=== PATIENT | male | born 1960 | race African-American/Black ===

== ENCOUNTER 2018-06-09 09:09 | Emergency (ER) | payer OTHER ==
[~2018-06-09] VITALS: Ht 185.4 cm; Wt 65.9 kg
[~2018-06-09 09:09] MED LIST: ASPI325T25 PO; HYDR25TAB PO
[2018-06-09] MEDS ORDERED: ASPI81TA85 PO (09:14)
[2018-06-09] MEDS ORDERED: KETOROLAC TROMETHAMINE 10 MG TAB PO ONE (09:45)
[2018-06-09] MEDS ORDERED: GABAPENTIN 300 MG CAP PO ONE (09:45)
--- NOTE | 2018-06-09 10:13 | REP ---
Clinical: Pain. Technique: Axial noncontrast images from T12 through mid sacrum with coronal and sagittal re-formations. Findings: The vertebral bodies are intact there is no evidence for acute fracture / compression injury or subluxation. Mild/early moderate multilevel degenerative changes include marginal osteophytes with endplate sclerosis and mild disc space narrowing. Small posterior disc bulges are suggested as well at the L3-4, L4-5, and L5-S1 levels. The neural foramen are patent bilaterally. Chronic sacroiliitis with sclerotic bridging through the bilateral sacroiliac joints is appreciated. Impression: 1. Mild/moderate multilevel degenerative changes including small posterior disc bulges. If the patient remains symptomatic MRI may be warranted for further investigation. 2. No acute fracture / compression injury or subluxation. 3. Chronic sacroiliitis. Electronically Signed by Demetrius Aceves MD 06/09/2018 10:04 A
--- NOTE | 2018-06-09 10:16 | REP ---
Clinical: Nontraumatic hip pain. Technique: Frontal view of the pelvis with neutral and frog lateral views of the right hip. Findings: Osseous structures and joint spaces are intact and there is no acute fracture dislocation. Mild degenerative changes include increased sclerosis to the acetabular roof with minimal joint space narrowing. No periarticular calcifications. Surrounding soft tissues normal. Impression: Mild age-related changes. No acute fracture or dislocation. Electronically Signed by Demetrius Aceves MD 06/09/2018 10:08 A
[2018-06-09] MEDS ORDERED: NORCO, ANEXSIA 5/325MG TABLET (HYDROcodone/ACETAMINOPHEN) PO ONE (10:30)
[2018-06-09] MEDS ORDERED: predniSONE 20 MG TAB PO ONE (10:30)
[2018-06-09 11:00] VITALS: BP 126/79
[2018-06-09] MEDS ORDERED: GABA-843 PO (11:05)
[2018-06-09] MEDS ORDERED: PRED20TA PO (11:05)
== END 2018-06-09 11:16 | disposition home or self-care (01) ==
LOC: M ED 09:09
DX: M51.26 Other intervertebral disc displacement, lumbar region (principal); M51.36 Other intervertebral disc degeneration, lumbar region; R20.9 Unspecified disturbances of skin sensation; I10 Essential (primary) hypertension; F17.200 Nicotine dependence, unspecified, uncomplicated; Z88.0 Allergy status to penicillin; Z79.899 Other long term (current) drug therapy; Z79.82 Long term (current) use of aspirin

== ENCOUNTER → 2018-08-08 | Outpatient (CLI) | payer OTHER ==
[~2018-08-08] MED LIST changes: +ASPI81TA85 PO; +GABA-843 PO; +PRED20TA PO
--- NOTE | 2018-08-08 15:13 | REP ---
Bilateral lower extremity arterial Doppler ultrasound: History: Pain in both legs. Findings: The patient was unable to tolerate the ankle brachial index assessment. Severe atherosclerotic disease is seen bilaterally. Abnormal monophasic waveforms are noted in both lower extremity arteries throughout. There is nonocclusive thrombus in the distal aorta. A very low velocity flow is seen in the distal aorta and left common iliac artery. The right common iliac arteries felt to be occluded and revascularized at the level of the internal iliac artery. Right mid superficial femoral artery is felt to be occluded and distally revascularized. A left profunda stenosis is seen. The proximal SFA on the left is is felt to be occluded. Distal aortic flow velocity is recorded at 32.4 cm/sec. Velocity chart right lower extremity: Right common iliac and external iliac artery are felt to be occluded. Right common femoral artery 30 cm/sec Profunda 51 Proximal SFA occluded Mid SFA occluded Distal SFA 6.9 Popliteal 19 Proximal AT A X 6.5 Tibioperoneal trunk 16 Proximal STAGE DRIVER 19 Distal STAGE DRIVER 8.0 Distal AT A 7.0 Left lower extremity arterial Doppler chart: Left common iliac artery 26 cm/S Left external iliac artery 14.6 CF A 54 Profunda 222 Proximal SFA occluded Mid SFA occluded Distal SFA 45-17 Popliteal 15 Proximal AT A 26 Tibioperoneal trunk 34 Proximal STAGE DRIVER 31 Distal STAGE DRIVER 8.0 Distal AT A 8.0 Electronically Signed by Mikhail Antonio MD 08/08/2018 03:05 P
== END ==
LOC: M RAD 12:29
PROVIDERS: ATTEND Surgery Vascular Surgery
DX: M79.604 Pain in right leg (principal); M79.605 Pain in left leg

== ENCOUNTER → 2018-08-21 | Outpatient (CLI) | payer OTHER ==
[~2018-08-21] MED LIST changes: +ACET300T52 PO; +BRIM1OPD OU; +TIZA4CAP PO; +XALA0.007 OU
[2018-08-21 15:04] LABS: BASO # 0.1 10^3/uL (0.0-0.2); BASO % 0.5 % (0.0-1.0); EOS # 0.2 10^3/uL (0.0-0.50); EOS % 1.6 % (0.0-3.0); HEMATOCRIT 42.3 % (42.0-52.0); HEMOGLOBIN 14.1 g/dl (13.5-17.5); LYMPH # 3.1 10^3/uL (1.5-4.5); LYMPH % 31.5 % (24.0-44.0); MEAN CORPUSCULAR HEMOGLOBIN 29.7 pg (27.0-33.0); MEAN CORPUSCULAR HGB CONC 33.3 g/dl (32.0-36.5); MEAN CORPUSCULAR VOLUME 89.2 fl (80.0-96.0); MONO # 0.6 10^3/uL (0.0-0.8); MONO % 6.5 % (0.0-5.0); NEUTROPHILS # 5.9 10^3/uL (1.8-7.7); NEUTROPHILS % 59.7 % (36.0-66.0); PLATELET COUNT, AUTOMATED 634 10^3/uL (150-450); RED BLOOD COUNT 4.74 10^6/uL (4.30-6.10); WHITE BLOOD COUNT 9.9 10^3/uL (4.0-10.0)
[2018-08-21 15:18] LABS: BLOOD UREA NITROGEN 20 MG/DL (7-18); CALCIUM LEVEL 9.6 MG/DL (8.5-10.1); CARBON DIOXIDE LEVEL 31 MEQ/L (21-32); CHLORIDE LEVEL 98 MEQ/L (98-107); CREATININE FOR GFR 1.26 MG/DL (0.70-1.30); GLOMERULAR FILTRATION RATE > 60.0 (>56); GLUCOSE, FASTING 97 MG/DL (70-100); POTASSIUM SERUM 4.3 MEQ/L (3.5-5.1); SODIUM LEVEL 137 MEQ/L (136-145)
== END ==
LOC: M LAB 13:57
PROVIDERS: ATTEND Surgery Vascular Surgery
DX: I70.213 Atherosclerosis of native arteries of extremities with intermittent claudication, bilateral legs (principal); I70.261 Atherosclerosis of native arteries of extremities with gangrene, right leg

== ENCOUNTER 2018-08-26 06:52 | Inpatient (IN) | payer OTHER ==
[2018-08-26] VITALS (7 sets, daily range): BP systolic 130–169; BP diastolic 60–91
[~2018-08-26] VITALS: Ht 185.4 cm; Wt 67.0 kg
[~2018-08-26 06:52] MED LIST changes: -ACET300T52 PO; -BRIM1OPD OU; +HEPARIN 1,000 UNITS/ML 10ML VIAL (FOR RADIOLOGY& DIALYSIS ONLY) As Ordered ONE; +ISOVUE-300 61% 50ML VIAL (Q9967) As Ordered ONE; +LIDOCAINE 2% MDV 20 ML VIAL As Ordered ONE; +MIDAZOLAM INJ 2 MG/2 ML VIAL (J2250) As Ordered ONE; -TIZA4CAP PO; -XALA0.007 OU; +fentaNYL 100 MCG/2 ML INJECTION (J3010) As Ordered ONE
[2018-08-26] MEDS: PANTOPRAZOLE 40MG TAB (PROTONIX) PO SCH (09:00)
[2018-08-26] MEDS: D5W/0.45% SODIUM CHLORIDE 1,000 ML IV SCH ×2 (12:30→22:51)
[2018-08-26 13:03] LABS: BASO # 0.1 10^3/uL (0.0-0.2); BASO % 0.7 % (0.0-1.0); EOS # 0.2 10^3/uL (0.0-0.50); EOS % 2.6 % (0.0-3.0); HEMATOCRIT 38.9 % (42.0-52.0); HEMOGLOBIN 12.7 g/dl (13.5-17.5); LYMPH # 3.3 10^3/uL (1.5-4.5); LYMPH % 45.2 % (24.0-44.0); MEAN CORPUSCULAR HEMOGLOBIN 28.9 pg (27.0-33.0); MEAN CORPUSCULAR HGB CONC 32.6 g/dl (32.0-36.5); MEAN CORPUSCULAR VOLUME 88.6 fl (80.0-96.0); MONO # 0.5 10^3/uL (0.0-0.8); MONO % 6.9 % (0.0-5.0); NEUTROPHILS # 3.3 10^3/uL (1.8-7.7); NEUTROPHILS % 44.3 % (36.0-66.0); PLATELET COUNT, AUTOMATED 520 10^3/uL (150-450); RED BLOOD COUNT 4.39 10^6/uL (4.30-6.10); WHITE BLOOD COUNT 7.3 10^3/uL (4.0-10.0)
[2018-08-26] MEDS ORDERED: TIZA4CAP PO (13:12)
[2018-08-26] MEDS ORDERED: ACET300T52 PO (13:12)
[2018-08-26] MEDS ORDERED: HYDR25TAB PO (13:14)
[2018-08-26] MEDS ORDERED: XALA0.007 OU (13:14)
[2018-08-26] MEDS ORDERED: BRIM1OPD OU (13:14)
[2018-08-26 13:18] LABS: INR 1.16
[2018-08-26 13:19] LABS: PARTIAL THROMBOPLASTIN TIME 39.7 SECONDS (25.4-37.6)
[2018-08-26 13:33] LABS: ALBUMIN 3.5 GM/DL (3.2-5.2); ALT/SGPT 26 U/L (12-78); BILIRUBIN,DIRECT 0.1 MG/DL (0.0-0.2); BILIRUBIN,TOTAL 0.3 MG/DL (0.2-1.0); BLOOD UREA NITROGEN 14 MG/DL (7-18); CALCIUM LEVEL 9.4 MG/DL (8.5-10.1); CARBON DIOXIDE LEVEL 30 MEQ/L (21-32); CHLORIDE LEVEL 101 MEQ/L (98-107); CREATININE FOR GFR 1.17 MG/DL (0.70-1.30); GLOMERULAR FILTRATION RATE > 60.0 (>56); GLUCOSE, FASTING 106 MG/DL (70-100); POTASSIUM SERUM 3.5 MEQ/L (3.5-5.1); SODIUM LEVEL 138 MEQ/L (136-145); TOTAL PROTEIN 6.9 GM/DL (6.4-8.2)
[2018-08-26] MEDS: NORCO, ANEXSIA 5/325MG TABLET (HYDROcodone/ACETAMINOPHEN) PO PRN (14:22)
--- NOTE | 2018-08-26 14:27 | REP ---
At x-ray: Three views. History: Preop. No comparison study. Findings: The lungs are symmetrically aerated and free of infiltrate. Pleural angles are sharp. Heart is not enlarged. The aorta somewhat tortuous. Pulmonary vasculature is not increased. No significant bony abnormality is seen. Impression: Tortuous thoracic aorta. Otherwise no acute disease. Electronically Signed by Mikhail Antonio MD 08/26/2018 02:18 P
[2018-08-26] MEDS ORDERED: BUPIVACAINE HCL 0.25% 30 ML VIAL As Ordered ONE (17:35)
[2018-08-26] MEDS ORDERED: LIDOCAINE 1% SDV INJ 30 ML VIAL As Ordered ONE ×2 (17:35→19:15)
[2018-08-26] MEDS ORDERED: HEPARIN SOD (PORCINE) 5000 UNITS/ML VIAL As Ordered ONE ×2 (17:35→19:43)
[2018-08-26] MEDS ORDERED: THROMBIN SOLN 20,000 UNITS KIT As Ordered ONE ×2 (17:35→20:23)
[2018-08-26] MEDS ORDERED: PROTAMINE SULF INJ 50 MG/5 ML VIAL (J2720) As Ordered ONE ×2 (17:35→21:19)
[2018-08-26] MEDS ORDERED: THROMBIN SOLN 5,000 UNITS VIAL As Ordered ONE (17:48)
[2018-08-26] MEDS ORDERED: PROPOFOL 200 MG/20 ML VIAL As Ordered ONE ×4 (18:42→21:11)
[2018-08-26] MEDS ORDERED: MIDAZOLAM INJ 2 MG/2 ML VIAL (J2250) As Ordered ONE (18:42)
[2018-08-26] MEDS ORDERED: fentaNYL 250 MCG/5 ML INJECTION (J3010) As Ordered ONE (18:42)
[2018-08-26] MEDS ORDERED: LIDOCAINE 2% INJ 100 MG/5 ML SDV (FOR ANES.) As Ordered ONE (18:42)
[2018-08-26] MEDS ORDERED: CLINDAMYCIN 900 MG/50 ML PREMIX BAG As Ordered ONE (18:49)
[2018-08-26] MEDS ORDERED: ROCURONIUM BROMIDE 50 MG/5 ML VIAL As Ordered ONE (18:52)
--- NOTE | 2018-08-26 18:53 | HPEPDOC ---
General Date of Admission Aug 26, 2018 at 06:53 Attending Physician: Yanick Sanchez MD Chief Complaint The patient is a 58-year-old male admitted with a reason for visit of Sfa Occlusion. Source: Patient, Old records Exam Limitations: No limitations Severity: Severe History of Present Illness Patient is a 58-year-old male with bilateral lower extremity claudication with the right being more symptomatic than the left. Patient underwent ultrasound which showed bilateral superficial femoral arterial occlusion. Patient states t hat the pain in the right lower extremity has been worsening and is at a point where he feels it is unbearable. 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 Patient also had left external and common iliac artery angioplasty and stenting. Patient continues to smoke tobacco. Home Medications Scheduled Aspirin (Aspir-81) 81 Mg Tab, 81 MG PO DAILY, (Reported) Brimonidine Tartrate 0.1% (Alphagan P) 100 Drop/5 Ml Soln, 1 DROP OU DAILY, (Reported) Hydrochlorothiazide (Hydrochlorothiazide) 25 Mg Tab, 25 MG PO DAILY, (Reported) Latanoprost (Xalatan) 0.005 % Roopa, 1 DROP OU DAILY, (Reported) Scheduled PRN (Acetaminophen/Codeine #4 300-60 mg) 1 Tab Tab, 1 TAB PO Q4H PRN for PAIN, (Reported) Tizanidine Hydrochloride (Tizanidine HCl) 4 Mg Cap, 4 MG PO TID PRN for MUSCLE SPASMS, (Reported) Allergies Coded Allergies: Penicillins (Verified Allergy, Unknown, 08/26/18) PT STATES UNKNOWN REACTION Past Medical History Medical History Hypertension and tobacco use Surgical History Back surgery Review of Systems Constitutional: Denies: Chills, Fever, Malaise, Night Sweats, Weakness, Fatigue, Weight Loss, Lethargy Eyes: Denies: Pain, Vision change, Conjunctivae inflammation, Eyelid inf lammation, Redness ENT: Denies: Head Aches, Ear Pain, Dysphagia, Sinus Congestion, Post Nasal Drip, Sore Throat, Epistaxis Skin: Denies: Rash, Lesions, Jaundice, Bruising, Itching, Dry, Breakdown, Nail Changes Pulmonary: Denies: Dyspnea, Cough, Pleuritic Chest Pain Cardiovascular: Denies: Chest Pain, Palpitations, Orthopnea, Paroxysmal Noc. Dyspnea, Edema, Lt Headedness Gastrointestinal: Denies: Nausea, Vomiting, Abdominal Pain, Diarrhea, Constipation, Melena, Hematochezia Genitourinary: Denies: Dysuria, Frequency, Incontinence, Hematuria, Retention Hematologic: Denies: Bruising, Bleeding Excessively, Petecchia, Purpura, Enlarged Lymph Nodes Endocrine: Denies: Polydipsia, Polyphagia, Polyuria, Heat Intolerance, Cold Intolerance Musculoskeletal: Denies: Neck Pain, Back Pain, Shoulder Pain, Arm Pain, Hand Pain, Leg Pain, Foot Pain, Joint Pain, Muscle Pain, Spasms Neurological: Denies: Weakness, Numbness, Incoordination, Change in speech, Confusion, Seizures Psych: Reports: Mood Normal; Denies: Anxiety, Depression, Memory Issues, Thoughts of Self Harm, Anger, Thoughts of Harming Other Physical Examination General Exam: Positive: Alert, Cooperative, Mild Distress Eye Exam: Positive: PERRLA, Conjunctiva & lids normal, EOMI ENT Exam: Positive: Atraumatic, Mucous membr. moist/pink, Pharynx Normal, Tongue Midline, Nares Patent, Ext Auditory Canal Nml, Pinna Normal Neck Exam: Positive: Supple, +2 carotid pulse wo bruit; Negative: JVD, thyromegaly, Lymphadenopathy Chest Exam: Positive: Clear to auscultation, Normal air movement; Negative: Rales, Rhonchi, Wheezing, Diminished Heart Exam: Positive: Rate Normal, Irregular Rhythm; Negative: Regular Rhythm, Gallops, Murmurs, Rubs Telemetry: Positive: PACs Abdomen Exam: Positive: Normal bowel sounds; Negative: BS Hyperactive, BS Hypoactive, Soft, Tenderness, Hepatospenomegaly, Mass, Hernia Skin Exam: Positive: Nl turgor and temperature, Other skin issue; Negative: Rash, Breakdown, Lesion, Pruritus Neuro Exam: Positive: Normal Gait, Normal Speech, Strength at 5/5 X4 ext, Normal Tone, Sensation Intact, Cranial Nerves 3-12 NL, Reflexes 2+ Psych Exam: Positive: Mental status NL, Mood NL, Memory Intact, Oriented x 3; Negative: Anxiety Vital Signs Vital Signs Date Time Temp Pulse Resp B/P (MAP) Pulse Ox O2 Delivery O2 Flow Rate FiO2 08/26/18 18:00 98.3 78 20 145/63 (90) 100 08/26/18 13:55 Room Air Laboratory Data Labs 24H Laboratory Tests 2 08/26/18 12:43: Immature Granulocyte % (Auto) 0.3, White Blood Count 7.3, Red Blood Count 4.39, Hemoglobin 12.7L, Hematocrit 38.9L, Mean Corpuscular Volume 88.6, Mean Corpuscular Hemoglobin 28.9, Mean Corpuscular Hemoglobin Concent 32.6, Red Cell Distribution Width 13.4, Platelet Count 520H, Neutrophils (%) (Auto) 44.3, Lymphocytes (%) (Auto) 45.2H, Monocytes (%) (Auto) 6.9H, Eosinophils (%) (Auto) 2.6, Basophils (%) (Auto) 0.7, Neutrophils # (Auto) 3.3, Lymphocytes # (Auto) 3.3, Monocytes # (Auto) 0.5, Eosinophils # (Auto) 0.2, Basophils # (Auto) 0.1, Nucleated Red Blood Cells % (auto) 0.0, Prothrombin Time 15.0H, Prothromb Time International Ratio 1.16, Activated Partial Thromboplast Time 39.7H, Anion Gap 7L, Glomerular Filtration Rate > 60.0, Calcium Level 9.4, Aspartate Amino Transf (AST/SGOT) 12, Alanine Aminotransferase (ALT/SGPT) 26, Alkaline Phosphatase 97, Total Bilirubin 0.3, Direct Bilirubin 0.1, Total Protein 6.9, Albumin 3.5, Albumin/Globulin Ratio 1.03 CBC/BMP Laboratory Tests 08/26/18 12:43 Red Blood Count 4.39, Mean Corpuscular Volume 88.6, Mean Corpuscular Hemoglobin 28.9, Mean Corpuscular Hemoglobin Concent 32.6, Red Cell Distribution Width 13.4, Neutrophils (%) (Auto) 44.3, Lymphocytes (%) (Auto) 45.2 H, Monocytes (%) (Auto) 6.9 H, Eosinophils (%) (Auto) 2.6, Basophils (%) (Auto) 0.7, Neutrophils # (Auto) 3.3, Lymphocytes # (Auto) 3.3, Monocytes # (Auto) 0.5, Eosinophils # (Auto) 0.2, Basophils # (Auto) 0.1 Assessment/Plan Assessment Patient is a 58-year-old male with 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 Plan Patient will undergo a left to right femoral femoral bypass graft for reperfusion of his right lower extremity. Yanick Sanchez MD Aug 26, 2018 18:53
[2018-08-26] MEDS ORDERED: BUPIVACAINE HCL 0.5% 30 ML VIAL As Ordered ONE (19:15)
[2018-08-26] MEDS ORDERED: ESMOLOL INJ 100MG/10ML VIAL As Ordered ONE (19:53)
[2018-08-26] MEDS: PERCOCET 5MG/325MG TAB PO PRN ×2 (20:26→21:55)
[2018-08-26] MEDS: fentaNYL 100 MCG/2 ML INJECTION (J3010) IV PRN ×3 (21:55→22:05)
[2018-08-26] MEDS ORDERED: fentaNYL 100 MCG/2 ML INJECTION (J3010) As Ordered ONE (21:56)
[2018-08-26] MEDS ORDERED: PERCOCET 5MG/325MG TAB As Ordered ONE (21:56)
[2018-08-26] MEDS ORDERED: LR 1,000 ML IV SCH (22:00)
[2018-08-26] MEDS ORDERED: ONDANSETRON 4MG/2ML VIAL (J2405) IV PRN (22:00)
[2018-08-26] MEDS ORDERED: METOPROLOL TART 25 MG TABLET PO ONE (23:30)
[2018-08-27] VITALS (16 sets, daily range): BP systolic 112–167; BP diastolic 72–91
[2018-08-27] MEDS: NORCO, ANEXSIA 5/325MG TABLET (HYDROcodone/ACETAMINOPHEN) PO PRN ×4 (00:37→16:40)
[2018-08-27] MEDS ORDERED: METOPROLOL TART 50 MG TAB PO ONE ×2 (01:00→18:15)
[2018-08-27 04:56] LABS: HEMATOCRIT 30.7 % (42.0-52.0); MEAN CORPUSCULAR HEMOGLOBIN 29.7 pg (27.0-33.0); MEAN CORPUSCULAR HGB CONC 33.6 g/dl (32.0-36.5); MEAN CORPUSCULAR VOLUME 88.5 fl (80.0-96.0); PLATELET COUNT, AUTOMATED 504 10^3/uL (150-450); RED BLOOD COUNT 3.47 10^6/uL (4.30-6.10); WHITE BLOOD COUNT 15.8 10^3/uL (4.0-10.0)
[2018-08-27 05:04] LABS: HEMOGLOBIN 10.3 g/dl (13.5-17.5)
[2018-08-27 05:16] LABS: BLOOD UREA NITROGEN 9 MG/DL (7-18); CALCIUM LEVEL 8.2 MG/DL (8.5-10.1); CARBON DIOXIDE LEVEL 30 MEQ/L (21-32); CHLORIDE LEVEL 100 MEQ/L (98-107); CREATININE FOR GFR 1.01 MG/DL (0.70-1.30); GLOMERULAR FILTRATION RATE > 60.0 (>56); GLUCOSE, FASTING 146 MG/DL (70-100); POTASSIUM SERUM 3.5 MEQ/L (3.5-5.1); SODIUM LEVEL 136 MEQ/L (136-145)
[2018-08-27] MEDS: D5W/0.45% SODIUM CHLORIDE 1,000 ML IV SCH (05:51)
--- NOTE | 2018-08-27 07:54 | ECHO ---
DATE OF PROCEDURE: 08/26/2018 REFERRING PHYSICIAN: Yanick Sanchez. INDICATION: Abnormal ECG. HEIGHT: 185 cm. WEIGHT: 67 kg. DIMENSIONS: IVS: 1.1 LV: 4.4 LVPW: 1.0 LA: 2.9 Aorta: 3.4 IVC: 0.9 Mitral E wave velocity: 50 A wave: 67 E prime septal: 7.5 E prime lateral: 9.0 FINDINGS: The study is of acceptable technical quality. The patient is in sinus rhythm with frequent atrial ectopy. Left ventricle is normal size. There appears to be borderline left ventricular systolic dysfunction, I estimate LVEF around 50%. No segmental wall motion abnormalities are appreciated. Right ventricle appears to be normal size and systolic function. Both atria appear normal. Aortic valve has three leaflets. It is mildly sclerotic but mobility of leaflets is preserved. There are also mild degenerative abnormalities of mitral valve. Tricuspid and pulmonic valves appear normal. No pericardial effusion is noted. Inferior vena cava is of relatively small caliber and appropriately collapses respiration indicative of low or normal central venous pressure. Aortic root and aortic arch appear normal. Abdominal aorta also appears normal. Doppler interrogation of aortic valve reveals no stenosis and mild insufficiency. There is mild mitral insufficiency and mild tricuspid insufficiency. Calculated pulmonary artery pressure was within normal limits. Trace pulmonic insufficiency is also seen. Mitral inflow pattern and tissue Doppler imaging of mitral annulus reveal grade 1 diastolic dysfunction. CONCLUSIONS: 1. Study is of acceptable technical quality. 2. Normal LV size with low normal or borderline reduced left ventricular systolic function with estimated LVEF approximately 50%. Grade 1 diastolic dysfunction. 3. Mild aortic insufficiency. 4. Mild mitral and tricuspid insufficiency. 5. Normal or low central venous pressure and normal pulmonary artery pressure. COMMENT: SBE prophylaxis is not recommended. MTDD
[2018-08-27] MEDS: ASPIRIN 81 MG ENTERIC TAB PO SCH (08:50)
[2018-08-27] MEDS: PANTOPRAZOLE 40MG TAB (PROTONIX) PO SCH (08:50)
[2018-08-27] MEDS: hydroCHLOROthiazide 25 MG TAB PO SCH (08:51)
[2018-08-27] MEDS: BRIMONIDINE 0.1% OPHTH SOLN 5 ML OU SCH (13:10)
[2018-08-27] MEDS: LATANOPROST 0.005% OPHTH SOLN 2.5 ML OU SCH (13:10)
[2018-08-27] MEDS: tiZANidine 4 MG TAB PO PRN (18:19)
--- NOTE | 2018-08-27 19:40 | IPNPDOC ---
Subjective General Date/Time Seen The patient was seen on 08/27/18 at 19:39. Subject Chief Complaint/History The patient is a 58-year-old male admitted with a reason for visit of Sfa Occlusion. Current Medications Current Medications Current Medications Acetaminophen/ Hydrocodone Bitart ([place], Anexsia 5/325) 1 tab Q4HP PRN PO MODERATE PAIN (PS 5-7) Last administered on 08/27/18 16:40; Start 08/26/18 at 12:30 Aspirin (Ecotrin) 81 mg DAILY PO Last administered on 08/27/18 08:50; Start 08/27/18 at 09:00 Brimonidine Tartrate (Alphagan P 0.1%) 1 drop DAILY@1200 OU Last administered on 08/27/18 13:10; Start 08/27/18 at 12:00 Dextrose/Sodium Chloride 1,000 ml @ 125 mls/hr Q8H IV Last administered on 08/27/18 05:51; Start 08/26/18 at 12:30; Stop 08/27/18 at 13:07; Status DC Fentanyl Citrate (Sublimaze) 25 mcg Q5MP PRN IV MODERATE PAIN (PS 4-7) Last administered on 08/26/18 22:05; Start 08/26/18 at 22:00; Stop 08/26/18 at 23:00; Status DC Home Med (Med Rec Complete!) ASDIRECTED XX ; Start 08/26/18 at 13:30; Stop 08/26/18 at 13:30; Status DC Hydrochlorothiazide (Hydrodiuril) 25 mg DAILY PO Last administered on 08/27/18 08:51; Start 08/27/18 at 09:00 Lactated Ringer's 1,000 ml @ 80 mls/hr [id number] IV ; Start 08/26/18 at 22:00; Stop 08/26/18 at 23:00; Status DC Latanoprost (Xalatan 0.005% Op Soln) 1 drop DAILY@1200 OU Last administered on 08/27/18 13:10; Start 08/27/18 at 12:00 Ondansetron HCl (ZOFRAN INJection) 4 mg Q4HP PRN IV NAUSEA OR VOMITING; Start 08/26/18 at 22:00; Stop 08/26/18 at 23:00; Status DC Oxycodone/ Acetaminophen (Percocet 5mg/ 325mg Tablet) 1 tab ASDIRECTED PRN PO MILD/MODERATE PAIN (PS 1-7) Last administered on 08/26/18at 20:26; Start 08/26/18 at 22:00; Stop 08/26/18 at 22:36; Status DC Pantoprazole Sodium (Protonix) 40 mg DAILY PO Last administered on 08/27/18at 08:50; Start 08/26/18 at 09:00 Tizanidine HCl (Zanaflex) 4 mg TIDP PRN PO MUSCLE SPASMS Last administered on 08/27/18at 18:19; Start 08/26/18 at 21:45 Allergies Coded Allergies: Penicillins (Verified Allergy, Unknown, 08/26/18) PT STATES UNKNOWN REACTION VITAL SIGNS VITAL SIGNS Vital Signs Date Time Temp Pulse Resp B/P (MAP) Pulse Ox O2 Delivery O2 Flow Rate FiO2 08/27/18 18:14 122 116/78 08/27/18 17:33 138 22 116/78 (91) 99 Room Air 08/27/18 17:10 22 08/27/18 16:40 24 132/87 97 08/27/18 16:00 99.2 106 20 142/89 (106) 99 Room Air 08/27/18 15:00 105 126/84 (98) 100 Room Air 08/27/18 14:00 106 124/83 (97) 100 Room Air 08/27/18 13:00 97 112/72 (85) 100 Room Air 08/27/18 12:00 99.1 101 20 124/82 (96) 100 Room Air 08/27/18 11:00 97 167/91 (116) 100 Room Air 08/27/18 10:00 94 114/89 (97) 98 Room Air 08/27/18 09:00 89 122/87 (99) 97 Room Air 08/27/18 08:54 86 20 121/82 97 08/27/18 08:00 99.7 85 20 116/76 (89) 100 Room Air 08/27/18 07:00 81 117/85 (96) 99 Room Air 08/27/18 06:00 98.0 70 16 116/78 (91) 98 08/27/18 04:26 18 08/27/18 04:00 98.3 82 20 114/85 (95) 100 08/27/18 04:00 98.3 82 20 114/85 (95) 100 08/27/18 02:00 99.1 88 20 129/86 (100) 100 08/27/18 00:54 166 160/75 08/27/18 00:37 18 08/27/18 00:00 97.5 73 18 160/75 (103) 99 08/26/18 23:35 150 160/85 08/26/18 23:30 97.5 73 18 169/85 (113) 99 08/26/18 23:00 97.8 70 16 158/80 (106) 98 08/26/18 22:15 98.3 96 18 145/92 (109) 98 08/26/18 22:10 94 18 137/80 (99) 97 08/26/18 22:05 97 18 140/105 (117) 97 08/26/18 22:05 97.6 94 18 137/80 97 08/26/18 22:00 107 18 136/97 (110) 98 08/26/18 22:00 97.6 94 18 137/80 97 08/26/18 21:55 103 18 128/75 (92) 98 08/26/18 21:55 18 97 08/26/18 21:55 97.6 94 18 137/80 97 08/26/18 21:50 99 18 131/92 (105) 98 08/26/18 21:45 101 18 133/80 (97) 100 08/26/18 21:44 97.6 107 18 138/85 (102) 99 08/26/18 20:26 98.3 96 18 145/92 98 Intake & Output 08/27/18 06:00 Intake Total 2000 ml Output Total 1840 ml Balance 160 ml Laboratory Tests 08/27/18 04:06: White Blood Count 15.8H, Red Blood Count 3.47L, Hemoglobin 10.3#L, Hematocrit 30.7L, Mean Corpuscular Volume 88.5, Mean Corpuscular Hemoglobin 29.7, Mean Corpuscular Hemoglobin Concent 33.6, Red Cell Distribution Width 13.5, Platelet Count 504H, Nucleated Red Blood Cells % (auto) 0.0, Blood Urea Nitrogen 9, Creatinine 1.01, Sodium Level 136, Potassium Level 3.5, Chloride Level 100, Carbon Dioxide Level 30, Calcium Level 8.2L, Anion Gap 6L, Glomerular Filtration Rate > 60.0, Fasting Glucose 146H Current Medications Medications (Trade) Dose Ordered Sig/Anastacio Route PRN Reason Start Time Stop Time Status Last Admin Dose Admin Acetaminophen/ Hydrocodone Bitart ([place], Anexsia 5/325) 1 tab Q4HP PRN PO MODERATE PAIN (PS 5-7) 08/26/18 12:30 08/27/18 16:40 Aspirin (Ecotrin) 81 mg DAILY PO 08/27/18 09:00 08/27/18 08:50 Brimonidine Tartrate (Alphagan P 0.1%) 1 drop DAILY@1200 OU 08/27/18 12:00 08/27/18 13:10 Hydrochlorothiazide (Hydrodiuril) 25 mg DAILY PO 08/27/18 09:00 08/27/18 08:51 Latanoprost (Xalatan 0.005% Op Soln) 1 drop DAILY@1200 OU 08/27/18 12:00 08/27/18 13:10 Pantoprazole Sodium (Protonix) 40 mg DAILY PO 08/26/18 09:00 08/27/18 08:50 Tizanidine HCl (Zanaflex) 4 mg TIDP PRN PO MUSCLE SPASMS 08/26/18 21:45 08/27/18 18:19 Laboratory Tests 08/26/18 12:43 Red Blood Count 4.39, Mean Corpuscular Volume 88.6, Mean Corpuscular Hemoglobin 28.9, Mean Corpuscular Hemoglobin Concent 32.6, Red Cell Distribution Width 13.4, Neutrophils (%) (Auto) 44.3, Lymphocytes (%) (Auto) 45.2 H, Monocytes (%) (Auto) 6.9 H, Eosinophils (%) (Auto) 2.6, Basophils (%) (Auto) 0.7, Neutrophils # (Auto) 3.3, Lymphocytes # (Auto) 3.3, Monocytes # (Auto) 0.5, Eosinophils # (Auto) 0.2, Basophils # (Auto) 0.1 08/27/18 04:06 Red Blood Count 3.47 L, Mean Corpuscular Volume 88.5, Mean Corpuscular Hemoglobin 29.7, Mean Corpuscular Hemoglobin Concent 33.6, Red Cell Distribution Width 13.5, Calcium Level 8.2 L Objective Physical Examination General Exam: Positive: Alert, Cooperative, Mild Distress Eye Exam: Positive: PERRLA, Conjunctiva & lids normal, EOMI ENT Exam: Positive: Atraumatic, Mucous membr. moist/pink, Pharynx Normal, Tongue Midline, Nares Patent, Ext Auditory Canal Nml, Pinna Normal Neck Exam: Positive: Supple, +2 carotid pulse wo bruit; Negative: JVD, thyromegaly, Lymphadenopathy Chest Exam: Positive: Clear to auscultation, Normal air movement; Negative: Rales, Rhonchi, Wheezing, Diminished Heart Exam: Positive: Rate Normal, Irregular Rhythm; Negative: Regular Rhythm, Gallops, Murmurs, Rubs Telemetry: Positive: PACs Abdomen Exam: Positive: Normal bowel sounds; Negative: BS Hyperactive, BS Hypoactive, Soft, Tenderness, Hepatospenomegaly, Mass, Hernia Skin Exam: Positive: Nl turgor and temperature, Other skin issue; Negative: Rash, Breakdown, Lesion, Pruritus Neuro Exam: Positive: Normal Gait, Normal Speech, Strength at 5/5 X4 ext, Normal Tone, Sensation Intact, Cranial Nerves 3-12 NL, Reflexes 2+ Psych Exam: Positive: Mental status NL, Mood NL, Memory Intact, Oriented x 3; Negative: Anxiety Yanick Sanchez MD Aug 27, 2018 19:39
[2018-08-28] VITALS (8 sets, daily range): BP systolic 82–142; BP diastolic 50–98
[2018-08-28] MEDS: NORCO, ANEXSIA 5/325MG TABLET (HYDROcodone/ACETAMINOPHEN) PO PRN ×6 (00:30→22:23)
--- NOTE | 2018-08-28 00:40 | ECGEPIP ---
Stationary ECG Study [facility] Test Date: 2018-08-26 Pat Name: HILLARY ROWAN Department: Room: L0007-02 Gender: M Plaster Maker: CLIFFORD : 1960 Requested By: Yanick Gutierrez Order Number: [id number] Reading MD: Les Bueno Measurements Intervals [place] Rate: 94 P: 87 [place]: 149 QRS: 80 QRSD: 102 T: 68 QT: 353 QTc: 444 Interpretive Statements SINUS RHYTHM WITH FREQUENT SUPRAVENTRICULAR PREMATURE COMPLEXES VOLTAGE CRITERIA FOR LVH LAST TRACING ON 01/23/2018 AT 6:21:15 A.M., NO PACS WERE NOTED Electronically Signed On 08-28-2018 0:40:30 EDT by Les Bueno
--- NOTE | 2018-08-28 00:53 | ECGEPIP ---
Stationary ECG Study [facility] Test Date: 2018-08-27 Pat Name: HILLARY ROWAN Department: Room: [place] [address] Gender: M Medicaid Nurse: SHERYL : 1960 Requested By: Yanick Gutierrez Order Number: [id number] Reading MD: Les Bueno Measurements Intervals [place] Rate: 94 P: 73 [place]: 157 QRS: 73 QRSD: 102 T: 74 QT: 356 QTc: 446 Interpretive Statements SINUS RHYTHM WITH OCCASIONAL SUPRAVENTRICULAR PREMATURE COMPLEXES MODERATE VOLTAGE CRITERIA FOR LVH, CONSIDER NORMAL VARIANT PRIOR TRACING ON 08/26/2018 AT 2:36:00 A.M., NO REMARKABLE CHANGES Electronically Signed On 08-28-2018 0:53:41 EDT by Les Bueno
[2018-08-28] MEDS: tiZANidine 4 MG TAB PO PRN ×3 (04:29→22:21)
[2018-08-28] MEDS: hydroCHLOROthiazide 25 MG TAB PO SCH (09:01)
[2018-08-28] MEDS: PANTOPRAZOLE 40MG TAB (PROTONIX) PO SCH (09:01)
[2018-08-28] MEDS: ASPIRIN 81 MG ENTERIC TAB PO SCH (09:02)
[2018-08-28] MEDS: BRIMONIDINE 0.1% OPHTH SOLN 5 ML OU SCH (12:06)
[2018-08-28] MEDS: LATANOPROST 0.005% OPHTH SOLN 2.5 ML OU SCH (12:06)
[2018-08-28] MEDS ORDERED: ATENOLOL 25 MG TAB PO ONE (13:00)
[2018-08-28] MEDS: APIXABAN 5 MG TAB (ELIQUIS) PO SCH ×2 (13:12→20:15)
[2018-08-28] MEDS: NICOTINE 7 MG/24 HR TRANSDERMAL TD SCH (13:12)
[2018-08-28] MEDS ORDERED: MOM 30ML SUSPENSION UDC PO PRN (14:45)
[2018-08-28] MEDS: SENOKOT S TAB PO SCH ×2 (14:59→19:42)
[2018-08-29] VITALS (11 sets, daily range): BP systolic 76–136; BP diastolic 50–87
[2018-08-29 05:06] LABS: BASO # 0.1 10^3/uL (0.0-0.2); BASO % 0.6 % (0.0-1.0); EOS # 0.5 10^3/uL (0.0-0.50); EOS % 4.2 % (0.0-3.0); HEMATOCRIT 27.2 % (42.0-52.0); HEMOGLOBIN 9.1 g/dl (13.5-17.5); LYMPH # 2.7 10^3/uL (1.5-4.5); LYMPH % 25.2 % (24.0-44.0); MEAN CORPUSCULAR HGB CONC 33.5 g/dl (32.0-36.5); MEAN CORPUSCULAR VOLUME 89.8 fl (80.0-96.0); MONO # 1.2 10^3/uL (0.0-0.8); MONO % 11.1 % (0.0-5.0); NEUTROPHILS # 6.2 10^3/uL (1.8-7.7); NEUTROPHILS % 58.4 % (36.0-66.0); PLATELET COUNT, AUTOMATED 485 10^3/uL (150-450); RED BLOOD COUNT 3.03 10^6/uL (4.30-6.10); WHITE BLOOD COUNT 10.6 10^3/uL (4.0-10.0)
[2018-08-29 05:24] LABS: BLOOD UREA NITROGEN 10 MG/DL (7-18); CALCIUM LEVEL 8.8 MG/DL (8.5-10.1); CARBON DIOXIDE LEVEL 33 MEQ/L (21-32); CHLORIDE LEVEL 97 MEQ/L (98-107); CREATININE FOR GFR 1.05 MG/DL (0.70-1.30); GLOMERULAR FILTRATION RATE > 60.0 (>56); GLUCOSE, FASTING 112 MG/DL (70-100); POTASSIUM SERUM 3.4 MEQ/L (3.5-5.1); SODIUM LEVEL 136 MEQ/L (136-145)
[2018-08-29] MEDS: NORCO, ANEXSIA 5/325MG TABLET (HYDROcodone/ACETAMINOPHEN) PO PRN ×4 (05:25→23:11)
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
[2018-08-29] MEDS: APIXABAN 5 MG TAB (ELIQUIS) PO SCH ×2 (08:36→20:00)
[2018-08-29] MEDS: hydroCHLOROthiazide 25 MG TAB PO SCH (08:37)
[2018-08-29] MEDS: SENOKOT S TAB PO SCH ×2 (08:37→20:00)
[2018-08-29] MEDS: tiZANidine 4 MG TAB PO PRN ×2 (08:37→16:50)
[2018-08-29] MEDS: PANTOPRAZOLE 40MG TAB (PROTONIX) PO SCH (08:37)
[2018-08-29] MEDS: ASPIRIN 81 MG ENTERIC TAB PO SCH (08:38)
[2018-08-29] MEDS: NICOTINE 7 MG/24 HR TRANSDERMAL TD SCH (08:38)
[2018-08-29] MEDS ORDERED: ATENOLOL 25 MG TAB PO SCH (09:00)
--- NOTE | 2018-08-29 11:20 | IPNPDOC ---
Text Note Date of Service The patient was seen on 08/29/18. NOTE SUBJECTIVE: Patient is a 58-year-old -Rwandan male, past medical history of hypertension, alcohol abuse and smoking. Was previously followed at the [facility] in [place] for bilateral leg pain. Patient was originally being worked up by neurology who referred the patient to Dr. Sanchez. Angiography indicated the patient had bilateral superficial femoral arterial occlusion with complete occlusion of the right common and right external iliac artery with distal common femoral artery recannulization via collaterals. Patient was admitted to Dr. Sanchez on 08/26/18 for graft placement. He was found to have atrial flutter, received metoprolol 50 mg and kept in the ICU on telemetry which demonstrated further episodes of sinus tachycardia. Yesterday, the patient did have a bout of tachycardia in the 130s when he was standing. Patient's pressure and heart rate have been stable this morning and he was able to receive his atenolol given that he met the parameters. Patient was interviewed and examined today at bedside in the ICU. Patient continues to complain of lower extremity pain related to his bypass graft placement. He also reports difficulty stooling, bowel care was prescribed earlier this morning. He denies headache, changes in vision. Patient also denies chest pain/pressure, shortness of breath, difficulty breathing. Denies abdominal pain or difficulty with urination. OBJECTIVE: VITALS: please see below EXAM: Gen.: Alert and oriented, no acute distress Head: Normocephalic, atraumatic EENT: Poor dentition, moist mucous membranes, EOMI, no scleral icterus Neck: No JVD appreciated no cervical lymphadenopathy or thyromegaly Lungs: Clear to auscultation bilaterally, no wheezing rales or rhonchi Heart: Regular rate and rhythm, normal S1 and S2 without murmurs rubs or gallops Abdomen: Soft, nontender, nondistended, no masses or organomegaly appreciated Extremities: No lower extremity edema or calf tenderness. Lower extremity movement limited by s/p bypass received her. Psych: Mood and affect are appropriate Skin: No new or changing skin lesions. Tattoos noted on the patient's chest IMAGING: CXR (08/26/18): Tortuous thoracic aorta. Otherwise no acute disease. ASSESSMENT/PLAN: 58-year-old -Rwandan male S/P right sided femoralfemoral bypass graft placed on 08/27/[address] Sanchez. History of nicotine and alcohol abuse and h ypertension. 1. Atrial flutter/fibrillation CHADS-VASc greater than 2, placed on Eliquis 5 mg twice a day -Atenolol 25 mg daily for rate control. Holding parameters include SBP less than 100 and HR less than 60. -Rate stable, discontinue telemetry and transfer to [facility]. 2. Hypertension -c/w atenolol 25 mg - c/w hydrochlorothiazide 25 mg 3. Peripheral arterial disease - s/p right and left femoral to femoral bypass grafting - Postop management per vascular surgery 4. HFpEF - Grade 1 diastolic dysfunction, EF of 60%, mild mitral and tricuspid insufficiency - EMILEE inhibitor in the future 5. Nicotine dependence - Patient report quitting smoking 3 months ago. He has been smoking 1-2 packs every 2-3 days since the age of 13. 6. DVT prophylaxis: Continue ASA and Eliquis VS,Fishbone, I+O VS, Fishbone, I+O Laboratory Tests 08/29/18 04:27 Red Blood Count 3.03 L, Mean Corpuscular Volume 89.8, Mean Corpuscular Hemoglobin 30.0, Mean Corpuscular Hemoglobin Concent 33.5, Red Cell Distribution Width 13.7, Neutrophils (%) (Auto) 58.4, Lymphocytes (%) (Auto) 25.2, Monocytes (%) (Auto) 11.1 H, Eosinophils (%) (Auto) 4.2 H, Basophils (%) (Auto) 0.6, Neutrophils # (Auto) 6.2, Lymphocytes # (Auto) 2.7, Monocytes # (Auto) 1.2 H, Eosinophils # (Auto) 0.5, Basophils # (Auto) 0.1, Calcium Level 8.8 Vital Signs Date Time Temp Pulse Resp B/P (MAP) Pulse Ox O2 Delivery O2 Flow Rate FiO2 08/29/18 09:24 90 18 117/80 (92) 99 08/29/18 08:00 99.7 08/27/18 19:00 Room Air I&O- Last 24 Hours up to 6 AM 08/29/18 06:00 Intake Total 1550 ml Output Total 1100 ml Balance 450 ml GME ATTESTATION GME ATTESTATION My faculty preceptor for this patient encounter was physically present during the encounter and was fully available. All aspects of the patient interview, examination, medical decision making process, and medical care plan development were reviewed and approved by the faculty preceptor. The faculty preceptor is aware and concurs with the plan as stated in the body of this note and will attest to such by his/her cosignature. NORBERTO JOYCE DO Aug 29, 2018 11:20
[2018-08-29] MEDS: LATANOPROST 0.005% OPHTH SOLN 2.5 ML OU SCH (12:07)
[2018-08-29] MEDS: BRIMONIDINE 0.1% OPHTH SOLN 5 ML OU SCH (12:08)
[2018-08-29] MEDS ORDERED: NS 500 ML IV ONE (18:15)
[2018-08-29] MEDS ORDERED: POTASSIUM CHLORIDE 10 MEQ SR TABLET PO ONE (19:00)
[2018-08-30] VITALS (9 sets, daily range): BP systolic 119–164; BP diastolic 74–97
[2018-08-30] MEDS: tiZANidine 4 MG TAB PO PRN ×3 (04:15→21:10)
[2018-08-30 04:41] LABS: BASO # 0.1 10^3/uL (0.0-0.2); BASO % 0.6 % (0.0-1.0); EOS # 0.5 10^3/uL (0.0-0.50); HEMATOCRIT 26.6 % (42.0-52.0); HEMOGLOBIN 8.7 g/dl (13.5-17.5); LYMPH # 3.3 10^3/uL (1.5-4.5); LYMPH % 31.1 % (24.0-44.0); MEAN CORPUSCULAR HEMOGLOBIN 29.1 pg (27.0-33.0); MEAN CORPUSCULAR HGB CONC 32.7 g/dl (32.0-36.5); MONO # 0.9 10^3/uL (0.0-0.8); MONO % 8.7 % (0.0-5.0); NEUTROPHILS # 5.7 10^3/uL (1.8-7.7); NEUTROPHILS % 54.2 % (36.0-66.0); PLATELET COUNT, AUTOMATED 569 10^3/uL (150-450); RED BLOOD COUNT 2.99 10^6/uL (4.30-6.10); WHITE BLOOD COUNT 10.5 10^3/uL (4.0-10.0)
[2018-08-30 05:02] LABS: BLOOD UREA NITROGEN 8 MG/DL (7-18); CALCIUM LEVEL 8.9 MG/DL (8.5-10.1); CARBON DIOXIDE LEVEL 32 MEQ/L (21-32); CHLORIDE LEVEL 101 MEQ/L (98-107); CREATININE FOR GFR 0.99 MG/DL (0.70-1.30); GLOMERULAR FILTRATION RATE > 60.0 (>56); GLUCOSE, FASTING 110 MG/DL (70-100); POTASSIUM SERUM 3.7 MEQ/L (3.5-5.1); SODIUM LEVEL 139 MEQ/L (136-145)
[2018-08-30] MEDS: NORCO, ANEXSIA 5/325MG TABLET (HYDROcodone/ACETAMINOPHEN) PO PRN ×4 (06:23→20:21)
[2018-08-30] MEDS ORDERED: PILL CRUSHER/CUTTER 1 EACH XX PRN (08:00)
[2018-08-30] MEDS ORDERED: ATENOLOL 12.5MG PER 1/2 TABLET PO SCH (09:00)
[2018-08-30] MEDS: ATENOLOL 25 MG TAB PO SCH ×2 (09:00→21:51)
[2018-08-30] MEDS: ASPIRIN 81 MG ENTERIC TAB PO SCH (09:14)
[2018-08-30] MEDS: SENOKOT S TAB PO SCH ×2 (09:14→20:20)
[2018-08-30] MEDS: APIXABAN 5 MG TAB (ELIQUIS) PO SCH ×2 (09:14→20:20)
[2018-08-30] MEDS: PANTOPRAZOLE 40MG TAB (PROTONIX) PO SCH (09:14)
--- NOTE | 2018-08-30 10:50 | IPNPDOC ---
Text Note Date of Service The patient was seen on 08/30/18. NOTE SUBJECTIVE: Patient is a 58-year-old -Dutch male, past medical history of hypertension, alcohol abuse and smoking. Was previously followed at the [facility] in [place] for bilateral leg pain. Patient was originally being worked up by neurology who referred the patient to Dr. Sanchez. Angiography indicated the patient had bilateral superficial femoral arterial occlusion with complete occlusion of the right common and right external iliac artery with distal common femoral artery recannulization via collaterals. Patient was admitted to Dr. Sanchez on 08/26/18 for graft placement. He was found to have atrial flutter, received metoprolol 50 mg and kept in the ICU on telemetry which demonstrated further episodes of sinus tachycardia. Patient was interviewed and examined today at bedside in the ICU. Patient continues to complain of lower extremity pain related to his bypass graft placement. He also reports a bout of diarrhea yesterday. Bowel care was pres cribed earlier this morning. Last evening at 1800 patient did have an episode of hypotension with a map of 59. He was treated with a fluid bolus and his pressure increased. His blood pressure has remained stable overnight, with a map in the high 80s-low 100s. Right has remained stable in the 80s. He denies headache, changes in vision. Patient also denies chest pain/pressure, shortness of breath, difficulty breathing. Denies abdominal pain or difficulty with urination. OBJECTIVE: VITALS: please see below EXAM: Gen.: Alert and oriented, no acute distress Head: Normocephalic, atraumatic EENT: Poor dentition, moist mucous membranes, EOMI, no scleral icterus Neck: No JVD appreciated no cervical lymphadenopathy or thyromegaly Lungs: Clear to auscultation bilaterally, no wheezing rales or rhonchi Heart: Regular rate and rhythm, normal S1 and S2 without murmurs rubs or gallops Abdomen: Soft, nontender, nondistended, no masses or organomegaly appreciated. Bilateral incision sites which remain covered. Dry without any drainage or peripheral erythema. Extremities: No lower extremity edema or calf tenderness. Lower extremity movement limited by s/p bypass received her. Psych: Mood and affect are appropriate Skin: No new or changing skin lesions. Tattoos noted on the patient's chest IMAGING: CXR (08/26/18): Tortuous thoracic aorta. Otherwise no acute disease. ASSESSMENT/PLAN: 58-year-old -Dutch male S/P right sided femoralfemoral bypass graft placed on 08/27/[address] Sanchez. History of nicotine and alcohol abuse and hypertension. 1. Atrial flutter/fibrillation CHADS-VASc greater than 2, placed on Eliquis 5 mg twice a day -Atenolol 25 mg daily for rate control. Holding parameters include SBP less than 100 and HR less than 60. -Rate stable, discontinue telemetry and transfer to [facility]. 2. Hypertension - BP stable overnight - Plan to treat episodes of hypotension with NS bolus first - Atenolol from 12.5 mg to 6.25 mg BID LIVIER 3. Peripheral arterial disease - s/p right and left femoral to femoral bypass grafting - incision sites clean and dry without signs of infection. - Postop management per vascular surgery 4. HFpEF - Grade 1 diastolic dysfunction, EF of 60%, mild mitral and tricuspid insufficiency - EMILEE inhibitor in the future 5. Nicotine dependence - Patient report quitting smoking 3 months ago. He has been smoking 1-2 packs every 2-3 days since the age of 13. - Declines nicotine patch at this time 6. DVT prophylaxis: Continue ASA and Eliquis VS,Fishbone, I+O VS, Fishbone, I+O Laboratory Tests 08/30/18 04:08 Red Blood Count 2.99 L, Mean Corpuscular Volume 89.0, Mean Corpuscular Hemoglobin 29.1, Mean Corpuscular Hemoglobin Concent 32.7, Red Cell Distribution Width 13.4, Neutrophils (%) (Auto) 54.2, Lymphocytes (%) (Auto) 31.1, Monocytes (%) (Auto) 8.7 H, Eosinophils (%) (Auto) 5.0 H, Basophils (%) (Auto) 0.6, Neutrophils # (Auto) 5.7, Lymphocytes # (Auto) 3.3, Monocytes # (Auto) 0.9 H, Eosinophils # (Auto) 0.5, Basophils # (Auto) 0.1, Calcium Level 8.9 Vital Signs Date Time Temp Pulse Resp B/P (MAP) Pulse Ox O2 Delivery O2 Flow Rate FiO2 08/30/18 10:13 20 95 08/30/18 09:00 82 126/83 08/30/18 08:00 98.5 08/27/18 19:00 Room Air I&O- Last 24 Hours up to 6 AM 08/30/18 06:00 Intake Total 2640 ml Output Total 3000 ml Balance -360 ml GME ATTESTATION GME ATTESTATION My faculty preceptor for this patient encounter was physically present during the encounter and was fully available. All aspects of the patient interview, examination, medical decision making process, and medical care plan development were reviewed and approved by the faculty preceptor. The faculty preceptor is aware and concurs with the plan as stated in the body of this note and will attest to such by his/her cosignature. NORBERTO JOYCE DO Aug 30, 2018 10:50
[2018-08-30] MEDS: BRIMONIDINE 0.1% OPHTH SOLN 5 ML OU SCH (12:00)
[2018-08-30] MEDS: LATANOPROST 0.005% OPHTH SOLN 2.5 ML OU SCH ×2 (12:00→20:24)
[2018-08-31] MEDS: NORCO, ANEXSIA 5/325MG TABLET (HYDROcodone/ACETAMINOPHEN) PO PRN ×5 (02:05→22:31)
[2018-08-31 05:46] LABS: BASO # 0.1 10^3/uL (0.0-0.2); BASO % 0.6 % (0.0-1.0); EOS # 0.6 10^3/uL (0.0-0.50); EOS % 6.1 % (0.0-3.0); HEMOGLOBIN 8.7 g/dl (13.5-17.5); LYMPH % 33.3 % (24.0-44.0); MEAN CORPUSCULAR HEMOGLOBIN 28.8 pg (27.0-33.0); MEAN CORPUSCULAR HGB CONC 32.2 g/dl (32.0-36.5); MEAN CORPUSCULAR VOLUME 89.4 fl (80.0-96.0); MONO # 0.7 10^3/uL (0.0-0.8); MONO % 7.3 % (0.0-5.0); NEUTROPHILS # 4.8 10^3/uL (1.8-7.7); NEUTROPHILS % 52.4 % (36.0-66.0); PLATELET COUNT, AUTOMATED 617 10^3/uL (150-450); RED BLOOD COUNT 3.02 10^6/uL (4.30-6.10); WHITE BLOOD COUNT 9.1 10^3/uL (4.0-10.0)
[2018-08-31 06:00] VITALS: BP 135/83
[2018-08-31 06:07] LABS: BLOOD UREA NITROGEN 8 MG/DL (7-18); CALCIUM LEVEL 9.2 MG/DL (8.5-10.1); CARBON DIOXIDE LEVEL 32 MEQ/L (21-32); CHLORIDE LEVEL 102 MEQ/L (98-107); CREATININE FOR GFR 0.94 MG/DL (0.70-1.30); GLOMERULAR FILTRATION RATE > 60.0 (>56); GLUCOSE, FASTING 109 MG/DL (70-100); POTASSIUM SERUM 3.8 MEQ/L (3.5-5.1); SODIUM LEVEL 140 MEQ/L (136-145)
[2018-08-31] MEDS: ATENOLOL 25 MG TAB PO SCH ×2 (07:48→20:50)
[2018-08-31] MEDS: SENOKOT S TAB PO SCH ×2 (07:48→20:51)
[2018-08-31] MEDS: APIXABAN 5 MG TAB (ELIQUIS) PO SCH ×2 (07:48→20:50)
[2018-08-31] MEDS: PANTOPRAZOLE 40MG TAB (PROTONIX) PO SCH (07:48)
[2018-08-31] MEDS: ASPIRIN 81 MG ENTERIC TAB PO SCH (07:49)
[2018-08-31] MEDS: LATANOPROST 0.005% OPHTH SOLN 2.5 ML OU SCH ×2 (07:50→20:52)
--- NOTE | 2018-08-31 10:56 | IPNPDOC ---
Text Note Date of Service The patient was seen on 08/31/18. NOTE SUBJECTIVE: Patient is a 58-year-old -Citizen Of [place] male, past medical history of hypertension, alcohol abuse and smoking. Was previously followed at the [facility] in [place] for bilateral leg pain. Patient was originally being worked up by neurology who referred the patient to Dr. Sanchez. Angiography indicated the patient had bilateral superficial femoral arterial occlusion with complete occlusion of the right common and right external iliac artery with distal common femoral artery recannulization via collaterals. Patient was admitted to Dr. Sanchez on 08/26/18 for graft placement. He was found to have atrial flutter, received metoprolol 50 mg and kept in the ICU on telemetry which demonstrated further episodes of sinus tachycardia. She was interviewed and examined today on the med/surge floor. She was found to be seated in his hospital chair playing a game on his cell phone. As yesterday, patient continues to complain of right distal foot pain. He says that his pain has been constant and hardly relieved his current pain regimen. His discomfort is described as intense pins and needles in his forefoot and a tight, constant squeezing sensation around his toes. He rates his pain a 9 out of 10 but also states that it is somewhat tolerable. Patient has been up and ambulating with the assistance of a walker. He denies any syncopal/dizzy episodes couple of days. His heart rate has remained stable in the 70s80s. He denies any chest pain or pressure. No difficulty breathing. He has been eating and drinking without difficulty. No other acute complaints. OBJECTIVE: VITALS: please see below EXAM: Gen.: Alert and oriented, no acute distress Head: Normocephalic, atraumatic EENT: Poor dentition, moist mucous membranes, EOMI, no scleral icterus Neck: No JVD appreciated no cervical lymphadenopathy or thyromegaly Lungs: Clear to auscultation bilaterally, no wheezing rales or rhonchi Heart: Regular rate and rhythm, normal S1 and S2 without murmurs rubs or gallops Abdomen: Soft, nontender, nondistended, no masses or organomegaly appreciated. Bilateral incision sites which remain covered. Inspection can use to show that they are dry, without any drainage or peripheral erythema. Extremities: No lower extremity edema or calf tenderness. Psych: Mood and affect are appropriate Skin: No new or changing skin lesions. Tattoos noted on the patient's chest IMAGING: CXR (08/26/18): Tortuous thoracic aorta. Otherwise no acute disease. ASSESSMENT/PLAN: 58-year-old -Citizen Of [place] male S/P right sided femoralfemoral bypass graft placed on 08/27/[address] Sanchez. History of nicotine and alcohol abuse and hypertension. 1. Atrial flutter/fibrillation CHADS-VASc greater than 2, placed on Eliquis 5 mg twice a day - Atenolol 6.25 mg BID for rate control. - Telemetry discontinued and the patient was transferred upstairs to [facility] for a lower level of care. - Rate stable in the 70s80s, no syncopal episodes. 2. Hypertension - BP stable overnight, 135/83 this morning - Continue atenolol 6.5 mg twice a day 3. Peripheral arterial disease - s/p right and left femoral to femoral bypass grafting - incision sites clean and dry without signs of infection. - Posey increase to 2 tabs by mouth every 4 hours as needed for pain 4. HFpEF - Grade 1 diastolic dysfunction, EF of 60%, mild mitral and tricuspid insufficiency - EMILEE inhibitor in the future 5. Nicotine dependence - Patient continues to decline nicotine patch 6. DVT prophylaxis: Continue ASA and Eliquis VS,Fishbone, I+O VS, Fishbone, I+O Laboratory Tests 08/31/18 05:29 Red Blood Count 3.02 L, Mean Corpuscular Volume 89.4, Mean Corpuscular Hemoglobin 28.8, Mean Corpuscular Hemoglobin Concent 32.2, Red Cell Distribution Width 13.5, Neutrophils (%) (Auto) 52.4, Lymphocytes (%) (Auto) 33.3, Monocytes (%) (Auto) 7.3 H, Eosinophils (%) (Auto) 6.1 H, Basophils (%) (Auto) 0.6, Neutrophils # (Auto) 4.8, Lymphocytes # (Auto) 3.0, Monocytes # (Auto) 0.7, Eosinophils # (Auto) 0.6 H, Basophils # (Auto) 0.1, Calcium Level 9.2 Vital Signs Date Time Temp Pulse Resp B/P (MAP) Pulse Ox O2 Delivery O2 Flow Rate FiO2 08/31/18 08:19 18 08/31/18 07:48 71 135/83 08/31/18 06:00 97.9 99 08/27/18 19:00 Room Air I&O- Last 24 Hours up to 6 AM 08/31/18 06:00 Intake Total 1530 ml Output Total 1450 ml Balance 80 ml NORBERTO JOYCE DO Aug 31, 2018 10:56
[2018-08-31] MEDS: tiZANidine 4 MG TAB PO PRN ×2 (11:47→22:35)
[2018-08-31 14:00] VITALS: BP 114/69
[2018-08-31] MEDS: BRIMONIDINE 0.1% OPHTH SOLN 5 ML OU SCH (20:52)
[2018-08-31 22:00] VITALS: BP 153/86
[2018-09-01] MEDS: NORCO, ANEXSIA 5/325MG TABLET (HYDROcodone/ACETAMINOPHEN) PO PRN ×5 (02:31→21:25)
[2018-09-01 05:57] LABS: BASO # 0.1 10^3/uL (0.0-0.2); BASO % 0.6 % (0.0-1.0); EOS # 0.5 10^3/uL (0.0-0.50); EOS % 5.2 % (0.0-3.0); HEMATOCRIT 25.6 % (42.0-52.0); HEMOGLOBIN 8.3 g/dl (13.5-17.5); LYMPH # 3.6 10^3/uL (1.5-4.5); LYMPH % 37.7 % (24.0-44.0); MEAN CORPUSCULAR HEMOGLOBIN 29.1 pg (27.0-33.0); MEAN CORPUSCULAR HGB CONC 32.4 g/dl (32.0-36.5); MEAN CORPUSCULAR VOLUME 89.8 fl (80.0-96.0); MONO # 0.7 10^3/uL (0.0-0.8); MONO % 7.5 % (0.0-5.0); NEUTROPHILS # 4.6 10^3/uL (1.8-7.7); NEUTROPHILS % 48.4 % (36.0-66.0); PLATELET COUNT, AUTOMATED 627 10^3/uL (150-450); RED BLOOD COUNT 2.85 10^6/uL (4.30-6.10); WHITE BLOOD COUNT 9.6 10^3/uL (4.0-10.0)
[2018-09-01 06:00] VITALS: BP 119/75
[2018-09-01 06:19] LABS: BLOOD UREA NITROGEN 10 MG/DL (7-18); CALCIUM LEVEL 8.7 MG/DL (8.5-10.1); CARBON DIOXIDE LEVEL 31 MEQ/L (21-32); CHLORIDE LEVEL 105 MEQ/L (98-107); GLOMERULAR FILTRATION RATE > 60.0 (>56); GLUCOSE, FASTING 93 MG/DL (70-100); POTASSIUM SERUM 4.1 MEQ/L (3.5-5.1); SODIUM LEVEL 141 MEQ/L (136-145)
[2018-09-01] MEDS: ATENOLOL 25 MG TAB PO SCH ×2 (07:41→21:00)
[2018-09-01] MEDS: SENOKOT S TAB PO SCH ×2 (08:12→21:25)
[2018-09-01] MEDS: ASPIRIN 81 MG ENTERIC TAB PO SCH (08:12)
[2018-09-01] MEDS: PANTOPRAZOLE 40MG TAB (PROTONIX) PO SCH (08:12)
[2018-09-01] MEDS: APIXABAN 5 MG TAB (ELIQUIS) PO SCH ×2 (08:12→21:26)
[2018-09-01] MEDS: tiZANidine 4 MG TAB PO PRN ×2 (08:12→17:20)
[2018-09-01] MEDS: LATANOPROST 0.005% OPHTH SOLN 2.5 ML OU SCH ×2 (08:12→21:00)
[2018-09-01 08:23] LABS: IRON (FE) 53 UG/DL (65-175); PERCENT SATURATION 26.1 % (19.7-50.0); TOTAL IRON BINDING CAPACITY 203 UG/DL (250-450)
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
[2018-09-01 14:00] VITALS: BP 129/79
[2018-09-01] MEDS: BRIMONIDINE 0.1% OPHTH SOLN 5 ML OU SCH (21:00)
[2018-09-01 22:00] VITALS: BP 118/73
[2018-09-02] MEDS: tiZANidine 4 MG TAB PO PRN ×2 (03:24→15:56)
[2018-09-02] MEDS: NORCO, ANEXSIA 5/325MG TABLET (HYDROcodone/ACETAMINOPHEN) PO PRN ×4 (03:24→20:01)
[2018-09-02 05:52] LABS: BASO # 0.1 10^3/uL (0.0-0.2); BASO % 0.6 % (0.0-1.0); EOS # 0.6 10^3/uL (0.0-0.50); EOS % 5.8 % (0.0-3.0); HEMOGLOBIN 8.6 g/dl (13.5-17.5); LYMPH # 3.1 10^3/uL (1.5-4.5); LYMPH % 31.8 % (24.0-44.0); MEAN CORPUSCULAR HEMOGLOBIN 29.5 pg (27.0-33.0); MEAN CORPUSCULAR HGB CONC 31.9 g/dl (32.0-36.5); MEAN CORPUSCULAR VOLUME 92.5 fl (80.0-96.0); MONO # 0.7 10^3/uL (0.0-0.8); NEUTROPHILS # 5.2 10^3/uL (1.8-7.7); NEUTROPHILS % 54.2 % (36.0-66.0); PLATELET COUNT, AUTOMATED 679 10^3/uL (150-450); RED BLOOD COUNT 2.92 10^6/uL (4.30-6.10); WHITE BLOOD COUNT 9.6 10^3/uL (4.0-10.0)
[2018-09-02 06:00] VITALS: BP 128/86
[2018-09-02 06:25] LABS: BLOOD UREA NITROGEN 10 MG/DL (7-18); CALCIUM LEVEL 9.1 MG/DL (8.5-10.1); CARBON DIOXIDE LEVEL 29 MEQ/L (21-32); CHLORIDE LEVEL 107 MEQ/L (98-107); CREATININE FOR GFR 1.04 MG/DL (0.70-1.30); GLOMERULAR FILTRATION RATE > 60.0 (>56); GLUCOSE, FASTING 109 MG/DL (70-100); SODIUM LEVEL 142 MEQ/L (136-145)
[2018-09-02] MEDS: SENOKOT S TAB PO SCH ×2 (08:09→20:00)
[2018-09-02] MEDS: APIXABAN 5 MG TAB (ELIQUIS) PO SCH ×2 (08:09→20:00)
[2018-09-02] MEDS: PANTOPRAZOLE 40MG TAB (PROTONIX) PO SCH (08:10)
[2018-09-02] MEDS: ASPIRIN 81 MG ENTERIC TAB PO SCH (08:10)
[2018-09-02] MEDS: LATANOPROST 0.005% OPHTH SOLN 2.5 ML OU SCH ×2 (08:10→20:01)
[2018-09-02] MEDS: ATENOLOL 25 MG TAB PO SCH ×2 (08:12→20:01)
--- NOTE | 2018-09-02 09:38 | IPNPDOC ---
Date Seen The patient was seen on 09/02/18. Progress Note SUBJECTIVE: c/o palpitations last night no diaphoresis on atenolol for afib. tele re- ordered. despite hgb 8.3, no gi bleed, hematemesis, brbpr, or black tarry stools. HGB has been decreasing. no c/o sob, cp, palpitaitons,lightheadedness, or dizziness. still c/o leg pain despite pain meds. PHYSICAL EXAMINATION: VITALS: PLS SEE BELOW In general, the patient has poor dentition. No jugular venous distention. No thyromegaly. No cervical lymphadenopathy. Lungs are clear to auscultation. No wheezing, rales or rhonchi. Heart: S1, S2. Sinus tachycardia. No murmurs, rubs or gallops. Abdomen is soft, nontender, nondistended. Extremities: 5/5 strength. Sensation is intact. 2+ reflexes. He is status post bypass grafting left to right fem-fem bypass grafting. ASSESSMENT AND PLAN: This is a 58-year-old male, -[place] with prior history of hypertension, smoking history, seen at [facility] in [place], referred to neurology, who felt that the patient had vascular issues and sent to Dr. Ricky Sanchez. The patient was found to have bilateral superficial femoral arterial occlusion and pain in the right lower extremity that was worsening where it was unbearable. The patient underwent an angiogram, which shows complete occlusion of the right common and external iliac artery with distal right common femoral artery via collaterals. He had a left external common iliac artery angioplasty and stenting, and was admitted to Dr. Ricky Sanchez on 08/26/2018. At that time, the patient was found to have atrial flutter and did receive metoprolol 50 mg, was kept on telemetry in the intensive care unit (ICU) with episodes of sinus tachycardia. Hospitalist service was consulted for atrial flutter. Paroxysmal atrial flutter/atrial fibrillation. The patient has CHADS-VASc greater than 2, and been given apixaban 5 mg twice a day, atenolol for rate control 25 mg daily with holding parameters for systolic pressure less than 100, heart rate less than 60. Discontinued on aspirin and Protonix. Monitor gastrointestinal (GI) bleeding. Anemia. risk of GI bleed due to anticoagulants and antiplatelets. check iron studies, retic count, and stool blood PPI empirically. no acute indication for RBC transfusion Tobacco abuse. The patient quit smoking and has received tobacco cessation and counseling. Nicotine patch as needed. Hypertension. Currently on atenolol and hydrochlorothiazide. Peripheral arterial disease status post right and left vktwlkk-wz-mfagaih bypass grafting. Post-op management per vascular surgery. Currently on aspirin. Grade 1 diastolic dysfunction. Ejection fraction 60% with mild mitral and tricuspid insufficiency. The patient would benefit from rate control at this time, and if blood pressure permits may benefit from an angiotensin-converting enzyme (EMILEE) inhibitor at some point. Deep venous thrombosis (DVT) prophylaxis. Currently on aspirin and Eliquis. Disposition: awaiting PT clearance Currently on medical-surgical VS, I&O, 24H, Fishbone Vital Signs/I&O Vital Signs Date Time Temp Pulse Resp B/P (MAP) Pulse Ox O2 Delivery O2 Flow Rate FiO2 09/02/18 08:14 16 09/02/18 08:12 51 128/86 09/02/18 06:00 97.6 100 08/27/18 19:00 Room Air I&O- Last 24 Hours up to 6 AM 09/02/18 06:00 Intake Total 1980 ml Output Total 1050 ml Balance 930 ml Laboratory Data 24H LABS Laboratory Tests 2 09/02/18 05:18: Immature Granulocyte % (Auto) 0.6, White Blood Count 9.6, Red Blood Count 2.92L, Hemoglobin 8.6L, Hematocrit 27.0L, Mean Corpuscular Volume 92.5, Mean Corpuscular Hemoglobin 29.5, Mean Corpuscular Hemoglobin Concent 31.9L, Red Cell Distribution Width 13.7, Platelet Count 679H, Neutrophils (%) (Auto) 54.2, Lymphocytes (%) (Auto) 31.8, Monocytes (%) (Auto) 7.0H, Eosinophils (%) (Auto) 5.8H, Basophils (%) (Auto) 0.6, Neutrophils # (Auto) 5.2, Lymphocytes # (Auto) 3.1, Monocytes # (Auto) 0.7, Eosinophils # (Auto) 0.6H, Basophils # (Auto) 0.1, Nucleated Red Blood Cells % (auto) 0.2H, Anion Gap 6L, Glomerular Filtration Rate > 60.0, Blood Urea Nitrogen 10, Creatinine 1.04, Sodium Level 142, Potassium Level 4.0, Chloride Level 107, Carbon Dioxide Level 29, Calcium Level 9.1 CBC/BMP Laboratory Tests 09/02/18 05:18 Red Blood Count 2.92 L, Mean Corpuscular Volume 92.5, Mean Corpuscular Hemoglobin 29.5, Mean Corpuscular Hemoglobin Concent 31.9 L, Red Cell Distribution Width 13.7, Neutrophils (%) (Auto) 54.2, Lymphocytes (%) (Auto) 31.8, Monocytes (%) (Auto) 7.0 H, Eosinophils (%) (Auto) 5.8 H, Basophils (%) (Auto) 0.6, Neutrophils # (Auto) 5.2, Lymphocytes # (Auto) 3.1, Monocytes # (Auto) 0.7, Eosinophils # (Auto) 0.6 H, Basophils # (Auto) 0.1, Calcium Level 9.1 ALEX WHITTAKER MD Sep 02, 2018 08:37
[2018-09-02] MEDS ORDERED: ELIQ5TAB PO (12:17)
[2018-09-02 14:00] VITALS: BP 141/95
[2018-09-02] MEDS: BRIMONIDINE 0.1% OPHTH SOLN 5 ML OU SCH (20:01)
[2018-09-02 22:00] VITALS: BP_SYST 119; BP_SYST 125; BP_DIAS 74
[2018-09-03] MEDS: tiZANidine 4 MG TAB PO PRN ×2 (01:06→07:47)
[2018-09-03] MEDS: NORCO, ANEXSIA 5/325MG TABLET (HYDROcodone/ACETAMINOPHEN) PO PRN ×4 (01:11→17:38)
[2018-09-03 06:00] VITALS: BP 129/78
[2018-09-03 06:00] LABS: BASO # 0.1 10^3/uL (0.0-0.2); BASO % 0.6 % (0.0-1.0); EOS # 0.4 10^3/uL (0.0-0.50); EOS % 4.1 % (0.0-3.0); HEMATOCRIT 28.6 % (42.0-52.0); HEMOGLOBIN 9.1 g/dl (13.5-17.5); LYMPH # 3.6 10^3/uL (1.5-4.5); LYMPH % 33.6 % (24.0-44.0); MEAN CORPUSCULAR HGB CONC 31.8 g/dl (32.0-36.5); MEAN CORPUSCULAR VOLUME 91.1 fl (80.0-96.0); MONO # 0.7 10^3/uL (0.0-0.8); MONO % 6.7 % (0.0-5.0); NEUTROPHILS # 5.9 10^3/uL (1.8-7.7); NEUTROPHILS % 54.5 % (36.0-66.0); PLATELET COUNT, AUTOMATED 733 10^3/uL (150-450); RED BLOOD COUNT 3.14 10^6/uL (4.30-6.10); WHITE BLOOD COUNT 10.8 10^3/uL (4.0-10.0)
[2018-09-03 06:30] LABS: BLOOD UREA NITROGEN 9 MG/DL (7-18); CARBON DIOXIDE LEVEL 29 MEQ/L (21-32); CHLORIDE LEVEL 107 MEQ/L (98-107); CREATININE FOR GFR 0.98 MG/DL (0.70-1.30); GLOMERULAR FILTRATION RATE > 60.0 (>56); GLUCOSE, FASTING 95 MG/DL (70-100); SODIUM LEVEL 142 MEQ/L (136-145)
[2018-09-03] MEDS: PANTOPRAZOLE 40MG TAB (PROTONIX) PO SCH (07:48)
[2018-09-03] MEDS: SENOKOT S TAB PO SCH ×2 (07:48→20:33)
[2018-09-03] MEDS: ATENOLOL 25 MG TAB PO SCH (07:48)
[2018-09-03] MEDS: APIXABAN 5 MG TAB (ELIQUIS) PO SCH ×2 (07:48→20:33)
[2018-09-03] MEDS: ASPIRIN 81 MG ENTERIC TAB PO SCH (07:48)
[2018-09-03] MEDS: LATANOPROST 0.005% OPHTH SOLN 2.5 ML OU SCH ×2 (07:49→20:34)
[2018-09-03 08:37] VITALS: BP 164/104
[2018-09-03 12:08] VITALS: BP 119/62
[2018-09-03 13:14] LABS: CK-MB VALUE MASS < 1.0 NG/ML (<3.6); CPK CREATINE PHOSPHOKINASE 92 U/L (39-308); MB/CK RELATIVE INDEX 1.09 (< OR =4); TROPONIN I < 0.02 NG/ML (< 0.10)
[2018-09-03 14:00] VITALS: BP 155/88
--- NOTE | 2018-09-03 17:58 | IPN ---
DATE: 09/03/2018 SUBJECTIVE: The patient is seen and examined in the room. Patient complains about numbness and tingling, mainly of the right lower extremity below the right knee. The patient does complain about some discomfort, also. Denies any fever or chills. OBJECTIVE: VITAL SIGNS: Temperature is 98.8, pulse is 88, respirations 15, blood pressure is 129/78, pulse oximetry is 99% in room air. GENERAL: Flat affect. Alert and awake. HEENT: Normocephalic, atraumatic. Extraocular motor grossly intact. CARDIOVASCULAR: Irregularly irregular. Positive S1, S2. LUNGS: Clear to auscultation bilaterally. ABDOMEN: Soft, nontender. Bowel sounds present. EXTREMITIES: There is decreased sensation of the right lower extremity, mainly below the right knee. No lower extremity edema appreciated. LABORATORY DATA: WBC 10.8, hemoglobin 9.1, hematocrit 28.6, platelet count is 733. Sodium is 142, potassium 4, chloride 107, carbon dioxide 29, BUN is 9, creatinine 0.98, GFR greater than 60, fasting glucose 98, calcium is 9. ASSESSMENT AND PLAN: 1. Paroxysmal atrial fibrillation/atrial flutter. Currently patient's rate is in satisfactory range. Patient is on metoprolol with holding parameter. Patient is on Eliquis. 2. Peripheral vascular disease. Status post right and left dzqwuiw-er-uuinmqe bypass graft. Bypass was performed on 08/26/[address] Sanchez. On aspirin. Refer postop wound care to primary surgical team. Currently, the patient does complain about discomfort in right lower extremity, likely due to signs or symptoms of revascularization. Discussed with vascular surgery. Will continue to monitor at this moment. 3. Grade 1 diastolic dysfunction. No sign of fluid overload at this moment. Patient had an echocardiogram performed on 08/26/2018. 4. Hypertension. On metoprolol. 5. Anemia. No significant drop in hemoglobin/hematocrit. Continue to monitor. 6. Deep vein thrombosis (DVT) prophylaxis. On Eliquis.
[2018-09-03] MEDS ORDERED: METOPROLOL SUCC *XL* 25MG TAB (TopROL *XL*) As Ordered ONE (18:19)
[2018-09-03] MEDS ORDERED: METOPROLOL TART 12.5 MG PER 1/2 TAB As Ordered ONE (18:20)
[2018-09-03] MEDS: METOPROLOL TART 12.5 MG PER 1/2 TAB PO SCH (18:22)
[2018-09-03] MEDS: BRIMONIDINE 0.1% OPHTH SOLN 5 ML OU SCH (20:34)
[2018-09-03 22:00] VITALS: BP 152/74
[2018-09-04] MEDS: tiZANidine 4 MG TAB PO PRN (00:15)
[2018-09-04 05:55] LABS: BASO % 0.4 % (0.0-1.0); EOS # 0.4 10^3/uL (0.0-0.50); EOS % 3.8 % (0.0-3.0); HEMOGLOBIN 8.6 g/dl (13.5-17.5); LYMPH # 2.9 10^3/uL (1.5-4.5); LYMPH % 28.6 % (24.0-44.0); MEAN CORPUSCULAR HGB CONC 31.9 g/dl (32.0-36.5); MEAN CORPUSCULAR VOLUME 94.1 fl (80.0-96.0); MONO # 0.7 10^3/uL (0.0-0.8); MONO % 6.5 % (0.0-5.0); NEUTROPHILS # 6.1 10^3/uL (1.8-7.7); NEUTROPHILS % 60.1 % (36.0-66.0); PLATELET COUNT, AUTOMATED 688 10^3/uL (150-450); RED BLOOD COUNT 2.87 10^6/uL (4.30-6.10); WHITE BLOOD COUNT 10.1 10^3/uL (4.0-10.0)
[2018-09-04 06:00] VITALS: BP 150/77
[2018-09-04] MEDS: METOPROLOL TART 12.5 MG PER 1/2 TAB PO SCH (08:33)
[2018-09-04] MEDS: PANTOPRAZOLE 40MG TAB (PROTONIX) PO SCH (08:33)
[2018-09-04] MEDS: ASPIRIN 81 MG ENTERIC TAB PO SCH (08:34)
[2018-09-04] MEDS: SENOKOT S TAB PO SCH ×2 (08:34→21:01)
[2018-09-04] MEDS: APIXABAN 5 MG TAB (ELIQUIS) PO SCH ×2 (08:34→21:01)
[2018-09-04] MEDS: NORCO, ANEXSIA 5/325MG TABLET (HYDROcodone/ACETAMINOPHEN) PO PRN ×3 (08:35→19:41)
[2018-09-04] MEDS: LATANOPROST 0.005% OPHTH SOLN 2.5 ML OU SCH ×2 (08:36→21:00)
[2018-09-04 13:43] LABS: BLOOD UREA NITROGEN 11 MG/DL (7-18); CALCIUM LEVEL 9.1 MG/DL (8.5-10.1); CARBON DIOXIDE LEVEL 30 MEQ/L (21-32); CHLORIDE LEVEL 106 MEQ/L (98-107); CK-MB VALUE MASS < 1.0 NG/ML (<3.6); CPK CREATINE PHOSPHOKINASE 87 U/L (39-308); CREATININE FOR GFR 1.06 MG/DL (0.70-1.30); GLOMERULAR FILTRATION RATE > 60.0 (>56); GLUCOSE, FASTING 97 MG/DL (70-100); MB/CK RELATIVE INDEX 1.15 (< OR =4); POTASSIUM SERUM 4.3 MEQ/L (3.5-5.1); SODIUM LEVEL 140 MEQ/L (136-145); TROPONIN I < 0.02 NG/ML (< 0.10)
[2018-09-04 14:00] VITALS: BP 149/88
--- NOTE | 2018-09-04 14:08 | IPNPDOC ---
Text Note Date of Service The patient was seen on 09/04/18. NOTE SUBJECTIVE: The patient is seen and examined in the room. Patient complains about numbness, tingling and pain of his right lower extremity. Denies any fever or chills. Yesterday patient had episode of tachycardia at rest. Denies any acute symptom. OBJECTIVE: VITAL SIGNS: Listed below. GENERAL: Flat affect. Alert and awake. HEENT: Normocephalic, atraumatic. Extraocular motor grossly intact. CARDIOVASCULAR: Irregularly irregular. Positive S1, S2. LUNGS: Clear to auscultation bilaterally. ABDOMEN: Soft, nontender. Bowel sounds present. EXTREMITIES: There is decreased sensation of the right lower extremity, mainly below the right knee. No lower extremity edema appreciated. LABORATORY DATA: Listed below. ASSESSMENT AND PLAN: #. Paroxysmal atrial fibrillation/atrial flutter. - Patient is on metoprolol with holding parameter. Patient is on Eliquis. Continue cardiac telemetry. #. Peripheral vascular disease. - Status post right and left syqnjmb-wi-qwtpuhw bypass graft (08/26/18). On aspirin. Refer postop wound care to primary surgical team. Currently, the patient does complain about discomfort in right lower extremity, likely due to signs or symptoms of revascularization. Discussed with vascular surgery. Will continue to monitor at this moment. #. Grade 1 diastolic dysfunction. - No sign of fluid overload at this moment. Patient had an echocardiogram perf ormed on 08/26/2018. #. Hypertension. On metoprolol. #. Anemia. No significant drop in hemoglobin/hematocrit. Continue to monitor. #. Deep vein thrombosis (DVT) prophylaxis. On Eliquis. VS,Fishbone, I+O VS, Fishbone, I+O Laboratory Tests 09/04/18 05:31 Red Blood Count 2.87 L, Mean Corpuscular Volume 94.1, Mean Corpuscular Hemoglobin 30.0, Mean Corpuscular Hemoglobin Concent 31.9 L, Red Cell Distribution Width 14.8 H, Neutrophils (%) (Auto) 60.1, Lymphocytes (%) (Auto) 28.6, Monocytes (%) (Auto) 6.5 H, Eosinophils (%) (Auto) 3.8 H, Basophils (%) (Auto) 0.4, Neutrophils # (Auto) 6.1, Lymphocytes # (Auto) 2.9, Monocytes # (Auto) 0.7, Eosinophils # (Auto) 0.4, Basophils # (Auto) 0.0 09/04/18 13:08 Calcium Level 9.1, Total Creatine Kinase 87 Vital Signs Date Time Temp Pulse Resp B/P (MAP) Pulse Ox O2 Delivery O2 Flow Rate FiO2 09/04/18 12:36 16 09/04/18 08:33 85 154/97 09/04/18 06:00 98.8 99 I&O- Last 24 Hours up to 6 AM 09/04/18 06:00 Intake Total 1330 ml Output Total 1425 ml Balance -95 ml VIKASH KRISHNAMURTHY DO Sep 04, 2018 14:08
[2018-09-04] MEDS: BRIMONIDINE 0.1% OPHTH SOLN 5 ML OU SCH (21:00)
[2018-09-04] MEDS: METOPROLOL TART 25 MG TABLET PO SCH (21:01)
--- NOTE | 2018-09-04 21:19 | ECGEPIP ---
Stationary ECG Study [facility] Test Date: 2018-09-03 Pat Name: HILLARY ROWAN Department: Room: [place] [address] Gender: M [employer] Tester: CLIFFORD : 1960 Requested By: VIKASH KRISHNAMURTHY Order Number: [id number] Reading MD: Sin Devlin Measurements Intervals [place] Rate: 86 P: 71 CT: 141 QRS: 75 QRSD: 90 T: 79 QT: 358 QTc: 430 Interpretive Statements SINUS RHYTHM WITH FREQUENT VENTRICULAR PREMATURE COMPLEXES WITH OCCASIONAL SUPRAVENTRICULAR PREMATURE COMPLEXES ABNORMAL RHYTHM ECG SIMILAR TO 08/27/18 Electronically Signed On 09-04-2018 21:18:56 EDT by Sin Devlin
[2018-09-04 22:00] VITALS: BP_SYST 138; BP_SYST 167; BP_DIAS 92
[2018-09-05] MEDS: tiZANidine 4 MG TAB PO PRN ×2 (00:37→11:28)
[2018-09-05 06:00] VITALS: BP 142/82
[2018-09-05 06:13] LABS: HEMATOCRIT 28.1 % (42.0-52.0); HEMOGLOBIN 8.8 g/dl (13.5-17.5); MEAN CORPUSCULAR HEMOGLOBIN 29.6 pg (27.0-33.0); MEAN CORPUSCULAR HGB CONC 31.3 g/dl (32.0-36.5); MEAN CORPUSCULAR VOLUME 94.6 fl (80.0-96.0); PLATELET COUNT, AUTOMATED 700 10^3/uL (150-450); RED BLOOD COUNT 2.97 10^6/uL (4.30-6.10); WHITE BLOOD COUNT 9.5 10^3/uL (4.0-10.0)
[2018-09-05 06:40] LABS: BLOOD UREA NITROGEN 9 MG/DL (7-18); CALCIUM LEVEL 9.3 MG/DL (8.5-10.1); CARBON DIOXIDE LEVEL 30 MEQ/L (21-32); CHLORIDE LEVEL 104 MEQ/L (98-107); CREATININE FOR GFR 1.03 MG/DL (0.70-1.30); GLOMERULAR FILTRATION RATE > 60.0 (>56); GLUCOSE, FASTING 89 MG/DL (70-100); POTASSIUM SERUM 4.1 MEQ/L (3.5-5.1); SODIUM LEVEL 141 MEQ/L (136-145)
[2018-09-05] MEDS: NORCO, ANEXSIA 5/325MG TABLET (HYDROcodone/ACETAMINOPHEN) PO PRN (07:39)
[2018-09-05] MEDS: APIXABAN 5 MG TAB (ELIQUIS) PO SCH (07:39)
[2018-09-05] MEDS: ASPIRIN 81 MG ENTERIC TAB PO SCH (07:39)
[2018-09-05] MEDS: SENOKOT S TAB PO SCH (07:39)
[2018-09-05] MEDS: PANTOPRAZOLE 40MG TAB (PROTONIX) PO SCH (07:40)
[2018-09-05] MEDS: LATANOPROST 0.005% OPHTH SOLN 2.5 ML OU SCH (07:41)
[2018-09-05 07:45] VITALS: BP 164/88
[2018-09-05] MEDS: METOPROLOL TART 25 MG TABLET PO SCH (07:45)
[2018-09-05] MEDS ORDERED: NORCOTAB PO (11:21)
[2018-09-05] MEDS ORDERED: METO1TAB87 PO (11:21)
[2018-09-05] MEDS ORDERED: MIRA3350 PO (11:21)
[2018-09-05 14:00] VITALS: BP 149/87
--- NOTE | 2018-09-05 15:31 | IPNPDOC ---
Text Note Date of Service The patient was seen on 09/05/18. NOTE SUBJECTIVE: The patient was seen and examined in the room. Patient denied acute complaint. No event reported. OBJECTIVE: VITAL SIGNS: Listed below. GENERAL: Flat affect. Alert and awake. HEENT: Normocephalic, atraumatic. Extraocular motor grossly intact. CARDIOVASCULAR: Irregularly irregular. Positive S1, S2. LUNGS: Clear to auscultation bilaterally. ABDOMEN: Soft, nontender. Bowel sounds present. EXTREMITIES: Decreased sensation of the lower extremity, mainly below the right knee. No lower extremity edema appreciated. Lower extremities were warm. LABORATORY DATA: Listed below. ASSESSMENT AND PLAN: #. Paroxysmal atrial fibrillation/atrial flutter. - Patient is on metoprolol with holding parameter. Patient is on Eliquis. #. Peripheral vascular disease. - Status post right and left ceighfp-tm-pzjndks bypass graft (08/26/18). On aspirin. Refer postop wound care to primary surgical team. Patient has signs and symptoms of revascularization. Discussed with vascular surgery. #. Grade 1 diastolic dysfunction. - No sign of fluid overload at this moment. Patient had an echocardiogram performed on 08/26/2018. #. Hypertension. On metoprolol. #. Anemia. No significant drop in hemoglobin/hematocrit. Continue to monitor. # Thrombocytosis. - Patient had recent procedures. Discussed with hem/onc director of communications. Patient will benefit from outpatient hem/onc followup. Patient is being discharged by primary team. Patient was seen and examined prior to discharge. Discharge medications reviewed. [facility] Dr. Sanchez at scheduled time, Hem/onc in 1 week. Referral for Hem/onc. VSHeavenly, I+O VS, Heavenly, I+O Laboratory Tests 09/05/18 05:29 Red Blood Count 2.97 L, Mean Corpuscular Volume 94.6, Mean Corpuscular Hemoglobin 29.6, Mean Corpuscular Hemoglobin Concent 31.3 L, Red Cell Distribution Width 14.9 H, Calcium Level 9.3 Vital Signs Date Time Temp Pulse Resp B/P (MAP) Pulse Ox O2 Delivery O2 Flow Rate FiO2 09/05/18 08:09 16 09/05/18 07:45 91 164/88 09/05/18 06:00 98.8 100 I&O- Last 24 Hours up to 6 AM 09/05/18 06:00 Intake Total 1820 ml Output Total 2190 ml Balance -370 ml Jo Ann Herrera Sep 05, 2018 15:31
--- NOTE | 2018-09-06 15:22 | IPNPDOC ---
Text Note Date of Service The patient was seen on 09/05/18. NOTE SUBJECTIVE: The patient is seen and examined in the room. Denies any acute symptom. OBJECTIVE: VITAL SIGNS: Listed below. GENERAL: Flat affect. Alert and awake. HEENT: Normocephalic, atraumatic. Extraocular motor grossly intact. CARDIOVASCULAR: Irregularly irregular. Positive S1, S2. LUNGS: Clear to auscultation bilaterally. ABDOMEN: Soft, nontender. Bowel sounds present. EXTREMITIES: No lower extremity edema appreciated. Lower extremities are warm. LABORATORY DATA: Listed below. ASSESSMENT AND PLAN: #. Paroxysmal atrial fibrillation/atrial flutter. - Patient is on metoprolol. Heart rate in satisfactory range. Patient is on Eliquis. #. Peripheral vascular disease. - Status post right and left lmgpplg-uo-djhuvay bypass graft (08/26/18). On aspirin. # Thrombocytosis. - Patient had recently procedure. Iron study reviewed. Discussed with Hem/Onc. Patient will benefit from outpatient hem/onc evaluation. Referral sent. Patient has appointment within 1 wk. #. Grade 1 diastolic dysfunction. - No sign of fluid overload at this moment. Patient had an echocardiogram performed on 08/26/2018. #. Hypertension. On metoprolol. #. Anemia. No significant drop in hemoglobin/hematocrit. Continue to monitor. #. Deep vein thrombosis (DVT) prophylaxis. On Eliquis. Patient is being discharged. Patient was seen and examined prior to discharge. Discharge medications reviewed. Recommend following up with PCP in 1 week, Dr. Sanchez at scheduled time. Referral to outpatient hem/onc sent and patient has hem/onc appointment within 1 week. VS,Fishbone, I+O VS, Fishbone, I+O Vital Signs Date Time Temp Pulse Resp B/P (MAP) Pulse Ox O2 Delivery O2 Flow Rate FiO2 09/05/18 14:00 99.0 82 18 149/87 (107) 98 I&O- Last 24 Hours up to 6 AM 09/06/18 06:00 Intake Total 745 ml Output Total 740 ml Balance 5 ml VIKASH KRISHNAMURTHY DO Sep 06, 2018 15:22
--- NOTE | 2018-09-11 09:32 | REPIR ---
DATE OF PROCEDURE: 08/26/2018 ATTENDING SURGEON: Dr. Dejah Sanchez AIRCRAFT ENGINE TECHNICIAN: Bria Griffith and Kathy Rodriguez PREOPERATIVE DIAGNOSIS: Bilateral lower extremity claudication, right greater than left. POSTOPERATIVE DIAGNOSIS: Bilateral lower extremity claudication, right greater than left. PROCEDURE: Aortogram. Iliofemoral angiogram. Bilateral lower extremity angiography. Left common and external iliac artery angioplasty and stent with a 12 x 4 WALLSTENT, postdilated with a 10 x 80 mm balloon. MYNX closure of the left common femoral arteriotomy. INDICATIONS: Patient is a 58-year-old male with bilateral lower extremity claudication who underwent ultrasound which showed severe atherosclerotic arterial occlusive disease in the aortoiliac and femoral-popliteal systems. The patient will undergo an angiogram with possible angioplasty, stent and/or atherectomy. Risks, benefits and alternative options were discussed with the patient. ANESTHESIA: Local with 10 mL of 2% lidocaine. FLUORO TIME: [id number] minutes. CONTRAST: 13 mL of ISOVUE-300. HEPARIN: 7000 units. COMPLICATIONS: None. DRAINS: None. SPECIMENS: None. IMPLANT: Left common and external iliac artery stenting with 12 x 40 WALLSTENT postdilated with 10 x 80 mm balloon. PROCEDURE: Patient was taken to the angiography suite placed supine on the angiography room table and then prepped and draped in a standard surgical fashion. The left common femoral artery was cannulated with a micropuncture needle. The micropuncture wire was advanced through the micropuncture needle, which was upsized to a micropuncture sheath. A Bentson wire was advanced through the micropuncture sheath was upsized to a 5-British sheath. The Omni Flush catheter was advanced over the Bentson wire, placed in the aorta and aortogram was performed. Catheter was pulled down level with the bifurcation of the iliac arteries and an iliofemoral angiogram was performed. This showed complete occlusion of the right common and external iliac artery as well as bilateral superficial femoral artery occlusion. There was also high grade stenosis in the junction of left common and external iliac artery which was angioplastied and stented with 12 x 40 WALLSTENT, postdilated with an 10 x 80 balloon with a completion angiogram showing resolution of the stenosis. Catheters and wires were removed. A MYNX closure device was used to close the arteriotomy in the left common femoral artery with an additional 10 minutes of adjunctive pressure applied for hemostasis. Dressings were then applied. The patient tolerated the procedure well. All instrument, sponge, and needle counts were correct at the end the case. There were no complications. Dr. Sanchez was present for and directed the entire case. The patient was transferred to [facility] area and subsequently discharged in stable condition. RADIOLOGIC SUPERVISION INTERPRETATION: The aortogram showed the aorta to be widely patent. The superior, mesenteric, celiac and renal arteries were patent. The infrarenal aorta was patent with good filling of the lumbar vessels. The left common and external iliac arteries showed stenosis at their junction with the left common femoral artery being patent. The right common and external iliac artery were occluded with reconstitution of the right common femoral artery via collaterals. Both superficial femoral arteries were occluded and the right and left profunda femoris arteries were patent. The patient underwent angioplasty and stenting of the left common and external iliac artery with a 12 x 40 WALLSTENT postdilated with a 10 x 8 balloon. Completion angiography showed resolution of the stenosis with excellent flow through the left common iliac artery into the external iliac artery and common femoral artery. A MYNX closure device was used close the arteriotomy in the left common femoral artery. PLAN: The patient will require a oyhb-un-uydzy femoral-femoral bypass graft with possible femoral-popliteal bypass grafting bilaterally.
--- NOTE | 2018-09-11 10:51 | RO ---
DATE OF PROCEDURE: 08/26/2018 PREOPERATIVE DIAGNOSES: Right lower extremity claudication, right common and external iliac artery occlusion. Right superficial femoral artery occlusion, left common iliac, external iliac artery atherosclerotic arterial occlusive disease status post angioplasty and stenting, left superficial femoral artery occlusion. POSTOPERATIVE DIAGNOSES: Right lower extremity claudication, right common and external iliac artery occlusion. The right superficial femoral artery occlusion, left common iliac, external iliac artery atherosclerotic arterial occlusive disease status post angioplasty and stenting, left superficial femoral artery occlusion. PROCEDURE: Gftt-ni-jrrpj femoral-femoral bypass grafting with 8 mm Propaten PTFE graft, bilateral femoral endarterectomy. SURGEON: Dr. Dejah Sanchez. FOUNDRY WORKER GENERAL: None. ANESTHESIA: Local monitored anesthesia care (MAC). ESTIMATED BLOOD LOSS: 500 mL IV FLUIDS: 1600 mL. Heparin 7000 units followed by an additional 3000 units bolus, protamine 50 mg. SPECIMEN: Right common femoral plaque, left common femoral plaque. INDICATION: The patient is a 58-year-old male with bilateral lower extremity claudication, right worse than left who underwent angiography and was noted to have occlusion of his right common and external iliac artery as well as disease in his left common and external iliac artery which underwent angioplasty and stenting. The patient also has bilateral superficial femoral artery occlusion with flow into the lower extremities via collaterals off the profunda femorales bilaterally. The patient will undergo a tfqa-jf-ekuqc femoral/femoral bypass graft. Risks, benefits and alternative options were discussed with the patient. DESCRIPTION OF PROCEDURE: The patient was taken to the operating room, placed supine on the operating room table and prepped and draped in a standard surgical fashion. Oblique incisions were made in the inguinal region bilaterally exposing the right and left common femoral artery. These were sharply dissected free and encircled with Vesseloops. The patient was given heparin after the graft was tunneled from the right wound incision to the left incision. The left common femoral artery was then clamped proximally and distally and an arteriotomy created and elongated proximally distally with Chopra scissors. There was plaque within the femoral artery and an endarterectomy was performed after which the 8 mm Propaten graft was anastomosed to the common femoral artery on the left in an end-to-side fashion using #6-0 Prolene suture. The graft was flushed. The flow was reestablished through the common femoral artery on the left. Th right common femoral artery was clamped proximally distally. The arteriotomy was made and then the incision for the arteriotomy elongated with Chopra scissors. There was plaque in the right common femoral artery which was removed with an endarterectomy performed of the right common femoral artery with good back bleeding noted. The graft was cut to length and then anastomosed to the right common femoral artery in an end-to-side fashion using #6-0 Prolene suture. The graft was flushed prior to completing the anastomosis. The anastomosis was completed and flow was reestablished into the right lower extremity through the [id number]-xl-gdlfp femoral-femoral bypass graft. Hemostasis was obtained after which the incisions were closed using #2-0 Vicryl to approximate the deeper layers and marjorie to approximate the skin. Dressings were applied. The patient tolerated the procedure well. All instrument, sponge, needle counts were correct at the end the case. There were no complications. Dr. Sanchez was present for and directed the entire case. The patient was transferred to the recovery room awake, alert, extubated and in stable condition.
== END 2018-09-05 15:37 | disposition home or self-care (01) | DRG 181 ==
LOC: M IRPRO 06:52 → M MSPAV 06:53 → M ICU 08-27 01:49 → M MSPAV 08-30 23:50
PROVIDERS: ADMIT Surgery Vascular Surgery; ATTEND Surgery Vascular Surgery
PROC: 047L3D6 (ICD-10-PCS; 2018-08-26)
PROC: 047J3D6 (ICD-10-PCS; 2018-08-26)
PROC: 041K0JH Bypass Right Femoral Artery to Right Femoral Artery with Synthetic Substitute, Open Approach (ICD-10-PCS; principal; 2018-08-26 18:30)
DX: I70.213 Atherosclerosis of native arteries of extremities with intermittent claudication, bilateral legs (principal); I74.5 Embolism and thrombosis of iliac artery; I11.0 Hypertensive heart disease with heart failure; I08.1 Rheumatic disorders of both mitral and tricuspid valves; I50.32 Chronic diastolic (congestive) heart failure; Z87.891 Personal history of nicotine dependence; E78.00 Pure hypercholesterolemia, unspecified; H40.9 Unspecified glaucoma; I48.0 Paroxysmal atrial fibrillation; D64.9 Anemia, unspecified; D47.3 Essential (hemorrhagic) thrombocythemia; Z88.0 Allergy status to penicillin; Z79.899 Other long term (current) drug therapy

== ENCOUNTER → 2018-09-11 | Outpatient (CLI) | payer OTHER ==
[~2018-09-11] MED LIST changes: +ACET300T52 PO; +ASPI-255 PO; -ASPI325T25 PO; +BRIM1OPD OU; +ELIQ5TAB PO; -HEPARIN 1,000 UNITS/ML 10ML VIAL (FOR RADIOLOGY& DIALYSIS ONLY) As Ordered ONE; +HYDR-3715 PO; -ISOVUE-300 61% 50ML VIAL (Q9967) As Ordered ONE; -LIDOCAINE 2% MDV 20 ML VIAL As Ordered ONE; +METO1TAB87 PO; -MIDAZOLAM INJ 2 MG/2 ML VIAL (J2250) As Ordered ONE; +MIRA3350 PO; +TIZA4CAP PO; +XALA0.007 OU; -fentaNYL 100 MCG/2 ML INJECTION (J3010) As Ordered ONE
== END ==
LOC: M LAB 11:12
PROVIDERS: ATTEND Surgery Vascular Surgery
DX: D64.9 Anemia, unspecified (principal); D69.6 Thrombocytopenia, unspecified

== ENCOUNTER 2018-10-19 08:46 | Emergency (ER) | payer OTHER ==
[~2018-10-19] VITALS: Ht 185.4 cm; Wt 65.3 kg
[2018-10-19] MEDS ORDERED: NS 1,000 ML IV ONE (10:15)
[2018-10-19 10:19] LABS: BASO % 0.4 % (0.0-1.0); EOS # 0.3 10^3/uL (0.0-0.50); HEMATOCRIT 39.8 % (42.0-52.0); HEMOGLOBIN 12.6 g/dl (13.5-17.5); LYMPH # 2.1 10^3/uL (1.5-4.5); LYMPH % 26.9 % (24.0-44.0); MEAN CORPUSCULAR HGB CONC 31.7 g/dl (32.0-36.5); MEAN CORPUSCULAR VOLUME 94.8 fl (80.0-96.0); MONO # 0.6 10^3/uL (0.0-0.8); MONO % 6.9 % (0.0-5.0); NEUTROPHILS # 4.9 10^3/uL (1.8-7.7); NEUTROPHILS % 61.7 % (36.0-66.0); PLATELET COUNT, AUTOMATED 491 10^3/uL (150-450)
[2018-10-19] MEDS ORDERED: ISOVUE-370 76% 100ML VIAL (Q9967) As Ordered ONE (10:40)
--- NOTE | 2018-10-19 12:07 | REP ---
CT ANGIOGRAPHY OF THE ABDOMEN AND PELVIS WITH IV CONTRAST: HISTORY: Right lower quadrant and groin pain, status post femoral bypass. CT CONTRAST DOSE: 100 mL of intravenous Isovue 370 is administered. NONVASCULAR FINDINGS: There are several small low-density hepatic cysts. The largest of these is in the right lobe measuring 2.3 cm in diameter. There is a 1 cm cortical cyst in the upper pole of the left kidney. VASCULAR FINDINGS: The abdominal aorta is diffusely ectatic measuring 3.0 cm in greatest diameter. The common iliac arteries are mildly aneurysmal measuring 2.8 cm in greatest diameter on the right and 2.5 cm on the left. The right common iliac artery is occluded at its origin. There is a patent vascular stent in the left external iliac artery. The left internal iliac artery appears to be occluded. The right internal iliac artery is occluded. The right external iliac artery is occluded. There is a patent left to right fem-fem crossover graft. Profunda femoral arteries are patent bilaterally. Superficial femoral arteries appear to be occluded bilaterally. There are a few normal-sized lymph nodes in the bilateral groin soft tissues adjacent to and above the crossover graft anastomoses. No definite adenopathy. No abnormal fluid collection. IMPRESSION: Patent left external iliac artery stent. Patent left to right fem-fem crossover graft. [place] right common and external iliac arteries are occluded. Both internal iliac arteries appear to be occluded. Both superficial femoral arteries appear to be occluded. There are several small lymph nodes in both groins adjacent to the crossover graft anastomoses. Small hepatic and left renal cysts are noted incidentally. Electronically Signed by Mikhail Antonio MD 10/19/2018 12:21 P
--- NOTE | 2018-10-19 12:19 | CR.PDOC ---
General Date of Consultation: October 19, 2018 Consultation REASON FOR CONSULTATION/CHIEF COMPLAINT: "My right groin hurts" HISTORY OF PRESENT ILLNESS: Mr Carrillo is a very pleasant 58 yo gentleman with severe BLE PVD, with recent h/o L EIA stenting followed shortly thereafter by a left to right femfem bypass, both by Dr Sanchez. He did well postop, but did note some postop clear drainage from the left groin that eventually resolved. He presents today with a 3 day h/o pain in the right groin. No drainage, no fevers or chills, no swelling. He denies injury to the area or straining. On my exam, there is no swellling or induration/erythema/fluctuance in the right groin, and I can doppler excellent flow through the femfem bypass and in the femoral arteries bilaterally. He has monophasic DP/PT on the right and triphasic PT/absent DP on the left, and both feet appear at their baseline perfusion with a known h/o BLE SFA occlusion. He has been off his eliquis "for a while" due to expense. Will check CBC, CTA abd/pelvis and blood cultures. ALLERGIES: Please see below. HOME MEDICATIONS: Please see below. PAST MEDICAL HISTORY: 1. Atherosclerosis of the [place] arteries 2. Hypertension PAST SURGICAL HISTORY: 1. L EIA stenting 2. L to R femfem bypass FAMILY HISTORY: heart disease, cancer SOCIAL HISTORY: lives with his girlfriend REVIEW OF SYSTEMS: CONSTITUTIONAL: Denies f/c HEENT: Denies vision or hearing loss CARDIOVASCULAR: Denies CP RESPIRATORY: Denies SOB GENITOURINARY: Denies dysuria MUSCULOSKELETAL: +tabitha pain, + neuropathy GASTROINTESTINAL: denies n/v/d. +constipation SKIN: denies rashes NEUROLOGICAL: denies EVANS or seizures PSYCHIATRIC: +anxiety/depression ENDOCRINE: denies DM HEMATOLOGIC/LYMPHATIC: +easy bruising ALLERGIC/IMMUNOLOGIC: denies. PHYSICAL EXAMINATION: VITAL SIGNS: Please see below. GENERAL APPEARANCE: Medically stable, NAD HEENT: NC, TMI, vision grossly intact, poor dentition RESPIRATORY: CTA CARDIOVASCULAR: RRR ABDOMEN: Soft NT ND EXTREMITIES: MAEE. no swellling or induration/erythema/fluctuance in the right groin, and I can doppler excellent flow through the femfem bypass and in the femoral arteries bilaterally. He has monophasic DP/PT on the right and triphasic PT/absent DP on the left, and both feet appear at their baseline perfusion with a known h/o BLE SFA occlusion. walks with a cane. NEUROLOGICAL: A&OX3 PSYCHIATRIC: Pleasant and cooperative, affect is flat LABORATORY DATA: Please see below. WBC 8. Blood cultures pending. IMAGING: I reviewed the patient's CTA of the abd and pelvis. 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 L to R femfem bypass is patent. I do not see significant seroma, abscess at either groin. There are mild postop changes bilaterally, and maybe an air bubble or two on the left, none on the right. There may be an inguinal hernia on the left, but I do not see one on the right. Outflow at both femoral arteries is through patent [place] vessels, and the bilat SFA are occluded (known.) I do not see an obvious source of pain on this imaging. ASSESSMENT/PLAN: 58yo gentleman with R groin pain s/p L to R femfem bypass 1. Recommend anticoagulation- pt cannot afford it. Continue ASA at least, and will have him d/w our office possible alternatives when he f/u with Dr Sanchez on Sunday. 2. Analgesia prn groin pain. Ok or ice pack or warm pack if it helps with symptoms. 3. Patient should be on a statin medication if he can tolerate it, and should discuss with PCP. We appreciate the opportunity to participate in the care of this patient. Vital Signs/I&O Vital Signs Date Time Temp Pulse Resp B/P (MAP) Pulse Ox O2 Delivery O2 Flow Rate FiO2 10/19/18 09:00 10/19/18 08:46 97.7 74 18 98 Room Air Laboratory Data Labs 24H Laboratory Tests 2 10/19/18 09:26: Immature Granulocyte % (Auto) 0.1, White Blood Count 8.0, Red Blood Count 4.20L, Hemoglobin 12.6L, Hematocrit 39.8L, Mean Corpuscular Volume 94.8, Mean Corpuscular Hemoglobin 30.0, Mean Corpuscular Hemoglobin Concent 31.7L, Red Cell Distribution Width 13.8, Platelet Count 491H, Neutrophils (%) (Auto) 61.7, Lymp hocytes (%) (Auto) 26.9, Monocytes (%) (Auto) 6.9H, Eosinophils (%) (Auto) 4.0H, Basophils (%) (Auto) 0.4, Neutrophils # (Auto) 4.9, Lymphocytes # (Auto) 2.1, Monocytes # (Auto) 0.6, Eosinophils # (Auto) 0.3, Basophils # (Auto) 0.0, Nucleated Red Blood Cells % (auto) 0.0 10/19/18 09:27: POC Glucose (Misc Panel) 101, POC Sodium (Misc Panel) 140, POC Potassium (Misc Panel) 4.1, POC Chloride (Misc Panel) 100, POC Total CO2 (Misc Panel) 29.0H, POC Blood Urea Nitrogen (Misc Panel 20, POC Ionized Calcium (Misc Panel) 4.8, POC Creatinine (Misc Panel) 1.2, POC Hematocrit (Misc Panel) 41.0 10/19/18 09:34: Bedside Prothrombin Time INR 1.3, Prothrombin Time (MISC) 15.1H CBC/BMP Laboratory Tests 10/19/18 09:26 Red Blood Count 4.20 L, Mean Corpuscular Volume 94.8, Mean Corpuscular Hemoglobin 30.0, Mean Corpuscular Hemoglobin Concent 31.7 L, Red Cell Distribution Width 13.8, Neutrophils (%) (Auto) 61.7, Lymphocytes (%) (Auto) 26.9, Monocytes (%) (Auto) 6.9 H, Eosinophils (%) (Auto) 4.0 H, Basophils (%) (Auto) 0.4, Neutrophils # (Auto) 4.9, Lymphocytes # (Auto) 2.1, Monocytes # (Auto) 0.6, Eosinophils # (Auto) 0.3, Basophils # (Auto) 0.0 Microbiology Microbiology 10/19/18 Blood Culture, Received Pending 10/19/18 Blood Culture, Received Pending Allergies Coded Allergies: Penicillins (Verified Allergy, Unknown, 09/04/18) Home Medications Scheduled Apixaban (Eliquis) 5 Mg Tab, 5 MG PO BID for 30 Days, #60 Aspirin (Aspir 81) 81 Mg Tab, 81 MG PO DAILY, (Reported) Brimonidine Tartrate (Alphagan P) 100 Drop/5 Ml Soln, 1 DROP OU DAILY, (Reported) Latanoprost (Xalatan) 0.005 % Roopa, 1 DROP OU DAILY, (Reported) Metoprolol Tartrate (Metoprolol Tartrate) 25 Mg Tab, 25 MG PO BID for 14 Days, #28 Scheduled PRN Hydrocodone/Acetaminophen (Hydrocodone-Acetamin 5-325 mg) 1 Tab Tab, 2 TAB PO Q8HP PRN for SEVERE PAIN (PS 8-10) for 5 Days, #30 Polyethylene Glycol 3350 (Miralax) 1 Pow Pow, 17 GM PO DAILY PRN for CONSTIPATION, #1 dilute in 8 ounces of water or juice Tizanidine HCl (Tizanidine HCl) 4 Mg Cap, 4 MG PO TID PRN for MUSCLE SPASMS, (Reported) UTE WOODRUFF MD October 19, 2018 12:19
[2018-10-19] MEDS ORDERED: ELIQ5TAB PO (12:45)
[2018-10-19] MEDS ORDERED: NORC1TAB7 PO (12:55)
[2018-10-19 13:03] VITALS: BP 150/98
--- NOTE | 2018-10-22 06:13 | ED PDOC ---
Post-Departure Follow-Up dr becerra faxed formal report of cta abd/p for f Payton Zavala MD October 22, 2018 06:13
[2018-10-24] MEDS ORDERED: EXCEDTAB PO (10:29)
[2018-10-24] MEDS ORDERED: FLON1SPR (10:29)
[2018-10-24] MEDS ORDERED: HYDR25TAB PO (10:36)
[2018-10-24] MEDS ORDERED: ATOR1TAB21 PO (10:36)
== END 2018-10-19 13:10 | disposition home or self-care (01) ==
LOC: M ED 08:46
DX: R10.30 Lower abdominal pain, unspecified (principal); I73.9 Peripheral vascular disease, unspecified; I10 Essential (primary) hypertension; H40.9 Unspecified glaucoma; F17.200 Nicotine dependence, unspecified, uncomplicated; Z95.828 Presence of other vascular implants and grafts; Z88.0 Allergy status to penicillin; Z79.899 Other long term (current) drug therapy; Z79.01 Long term (current) use of anticoagulants; Z79.82 Long term (current) use of aspirin; Z91.120 Patient's intentional underdosing of medication regimen due to financial hardship
CPT/HCPCS: 36415; 74174; 80047; 85025; 87040; 96360; 96361; 99284; Q9967

== ENCOUNTER 2018-10-29 05:57 | Inpatient (IN) | payer OTHER ==
[~2018-10-29] VITALS: Ht 185.4 cm; Wt 70.3 kg
[2018-10-29] VITALS (8 sets, daily range): BP systolic 126–147; BP diastolic 71–86; O2SAT 95–99
[~2018-10-29 05:57] MED LIST changes: +ATOR1TAB21 PO; +EXCEDTAB PO; +FLON1SPR; +NORC1TAB7 PO
[2018-10-29] MEDS ORDERED: LIDOCAINE 2% INJ 100 MG/5 ML SDV (FOR ANES.) As Ordered ONE (07:02)
[2018-10-29] MEDS ORDERED: dexameTHASONE 4 MG/ML 1ML VIAL (J1100) As Ordered ONE ×2 (07:02→07:03)
[2018-10-29] MEDS ORDERED: MIDAZOLAM INJ 2 MG/2 ML VIAL (J2250) As Ordered ONE (07:03)
[2018-10-29] MEDS ORDERED: ONDANSETRON 4MG/2ML VIAL (J2405) As Ordered ONE (07:03)
[2018-10-29] MEDS ORDERED: fentaNYL 100 MCG/2 ML INJECTION (J3010) As Ordered ONE ×2 (07:03→10:41)
[2018-10-29] MEDS ORDERED: PROPOFOL 200 MG/20 ML VIAL As Ordered ONE ×3 (07:08→09:15)
[2018-10-29] MEDS ORDERED: KETAMINE HCL 200 MG/20 ML VIAL As Ordered ONE (07:09)
[2018-10-29] MEDS ORDERED: LIDOCAINE 1% SDV INJ 30 ML VIAL As Ordered ONE (07:14)
[2018-10-29] MEDS ORDERED: THROMBIN SOLN 20,000 UNITS KIT As Ordered ONE (07:14)
[2018-10-29] MEDS ORDERED: BUPIVACAINE HCL 0.5% 30 ML VIAL As Ordered ONE (07:15)
[2018-10-29] MEDS ORDERED: HEPARIN SOD (PORCINE) 5000 UNITS/ML VIAL As Ordered ONE ×3 (07:15→08:46)
[2018-10-29] MEDS ORDERED: CLINDAMYCIN 600 MG in APPROPRIATE DILUENT 1 EA IV ONE (07:30)
[2018-10-29] MEDS: SUCRALFATE 1 GM TAB PO SCH ×4 (07:30→20:50)
[2018-10-29] MEDS ORDERED: CLINDAMYCIN 600 MG/50 ML PREMIX BAG As Ordered ONE (07:30)
[2018-10-29] MEDS: PANTOPRAZOLE 40MG TAB (PROTONIX) PO SCH (09:00)
[2018-10-29] MEDS ORDERED: PHENYLephrine HCL 500 MCG/5 ML (100MCG/ML) SYRINGE (J2370) As Ordered ONE (10:06)
[2018-10-29] MEDS ORDERED: BISACODYL 10 MG SUPP PR PRN (10:15)
[2018-10-29] MEDS ORDERED: MOM 30ML SUSPENSION UDC PO PRN (10:15)
[2018-10-29] MEDS ORDERED: MORPHINE 4 MG/ML 1ML VIAL/SYRINGE (J2270) IV PRN (10:15)
[2018-10-29] MEDS ORDERED: EXCEDRIN MIGRAINE TABLET PO PRN (10:15)
[2018-10-29] MEDS: fentaNYL 100 MCG/2 ML INJECTION (J3010) IV PRN ×4 (10:45→11:05)
[2018-10-29] MEDS ORDERED: ONDANSETRON 4MG/2ML VIAL (J2405) IV PRN (10:45)
[2018-10-29] MEDS ORDERED: METOCLOPRAMIDE INJ 10MG/2ML VIAL (J2765) IV PRN (10:45)
[2018-10-29] MEDS ORDERED: LR 1,000 ML IV SCH (10:45)
[2018-10-29] MEDS ORDERED: PERCOCET 5MG/325MG TAB PO PRN (10:45)
--- NOTE | 2018-10-29 10:51 | HPEPDOC ---
[facility] Medical History & Physical Date of Admission October 29, 2018 Date of Service: October 29, 2018 History and Physical Vascular Surgery Dr Sanchez PCP: [facility] HPI: 58yoM with severe BLE PVD, with recent h/o L EIA stenting followed shortly thereafter by a left to right femfem bypass, both by Dr Sanchez. Admitted today for Rt Fem Pop bypass as per Dr Sanchez. Pt is seen in the RR. Denies any fevers, chills, weakness, fatigue, EVANS, CP, SOB, cough, palpitations, abdominal pain, N/V/D or changes in bowel or bladder habits. PAST MEDICAL HISTORY: Atherosclerosis of the [place] arteries Hypertension HLD PAF. On Eliquis. glaucoma allergic rhinitis PAST SURGICAL HISTORY: L EIA stenting L to R femfem bypass FAMILY HISTORY: heart disease, cancer SOCIAL HISTORY: lives with his girlfriend ROS: Pt states he has pain, he is receiving pain medication. All other ROS unremarkable. PE: Pt is awake and alert and is on stretcher in RR. He responds to questions appropriately. MM moist. Vital Signs Label Value Date Time Patient Temperature 96.7 degrees F 10/29/18 0639 Temperature Source Temporal 10/29/18 0639 Pulse 77 10/29/18 0639 Respiratory Rate 20 bpm 10/29/18 0639 Blood Pressure Assessment 99/71 (80) 10/29/18 0639 Bedside Pulse Oximetry 98 % 10/29/18 0639 Currently in RR HR 64, reg, BP 139/90, O2 sat 99% Lungs CTA. heart RRR Abd Soft, NT, no TTP. Extremities. No edema, feet are warm to touch. Rt DP/PT pulses obtained with doppler. Hgb 10/28/18 Outpt 12.2. A&P: 58yoM with severe BLE PVD, with recent h/o L EIA stenting followed shortly thereafter by a left to right femfem bypass, both by Dr Sanchez. Admitted today for Rt Fem Pop bypass as per Dr Sanchez. 1. The patient will be admitted to Dr. Sanchez's service. 2. Rt Fem pop bypass 10/29/[address] Sanchez. Pain control Bowel care. I/S. Am labs 3. PAD, h/o L EIA stenting followed shortly thereafter by a left to right femfem bypass. Eliquis/[id number]/statin 4. PAF. On Eliquis AC. HR 64 and reg in RR 5. HTN. HCTZ 25 mg daily. 6. HLD. Lipitor. 7. Glaucoma. Alphagan/Xalatan. 8. Allergic rhinitis. Flonase. DVT prophylaxis. Pt is on Eliquis. Vital Signs Vital Signs Date Time Temp Pulse Resp B/P (MAP) Pulse Ox O2 Delivery O2 Flow Rate FiO2 10/29/18 06:39 96.7 77 20 99/71 (80) 98 Laboratory Data Labs 24H Item Value Date Time White Blood Count 8.0 10^3/uL 10/19/18 0926 Red Blood Count 4.20 10^6/uL L 10/19/18 0926 Hemoglobin 12.6 g/dl L 10/19/18 0926 Hematocrit 39.8 % L 10/19/18 0926 Mean Corpuscular Volume 94.8 fl 10/19/18 0926 Mean Corpuscular Hemoglobin 30.0 pg 10/19/18 09 Mean Corpuscular Hemoglobin Concent 31.7 g/dl L 10/19/18 0926 Red Cell Distribution Width 13.8 % 10/19/18 0926 Platelet Count 491 10^3/uL H 10/19/18 0926 Sodium Level 141 MEQ/L 09/05/18 0529 Potassium Level 4.1 MEQ/L 09/05/18 0529 Chloride Level 104 MEQ/L 09/05/18 0529 Carbon Dioxide Level 30 MEQ/L 09/05/18 0529 Anion Gap 7 MEQ/L L 09/05/18 0529 Blood Urea Nitrogen 9 MG/DL 09/05/18 0529 Creatinine 1.03 MG/DL 09/05/18 0529 Glomerular Filtration Rate > 60.0 09/05/18 0529 Fasting Glucose 89 MG/DL 09/05/18 0529 Calcium Level 9.3 MG/DL 09/05/18 0529 Magnesium Level 2.0 MG/DL 09/05/18 0529 Bedside Prothrombin Time INR 1.3 10/19/18 0934 Prothromb Time International Ratio 1.16 08/26/18 1243 Activated Partial Thromboplast Time 39.7 SECONDS H 08/26/18 1243 Home Medications Scheduled Apixaban (Eliquis) 5 Mg Tab, 5 MG PO BID Aspirin (Aspir 81) 81 Mg Tab, 81 MG PO DAILY Atorvastatin Calcium (Atorvastatin Calcium) 20 Mg Tablet, 20 MG PO DAILY Brimonidine Tartrate (Alphagan P) 100 Drop/5 Ml Soln, 1 DROP OU DAILY Fluticasone Propionate (Flonase Allergy Relief) 9.9 Ml [place].susp, 2 SPRAY NA DAILY Hydrochlorothiazide (Hydrochlorothiazide) 25 Mg Tablet, 25 MG PO DAILY Latanoprost (Xalatan) 0.005 % Roopa, 1 DROP OU DAILY Scheduled PRN Acetaminophen/Aspirin/Caffein (Pain Reliever Plus Tablet) 1 Each Tablet, 1 EA PO BIDP PRN for PAIN Tizanidine HCl (Tizanidine HCl) 4 Mg Cap, 4 MG PO TID PRN for MUSCLE SPASMS Allergies Coded Allergies: Penicillins (Verified Allergy, Unknown, 09/04/18) A-FIB/CHADSVASC A-FIB History Current/History of A-Fib/PAF?: Yes Current Oral Anticoagulant The: Yes Jo Ann Herrera October 29, 2018 10:51
[2018-10-29] MEDS: ACETAMINOPHEN TAB 650MG DOSE (2X325MG) PO PRN (16:46)
[2018-10-29] MEDS: DOCUSATE SODIUM 100 MG CAP PO SCH (20:49)
[2018-10-29] MEDS: SENOKOT S TAB PO SCH (20:50)
[2018-10-29] MEDS: APIXABAN 5 MG TAB (ELIQUIS) PO SCH (20:50)
[2018-10-29] MEDS: MORPHINE 4 MG/ML 1ML VIAL/SYRINGE (J2270) IV PRN (22:55)
[2018-10-30 02:00] VITALS: BP 125/67
[2018-10-30] MEDS: MORPHINE 4 MG/ML 1ML VIAL/SYRINGE (J2270) IV PRN ×4 (03:44→22:47)
[2018-10-30 06:00] VITALS: BP 136/79
[2018-10-30] MEDS: FLUTICASONE PROP 0.05% NASAL SPRAY 16 GM (FLONASE) SCH (08:22)
[2018-10-30] MEDS: PANTOPRAZOLE 40MG TAB (PROTONIX) PO SCH (08:22)
[2018-10-30] MEDS: SUCRALFATE 1 GM TAB PO SCH ×4 (08:22→20:15)
[2018-10-30] MEDS: DOCUSATE SODIUM 100 MG CAP PO SCH ×2 (08:22→20:15)
[2018-10-30] MEDS: APIXABAN 5 MG TAB (ELIQUIS) PO SCH ×2 (08:22→20:15)
[2018-10-30] MEDS: LATANOPROST 0.005% OPHTH SOLN 2.5 ML OU SCH (08:22)
[2018-10-30] MEDS: hydroCHLOROthiazide 25 MG TAB PO SCH (08:22)
[2018-10-30] MEDS: ATORVASTATIN 20 MG TAB PO SCH (08:22)
[2018-10-30] MEDS: ASPIRIN 81 MG ENTERIC TAB PO SCH (08:22)
[2018-10-30] MEDS: SENOKOT S TAB PO SCH ×2 (08:22→20:15)
[2018-10-30] MEDS: BRIMONIDINE 0.1% OPHTH SOLN 5 ML OU SCH (08:22)
[2018-10-30 09:20] VITALS: O2SAT 95
[2018-10-30 10:00] VITALS: BP 125/68
--- NOTE | 2018-10-30 12:00 | IPNPDOC ---
Date Seen The patient was seen on 10/30/18. Progress Note Vascular Surgery Dr Sanchez PCP: [facility] HPI: 58yoM with severe BLE PVD, with recent h/o L EIA stenting followed shortly thereafter by a left to right femfem bypass, both by Dr Sanchez. Admitted 10/29/18 for Rt Fem Pop bypass as per Dr Sanchez. Pt with no verbalized concerns this AM. Denies any fevers, chills, weakness, fatigue, EAVNS, CP, SOB, cough, palpitations, abdominal pain, N/V/D or changes in bowel or bladder habits. PAST MEDICAL HISTORY: Atherosclerosis of the [place] arteries Hypertension HLD PAF. On Eliquis. glaucoma allergic rhinitis PAST SURGICAL HISTORY: L EIA stenting L to R femfem bypass PE: Pt is awake and alert. MM moist. Lungs CTA. heart RRR Abd Soft, NT, no TTP. dressing over surgical site Rt groin with bloody drainage noted. Extremities. No edema, feet are warm to touch. Rt DP/PT pulses obtained with doppler. Hgb 10/28/18 Outpt 12.2. A&P: 58yoM with severe BLE PVD, with recent h/o L EIA stenting followed shortly thereafter by a left to right femfem bypass, both by Dr Sanchez. Admitted today for Rt Fem Pop bypass as per Dr Sanchez. 1. The patient will be admitted to Dr. Sanchez's service. 2. Rt Fem pop bypass 10/29/[address] Sanchez. POD1 Pain control Bowel care. I/S. S/P 1 u PRBC 10/29/18 labs pending 3. PAD, h/o L EIA stenting followed shortly thereafter by a left to right femfem bypass. Eliquis/[id number]/statin 4. PAF. On Eliquis AC. HR 60s-70s and reg in RR 5. HTN. HCTZ 25 mg daily. 6. HLD. Lipitor. 7. Glaucoma. Alphagan/Xalatan. 8. Allergic rhinitis. Flonase. DVT prophylaxis. Pt is on Eliquis. A-FIB/CHADSVASC A-FIB History Current/History of A-Fib/PAF?: Yes Current Oral Anticoagulant The: Yes VS, I&O, 24H, Fishbone Vital Signs/I&O Vital Signs Date Time Temp Pulse Resp B/P (MAP) Pulse Ox O2 Delivery O2 Flow Rate FiO2 10/30/18 10:00 98.6 77 19 125/68 (87) 98 10/29/18 23:45 Room Air 10/29/18 10:25 2 I&O- Last 24 Hours up to 6 AM 10/30/18 06:00 Intake Total 4795 ml Output Total 6400 ml Balance -1605 ml Jo Ann Herrera October 30, 2018 12:00
[2018-10-30 12:05] LABS: HEMOGLOBIN 8.7 g/dl (13.5-17.5); MEAN CORPUSCULAR HEMOGLOBIN 28.7 pg (27.0-33.0); MEAN CORPUSCULAR HGB CONC 32.2 g/dl (32.0-36.5); MEAN CORPUSCULAR VOLUME 89.1 fl (80.0-96.0); PLATELET COUNT, AUTOMATED 600 10^3/uL (150-450); RED BLOOD COUNT 3.03 10^6/uL (4.30-6.10); WHITE BLOOD COUNT 12.6 10^3/uL (4.0-10.0)
[2018-10-30 12:57] LABS: ALBUMIN 2.6 GM/DL (3.2-5.2); ALT/SGPT 17 U/L (12-78); BILIRUBIN,TOTAL 0.2 MG/DL (0.2-1.0); BLOOD UREA NITROGEN 9 MG/DL (7-18); CALCIUM LEVEL 8.7 MG/DL (8.5-10.1); CARBON DIOXIDE LEVEL 31 MEQ/L (21-32); CHLORIDE LEVEL 105 MEQ/L (98-107); CREATININE FOR GFR 0.92 MG/DL (0.70-1.30); GLOMERULAR FILTRATION RATE > 60.0 (>56); GLUCOSE, FASTING 108 MG/DL (70-100); POTASSIUM SERUM 3.8 MEQ/L (3.5-5.1); SODIUM LEVEL 141 MEQ/L (136-145); TOTAL PROTEIN 6.7 GM/DL (6.4-8.2)
[2018-10-30 14:00] VITALS: BP 124/65
[2018-10-30] MEDS: ACETAMINOPHEN TAB 650MG DOSE (2X325MG) PO PRN (15:07)
[2018-10-30 22:00] VITALS: BP 127/68
[2018-10-31 06:00] VITALS: BP 124/70; O2SAT 100
[2018-10-31 06:08] LABS: HEMATOCRIT 30.4 % (42.0-52.0); HEMOGLOBIN 9.7 g/dl (13.5-17.5); MEAN CORPUSCULAR HEMOGLOBIN 29.4 pg (27.0-33.0); MEAN CORPUSCULAR HGB CONC 31.9 g/dl (32.0-36.5); MEAN CORPUSCULAR VOLUME 92.1 fl (80.0-96.0); PLATELET COUNT, AUTOMATED 665 10^3/uL (150-450); WHITE BLOOD COUNT 13.3 10^3/uL (4.0-10.0)
[2018-10-31 06:32] LABS: ALBUMIN 2.5 GM/DL (3.2-5.2); ALT/SGPT 17 U/L (12-78); BILIRUBIN,TOTAL 0.3 MG/DL (0.2-1.0); BLOOD UREA NITROGEN 9 MG/DL (7-18); CALCIUM LEVEL 8.5 MG/DL (8.5-10.1); CARBON DIOXIDE LEVEL 31 MEQ/L (21-32); CHLORIDE LEVEL 104 MEQ/L (98-107); CREATININE FOR GFR 1.01 MG/DL (0.70-1.30); GLOMERULAR FILTRATION RATE > 60.0 (>56); GLUCOSE, FASTING 116 MG/DL (70-100); POTASSIUM SERUM 3.5 MEQ/L (3.5-5.1); SODIUM LEVEL 141 MEQ/L (136-145); TOTAL PROTEIN 6.8 GM/DL (6.4-8.2)
[2018-10-31] MEDS: MORPHINE 4 MG/ML 1ML VIAL/SYRINGE (J2270) IV PRN ×2 (06:35→10:41)
[2018-10-31] MEDS: SUCRALFATE 1 GM TAB PO SCH ×4 (07:46→20:56)
[2018-10-31 08:00] VITALS: BP 127/66
[2018-10-31] MEDS: FLUTICASONE PROP 0.05% NASAL SPRAY 16 GM (FLONASE) SCH ×2 (09:00→09:31)
[2018-10-31] MEDS: LATANOPROST 0.005% OPHTH SOLN 2.5 ML OU SCH ×2 (09:00→09:31)
[2018-10-31 09:15] VITALS: O2SAT 97
--- NOTE | 2018-10-31 09:21 | IPNPDOC ---
Date Seen The patient was seen on 10/31/18. Progress Note Vascular Surgery Dr Sanchez PCP: [facility] HPI: 58yoM with severe BLE PVD, with recent h/o L EIA stenting followed shortly thereafter by a left to right femfem bypass, both by Dr Sanchez. Admitted 10/29/18 for Rt Fem Pop bypass as per Dr Sanchez. Pt with no verbalized concerns this AM. Has not yet participated with PT/OT. Denies any fevers, chills, weakness, fatigue, EVANS, CP, SOB, cough, palpitations, abdominal pain, N/V/D or changes in bowel or bladder habits. PAST MEDICAL HISTORY: Atherosclerosis of the [place] arteries Hypertension HLD PAF. On Eliquis. glaucoma allergic rhinitis PAST SURGICAL HISTORY: L EIA stenting L to R femfem bypass PE: Pt is awake and alert. MM moist. Lungs CTA. heart RRR Abd Soft, NT, no TTP. dressing over surgical site Rt groin. Extremities. No edema, feet are warm to touch. Rt DP/PT pulses obtained with doppler. Hgb 10/28/18 Outpt 12.2. A&P: 58yoM with severe BLE PVD, with recent h/o L EIA stenting followed s hortly thereafter by a left to right femfem bypass, both by Dr Sanchez. Admitted today for Rt Fem Pop bypass as per Dr Sanchez. 1. The patient will be admitted to Dr. Sanchez's service. 2. Rt Fem pop bypass 10/29/[address] Sanchez. POD2 Afebrile Pain control Bowel care. I/S. S/P 1 u PRBC 10/29/18 WBC13.3 Hgb 9.7 PT/OT pending 3. PAD, h/o L EIA stenting followed shortly thereafter by a left to right femfem bypass. Eliquis/[id number]/statin 4. PAF. On Eliquis AC. HR 60s-70s and reg in RR 5. HTN. HCTZ 25 mg daily. BP controlled. 6. HLD. Lipitor. 7. Glaucoma. Alphagan/Xalatan. 8. Allergic rhinitis. Flonase. DVT prophylaxis. Pt is on Eliquis. A-FIB/CHADSVASC A-FIB History Current/History of A-Fib/PAF?: Yes Current PO Anticoag Therapy: Yes VS, I&O, 24H, Fishbone Vital Signs/I&O Vital Signs Date Time Temp Pulse Resp B/P (MAP) Pulse Ox O2 Delivery O2 Flow Rate FiO2 10/31/18 08:00 98.0 63 18 127/66 (86) 99 10/31/18 06:00 Room Air 10/29/18 10:25 2 I&O- Last 24 Hours up to 6 AM 10/31/18 06:00 Intake Total 540 ml Output Total 2775 ml Balance -2235 ml Laboratory Data 24H LABS Laboratory Tests 2 10/30/18 11:48: Nucleated Red Blood Cells % (auto) 0.0, Anion Gap 5L, Glomerular Filtration Rate > 60.0, Blood Urea Nitrogen 9, Creatinine 0.92, Sodium Level 141, Potassium Level 3.8, Chloride Level 105, Carbon Dioxide Level 31, Calcium Level 8.7, Aspartate Amino Transf (AST/SGOT) 7, Alanine Aminotransferase (ALT/SGPT) 17, Alkaline Phosphatase 89, Total Bilirubin 0.2, Total Protein 6.7, Albumin 2.6L, Albumin/Globulin Ratio 0.63L 10/31/18 05:39: Nucleated Red Blood Cells % (auto) 0.0, Anion Gap 6L, Glomerular Filtration Rate > 60.0, Blood Urea Nitrogen 9, Creatinine 1.01, Sodium Level 141, Potassium Level 3.5, Chloride Level 104, Carbon Dioxide Level 31, Calcium Level 8.5, Aspartate Amino Transf (AST/SGOT) 9, Alanine Aminotransferase (ALT/SGPT) 17, Alkaline Phosphatase 93, Total Bilirubin 0.3, Total Protein 6.8, Albumin 2.5L, Albumin/Globulin Ratio 0.58L CBC/BMP Laboratory Tests 10/30/18 11:48 Red Blood Count 3.03 L, Mean Corpuscular Volume 89.1, Mean Corpuscular Hemoglobin 28.7, Mean Corpuscular Hemoglobin Concent 32.2, Red Cell Distribution Width 13.7, Calcium Level 8.7, Aspartate Amino Transf (AST/SGOT) 7, Alanine Aminotransferase (ALT/SGPT) 17, Alkaline Phosphatase 89, Total Bilirubin 0.2, Total Protein 6.7, Albumin 2.6 L 10/31/18 05:39 Red Blood Count 3.30 L, Mean Corpuscular Volume 92.1, Mean Corpuscular Hemoglobin 29.4, Mean Corpuscular Hemoglobin Concent 31.9 L, Red Cell Distribution Width 13.5, Calcium Level 8.5, Aspartate Amino Transf (AST/SGOT) 9, Alanine Aminotransferase (ALT/SGPT) 17, Alkaline Phosphatase 93, Total Bilirubin 0.3, Total Protein 6.8, Albumin 2.5 L Jo Ann Herrera October 31, 2018 09:21
[2018-10-31] MEDS: APIXABAN 5 MG TAB (ELIQUIS) PO SCH ×2 (09:27→20:57)
[2018-10-31] MEDS: DOCUSATE SODIUM 100 MG CAP PO SCH ×2 (09:27→20:56)
[2018-10-31] MEDS: ASPIRIN 81 MG ENTERIC TAB PO SCH (09:27)
[2018-10-31] MEDS: hydroCHLOROthiazide 25 MG TAB PO SCH (09:27)
[2018-10-31] MEDS: SENOKOT S TAB PO SCH ×2 (09:27→20:56)
[2018-10-31] MEDS: PANTOPRAZOLE 40MG TAB (PROTONIX) PO SCH (09:27)
[2018-10-31] MEDS: ACETAMINOPHEN TAB 650MG DOSE (2X325MG) PO PRN ×2 (09:30→15:37)
[2018-10-31] MEDS: ATORVASTATIN 20 MG TAB PO SCH (09:30)
[2018-10-31] MEDS: BRIMONIDINE 0.1% OPHTH SOLN 5 ML OU SCH (09:31)
[2018-10-31 14:00] VITALS: BP 115/73
[2018-10-31] MEDS ORDERED: MOM 30ML SUSPENSION UDC PO ONE (18:15)
[2018-10-31] MEDS ORDERED: FLEET ENEMA PR ONE (18:15)
[2018-10-31 22:00] VITALS: BP 126/86
[2018-11-01 06:00] VITALS: BP 132/84
[2018-11-01 06:19] LABS: HEMATOCRIT 28.9 % (42.0-52.0); HEMOGLOBIN 9.3 g/dl (13.5-17.5); MEAN CORPUSCULAR HEMOGLOBIN 28.4 pg (27.0-33.0); MEAN CORPUSCULAR HGB CONC 32.2 g/dl (32.0-36.5); MEAN CORPUSCULAR VOLUME 88.1 fl (80.0-96.0); PLATELET COUNT, AUTOMATED 718 10^3/uL (150-450); RED BLOOD COUNT 3.28 10^6/uL (4.30-6.10); WHITE BLOOD COUNT 15.6 10^3/uL (4.0-10.0)
[2018-11-01 06:53] LABS: ALBUMIN 2.7 GM/DL (3.2-5.2); ALT/SGPT 20 U/L (12-78); BILIRUBIN,TOTAL 0.4 MG/DL (0.2-1.0); BLOOD UREA NITROGEN 13 MG/DL (7-18); CALCIUM LEVEL 8.6 MG/DL (8.5-10.1); CARBON DIOXIDE LEVEL 30 MEQ/L (21-32); CHLORIDE LEVEL 101 MEQ/L (98-107); CREATININE FOR GFR 0.99 MG/DL (0.70-1.30); GLOMERULAR FILTRATION RATE > 60.0 (>56); GLUCOSE, FASTING 118 MG/DL (70-100); POTASSIUM SERUM 3.3 MEQ/L (3.5-5.1); SODIUM LEVEL 137 MEQ/L (136-145)
[2018-11-01] MEDS: ATORVASTATIN 20 MG TAB PO SCH (07:59)
[2018-11-01] MEDS: ASPIRIN 81 MG ENTERIC TAB PO SCH (08:00)
[2018-11-01] MEDS: FLUTICASONE PROP 0.05% NASAL SPRAY 16 GM (FLONASE) SCH (08:00)
[2018-11-01] MEDS: PANTOPRAZOLE 40MG TAB (PROTONIX) PO SCH (08:00)
[2018-11-01] MEDS: BRIMONIDINE 0.1% OPHTH SOLN 5 ML OU SCH (08:00)
[2018-11-01] MEDS: ACETAMINOPHEN TAB 650MG DOSE (2X325MG) PO PRN (08:00)
[2018-11-01] MEDS: DOCUSATE SODIUM 100 MG CAP PO SCH ×2 (08:00→19:59)
[2018-11-01] MEDS: SENOKOT S TAB PO SCH ×2 (08:00→19:59)
[2018-11-01] MEDS: SUCRALFATE 1 GM TAB PO SCH ×4 (08:00→19:59)
[2018-11-01] MEDS: hydroCHLOROthiazide 25 MG TAB PO SCH (08:00)
[2018-11-01] MEDS: APIXABAN 5 MG TAB (ELIQUIS) PO SCH ×2 (08:00→19:59)
[2018-11-01] MEDS: LATANOPROST 0.005% OPHTH SOLN 2.5 ML OU SCH (08:01)
--- NOTE | 2018-11-01 08:50 | IPNPDOC ---
Date Seen The patient was seen on 11/01/18. Progress Note Vascular Surgery Dr Sanchez PCP: [facility] HPI: 58yoM with severe BLE PVD, with recent h/o L EIA stenting followed shortly thereafter by a left to right femfem bypass, both by Dr Sanchez. Admitted 10/29/18 for Rt Fem Pop bypass as per Dr Sancehz. Pt with no verbalized concerns this AM. PT/OT 10/31/18 not safe. Denies any fevers, chills, weakness, fatigue, EVANS, CP, SOB, cough, palpitations, abdominal pain, N/V/D or changes in bowel or bladder habits. PAST MEDICAL HISTORY: Atherosclerosis of the [place] arteries Hypertension HLD PAF. On Eliquis. glaucoma allergic rhinitis PAST SURGICAL HISTORY: L EIA stenting L to R femfem bypass PE: Pt is awake and alert. MM moist. Lungs CTA. heart RRR Abd Soft, NT, no TTP. dressing over surgical site Rt groin. Extremities. No edema, feet are warm to touch. Rt DP/PT pulses obtained with doppler. Hgb 10/28/18 Outpt 12.2. A&P: 58yoM with severe BLE PVD, with recent h/o L EIA stenting followed shortly thereafter by a left to right femfem bypass, both by Dr Sanchez. Admitted 10/29/18 for Rt Fem Pop bypass as per Dr Sanchez. 1. Rt Fem pop bypass 10/29/[address] Sanchez. POD3 Afebrile D/C IV Morphine, po Percocet as needed. Bowel care. I/S. S/P 1 u PRBC 10/29/18 WBC 15.6 Hgb 9.3 PT/OT 10/31/18 not safe. PFS to assist with D/C planning. 2. PAD, h/o L EIA stenting followed shortly thereafter by a left to right femfem bypass. Eliquis/[id number]/statin 3. PAF. On Eliquis AC. 4. HTN. HCTZ 25 mg daily. BP controlled. 5. HLD. Lipitor. 6. Glaucoma. Alphagan/Xalatan. 7. Allergic rhinitis. Flonase. DVT prophylaxis. Pt is on Eliquis. A-FIB/CHADSVASC A-FIB History Current/History of A-Fib/PAF?: Yes Current PO Anticoag Therapy: Yes VS, I&O, 24H, Fishbone Vital Signs/I&O Vital Signs Date Time Temp Pulse Resp B/P (MAP) Pulse Ox O2 Delivery O2 Flow Rate FiO2 11/01/18 06:00 97.4 101 20 132/84 (100) 100 10/31/18 09:15 Room Air 10/29/18 10:25 2 I&O- Last 24 Hours up to 6 AM 11/01/18 06:00 Intake Total 1400 ml Output Total 2350 ml Balance -950 ml Laboratory Data 24H LABS Laboratory Tests 2 11/01/18 05:48: Nucleated Red Blood Cells % (auto) 0.0, Anion Gap 6L, Glomerular Filtration Rate > 60.0, Blood Urea Nitrogen 13, Creatinine 0.99, Sodium Level 137, Potassium Level 3.3L, Chloride Level 101, Carbon Dioxide Level 30, Calcium Level 8.6, Aspartate Amino Transf (AST/SGOT) 9, Alanine Aminotransferase (ALT/SGPT) 20, Alkaline Phosphatase 101, Total Bilirubin 0.4, Total Protein 7.0, Albumin 2.7L, Albumin/Globulin Ratio 0.63L CBC/BMP Laboratory Tests 11/01/18 05:48 Red Blood Count 3.28 L, Mean Corpuscular Volume 88.1, Mean Corpuscular Hemoglobin 28.4, Mean Corpuscular Hemoglobin Concent 32.2, Red Cell Distribution Width 13.4, Calcium Level 8.6, Aspartate Amino Transf (AST/SGOT) 9, Alanine Aminotransferase (ALT/SGPT) 20, Alkaline Phosphatase 101, Total Bilirubin 0.4, Total Protein 7.0, Albumin 2.7 L Jo Ann Herrera November 01, 2018 08:50
[2018-11-01 09:20] VITALS: O2SAT 100
[2018-11-01] MEDS: PERCOCET 5MG/325MG TAB PO PRN ×2 (11:46→22:10)
[2018-11-01 14:00] VITALS: BP 127/85
[2018-11-01] MEDS ORDERED: POTASSIUM CHLORIDE 10 MEQ SR TABLET PO ONE ×2 (19:45→23:45)
[2018-11-01 22:00] VITALS: BP 143/85
[2018-11-02 04:51] VITALS: O2SAT 98
[2018-11-02] MEDS: PERCOCET 5MG/325MG TAB PO PRN ×3 (05:21→19:22)
[2018-11-02 06:00] VITALS: BP 131/84
[2018-11-02 06:31] LABS: HEMATOCRIT 28.4 % (42.0-52.0); HEMOGLOBIN 8.9 g/dl (13.5-17.5); MEAN CORPUSCULAR HGB CONC 31.3 g/dl (32.0-36.5); MEAN CORPUSCULAR VOLUME 89.3 fl (80.0-96.0); PLATELET COUNT, AUTOMATED 719 10^3/uL (150-450); RED BLOOD COUNT 3.18 10^6/uL (4.30-6.10); WHITE BLOOD COUNT 12.6 10^3/uL (4.0-10.0)
[2018-11-02 07:05] LABS: ALBUMIN 2.7 GM/DL (3.2-5.2); ALT/SGPT 19 U/L (12-78); BILIRUBIN,TOTAL 0.5 MG/DL (0.2-1.0); BLOOD UREA NITROGEN 11 MG/DL (7-18); CALCIUM LEVEL 8.6 MG/DL (8.5-10.1); CARBON DIOXIDE LEVEL 31 MEQ/L (21-32); CHLORIDE LEVEL 101 MEQ/L (98-107); CREATININE FOR GFR 0.95 MG/DL (0.70-1.30); GLOMERULAR FILTRATION RATE > 60.0 (>56); GLUCOSE, FASTING 108 MG/DL (70-100); POTASSIUM SERUM 3.7 MEQ/L (3.5-5.1); SODIUM LEVEL 137 MEQ/L (136-145); TOTAL PROTEIN 7.2 GM/DL (6.4-8.2)
[2018-11-02] MEDS: SUCRALFATE 1 GM TAB PO SCH ×4 (08:24→20:29)
[2018-11-02] MEDS: ATORVASTATIN 20 MG TAB PO SCH (08:24)
[2018-11-02] MEDS: APIXABAN 5 MG TAB (ELIQUIS) PO SCH ×2 (08:24→20:29)
[2018-11-02] MEDS: DOCUSATE SODIUM 100 MG CAP PO SCH ×2 (08:24→20:29)
[2018-11-02] MEDS: hydroCHLOROthiazide 25 MG TAB PO SCH (08:24)
[2018-11-02] MEDS: FLUTICASONE PROP 0.05% NASAL SPRAY 16 GM (FLONASE) SCH (08:24)
[2018-11-02] MEDS: ASPIRIN 81 MG ENTERIC TAB PO SCH (08:24)
[2018-11-02] MEDS: SENOKOT S TAB PO SCH ×2 (08:24→20:29)
[2018-11-02] MEDS: PANTOPRAZOLE 40MG TAB (PROTONIX) PO SCH (08:24)
[2018-11-02] MEDS: BRIMONIDINE 0.1% OPHTH SOLN 5 ML OU SCH (08:25)
[2018-11-02] MEDS: LATANOPROST 0.005% OPHTH SOLN 2.5 ML OU SCH (08:25)
[2018-11-02 09:00] VITALS: O2SAT 99
[2018-11-02 09:35] VITALS: BP 111/65
[2018-11-02 13:55] VITALS: BP 133/83
[2018-11-02 22:00] VITALS: BP 147/84; O2SAT 98
[2018-11-03 06:00] VITALS: BP 137/89
[2018-11-03] MEDS: PERCOCET 5MG/325MG TAB PO PRN ×3 (06:28→18:51)
[2018-11-03] MEDS: tiZANidine 4 MG TAB PO PRN ×2 (06:29→21:22)
[2018-11-03 06:42] LABS: HEMATOCRIT 28.8 % (42.0-52.0); HEMOGLOBIN 9.2 g/dl (13.5-17.5); MEAN CORPUSCULAR HEMOGLOBIN 28.5 pg (27.0-33.0); MEAN CORPUSCULAR HGB CONC 31.9 g/dl (32.0-36.5); MEAN CORPUSCULAR VOLUME 89.2 fl (80.0-96.0); PLATELET COUNT, AUTOMATED 749 10^3/uL (150-450); RED BLOOD COUNT 3.23 10^6/uL (4.30-6.10); WHITE BLOOD COUNT 12.3 10^3/uL (4.0-10.0)
[2018-11-03 07:07] LABS: ALBUMIN 3.1 GM/DL (3.2-5.2); ALT/SGPT 17 U/L (12-78); BILIRUBIN,TOTAL 0.5 MG/DL (0.2-1.0); BLOOD UREA NITROGEN 13 MG/DL (7-18); CALCIUM LEVEL 9.8 MG/DL (8.5-10.1); CARBON DIOXIDE LEVEL 32 MEQ/L (21-32); CHLORIDE LEVEL 98 MEQ/L (98-107); CREATININE FOR GFR 0.97 MG/DL (0.70-1.30); GLOMERULAR FILTRATION RATE > 60.0 (>56); GLUCOSE, FASTING 91 MG/DL (70-100); POTASSIUM SERUM 3.5 MEQ/L (3.5-5.1); SODIUM LEVEL 136 MEQ/L (136-145); TOTAL PROTEIN 7.3 GM/DL (6.4-8.2)
[2018-11-03] MEDS: SUCRALFATE 1 GM TAB PO SCH ×4 (08:14→21:12)
[2018-11-03] MEDS: SENOKOT S TAB PO SCH ×2 (08:14→21:12)
[2018-11-03] MEDS: ASPIRIN 81 MG ENTERIC TAB PO SCH (08:14)
[2018-11-03] MEDS: APIXABAN 5 MG TAB (ELIQUIS) PO SCH ×2 (08:15→21:12)
[2018-11-03] MEDS: hydroCHLOROthiazide 25 MG TAB PO SCH (08:15)
[2018-11-03] MEDS: ATORVASTATIN 20 MG TAB PO SCH (08:15)
[2018-11-03] MEDS: PANTOPRAZOLE 40MG TAB (PROTONIX) PO SCH (08:15)
[2018-11-03] MEDS: FLUTICASONE PROP 0.05% NASAL SPRAY 16 GM (FLONASE) SCH (08:16)
[2018-11-03] MEDS: BRIMONIDINE 0.1% OPHTH SOLN 5 ML OU SCH (08:16)
[2018-11-03] MEDS: LATANOPROST 0.005% OPHTH SOLN 2.5 ML OU SCH (08:16)
[2018-11-03] MEDS: DOCUSATE SODIUM 100 MG CAP PO SCH ×2 (08:16→21:12)
[2018-11-03 09:00] VITALS: O2SAT 98
[2018-11-03 14:00] VITALS: BP 135/80
[2018-11-03 22:00] VITALS: BP 133/85; O2SAT 99
[2018-11-04] MEDS: PERCOCET 5MG/325MG TAB PO PRN ×2 (04:09→16:28)
[2018-11-04 06:00] VITALS: BP 114/75
[2018-11-04 06:02] LABS: HEMATOCRIT 27.3 % (42.0-52.0); HEMOGLOBIN 8.8 g/dl (13.5-17.5); MEAN CORPUSCULAR HEMOGLOBIN 28.4 pg (27.0-33.0); MEAN CORPUSCULAR HGB CONC 32.2 g/dl (32.0-36.5); MEAN CORPUSCULAR VOLUME 88.1 fl (80.0-96.0); PLATELET COUNT, AUTOMATED 741 10^3/uL (150-450); WHITE BLOOD COUNT 10.9 10^3/uL (4.0-10.0)
[2018-11-04 06:32] LABS: ALBUMIN 2.9 GM/DL (3.2-5.2); ALT/SGPT 14 U/L (12-78); BILIRUBIN,TOTAL 0.3 MG/DL (0.2-1.0); BLOOD UREA NITROGEN 15 MG/DL (7-18); CALCIUM LEVEL 9.4 MG/DL (8.5-10.1); CARBON DIOXIDE LEVEL 31 MEQ/L (21-32); CHLORIDE LEVEL 100 MEQ/L (98-107); CREATININE FOR GFR 0.96 MG/DL (0.70-1.30); GLOMERULAR FILTRATION RATE > 60.0 (>56); GLUCOSE, FASTING 108 MG/DL (70-100); POTASSIUM SERUM 3.4 MEQ/L (3.5-5.1); SODIUM LEVEL 137 MEQ/L (136-145); TOTAL PROTEIN 7.1 GM/DL (6.4-8.2)
[2018-11-04] MEDS: DOCUSATE SODIUM 100 MG CAP PO SCH ×2 (08:04→21:11)
[2018-11-04] MEDS: ATORVASTATIN 20 MG TAB PO SCH (08:04)
[2018-11-04] MEDS: hydroCHLOROthiazide 25 MG TAB PO SCH (08:04)
[2018-11-04] MEDS: SUCRALFATE 1 GM TAB PO SCH ×4 (08:04→21:11)
[2018-11-04] MEDS: PANTOPRAZOLE 40MG TAB (PROTONIX) PO SCH (08:04)
[2018-11-04] MEDS: APIXABAN 5 MG TAB (ELIQUIS) PO SCH ×2 (08:05→21:11)
[2018-11-04] MEDS: SENOKOT S TAB PO SCH ×2 (08:05→21:11)
[2018-11-04] MEDS: FLUTICASONE PROP 0.05% NASAL SPRAY 16 GM (FLONASE) SCH (08:05)
[2018-11-04] MEDS: ASPIRIN 81 MG ENTERIC TAB PO SCH (08:05)
[2018-11-04] MEDS: LATANOPROST 0.005% OPHTH SOLN 2.5 ML OU SCH (08:06)
[2018-11-04] MEDS: BRIMONIDINE 0.1% OPHTH SOLN 5 ML OU SCH (08:06)
[2018-11-04 09:10] VITALS: O2SAT 98
[2018-11-04] MEDS: tiZANidine 4 MG TAB PO PRN ×2 (11:21→21:11)
[2018-11-04 14:00] VITALS: BP 114/70
[2018-11-04] MEDS ORDERED: POTASSIUM CHLORIDE 10 MEQ SR TABLET PO ONE ×2 (16:00→19:00)
[2018-11-04 22:00] VITALS: BP 130/85
[2018-11-05 01:17] VITALS: O2SAT 96
[2018-11-05] MEDS: PERCOCET 5MG/325MG TAB PO PRN ×4 (02:23→18:34)
[2018-11-05 05:53] LABS: HEMATOCRIT 27.1 % (42.0-52.0); HEMOGLOBIN 8.5 g/dl (13.5-17.5); MEAN CORPUSCULAR HEMOGLOBIN 28.6 pg (27.0-33.0); MEAN CORPUSCULAR HGB CONC 31.4 g/dl (32.0-36.5); MEAN CORPUSCULAR VOLUME 91.2 fl (80.0-96.0); PLATELET COUNT, AUTOMATED 723 10^3/uL (150-450); RED BLOOD COUNT 2.97 10^6/uL (4.30-6.10); WHITE BLOOD COUNT 8.8 10^3/uL (4.0-10.0)
[2018-11-05 06:00] VITALS: BP 138/88
[2018-11-05 06:22] LABS: ALBUMIN 2.8 GM/DL (3.2-5.2); ALT/SGPT 16 U/L (12-78); BILIRUBIN,TOTAL 0.3 MG/DL (0.2-1.0); BLOOD UREA NITROGEN 12 MG/DL (7-18); CALCIUM LEVEL 9.1 MG/DL (8.5-10.1); CARBON DIOXIDE LEVEL 29 MEQ/L (21-32); CHLORIDE LEVEL 106 MEQ/L (98-107); CREATININE FOR GFR 1.02 MG/DL (0.70-1.30); GLOMERULAR FILTRATION RATE > 60.0 (>56); GLUCOSE, FASTING 98 MG/DL (70-100); POTASSIUM SERUM 4.2 MEQ/L (3.5-5.1); SODIUM LEVEL 140 MEQ/L (136-145); TOTAL PROTEIN 6.8 GM/DL (6.4-8.2)
[2018-11-05] MEDS: SENOKOT S TAB PO SCH ×2 (08:12→20:01)
[2018-11-05] MEDS: APIXABAN 5 MG TAB (ELIQUIS) PO SCH ×2 (08:12→20:01)
[2018-11-05] MEDS: DOCUSATE SODIUM 100 MG CAP PO SCH ×2 (08:12→20:01)
[2018-11-05] MEDS: ATORVASTATIN 20 MG TAB PO SCH (08:12)
[2018-11-05] MEDS: PANTOPRAZOLE 40MG TAB (PROTONIX) PO SCH (08:12)
[2018-11-05] MEDS: hydroCHLOROthiazide 25 MG TAB PO SCH (08:12)
[2018-11-05] MEDS: SUCRALFATE 1 GM TAB PO SCH ×4 (08:12→20:01)
[2018-11-05] MEDS: LATANOPROST 0.005% OPHTH SOLN 2.5 ML OU SCH (08:13)
[2018-11-05] MEDS: FLUTICASONE PROP 0.05% NASAL SPRAY 16 GM (FLONASE) SCH (08:13)
[2018-11-05] MEDS: ASPIRIN 81 MG ENTERIC TAB PO SCH (08:13)
[2018-11-05] MEDS: BRIMONIDINE 0.1% OPHTH SOLN 5 ML OU SCH (08:13)
[2018-11-05 09:10] VITALS: O2SAT 100
--- NOTE | 2018-11-05 10:11 | IPNPDOC ---
Date Seen The patient was seen on 11/05/18. Progress Note Vascular Surgery Dr Sanchez PCP: [facility] HPI: 58yoM with severe BLE PVD, with recent h/o L EIA stenting followed shortly thereafter by a left to right femfem bypass, both by Dr Sanchez. Admitted 10/29/18 for Rt Fem Pop bypass as per Dr Sanchez. Pt with no verbalized concerns this AM. Pt is OOB to chair. PT/OT 11/01/18 not safe. Denies any fevers, chills, weakness, fatigue, EVANS, CP, SOB, cough, palpitations, abdominal pain, N/V/D or changes in bowel or bladder habits. PAST MEDICAL HISTORY: Atherosclerosis of the [place] arteries Hypertension HLD PAF. On Eliquis. glaucoma allergic rhinitis PAST SURGICAL HISTORY: L EIA stenting L to R femfem bypass PE: Pt is awake and alert. MM moist. Lungs CTA. heart RRR Abd Soft, NT, no TTP. dressing over surgical site Rt groin. Extremities. No edema, feet are warm to touch. A&P: 58yoM with severe BLE PVD, with recent h/o L EIA stenting followed shortly thereafter by a left to right femfem bypass, both by Dr Sanchez. Admitted 10/29/18 for Rt Fem Pop bypass as per Dr Sanchez. 1. Rt Fem pop bypass 10/29/[address] Sanchez. POD7 Afebrile Percocet as needed. Bowel care. I/S. S/P 1 u PRBC 10/29/18 WBC 8.8 Hgb 8.5 PT/OT 11/01/18 not safe. PFS to assist with D/C planning. ARU screen pending. 2. PAD, h/o L EIA stenting followed shortly thereafter by a left to right femfem bypass. Eliquis/[id number]/statin 3. PAF. On Eliquis AC. 4. HTN. HCTZ 25 mg daily. BP controlled. 5. HLD. Lipitor. 6. Glaucoma. Alphagan/Xalatan. 7. Allergic rhinitis. Flonase. DVT prophylaxis. Pt is on Eliquis. VS, I&O, 24H, Fishbone Vital Signs/I&O Vital Signs Date Time Temp Pulse Resp B/P (MAP) Pulse Ox O2 Delivery O2 Flow Rate FiO2 11/05/18 09:45 18 11/05/18 09:10 100 11/05/18 06:00 98.9 85 138/88 (105) 11/05/18 01:17 Room Air I&O- Last 24 Hours up to 6 AM 11/05/18 06:00 Intake Total 1680 ml Output Total 3600 ml Balance -1920 ml Laboratory Data 24H LABS Laboratory Tests 2 11/05/18 05:30: Nucleated Red Blood Cells % (auto) 0.0, Anion Gap 5L, Glomerular Filtration Rate > 60.0, Blood Urea Nitrogen 12, Creatinine 1.02, Sodium Level 140, Potassium Level 4.2#, Chloride Level 106, Carbon Dioxide Level 29, Calcium Level 9.1, Aspartate Amino Transf (AST/SGOT) 11, Alanine Aminotransferase (ALT/SGPT) 16, Alkaline Phosphatase 89, Total Bilirubin 0.3, Total Protein 6.8, Albumin 2.8L, Albumin/Globulin Ratio 0.70L CBC/BMP Laboratory Tests 11/05/18 05:30 Red Blood Count 2.97 L, Mean Corpuscular Volume 91.2, Mean Corpuscular Hemoglobin 28.6, Mean Corpuscular Hemoglobin Concent 31.4 L, Red Cell Distrib ution Width 13.2, Calcium Level 9.1, Aspartate Amino Transf (AST/SGOT) 11, Alanine Aminotransferase (ALT/SGPT) 16, Alkaline Phosphatase 89, Total Bilirubin 0.3, Total Protein 6.8, Albumin 2.8 L Jo Ann Herrera November 05, 2018 10:11
[2018-11-05 14:00] VITALS: BP 145/85
[2018-11-05] MEDS: tiZANidine 4 MG TAB PO PRN (20:01)
[2018-11-05 22:00] VITALS: BP 121/72
[2018-11-06] MEDS: PERCOCET 5MG/325MG TAB PO PRN ×3 (01:12→14:13)
[2018-11-06 03:05] VITALS: O2SAT 98
[2018-11-06 06:00] VITALS: BP 131/84
[2018-11-06 06:08] LABS: HEMATOCRIT 27.4 % (42.0-52.0); HEMOGLOBIN 8.5 g/dl (13.5-17.5); MEAN CORPUSCULAR HEMOGLOBIN 28.1 pg (27.0-33.0); MEAN CORPUSCULAR VOLUME 90.4 fl (80.0-96.0); PLATELET COUNT, AUTOMATED 739 10^3/uL (150-450); RED BLOOD COUNT 3.03 10^6/uL (4.30-6.10); WHITE BLOOD COUNT 7.3 10^3/uL (4.0-10.0)
[2018-11-06 06:33] LABS: ALBUMIN 2.9 GM/DL (3.2-5.2); ALT/SGPT 19 U/L (12-78); BILIRUBIN,TOTAL 0.3 MG/DL (0.2-1.0); BLOOD UREA NITROGEN 12 MG/DL (7-18); CALCIUM LEVEL 9.4 MG/DL (8.5-10.1); CARBON DIOXIDE LEVEL 31 MEQ/L (21-32); CHLORIDE LEVEL 107 MEQ/L (98-107); CREATININE FOR GFR 1.13 MG/DL (0.70-1.30); GLOMERULAR FILTRATION RATE > 60.0 (>56); GLUCOSE, FASTING 94 MG/DL (70-100); POTASSIUM SERUM 4.4 MEQ/L (3.5-5.1); SODIUM LEVEL 142 MEQ/L (136-145); TOTAL PROTEIN 6.9 GM/DL (6.4-8.2)
[2018-11-06 09:00] VITALS: O2SAT 97
[2018-11-06] MEDS: BRIMONIDINE 0.1% OPHTH SOLN 5 ML OU SCH ×2 (09:00→09:05)
[2018-11-06] MEDS: ATORVASTATIN 20 MG TAB PO SCH (09:05)
[2018-11-06] MEDS: LATANOPROST 0.005% OPHTH SOLN 2.5 ML OU SCH (09:05)
[2018-11-06] MEDS: PANTOPRAZOLE 40MG TAB (PROTONIX) PO SCH (09:05)
[2018-11-06] MEDS: FLUTICASONE PROP 0.05% NASAL SPRAY 16 GM (FLONASE) SCH (09:05)
[2018-11-06] MEDS: DOCUSATE SODIUM 100 MG CAP PO SCH (09:06)
[2018-11-06] MEDS: hydroCHLOROthiazide 25 MG TAB PO SCH (09:06)
[2018-11-06] MEDS: ASPIRIN 81 MG ENTERIC TAB PO SCH (09:06)
[2018-11-06] MEDS: APIXABAN 5 MG TAB (ELIQUIS) PO SCH (09:06)
[2018-11-06] MEDS: SUCRALFATE 1 GM TAB PO SCH ×2 (09:06→12:07)
[2018-11-06] MEDS: SENOKOT S TAB PO SCH (09:06)
[2018-11-06] MEDS: tiZANidine 4 MG TAB PO PRN (11:12)
[2018-11-06 14:00] VITALS: BP 129/86
[2018-11-06] MEDS ORDERED: PERCOCET PO (14:01)
[2018-11-06] MEDS ORDERED: COLA100C5 PO (14:01)
[2018-11-06] MEDS ORDERED: SENN-52 PO (14:01)
--- NOTE | 2018-11-06 14:11 | DS.PDOC ---
Discharge Summary General Date of Admission October 29, 2018 at 05:57 Date of Discharge 11/06/18 Discharge Summary PROCEDURES PERFORMED DURING STAY: 10/29/18 for Rt Fem Pop bypass as per Dr Sanchez. ADMITTING DIAGNOSES: Severe BLE PVD, with recent h/o L EIA stenting followed shortly thereafter by a left to right femfem bypass, both by Dr Sanchez. Admitted 10/29/18 for Rt Fem Pop bypass as per Dr Sanchez. DISCHARGE DIAGNOSES: Severe BLE PVD, with recent h/o L EIA stenting followed shortly thereafter by a left to right femfem bypass, 10/29/18 for Rt Fem Pop bypass as per Dr Sanchez. Atherosclerosis of the [place] arteries Hypertension HLD PAF. On Eliquis. glaucoma allergic rhinitis HOSPITAL COURSE: 58yoM with severe BLE PVD, with recent h/o L EIA stenting followed shortly thereafter by a left to right femfem bypass, both by Dr Sanchez. S/P Rt Fem Pop bypass 10/29/[address] Sanchez. The pt tolerated procedure well, no complications. Cleared by PT/OT on day of discharge. DISCHARGE MEDICATIONS: Please see below. ALLERGIES: Please see below. PHYSICAL EXAMINATION ON DISCHARGE: VITAL SIGNS: Please see below. Pt is awake and alert. MM moist. Lungs CTA. heart RRR Abd Soft, NT, no TTP. dressing over surgical site Rt groin. Extremities. No edema, feet are warm to touch. Rt DP/PT pulses obtained with doppler. LABORATORY DATA: Please see below. IMAGING: none PROGNOSIS: guarded ACTIVITY: As tolerated. DIET: regular DISCHARGE PLAN: FU as outpt with PCP [address] Sanchez 5-7 days DISPOSITION: home with services. DISCHARGE INSTRUCTIONS: 1. script given for Rolling walker as per PT 2. dry dressing to Rt groin daily. 3. Call with increased pain, erythema, drainage from surgical site. 4. Activity as tolerated. DISCHARGE CONDITION: Stable TIME SPENT ON DISCHARGE: Greater than 30 minutes. Vital Signs/I&Os Vital Signs Date Time Temp Pulse Resp B/P (MAP) Pulse Ox O2 Delivery O2 Flow Rate FiO2 11/06/18 09:37 16 11/06/18 06:00 98.0 81 131/84 (100) 100 11/06/18 03:05 Room Air I&O- Last 24 Hours up to 6 AM 11/06/18 06:00 Intake Total 2200 ml Output Total 1000 ml Balance 1200 ml Laboratory Data Labs 24H Laboratory Tests 2 11/06/18 05:39: Nucleated Red Blood Cells % (auto) 0.0, Anion Gap 4L, Glomerular Filtration Rate > 60.0, Blood Urea Nitrogen 12, Creatinine 1.13, Sodium Level 142, Potassium Level 4.4, Chloride Level 107, Carbon Dioxide Level 31, Calcium Level 9.4, Aspartate Amino Transf (AST/SGOT) 12, Alanine Aminotransferase (ALT/SGPT) 19, Alkaline Phosphatase 91, Total Bilirubin 0.3, Total Protein 6.9, Albumin 2.9L, Albumin/Globulin Ratio 0.73L CBC/BMP Laboratory Tests 11/06/18 05:39 Red Blood Count 3.03 L, Mean Corpuscular Volume 90.4, Mean Corpuscular Hemoglobin 28.1, Mean Corpuscular Hemoglobin Concent 31.0 L, Red Cell Distribution Width 13.5, Calcium Level 9.4, Aspartate Amino Transf (AST/SGOT) 12, Alanine Aminotransferase (ALT/SGPT) 19, Alkaline Phosphatase 91, Total Bilirubin 0.3, Total Protein 6.9, Albumin 2.9 L Discharge Medications Scheduled Apixaban (Eliquis) 5 Mg Tab, 5 MG PO BID Aspirin (Aspir 81) 81 Mg Tab, 81 MG PO DAILY, (Reported) Atorvastatin Calcium (Atorvastatin Calcium) 20 Mg Tablet, 20 MG PO DAILY, (Reported) Brimonidine Tartrate (Alphagan P) 100 Drop/5 Ml Soln, 1 DROP OU DAILY, (Reported) Docusate Sodium (Colace) 100 Mg Capsule, 100 MG PO BID Fluticasone Propionate (Flonase Allergy Relief) 9.9 Ml [place].susp, 2 SPRAY NA DAILY, (Reported) Hydrochlorothiazide (Hydrochlorothiazide) 25 Mg Tablet, 25 MG PO DAILY, (Reported) Latanoprost (Xalatan) 0.005 % Roopa, 1 DROP OU DAILY, (Reported) Sennosides/Docusate Sodium (Senna Plus Tablet) 1 Each Tablet, 1 TAB PO BID Scheduled PRN Acetaminophen/Aspirin/Caffein (Pain Reliever Plus Tablet) 1 Each Tablet, 1 EA PO BIDP PRN for PAIN, (Reported) Oxycodone/Acetaminophen (Oxycodone-Acetaminophen 5-325) 1 Each Tablet, 1 TAB PO Q6HP PRN for MODERATE/SEVERE PAIN (PS 5-10) Tizanidine HCl (Tizanidine HCl) 4 Mg Cap, 4 MG PO TID PRN for MUSCLE SPASMS, (Reported) Allergies Coded Allergies: Penicillins (Verified Allergy, Unknown, 09/04/18) Jo Ann Herrera November 06, 2018 14:11
--- NOTE | 2018-11-15 17:54 | RO ---
DATE OF PROCEDURE: 10/29/2018 PREOPERATIVE DIAGNOSIS: Right lower extremity claudication. POSTOPERATIVE DIAGNOSES: Right lower extremity claudication. PROCEDURE: Right femoral to above-knee popliteal artery bypass graft with 8 mm polytetrafluoroethylene (PTFE) Propaten graft. SURGEON: Dr. Dejah Sanchez DEVELOPER PROGRAMMER ANALYST: None. INDICATION: The patient is a 58-year-old male with claudication in his right lower extremity who has complete occlusion of his right superficial femoral artery. The patient will undergo bypass grafting of the right lower extremity. ANESTHESIA: Local monitored anesthesia care (MAC). ESTIMATED BLOOD LOSS: 1400 mL. IV FLUIDS: 3000 mL of crystalloid, one unit of packed red blood cells. HEPARIN: 7000 units followed by an additional 3000 units. COMPLICATIONS: None. SPECIMENS: None. DESCRIPTION OF PROCEDURE: The patient was taken to the operating room, placed supine on the operating room table and then prepped and draped in a standard surgical fashion. An incision was made obliquely at the right femoral region to expose the right common femoral artery. The graft was tunneled, the popliteal artery was exposed through a transverse incision. The graft was anastomosed to the right common femoral artery and then the right popliteal artery in the above knee region. There was good flow noted through the graft and into the distal popliteal artery confirmed with Doppler ultrasound. Hemostasis was obtained. Afterwards the incisions were closed using #2-0 Vicryl to approximate the deeper layer and marjorie to approximate the skin. All instrument, sponge and needle counts were correct at the end the case. The patient was transferred to the recovery room awake, alert, extubated and in stable condition.
== END 2018-11-06 17:00 | disposition home or self-care (01) | DRG 181 ==
LOC: M OR 05:57 → M MSPAV 12:12
PROVIDERS: ADMIT Surgery Vascular Surgery; ATTEND Surgery Vascular Surgery
PROC: 041K0JQ Bypass Right Femoral Artery to Lower Extremity Artery with Synthetic Substitute, Open Approach (ICD-10-PCS; 2018-10-29)
PROC: 041K0JH Bypass Right Femoral Artery to Right Femoral Artery with Synthetic Substitute, Open Approach (ICD-10-PCS; principal; 2018-10-29 07:30)
DX: I70.211 Atherosclerosis of native arteries of extremities with intermittent claudication, right leg (principal); I10 Essential (primary) hypertension; I48.0 Paroxysmal atrial fibrillation; H40.9 Unspecified glaucoma; J30.9 Allergic rhinitis, unspecified; E78.5 Hyperlipidemia, unspecified; I25.10 Atherosclerotic heart disease of native coronary artery without angina pectoris; I70.202 Unspecified atherosclerosis of native arteries of extremities, left leg; Z79.01 Long term (current) use of anticoagulants; Z79.899 Other long term (current) drug therapy; Z79.82 Long term (current) use of aspirin; Z88.0 Allergy status to penicillin

== ENCOUNTER 2018-11-13 15:32 | Emergency (ER) | payer OTHER ==
[~2018-11-13] VITALS: Ht 185.4 cm; Wt 68.2 kg
[~2018-11-13 15:32] MED LIST changes: +COLA100C5 PO; +PERCOCET PO; +SENN-52 PO
[2018-11-13] MEDS ORDERED: KETOROLAC 30 MG/ML VIAL (J1885) IV ONE (16:30)
[2018-11-13] MEDS ORDERED: PANTOPRAZOLE 40MG INJ (PROTONIX) (C9113) IV ONE (16:30)
[2018-11-13] MEDS ORDERED: NS 1,000 ML IV ONE ×2 (16:30→18:00)
[2018-11-13] MEDS ORDERED: ONDANSETRON 4MG/2ML VIAL (J2405) IV ONE (16:30)
[2018-11-13 16:37] LABS: BASO % 0.3 % (0.0-1.0); EOS # 0.1 10^3/uL (0.0-0.50); EOS % 0.3 % (0.0-3.0); HEMATOCRIT 34.7 % (42.0-52.0); HEMOGLOBIN 11.1 g/dl (13.5-17.5); LYMPH # 2.5 10^3/uL (1.5-4.5); LYMPH % 16.2 % (24.0-44.0); MEAN CORPUSCULAR HEMOGLOBIN 28.6 pg (27.0-33.0); MEAN CORPUSCULAR VOLUME 89.4 fl (80.0-96.0); MONO # 0.8 10^3/uL (0.0-0.8); MONO % 4.9 % (0.0-5.0); PLATELET COUNT, AUTOMATED 547 10^3/uL (150-450); RED BLOOD COUNT 3.88 10^6/uL (4.30-6.10); WHITE BLOOD COUNT 15.4 10^3/uL (4.0-10.0)
[2018-11-13 16:44] LABS: ALBUMIN 3.9 GM/DL (3.2-5.2); BILIRUBIN,DIRECT 0.3 MG/DL (0.0-0.2); BILIRUBIN,TOTAL 0.8 MG/DL (0.2-1.0); CALCIUM LEVEL 9.6 MG/DL (8.5-10.1); CREATININE FOR GFR 1.67 MG/DL (0.70-1.30); GLOMERULAR FILTRATION RATE 54.6 (>56); POTASSIUM SERUM 3.3 MEQ/L (3.5-5.1); TOTAL PROTEIN 8.5 GM/DL (6.4-8.2)
--- NOTE | 2018-11-13 17:11 | REP ---
Flat upright PA chest of three views History: Abdominal pain Comparison: 08/26/2018 Air is present in small and large intestine. There are no air-fluid levels or dilated loops of intestine. There is no pneumoperitoneum. Surgical clips and a stent are present in the pelvis. The lungs are clear. Impression: Nonspecific bowel gas pattern. Electronically Signed by Mark Baptiste MD 11/13/2018 05:04 P
[2018-11-13 17:28] LABS: INR 1.44; PROTHROMBIN TIME 17.8 SECONDS (12.1-14.4)
[2018-11-13] MEDS ORDERED: CIPROFLOXACIN 400 MG in APPROPRIATE DILUENT 1 EA IV ONE (18:15)
[2018-11-13 19:39] VITALS: BP 112/73
[2018-11-13] MEDS ORDERED: CIPR-249 PO (19:45)
--- NOTE | 2018-11-13 20:14 | ECGEPIP ---
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
== END 2018-11-13 20:26 | disposition home or self-care (01) ==
LOC: M ED 15:32
DX: E86.0 Dehydration (principal); N39.0 Urinary tract infection, site not specified; I25.10 Atherosclerotic heart disease of native coronary artery without angina pectoris; E78.9 Disorder of lipoprotein metabolism, unspecified; Z79.899 Other long term (current) drug therapy; Z79.82 Long term (current) use of aspirin; Z79.01 Long term (current) use of anticoagulants; Z88.0 Allergy status to penicillin; Z87.891 Personal history of nicotine dependence
CPT/HCPCS: 74021; 80048; 80076; 81001; 83690; 85025; 85610; 87088; 87186; 93005; 93041; 96361; 96365; 96375; 99285; C9113; J0744; J1885; J2405

== ENCOUNTER → 2018-12-18 | Outpatient (CLI) | payer OTHER ==
[~2018-12-18] MED LIST changes: +AMIT-253 PO; +CIPR-249 PO; -FLON1SPR; +FLON1SPR NARES; +MM S100C PO
--- NOTE | 2018-12-26 10:18 | REP ---
Clinical: Atherosclerotic disease with history of bypass graft(s) Technique: Real time dorado scale and color Doppler evaluation of the bilateral lower extremity arterial vasculature using linear high frequency transducer. Findings: The a [id number] femoral - femoral bypass graft is identified and occluded along with a right femoral - popliteal bypass graft which is also identified and occluded. The bilateral superficial femoral arteries demonstrate proximal/mid occlusion. The right common iliac artery and proximal external iliac artery demonstrate occlusion. The right popliteal artery demonstrates revascularization by the right anterior tibial artery and associated genicular arteries. A collateral vessel is also identified revascularizing the right proximal anterior tibial artery which demonstrates reversal of flow along the upstream anterior tibial artery at the point of collateral and downstream flow distal to the point of collateral vessel. The left external iliac artery demonstrates proximal occlusion extending to the femoral - femoral bypass graft anastomoses. The distal left superficial formal artery downstream to the occlusion is revascularized by genicular artery. Monophasic wave patterns are noted bilaterally as well as low velocity flow through the visualized distal aorta suggesting associated atherosclerotic disease with visualized areas of partial thrombosis. Right NICKIE equals at 0.41 Left NICKIE equals 0.85. Distal aorta velocity at 20 cm/sec. Peak systolic velocities (cm/sec) RIGHT LEFT Common femoral artery 17.3 158/54.6 Profunda femoris 68.3 88 8.8 SFA (proximal) occluded occluded SFA (mid) occluded occluded SFA (distal) occluded 43.2 Popliteal artery 41.0 38.1 JOSÉ MIGUEL (prox.) reversed 25.5 Tibioperoneal trunk 26.9 27.4 [employer] COAT OPERATOR (prox.) 24.9 42.6 FIRST COAT OPERATOR (distal) 21.0 38.3 JOSÉ MIGUEL (distal) 12.1 9.1 Impression: Extensive atherosclerotic disease involving the aorta and bilateral [place] arteries with areas of occlusion through the bilateral superficial femoral arteries as well as occlusion of the femoral - femoral bypass graft and right femoral - popliteal bypass graft. Electronically Signed by Demetrius Aceves MD 12/26/2018 10:10 A
== END ==
LOC: M RAD 08:29
PROVIDERS: ATTEND Surgery Vascular Surgery
DX: I70.213 Atherosclerosis of native arteries of extremities with intermittent claudication, bilateral legs (principal)

== ENCOUNTER 2018-12-25 10:00 | Inpatient (IN) | payer OTHER ==
[~2018-12-25] VITALS: Ht 185.4 cm; Wt 65.3 kg
[~2018-12-25 10:00] MED LIST changes: -AMIT-253 PO; -MM S100C PO
[2018-12-25] MEDS ORDERED: AMIT-253 PO (10:07)
[2018-12-25] MEDS ORDERED: NS 1,000 ML IV ONE (11:45)
[2018-12-25] MEDS ORDERED: PERCOCET 5MG/325MG TAB PO ONE (12:00)
[2018-12-25 12:34] LABS: BASO % 0.5 % (0.0-1.0); EOS # 0.1 10^3/uL (0.0-0.50); EOS % 0.7 % (0.0-3.0); HEMATOCRIT 44.7 % (42.0-52.0); HEMOGLOBIN 14.2 g/dl (13.5-17.5); MEAN CORPUSCULAR HEMOGLOBIN 27.7 pg (27.0-33.0); MEAN CORPUSCULAR HGB CONC 31.8 g/dl (32.0-36.5); MEAN CORPUSCULAR VOLUME 87.3 fl (80.0-96.0); MONO # 0.4 10^3/uL (0.0-0.8); MONO % 4.8 % (0.0-5.0); NEUTROPHILS # 5.5 10^3/uL (1.8-7.7); NEUTROPHILS % 68.8 % (36.0-66.0); PLATELET COUNT, AUTOMATED 591 10^3/uL (150-450); RED BLOOD COUNT 5.12 10^6/uL (4.30-6.10); WHITE BLOOD COUNT 8.1 10^3/uL (4.0-10.0)
[2018-12-25 12:36] LABS: ERYTHROCYTE SEDIMENTATION RATE 11 mm/hr (0-20)
[2018-12-25 12:38] LABS: ALBUMIN 3.7 GM/DL (3.2-5.2); ALT/SGPT 23 U/L (12-78); BILIRUBIN,TOTAL 0.3 MG/DL (0.2-1.0); BLOOD UREA NITROGEN 15 MG/DL (7-18); C REACTIVE PROTEIN QUANTITATIV 4.62 MG/DL (0.00-0.30); CALCIUM LEVEL 9.6 MG/DL (8.5-10.1); CARBON DIOXIDE LEVEL 32 MEQ/L (21-32); CHLORIDE LEVEL 105 MEQ/L (98-107); GLUCOSE, FASTING 102 MG/DL (70-100); SODIUM LEVEL 140 MEQ/L (136-145)
[2018-12-25] MEDS ORDERED: MM S100C PO (12:51)
[2018-12-25] MEDS ORDERED: ISOVUE-370 76% 100ML VIAL (Q9967) As Ordered ONE (13:55)
--- NOTE | 2018-12-25 14:49 | CR.PDOC ---
General Date of Consultation: Dec 25, [address] Sanchez HPI: 58yoM with severe BLE PVD, with h/o L EIA stenting followed shortly thereafter by a left to right femfem bypass, s/p Rt Fem Pop bypass 10/29/[address] Sanchez. Pt reported to ED today stating he had noted a lump in the Rt groin 12/24/18 associated with Rt foot pain today. Vascular surgery was consulted. Denies any fevers, chills, Headache, Chest Pain, Shortness of breath, cough, palpitations, abdominal pain, N/V/D or changes in bowel or bladder habits. PAST MEDICAL HISTORY: PAD Hypertension HLD anxiety depression glaucoma allergic rhinitis PAST SURGICAL HISTORY: skin graft L EIA stenting L to R femfem bypass Rt fem pop bypass FAMILY HISTORY: heart disease, cancer SOCIAL HISTORY: smoker x 30 years ETOH denies lives with his girlfriend ROS: As noted in HPI, otherwise 11pt ROS of systems reviewed and unremarkable. PE: GEN: 58yoM, appears stated age. No acute distress. Alert and oriented x 3. HEENT: Normocephalic, atraumatic. Sclera are nonicteric. Conjunctiva without injection. Moist mucous membranes. CHEST: Regular rate and rhythm, +S1, +S2 LUNGS: Clear to auscultation bilaterally. No wheezes, rales, or rhonchi. ABD: Round, soft, non-tender, non-distended. +Bowel sounds throughout. EXT: Firm nodule 4-5cm diameter Rt groin, no fluctuance, no warmth, TTP. No lower extremity edema appreciated. The toes of the right foot are cool to touch, Left foot warm to touch. DP/PT Pulses Rt foot monophasic with Doppler. NEURO: Alert and oriented x 3. Cranial nerves III-XII are intact. No focal deficits appreciated. BLE arterial US. Results pending. CTA RLE results pending. LA 1.2 ESR 11 CRP 4.62. CMP pending. A&P: PAD with h/o L EIA stenting followed by a left to right femfem bypass, s/p Rt Fem Pop bypass 10/29/[address] Sanchez. Pt is on ASA 81 mg daily. The pt has been reviewed and examined by Dr Sanchez. Pt with firm nodule Rt groin, Rt foot pain, monophasic pulses. hgb 14.2 WBC 8.[address] Sanchez with occluded graft. Rt groin with possible abscess. CTA RLE pending. Plan as relayed by Dr Sanchez 12/25/18 is for femoral exploration, removal of graft, patch angioplasty. Likely to OR 12/26/18. No heparin gtt at this time. Vital Signs/I&O Vital Signs Date Time Temp Pulse Resp B/P (MAP) Pulse Ox O2 Delivery O2 Flow Rate FiO2 12/25/18 13:47 96.4 88 18 127/59 (81) 100 Room Air Laboratory Data Labs 24H Laboratory Tests 2 12/25/18 11:33: Immature Granulocyte % (Auto) 0.2, White Blood Count 8.1, Red Blood Count 5.12, Hemoglobin 14.2, Hematocrit 44.7, Mean Corpuscular Volume 87.3, Mean Corpuscular Hemoglobin 27.7, Mean Corpuscular Hemoglobin Concent 31.8L, Red Cell Distribution Width 14.4, Platelet Count 591H, Neutrophils (%) (Auto) 68.8H, Lymphocytes (%) (Auto) 25.0, Monocytes (%) (Auto) 4.8, Eosinophils (%) (Auto) 0.7, Basophils (%) (Auto) 0.5, Neutrophils # (Auto) 5.5, Lymphocytes # (Auto) 2.0, Monocytes # (Auto) 0.4, Eosinophils # (Auto) 0.1, Basophils # (Auto) 0.0, Nucleated Red Blood Cells % (auto) 0.0, Erythrocyte Sedimentation Rate 11, Anion Gap 3L, Lactic Acid Level 1.2, C-Reactive Protein, Quantitative 4.62H, Albumin/Globulin Ratio 3.00H CBC/BMP Laboratory Tests 12/25/18 11:33 Red Blood Count 5.12, Mean Corpuscular Volume 87.3, Mean Corpuscular Hemoglobin 27.7, Mean Corpuscular Hemoglobin Concent 31.8 L, Red Cell Distribution Width 14.4, Neutrophils (%) (Auto) 68.8 H, Lymphocytes (%) (Auto) 25.0, Monocytes (%) (Auto) 4.8, Eosinophils (%) (Auto) 0.7, Basophils (%) (Auto) 0.5, Neutrophils # (Auto) 5.5, Lymphocytes # (Auto) 2.0, Monocytes # (Auto) 0.4, Eosinophils # (Auto) 0.1, Basophils # (Auto) 0.0 Microbiology Microbiology 12/25/18 Blood Culture, Received Pending 12/25/18 Blood Culture, Received Pending Allergies Coded Allergies: Penicillins (Verified Allergy, Unknown, CHILDHOOD ALLERGY, 12/25/18) Home Medications Scheduled Amitriptyline HCl (Amitriptyline HCl) 10 Mg Tablet, 10 MG PO QHS, (Reported) Aspirin (Aspir 81) 81 Mg Tab, 81 MG PO DAILY, (Reported) Brimonidine Tartrate (Alphagan P) 100 Drop/5 Ml Soln, 1 DROP OU DAILY, (Reported) Docusate Sodium (Stool Softener) 100 Mg Capsule, 100 MG PO QHS, (Reported) Latanoprost (Xalatan) 0.005 % Roopa, 1 DROP OU QHS, (Reported) Scheduled PRN Fluticasone Propionate (Flonase Allergy Relief) 9.9 Ml [place].susp, 2 SPRAY NARES DAILY PRN for CONGESTION, (Reported) Tizanidine HCl (Tizanidine HCl) 4 Mg Cap, 4 MG PO TID PRN for MUSCLE SPASMS, (Reported) Jo Ann Herrera Dec 25, 2018 14:02
[2018-12-25] MEDS ORDERED: CEFEPIME HCL 2 GM in D5W MINI-BAG PLUS 50 ML IV ONE (15:15)
--- NOTE | 2018-12-25 16:04 | REP ---
PA and lateral chest: Comparison is 08/26/2018. The lung [place] are clear. The cardiac size is normal. The juan luis, mediastinum, and skeletal structures are unremarkable. Impression: Negative PA and lateral chest. There is no interval change. Electronically Signed by Selvin Le MD 12/25/2018 03:54 P
[2018-12-25] MEDS ORDERED: FLUTICASONE PROP 0.05% NASAL SPRAY 16 GM (FLONASE) NARES PRN (16:15)
[2018-12-25 16:30] VITALS: BP 188/110
[2018-12-25] MEDS: oxyCODONE 5MG TAB PO PRN ×2 (17:00→22:38)
--- NOTE | 2018-12-25 17:37 | REP ---
CT ANGIOGRAM ABDOMINAL AORTA AND BILATERAL LOWER EXTREMITIES: CT angiogram of the abdominal aorta and bilateral lower extremities is performed following the intravenous administration of 100 mL Isovue-370. Sagittal, coronal and 3D MIP reconstruction images are performed and compared to the prior study of 10/19/2018. Distal abdominal aorta is upper limits of normal in caliber measuring 3 cm in AP dimension. There is moderate partial calcified plaquing of the distal abdominal aorta. Single renal arteries are patent with no stenosis. Celiac and superior mesenteric arteries are widely patent. There is a patent inferior mesenteric artery. Once again there is occlusion of the right common iliac artery as well as right internal and external iliac arteries. Left common iliac and external iliac arteries are patent and unchanged. There is a left external iliac artery stent which is patent. Left internal iliac artery is again noted to be occluded. There is a femoral to femoral cross over bypass graft which was previously noted to be patent, but it is now completely occluded. There is widely patent and somewhat ectatic left common femoral artery. The left superficial femoral artery is again noted to be occluded just distal to its origin. The left profunda is patent and feed multiple collateral vessels in the left thigh. There is calcification of the very distal end of the left superficial femoral artery as it exits the adductor canal. Left popliteal artery is patent. Left trifurcation vessels are patent in the calf. Left anterior tibial and peroneal arteries become significantly thinned in the mid calf region. Left posterior tibial artery is widely patent to the left foot. On the right collateral vessels opacify a small portion of the right common femoral artery. Right profunda is opacified. There is right superficial femoral artery graft which is occluded. Small collateral vessels traverse through the thigh. The left mid popliteal artery is reconstituted at the level of the superior pole of the right patella. Thin trifurcation arteries are visualized in the proximal right calf. Only the significantly thinned right posterior tibia artery is visualized in the distal right calf. This vessel is not definitely seen traversing into the right foot. Visualized lung bases demonstrate no infiltrate. There are small cysts again seen in the liver and left kidney. No new findings are seen involving the spleen, adrenals or pancreas. No bowel wall thickening is seen. In the right external iliac region there are multiple subcentimeter lymph nodes which may be reactive. There is subcutaneous ill-defined soft-tissue density in the right inguinal region along the anterior margin of the right femoral portion of the graft. I suspect this represents inflammatory change. I do not see a walled off abscess. IMPRESSION: Occlusion of the femoral to femoral cross over graft. Occlusion left superficial femoral artery with reconstitution of the left popliteal artery and single vessel run off into the left foot. Right superficial femoral artery graft is occluded throughout. Collateral vessels reconstitute the right popliteal artery. No definite vessels are seen traversing into the right foot. Focal subcutaneous soft tissue density in the right inguinal region superficial to the right femoral graft I suspect represents focal inflammatory change. No walled off abscess is seen. There is mild adjacent reactive adenopathy. Electronically Signed by Selvin Herrera MD 12/28/2018 06:33 P
[2018-12-25 18:00] VITALS: BP 182/100
[2018-12-25] MEDS ORDERED: amLODIPine 5 MG TAB PO ONE (18:00)
--- NOTE | 2018-12-25 19:12 | REP ---
Limited pelvic sonography with Doppler: History: Right groin lump. History: Occluded fem-fem bypass graft and right fem-pop bypass graft. Right groin lump. Sonographic findings: The right groin was scanned in the area of the lump. In the area of the lump, the bypass graft appears occluded, somewhat collapsed, and with edema surrounding it. There is a 17 x 14 x 7 mm lymph node in the right groin and 1 or 2 smaller nodes are seen. Impression: Bypass graft occlusion. edema surrounding the partially collapsed occluded graft. Graft infection cannot be excluded. Electronically Signed by Mikhail Antonio MD 12/26/2018 07:12 P
--- NOTE | 2018-12-25 19:15 | HPEPDOC ---
General Date of Admission 12/25/18 Date of Service: Dec 25, 2018 Other Providers PCP - Dr Peguero Mac Artist: Dr Sanchez Attending Physician: JOSE ORONA DO Chief Complaint The patient is a 58-year-old male admitted with a reason for visit of Leg Pain, Lump On Hip. 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 He states it was size of 1/2 an egg and non tender. This morning, after taking hot shower, he states right lump increased to size of an egg, became tender and had right leg achy cramping sensation from thigh, knee and calf. states achy was constant and cramping sensation intermittent. states relief of swelling and pain with ice, worse with hot compress. States increased numbness and tingling to right foot. He denies CP, SOB, N,V,abdomen pain, fever or chills Home Medications Scheduled Amitriptyline HCl (Amitriptyline HCl) 10 Mg Tablet, 10 MG PO QHS, (Reported) Aspirin (Aspir 81) 81 Mg Tab, 81 MG PO DAILY, (Reported) Brimonidine Tartrate (Alphagan P) 100 Drop/5 Ml Soln, 1 DROP OU DAILY, (Reported) Docusate Sodium (Stool Softener) 100 Mg Capsule, 100 MG PO QHS, (Reported) Latanoprost (Xalatan) 0.005 % Roopa, 1 DROP OU QHS, (Reported) Scheduled PRN Fluticasone Propionate (Flonase Allergy Relief) 9.9 Ml [place].susp, 2 SPRAY NARES DAILY PRN for CONGESTION, (Reported) Tizanidine HCl (Tizanidine HCl) 4 Mg Cap, 4 MG PO TID PRN for MUSCLE SPASMS, (Reported) Allergies Coded Allergies: Penicillins (Verified Allergy, Unknown, CHILDHOOD ALLERGY, 12/25/18) Past Medical History Medical History PAD, HTN, Hyperlipidemia, anxiety, depression, glaucoma, allergic rhinitis, p AFIB Past surgical history: skin graft, left EIA stenting, left to right femfem bypass, right fem pop bypass Family history - CAD Social History: former smoker, denies ETOH A-FIB/CHADSVASC A-FIB History Current/History of A-Fib/PAF?: Yes Current PO Anticoag Therapy: No (unknown - attempt to get accurate med rec) Age/Risk Factor Scoring CHADSVASC: CHADSVASC Response (Comments) Value Age Risk Factor Age < 65 years old 0 Gender Risk Factor Male 0 Hx of CHF No 0 Hx of HTN Yes 1 Hx of Stroke/TIA/or VTE No 0 Hx of Diabetes Yes 1 Hx of Vascular Disease Yes 1 Total 3 Treatment Treatment ordered: NONE (per surgery) Reason Anticoagulant not given: Recent/upcomin procedure (in AM) Review of Systems Other systems 10 comprehensive systems reviewed and negative except as per HPI Physical Examination General Exam: Positive: Alert, Cooperative, No Acute Distress (thin) Eye Exam: Positive: PERRLA, Conjunctiva & lids normal, EOMI ENT Exam: Positive: Atraumatic, Mucous membr. moist/pink, Pharynx Normal Neck Exam: Positive: Supple, +2 carotid pulse wo bruit Chest Exam: Positive: Clear to auscultation, Normal air movement; Negative: Rales, Rhonchi, Wheezing, Diminished Heart Exam: Positive: Bradycardic (50-60), Irregular Rhythm, Other (no murmur) Telemetry: Positive: Other Telemetry: (pending) Abdomen Exam: Positive: Normal bowel sounds, Soft (NT ND NABS) Extremity Exam: Positive: Swelling (right groin with 3.5cm tender fluctulant mass, no inguinal adenopathy; no mass on left groin; ), Other (no ankle or calf edema; lower extremity warm (not cold to touch). unable to see capillary refill due to skin pigmentation; faint DP pulse palable on right) Neuro Exam: Positive: Normal Speech, Normal Tone, Sensation Intact, Cranial Nerves 3-12 NL Psych Exam: Positive: Mental status NL, Mood NL, Oriented x 3 Other physical findings CTA lower extremity IMPRESSION: No occlusion of the femoral to femoral cross over graft. Occlusion left superficial femoral artery with reconstitution of the left popliteal artery and single vessel run off into the left foot. Right superficial femoral artery graft is occluded throughout. Collateral vessel reconstitute to the right popliteal artery. No definite vessels are seen traversing into the right foot. Focal subcutaneous soft tissue density in the right inguinal region superficial to the right femoral graft I suspect represents focal inflammatory change. No walled off abscess is seen. There is mild adjacent reactive adenopathy. US right groin: verbal report - bypass graft occlusion, edema surrounding the partially collapsed graft; graft infection can not be ruled out CXR: images reviewed: no cardiomegally, no pulmonary effusions or infiltrates Vital Signs Vital Signs Date Time Temp Pulse Resp B/P (MAP) Pulse Ox O2 Delivery O2 Flow Rate FiO2 12/25/18 13:47 96.4 88 18 127/59 (81) 100 Room Air Laboratory Data Labs 24H Laboratory Tests 2 12/25/18 11:33: Immature Granulocyte % (Auto) 0.2, White Blood Count 8.1, Red Blood Count 5.12, Hemoglobin 14.2, Hematocrit 44.7, Mean Corpuscular Volume 87.3, Mean Corpuscular Hemoglobin 27.7, Mean Corpuscular Hemoglobin Concent 31.8L, Red Cell Distribution Width 14.4, Platelet Count 591H, Neutrophils (%) (Auto) 68.8H, Lymphocytes (%) (Auto) 25.0, Monocytes (%) (Auto) 4.8, Eosinophils (%) (Auto) 0.7, Basophils (%) (Auto) 0.5, Neutrophils # (Auto) 5.5, Lymphocytes # (Auto) 2.0, Monocytes # (Auto) 0.4, Eosinophils # (Auto) 0.1, Basophils # (Auto) 0.0, Nucleated Red Blood Cells % (auto) 0.0, Erythrocyte Sedimentation Rate 11, Anion Gap 3L, Lactic Acid Level 1.2, C-Reactive Protein, Quantitative 4.62H, Albumin/Globulin Ratio 3.00H CBC/BMP Laboratory Tests 12/25/18 11:33 Red Blood Count 5.12, Mean Corpuscular Volume 87.3, Mean Corpuscular Hemoglobin 27.7, Mean Corpuscular Hemoglobin Concent 31.8 L, Red Cell Distribution Width 14.4, Neutrophils (%) (Auto) 68.8 H, Lymphocytes (%) (Auto) 25.0, Monocytes (%) (Auto) 4.8, Eosinophils (%) (Auto) 0.7, Basophils (%) (Auto) 0.5, Neutrophils # (Auto) 5.5, Lymphocytes # (Auto) 2.0, Monocytes # (Auto) 0.4, Eosinophils # (Auto) 0.1, Basophils # (Auto) 0.0 Microbiology Microbiology 12/25/18 Blood Culture, Received Pending 12/25/18 Blood Culture, Received Pending Assessment/Plan 1) right groin mass - suspected seroma vs infected graft surgery consulted thru ED BC ordered. start cefepime. 2) PAD S/P Grafts and possible occlusion right - patient was on ASA at home (hold ASA). Dr Sanchez was consulted thru ED. possible OR 12/26 for femoral exploration, removal of graft, patch angioplasty. does not recommend heparin drip at this time because of surgery tomorrow AM. 3) history of pAFIB - current bradycardia (50-60) - tele ordered. check EKG; unclear if patient was on anticoagulation - may need to consider cardiology consult 4) HTN - norvasc x 1 dose; nursing called [facility]- patient is on metoprolol 25mg BID - await updated med rec; CODE STATUS: FULL CODE DVT prophylaxis: on hold due to anticipated surgery tomorrow - no LAURA or SCD due to occluded graft Plan / VTE VTE Prophylaxis Ordered?: No (patient planning for surgery tomorrow) JOSE ORONA DO Dec 25, 2018 15:02
[2018-12-25 20:00] VITALS: BP 179/95
[2018-12-25] MEDS: LATANOPROST 0.005% OPHTH SOLN 2.5 ML OU SCH (20:31)
[2018-12-25] MEDS: DOCUSATE SODIUM 100 MG CAP PO SCH (20:31)
[2018-12-25] MEDS: AMITRIPTYLINE 10 MG TAB PO SCH (20:31)
[2018-12-25] MEDS: tiZANidine 4 MG TAB PO PRN (20:31)
[2018-12-25] MEDS: BRIMONIDINE 0.1% OPHTH SOLN 5 ML OU SCH (20:32)
[2018-12-25 20:38] VITALS: BP 158/82
[2018-12-25] MEDS ORDERED: HEPARIN SOD (PORCINE) 5000 UNITS/ML VIAL SC SCH (21:00)
[2018-12-25 23:59] VITALS: BP 129/53
[2018-12-26] VITALS (10 sets, daily range): BP systolic 117–190; BP diastolic 65–99
[2018-12-26] MEDS ORDERED: METOPROLOL 5 MG/5 ML VIAL IV STA (00:12)
[2018-12-26] MEDS ORDERED: METOPROLOL TART 25 MG TABLET PO ONE ×2 (00:15→18:00)
[2018-12-26] MEDS: CEFEPIME HCL 2 GM in D5W MINI-BAG PLUS 50 ML IV SCH ×3 (00:37→16:26)
[2018-12-26] MEDS: oxyCODONE 5MG TAB PO PRN ×4 (03:46→20:37)
[2018-12-26 04:42] LABS: HEMATOCRIT 37.9 % (42.0-52.0); MEAN CORPUSCULAR HGB CONC 31.7 g/dl (32.0-36.5); MEAN CORPUSCULAR VOLUME 85.2 fl (80.0-96.0); RED BLOOD COUNT 4.45 10^6/uL (4.30-6.10); WHITE BLOOD COUNT 7.4 10^3/uL (4.0-10.0)
[2018-12-26 04:47] LABS: PLATELET COUNT, AUTOMATED 483 10^3/uL (150-450)
[2018-12-26 04:58] LABS: ALBUMIN 3.3 GM/DL (3.2-5.2); ALT/SGPT 20 U/L (12-78); BILIRUBIN,TOTAL 0.3 MG/DL (0.2-1.0); BLOOD UREA NITROGEN 14 MG/DL (7-18); CARBON DIOXIDE LEVEL 30 MEQ/L (21-32); CHLORIDE LEVEL 104 MEQ/L (98-107); CREATININE FOR GFR 1.11 MG/DL (0.70-1.30); GLOMERULAR FILTRATION RATE > 60.0 (>56); GLUCOSE, FASTING 92 MG/DL (70-100); POTASSIUM SERUM 3.4 MEQ/L (3.5-5.1); SODIUM LEVEL 139 MEQ/L (136-145); TOTAL PROTEIN 7.5 GM/DL (6.4-8.2)
[2018-12-26] MEDS: tiZANidine 4 MG TAB PO PRN (05:16)
[2018-12-26] MEDS ORDERED: METOPROLOL TART 12.5 MG PER 1/2 TAB PO SCH (09:00)
[2018-12-26] MEDS ORDERED: METOPROLOL TART 25 MG TABLET PO SCH (09:00)
[2018-12-26] MEDS: BRIMONIDINE 0.1% OPHTH SOLN 5 ML OU SCH (09:17)
--- NOTE | 2018-12-26 10:01 | IPNPDOC ---
Date Seen The patient was seen on 12/26/18. Progress Note Vascular Surgery Dr Sanchez HPI: 58yoM with severe BLE PVD, with h/o L EIA stenting followed shortly thereafter by a left to right femfem bypass, s/p Rt Fem Pop bypass 10/29/[address] Sanchez. Pt reported to ED 12/25 stating he had noted a lump in the Rt groin 12/24/18 associated with Rt foot pain. Vascular surgery was consulted. The pt states he still has foot pain, unchanged. Denies any fevers, chills, Headache, Chest Pain, Shortness of breath, cough, palpitations, abdominal pain, N/V/D or changes in bowel or bladder habits. PAST MEDICAL HISTORY: PAD Hypertension HLD anxiety depression glaucoma allergic rhinitis PAST SURGICAL HISTORY: skin graft L EIA stenting L to R femfem bypass Rt fem pop bypass PE: GEN: 58yoM, appears stated age. No acute distress. Alert and oriented x 3. HEENT: Normocephalic, atraumatic. Sclera are nonicteric. Conjunctiva without injection. Moist mucous membranes. CHEST: Regular rate and rhythm, +S1, +S2 LUNGS: Clear to auscultation bilaterally. No wheezes, rales, or rhonchi. ABD: Round, soft, non-tender, non-distended. +Bowel sounds throughout. EXT: Firm nodule 4-5cm diameter Rt groin, no fluctuance, no warmth, is TTP. No lower extremity edema appreciated. The toes of the right foot are cool to touch, Left foot warm to touch. DP/PT Pulses Rt foot difficult to obtain but faint monophasic with Doppler. NEURO: Alert and oriented x 3. Cranial nerves III-XII are intact. No focal deficits appreciated. BLE arterial US. Results pending. CTA RLE No occlusion of the femoral to femoral cross over graft. Occlusion left superficial femoral artery with reconstitution of the left popliteal artery and single vessel run off into the left foot. Right superficial femoral artery graft is occluded throughout. Collateral vessel reconstitute to the right popliteal artery. No definite vessels are seen traversing into the right foot. Focal subcutaneous soft tissue density in the right inguinal region superficial to the right femoral graft I suspect represents focal inflammatory change. No walled off abscess is seen. There is mild adjacent reactive adenopathy. Unreviewed DD: Selvin Herrera MD, MD 12/25/18 1537 pelvis US Bypass graft occlusion. edema surrounding the partially collapsed occluded graft. Graft infection cannot be excluded. Unreviewed A&P: PAD with h/o L EIA stenting followed by a left to right femfem bypass, s/p Rt Fem Pop bypass 10/29/[address] Sanchez. Pt is on ASA 81 mg daily. The pt has been reviewed and examined by Dr Sanchez. Pt with firm nodule Rt groin, Rt foot pain, monophasic pulses. US reviewed by Dr Sanchez with occluded graft. Rt groin with possible graft infection. CTA RLE as above. pelvis UA as above Plan as relayed by Dr Sanchez 12/26/18 is for femoral exploration, removal of graft, patch angioplasty. Likely to OR 12/27/18. No heparin gtt at this time. IV cefepime as per primary team. VS, I&O, 24H, Fishbone Vital Signs/I&O Vital Signs Date Time Temp Pulse Resp B/P (MAP) Pulse Ox O2 Delivery O2 Flow Rate FiO2 12/26/18 09:17 70 117/80 12/26/18 08:00 98.3 16 100 12/25/18 13:47 Room Air I&O- Last 24 Hours up to 6 AM 12/26/18 06:00 Intake Total 1580 ml Output Total 825 ml Balance 755 ml Laboratory Data 24H LABS Laboratory Tests 2 12/25/18 11:33: Immature Granulocyte % (Auto) 0.2, White Blood Count 8.1, Red Blood Count 5.12, Hemoglobin 14.2, Hematocrit 44.7, Mean Corpuscular Volume 87.3, Mean Corpuscular Hemoglobin 27.7, Mean Corpuscular Hemoglobin Concent 31.8L, Red Cell Distributi on Width 14.4, Platelet Count 591H, Neutrophils (%) (Auto) 68.8H, Lymphocytes (%) (Auto) 25.0, Monocytes (%) (Auto) 4.8, Eosinophils (%) (Auto) 0.7, Basophils (%) (Auto) 0.5, Neutrophils # (Auto) 5.5, Lymphocytes # (Auto) 2.0, Monocytes # (Auto) 0.4, Eosinophils # (Auto) 0.1, Basophils # (Auto) 0.0, Nucleated Red Blood Cells % (auto) 0.0, Erythrocyte Sedimentation Rate 11, Anion Gap 3L, Lactic Acid Level 1.2, C-Reactive Protein, Quantitative 4.62H, Albumin/Globulin Ratio 3.00H 12/26/18 04:13: Nucleated Red Blood Cells % (auto) 0.0, Anion Gap 5L, Albumin/Globulin Ratio 0.79L, Glomerular Filtration Rate > 60.0, Blood Urea Nitrogen 14, Creatinine 1.11, Sodium Level 139, Potassium Level 3.4L, Chloride Level 104, Carbon Dioxide Level 30, Calcium Level 9.0, Aspartate Amino Transf (AST/SGOT) 10, Alanine Aminotransferase (ALT/SGPT) 20, Alkaline Phosphatase 91, Total Bilirubin 0.3, Total Protein 7.5, Albumin 3.3 CBC/BMP Laboratory Tests 12/25/18 11:33 Red Blood Count 5.12, Mean Corpuscular Volume 87.3, Mean Corpuscular Hemoglobin 27.7, Mean Corpuscular Hemoglobin Concent 31.8 L, Red Cell Distribution Width 14.4, Neutrophils (%) (Auto) 68.8 H, Lymphocytes (%) (Auto) 25.0, Monocytes (%) (Auto) 4.8, Eosinophils (%) (Auto) 0.7, Basophils (%) (Auto) 0.5, Neutrophils # (Auto) 5.5, Lymphocytes # (Auto) 2.0, Monocytes # (Auto) 0.4, Eosinophils # (Auto) 0.1, Basophils # (Auto) 0.0 12/26/18 04:13 Red Blood Count 4.45, Mean Corpuscular Volume 85.2, Mean Corpuscular Hemoglobin 27.0, Mean Corpuscular Hemoglobin Concent 31.7 L, Red Cell Distribution Width 14.6 H, Calcium Level 9.0, Aspartate Amino Transf (AST/SGOT) 10, Alanine Am inotransferase (ALT/SGPT) 20, Alkaline Phosphatase 91, Total Bilirubin 0.3, Total Protein 7.5, Albumin 3.3 Microbiology Microbiology 12/25/18 Blood Culture, Received Pending 12/25/18 Blood Culture, Received Pending Jo Ann Herrera Dec 26, 2018 10:01
[2018-12-26] MEDS ORDERED: POTASSIUM CHLORIDE 10 MEQ SR TABLET PO ONE (15:00)
--- NOTE | 2018-12-26 18:06 | IPNPDOC ---
Text Note Date of Service The patient was seen on 12/26/18. NOTE S: patient states still with right leg pain and lump in groin increased in size. He had episode last night of tachycardia that was improved with metoprolol. patient has history of AFIB and states he was on eliquis but stopped taking medication when bottle ran out. Does not know when that was. TELE: intermittent NSR/Afib rate controlled. O: Vitals as below HRRR LCTA Skin: right groin with 4cm mass, induration to lateral aspect of swelling; fluctulant medially; A/P: 1) right groin mass - suspected seroma vs infected graft surgery consulted BC ordered. start cefepime. surgical intervention planned for 12/27 2) PAD S/P Grafts and possible occlusion right - patient was on ASA at home (hold ASA). Dr Sanchez was consulted . possible OR 12/27 for femoral exploration, removal of graft, patch angioplasty. does not recommend heparin drip at this time because of surgery tomorrow AM. 3) history of pAFIB - intermittent bradycardia/tachycardia. on metoprolol BID. await recommendations from Dr Sanchez when to restart eliquis. currently DVT prophylaxis (medical) on hold in anticipation of surgery. 4) HTN -continue with metoprolol and if increased blood pressure or sustained tachycardia - will increase dose. CODE STATUS: FULL CODE DVT prophylaxis: on hold due to anticipated surgery tomorrow - no LAURA or SCD due to occluded graft; ambulate in room encouraged VS,Fishbone, I+O VS, Fishbone, I+O Laboratory Tests 12/26/18 04:13 Red Blood Count 4.45, Mean Corpuscular Volume 85.2, Mean Corpuscular Hemoglobin 27.0, Mean Corpuscular Hemoglobin Concent 31.7 L, Red Cell Distribution Width 14.6 H, Calcium Level 9.0, Aspartate Amino Transf (AST/SGOT) 10, Alanine Aminotransferase (ALT/SGPT) 20, Alkaline Phosphatase 91, Total Bilirubin 0.3, Total Protein 7.5, Albumin 3.3 Vital Signs Date Time Temp Pulse Resp B/P (MAP) Pulse Ox O2 Delivery O2 Flow Rate FiO2 12/26/18 12:00 97.8 65 18 152/92 (112) 100 12/25/18 13:47 Room Air I&O- Last 24 Hours up to 6 AM 7/18/19 05:59 Intake Total 1580 ml Output Total 825 ml Balance 755 ml JOSE ORONA DO Dec 26, 2018 14:13
--- NOTE | 2018-12-26 18:59 | ECGEPIP ---
[facility] Test Date: 2018-12-25 Pat Name: HILLARY ROWAN Department: Room: M3363-53 Gender: Male Hop Farmer: DANE HOUSE : 1960 Requested By: JOSE Pendleton Order Number: [id number] Reading MD: Yanick Siegel Measurements Intervals [place] Rate: 72 P: 68 MI: 152 QRS: 70 QRSD: 96 T: 62 QT: 371 QTc: 407 Interpretive Statements SINUS RHYTHM WITH OCCASIONAL SUPRAVENTRICULAR PREMATURE COMPLEXES VOLTAGE CRITERIA FOR LVH ST/T-wave abnormalities resolved from 11/13/18 with slower heart rate Electronically Signed on 12-26-2018 18:59:21 EDT by Yanick iSegel
[2018-12-26] MEDS: DOCUSATE SODIUM 100 MG CAP PO SCH (20:33)
[2018-12-26] MEDS: METOPROLOL TART 50 MG TAB PO SCH (20:34)
[2018-12-26] MEDS: AMITRIPTYLINE 10 MG TAB PO SCH (20:34)
[2018-12-26] MEDS: LATANOPROST 0.005% OPHTH SOLN 2.5 ML OU SCH (20:35)
[2018-12-27] VITALS (7 sets, daily range): BP systolic 138–164; BP diastolic 74–97
[2018-12-27] MEDS: CEFEPIME HCL 2 GM in D5W MINI-BAG PLUS 50 ML IV SCH ×3 (01:52→16:28)
[2018-12-27] MEDS: oxyCODONE 5MG TAB PO PRN ×4 (02:01→20:16)
[2018-12-27 08:07] LABS: HEMATOCRIT 38.9 % (42.0-52.0); HEMOGLOBIN 12.3 g/dl (13.5-17.5); MEAN CORPUSCULAR HEMOGLOBIN 26.9 pg (27.0-33.0); MEAN CORPUSCULAR HGB CONC 31.6 g/dl (32.0-36.5); MEAN CORPUSCULAR VOLUME 85.1 fl (80.0-96.0); PLATELET COUNT, AUTOMATED 468 10^3/uL (150-450); RED BLOOD COUNT 4.57 10^6/uL (4.30-6.10); WHITE BLOOD COUNT 7.5 10^3/uL (4.0-10.0)
[2018-12-27 08:13] LABS: INR 1.07; PROTHROMBIN TIME 13.6 SECONDS (11.8-14.0)
[2018-12-27 08:29] LABS: BLOOD UREA NITROGEN 11 MG/DL (7-18); CARBON DIOXIDE LEVEL 29 MEQ/L (21-32); CHLORIDE LEVEL 106 MEQ/L (98-107); CREATININE FOR GFR 1.12 MG/DL (0.70-1.30); GLOMERULAR FILTRATION RATE > 60.0 (>56); GLUCOSE, FASTING 112 MG/DL (70-100); POTASSIUM SERUM 3.8 MEQ/L (3.5-5.1); SODIUM LEVEL 140 MEQ/L (136-145)
[2018-12-27] MEDS ORDERED: SLF 3 ML SYR IV PRN (08:45)
[2018-12-27] MEDS: METOPROLOL TART 50 MG TAB PO SCH ×2 (08:52→20:14)
[2018-12-27] MEDS: BRIMONIDINE 0.1% OPHTH SOLN 5 ML OU SCH (08:53)
[2018-12-27] MEDS: SLF 3 ML SYR IV SCH ×2 (08:54→20:15)
--- NOTE | 2018-12-27 08:54 | IPNPDOC ---
Date Seen The patient was seen on 12/27/18. Progress Note Vascular Surgery Dr Sanchez HPI: 58yoM with severe BLE PVD, with h/o L EIA stenting followed shortly thereafter by a left to right femfem bypass, s/p Rt Fem Pop bypass 10/29/[address] Sanchez. Pt reported to ED 12/25 stating he had noted a lump in the Rt groin 12/24/18 associated with Rt foot pain. Vascular surgery was consulted. The pt states he still has foot pain, unchanged. Hospitalist notes the pt had an episode of tachycardia, improved with metoprolol. Also, the patient has history of AFIB and stated he was on eliquis but stopped taking medication when bottle ran out. Does not know when that was. The pt is noted to be a poor historian. Avoids eye contact. Reluctant to respond to questions and short vague responses. Denies any fevers, chills, Headache, Chest Pain, Shortness of breath, cough, palpitations, abdominal pain, N/V/D or changes in bowel or bladder habits. PAST MEDICAL HISTORY: PAD Hypertension HLD anxiety depression glaucoma allergic rhinitis PAST SURGICAL HISTORY: skin graft L EIA stenting L to R femfem bypass Rt fem pop bypass PE: GEN: 58yoM, appears stated age. No acute distress. Alert and oriented x 3. HEENT: Normocephalic, atraumatic. Sclera are nonicteric. Conjunctiva without injection. Moist mucous membranes. CHEST: Regular rate and rhythm, +S1, +S2 LUNGS: Clear to auscultation bilaterally. No wheezes, rales, or rhonchi. ABD: Round, soft, non-tender, non-distended. +Bowel sounds throughout. EXT: Firm nodule 4-5cm diameter Rt groin, no fluctuance, no warmth, is TTP. No lower extremity edema appreciated. The right foot is warm this AM, Left foot warm to touch. DP/PT Pulses Rt foot difficult to obtain but faint monophasic with Doppler. NEURO: Alert and oriented x 3. Cranial nerves III-XII are intact. No focal deficits appreciated. BLE arterial US. Results pending. CTA RLE No occlusion of the femoral to femoral cross over graft. Occlusion left superficial femoral artery with reconstitution of the left popliteal artery and single vessel run off into the left foot. Right superficial femoral artery graft is occluded throughout. Collateral vessel reconstitute to the right popliteal artery. No definite vessels are seen traversing into the right foot. Focal subcutaneous soft tissue density in the right inguinal region superficial to the right femoral graft I suspect represents focal inflammatory change. No walled off abscess is seen. There is mild adjacent reactive adenopathy. Unreviewed DD: Selvin Herrera MD, MD 12/25/18 1537 pelvis US Bypass graft occlusion. edema surrounding the partially collapsed occluded graft. Graft infection cannot be excluded. Unreviewed A&P: PAD with h/o L EIA stenting followed by a left to right femfem bypass, s/p Rt Fem Pop bypass 10/29/[address] Sanchez. The pt has been reviewed and examined by Dr Sanchez. Pt with firm nodule Rt groin, Rt foot pain, monophasic pulses. US reviewed by Dr Sanchez with occluded graft. Rt groin with possible graft inf ection. CTA RLE as above. pelvis UA as above Plan as relayed by Dr Sanchez 12/26/18 is for femoral exploration, removal of graft, patch angioplasty. Plan for OR 12/27/[address] Sanchez. No heparin gtt at this time. IV cefepime as per primary team. PAF. Hospitalist notes the pt had an episode of tachycardia, improved with metoprolol. Also, the patient has history of AFIB and stated he was on eliquis but stopped taking medication when bottle ran out. Does not know when that was. Pt HR trend has been 59-80s, did have recorded 115-150 12/26/18. Metoprolol as per primary team. Pt had ran out of Eliquis and apparently did not refill, doesn't recall when that was. Will discuss with Dr Sanchez when pt is cleared to restart AC. VS, I&O, 24H, Fishbone Vital Signs/I&O Vital Signs Date Time Temp Pulse Resp B/P (MAP) Pulse Ox O2 Delivery O2 Flow Rate FiO2 12/27/18 08:00 99.1 52 17 164/86 (112) 98 12/25/18 13:47 Room Air l I&O- Last 24 Hours up to 6 AM 12/27/18 06:00 Intake Total 1360 ml Output Total 1375 ml Balance -15 ml Laboratory Data 24H LABS Laboratory Tests 2 12/27/18 07:51: Nucleated Red Blood Cells % (auto) 0.0, Prothrombin Time 13.6, Prothromb Time International Ratio 1.07, Anion Gap 5L, Glomerular Filtration Rate > 60.0, Blood Urea Nitrogen 11, Creatinine 1.12, Sodium Level 140, Potassium Level 3.8, Chloride Level 106, Carbon Dioxide Level 29, Calcium Level 9.0 CBC/BMP Laboratory Tests 12/27/18 07:51 Red Blood Count 4.57, Mean Corpuscular Volume 85.1, Mean Corpuscular Hemoglobin 26.9 L, Mean Corpuscular Hemoglobin Concent 31.6 L, Red Cell Distribution Width 14.5, Calcium Level 9.0 Microbiology Microbiology 12/25/18 Blood Culture - Preliminary, Resulted No growth after 24 hours . All specim... 12/25/18 Blood Culture - Preliminary, Resulted No growth after 24 hours . All specim... Jo Ann Herrera Dec 27, 2018 08:54
--- NOTE | 2018-12-27 09:02 | IPNPDOC ---
Text Note Date of Service The patient was seen on 12/27/18. NOTE S: patient states still with dull achy right leg pain and states right groin lump increasing. His right arm IV has infiltrated. He states no CP, no fever, no nausea, no palpitations, no SOB. patient is NPO for surgery O: Vitals as below General: pleasant, mild distress, AAOx3 Heart - irreg/irreg rate controlled at 80 , no murmur LCTA no W/R/R Ext: no ankle edema; SKIN: right groin with 4cm indurated, firm (not fluctuant)mass, tender A/P: 1) right groin mass - suspected seroma , abscess vs infected graft surgery consulted BC ordered. start cefepime. surgical intervention planned for 12/27 2) PAD S/P Grafts and possible occlusion right - patient was on ASA at home (hold ASA). Dr Sanchez was consulted . possible OR 12/27 for femoral exploration, removal of graft, patch angioplasty. does not recommend heparin drip at this time because of surgery tomorrow AM. 3) history of pAFIB - intermittent bradycardia/tachycardia. on metoprolol BID. await recommendations from Dr Sanchez when to restart eliquis. not on heparin drip in anticipation of surgery. currently DVT prophylaxis (medical) on hold in anticipation of surgery. 4) HTN -continue with metoprolol and if increased blood pressure or sustained tachycardia - will increase dose. CODE STATUS: FULL CODE DVT prophylaxis: on hold due to anticipated surgery - no LAURA or SCD due to occluded graft; ambulate in room encouraged VS,Pandae, I+O VS, Fishbone, I+O Laboratory Tests 12/27/18 07:51 Red Blood Count 4.57, Mean Corpuscular Volume 85.1, Mean Corpuscular Hemoglobin 26.9 L, Mean Corpuscular Hemoglobin Concent 31.6 L, Red Cell Distribution Width 14.5, Calcium Level 9.0 Vital Signs Date Time Temp Pulse Resp B/P (MAP) Pulse Ox O2 Delivery O2 Flow Rate FiO2 12/27/18 08:53 18 12/27/18 08:52 88 164/86 12/27/18 08:00 99.1 98 12/25/18 13:47 Room Air I&O- Last 24 Hours up to 6 AM 12/27/18 06:00 Intake Total 1360 ml Output Total 1375 ml Balance -15 ml JOSE ORONA DO Dec 27, 2018 09:02
[2018-12-27] MEDS ORDERED: ROCURONIUM BROMIDE 50 MG/5 ML VIAL As Ordered ONE (09:49)
[2018-12-27] MEDS ORDERED: ONDANSETRON 4MG/2ML VIAL (J2405) As Ordered ONE (09:49)
[2018-12-27] MEDS ORDERED: PROPOFOL 200 MG/20 ML VIAL As Ordered ONE (09:49)
[2018-12-27] MEDS ORDERED: LIDOCAINE 2% INJ 100 MG/5 ML SDV (FOR ANES.) As Ordered ONE (09:49)
[2018-12-27] MEDS ORDERED: dexameTHASONE 4 MG/ML 1ML VIAL (J1100) As Ordered ONE (09:49)
[2018-12-27] MEDS ORDERED: fentaNYL 100 MCG/2 ML INJECTION (J3010) As Ordered ONE (09:51)
[2018-12-27] MEDS ORDERED: MIDAZOLAM INJ 2 MG/2 ML VIAL (J2250) As Ordered ONE (09:51)
[2018-12-27] MEDS ORDERED: HEPARIN SOD (PORCINE) 5000 UNITS/ML VIAL As Ordered ONE (10:59)
[2018-12-27] MEDS ORDERED: BUPIVACAINE HCL 0.5% 30 ML VIAL As Ordered ONE (11:03)
[2018-12-27] MEDS ORDERED: THROMBIN SOLN 20,000 UNITS KIT As Ordered ONE (11:03)
[2018-12-27] MEDS ORDERED: LIDOCAINE 1% SDV INJ 30 ML VIAL As Ordered ONE (11:03)
[2018-12-27] MEDS ORDERED: oxyCODONE 5MG TAB As Ordered ONE (11:55)
[2018-12-27] MEDS ORDERED: oxyCODONE 5MG TAB PO PRN (12:00)
[2018-12-27] MEDS ORDERED: ONDANSETRON 4MG/2ML VIAL (J2405) IV PRN (12:00)
[2018-12-27] MEDS: MORPHINE 4 MG/ML 1ML VIAL/SYRINGE (J2270) IV PRN (14:48)
[2018-12-27] MEDS ORDERED: METOPROLOL 5 MG/5 ML VIAL IV STA (17:58)
[2018-12-27] MEDS: DOCUSATE SODIUM 100 MG CAP PO SCH (20:14)
[2018-12-27] MEDS: APIXABAN 5 MG TAB (ELIQUIS) PO SCH (20:14)
[2018-12-27] MEDS: LATANOPROST 0.005% OPHTH SOLN 2.5 ML OU SCH (20:15)
[2018-12-27] MEDS: AMITRIPTYLINE 10 MG TAB PO SCH (20:15)
--- NOTE | 2018-12-27 20:20 | REPVR ---
EXAM: US Duplex Bilateral Lower Extremity Veins EXAM DATE/TIME: 12/27/2018 6:53 PM CLINICAL HISTORY: 58 years old, male; Condition or disease; Peripheral vascular disease; Prior surgery; Surgery date: 1-6 months; Additional info: Bypass grafting vein mapping TECHNIQUE: Imaging protocol: Real-time duplex ultrasound of the Bilateral Lower Extremities with 2-D dorado scale, color Doppler flow and spectral waveform analysis with image documentation. Complete exam focused on the bilateral lower extremity veins. COMPARISON: US Duplex, Ext LOWER veins, bilat 01/23/2018 4:52 PM FINDINGS: Right deep veins: Unremarkable. No DVT. Right superficial veins: Greater saphenous vein measurements on the right are 3.1 mm at the junction with the femoral vein, 2.6 mm in the proximal thigh, 2.5 mm mid thigh, 3.1 mm at the knee, 2.9 mm in the proximal half, 3 mm in the mid calf, 3.2 millimeters in the distal calf, and 2.7 mm in the ankle. Lesser saphenous vein measurements on the right are 4.3 mm in the proximal calf, 2 mm in the mid calf and 1.7 mm in the distal calf. Left deep veins: Unremarkable. No DVT. Left superficial veins: Greater saphenous vein measurements on the left are 3.9mm at the junction with the femoral vein, 2.4 mm in the proximal thigh, 2.2 mm in the mid thigh, 2.2 mm at the knee, 1.5 mm in the proximal calf, 1.5 mm in the mid calf, 3.4 mm in the distal calf, and 3.5 mm at the ankle. Lesser saphenous vein measurements on the left are 2.8 mm in the proximal calf, 2.7 mm in the mid calf, and 2.3 mm in the distal calf. Soft tissues: Unremarkable. IMPRESSION: No evidence of DVT. Measurements of the greater and lesser saphenous veins in both legs as described above. Electronically signed by: Orestes Cerrato On 12/27/2018 20:19:53 PM
[2018-12-28] MEDS: CEFEPIME HCL 2 GM in D5W MINI-BAG PLUS 50 ML IV SCH ×4 (00:07→23:47)
[2018-12-28] MEDS: oxyCODONE 5MG TAB PO PRN ×6 (00:07→22:33)
[2018-12-28 04:00] VITALS: BP 150/86
[2018-12-28 05:38] LABS: HEMATOCRIT 37.2 % (42.0-52.0); HEMOGLOBIN 11.8 g/dl (13.5-17.5); MEAN CORPUSCULAR HEMOGLOBIN 27.2 pg (27.0-33.0); MEAN CORPUSCULAR HGB CONC 31.7 g/dl (32.0-36.5); MEAN CORPUSCULAR VOLUME 85.7 fl (80.0-96.0); PLATELET COUNT, AUTOMATED 453 10^3/uL (150-450); RED BLOOD COUNT 4.34 10^6/uL (4.30-6.10); WHITE BLOOD COUNT 6.7 10^3/uL (4.0-10.0)
[2018-12-28] MEDS: SLF 3 ML SYR IV SCH ×3 (06:06→22:23)
[2018-12-28 06:14] LABS: ALBUMIN 2.8 GM/DL (3.2-5.2); ALT/SGPT 30 U/L (12-78); BILIRUBIN,TOTAL 0.3 MG/DL (0.2-1.0); BLOOD UREA NITROGEN 10 MG/DL (7-18); CALCIUM LEVEL 8.7 MG/DL (8.5-10.1); CARBON DIOXIDE LEVEL 30 MEQ/L (21-32); CHLORIDE LEVEL 106 MEQ/L (98-107); CREATININE FOR GFR 1.16 MG/DL (0.70-1.30); GLOMERULAR FILTRATION RATE > 60.0 (>56); GLUCOSE, FASTING 106 MG/DL (70-100); MAGNESIUM LEVEL 2.1 MG/DL (1.8-2.4); POTASSIUM SERUM 3.9 MEQ/L (3.5-5.1); SODIUM LEVEL 140 MEQ/L (136-145)
[2018-12-28 08:00] VITALS: BP 150/88
[2018-12-28] MEDS: APIXABAN 5 MG TAB (ELIQUIS) PO SCH ×2 (08:06→19:53)
[2018-12-28] MEDS: METOPROLOL TART 50 MG TAB PO SCH (08:07)
[2018-12-28] MEDS: BRIMONIDINE 0.1% OPHTH SOLN 5 ML OU SCH (08:09)
[2018-12-28 12:00] VITALS: BP 176/88
--- NOTE | 2018-12-28 12:01 | IPNPDOC ---
Text Note Date of Service The patient was seen on 12/28/18. NOTE S; patient states still with leg pain; has pressure dressing on from yesterday angiogram. Patient states bypass planned for sunday. He denies CP, palpitations, SOB; O: Vitals as below General: pleasant, watching TV, NAD Heart -irreg/irreg - rate controlled LCTA Ext: right groin pressure bandage in place Current Medications Amitriptyline HCl (Elavil) 10 mg QHS PO Last administered on 12/27/18 20:15; Start 12/25/18 at 21:00 Apixaban (Eliquis) 5 mg BID PO Last administered on 12/28/18 08:06; Start 12/27/18 at 21:00 Brimonidine Tartrate (Alphagan P 0.1%) 1 drop DAILY OU Last administered on 12/28/18 08:09; Start 12/25/18 at 09:00 Cefepime HCl 2 gm/ Dextrose 50 ml @ 100 mls/hr Q8H IV Last administered on 12/28/18at 08:09; Start 12/26/18 at 01:00 Docusate Sodium (Colace) 100 mg QHS PO Last administered on 12/27/18 20:14; Start 12/25/18 at 21:00 Fluticasone Propionate (Flonase 0.05% Nasal [place]) 2 spray DAILY PRN NARES CONGESTION; Start 12/25/18 at 16:15 Latanoprost (Xalatan 0.005% Op Soln) 1 drop QHS OU Last administered on 12/09 20:15; Start 12/25/18 at 21:00 Metoprolol Tartrate (Lopressor) 50 mg BID PO Last administered on 12/28/18 08:07; Start 12/26/18 at 21:00 Morphine Sulfate (Morphine Sulfate Inj) 1 mg Q4HP PRN IV PAIN Last administered on 12/27/18at 14:48; Start 12/27/18 at 09:00 Oxycodone HCl (Roxicodone, Oxyir) 5 mg Q4HP PRN PO PAIN Last administered on 12/28/18 08:08; Start 12/26/18 at 15:38 Tizanidine HCl (Zanaflex) 4 mg TID PRN PO MUSCLE SPASMS Last administered on 12/26/18at 05:16; Start 12/25/18 at 16:15 A/P: 1) right groin mass - suspected seroma , abscess vs infected graft surgery consulted BC ordered. start cefepime. surgical intervention planned for 12/27 (note pending) 2) PAD S/P Grafts and possible occlusion right - patient was on ASA at home (hold ASA). Dr Sanchez was consulted . possible OR 12/27 for femoral exploration, removal of graft, patch angioplasty. started on eliquis; surgical intervention done 12/27 (note pending) and planned for 12/30 3) history of pAFIB - intermittent bradycardia/tachycardia. on metoprolol BID. await recommendations from Dr Sanchez when to restart eliquis. not on heparin drip in anticipation of surgery. currently DVT prophylaxis (medical) on hold in anticipation of surgery. 4) HTN -continue with metoprolol and if increased blood pressure or sustained tachycardia - will increase dose. CODE STATUS: FULL CODE DVT prophylaxis: ambulating in room; currently on eliquis for afib VS,Fishbone, I+O VS, Fishbone, I+O Laboratory Tests 12/28/18 05:01 Red Blood Count 4.34, Mean Corpuscular Volume 85.7, Mean Corpuscular Hemoglobin 27.2, Mean Corpuscular Hemoglobin Concent 31.7 L, Red Cell Distribution Width 14.4, Calcium Level 8.7, Aspartate Amino Transf (AST/SGOT) 15, Alanine Leonard otransferase (ALT/SGPT) 30, Alkaline Phosphatase 92, Total Bilirubin 0.3, Total Protein 7.0, Albumin 2.8 L Vital Signs Date Time Temp Pulse Resp B/P (MAP) Pulse Ox O2 Delivery O2 Flow Rate FiO2 12/28/18 08:38 18 12/28/18 08:07 108 150/88 12/28/18 08:00 98.0 98 12/25/18 13:47 Room Air I&O- Last 24 Hours up to 6 AM 12/28/18 06:00 Intake Total 1450 ml Output Total 1680 ml Balance -230 ml JOSE ORONA DO Dec 28, 2018 12:01
[2018-12-28] MEDS: MORPHINE 4 MG/ML 1ML VIAL/SYRINGE (J2270) IV PRN ×2 (14:41→19:51)
[2018-12-28] MEDS: AMITRIPTYLINE 10 MG TAB PO SCH (19:52)
[2018-12-28] MEDS: DOCUSATE SODIUM 100 MG CAP PO SCH (19:52)
[2018-12-28 20:00] VITALS: BP 172/86
[2018-12-28] MEDS ORDERED: METOPROLOL TART 50 MG TAB PO SCH (21:00)
[2018-12-28] MEDS: LATANOPROST 0.005% OPHTH SOLN 2.5 ML OU SCH (21:13)
[2018-12-28] MEDS: tiZANidine 4 MG TAB PO PRN (23:51)
[2018-12-28 23:59] VITALS: BP 142/64
[2018-12-29] MEDS: MORPHINE 4 MG/ML 1ML VIAL/SYRINGE (J2270) IV PRN ×2 (00:38→20:56)
[2018-12-29] MEDS ORDERED: KETOROLAC 60 MG/2 ML VIAL (J1885) IM ONE ×2 (03:00→04:00)
[2018-12-29 04:00] VITALS: BP 112/78
[2018-12-29] MEDS: PERCOCET 5MG/325MG TAB PO PRN ×3 (04:11→16:51)
[2018-12-29] MEDS: SLF 3 ML SYR IV SCH ×3 (05:16→20:54)
[2018-12-29 08:00] VITALS: BP 134/77
--- NOTE | 2018-12-29 09:27 | IPNPDOC ---
Text Note Date of Service The patient was seen on 12/29/18. NOTE S:Patient appears comfortable but states still has achy leg pain. given toradol last night no relief. has percocet and morphine ordered. States no CP, no palpiations, no dizziness, no N, noV, no SOB O: Vitals as below General: pleasant, NAD AAOx3 Heart irreg/irreg rate controlled 70 LCTA no W/R/R Ext: no edema to ankles bilaterally A/P: 1) right groin mass - abscess with infected graft surgery consulted BC ordered. continue cefepime. surgical intervention planned for 12/27 (note pending) 2) PAD S/P Grafts and possible occlusion right - patient was on ASA at home (hold ASA). Dr Sanchez was consulted . possible OR 12/27 for femoral exploration, removal of graft, patch angioplasty. change eliquis to heparin drip for possible surgical intervention on 12/30; surgical intervention done 12/27 (note pending) 3) history of pAFIB - intermittent bradycardia/tachycardia. on metoprolol BID. per Dr Sanchez - diegoay to restart anticoagulation on 12/28; hep drip 4) HTN -continue with increased dose of metoprolol . CODE STATUS: FULL CODE DVT prophylaxis: ambulating in room; currently on hep drip for underlying afib and for graft occlusion VS,Fishbone, I+O VS, Fishbone, I+O Vital Signs Date Time Temp Pulse Resp B/P (MAP) Pulse Ox O2 Delivery O2 Flow Rate FiO2 12/29/18 04:41 18 12/29/18 04:00 98.5 52 112/78 (89) 97 12/25/18 13:47 Room Air I&O- Last 24 Hours up to 6 AM 12/29/18 05:59 Intake Total 1600 ml Output Total 2100 ml Balance -500 ml JOSE ORONA DO Dec 29, 2018 07:42
[2018-12-29] MEDS: HEPARIN DRIP 25,000 UNITS in APPROPRIATE DILUENT 1 EA IV SCH (09:35)
[2018-12-29] MEDS: METOPROLOL TART 25 MG TABLET PO SCH ×2 (09:51→20:54)
[2018-12-29] MEDS: CEFEPIME HCL 2 GM in D5W MINI-BAG PLUS 50 ML IV SCH ×2 (09:51→16:51)
[2018-12-29] MEDS: BRIMONIDINE 0.1% OPHTH SOLN 5 ML OU SCH (09:52)
[2018-12-29 12:00] VITALS: BP 139/83
[2018-12-29 16:00] VITALS: BP 121/78
[2018-12-29 16:16] LABS: INR 1.2; PROTHROMBIN TIME 14.9 SECONDS (11.8-14.0)
[2018-12-29 16:18] LABS: PARTIAL THROMBOPLASTIN TIME 68.9 SECONDS (25.0-38.4)
[2018-12-29 20:00] VITALS: BP 137/94
[2018-12-29] MEDS: DOCUSATE SODIUM 100 MG CAP PO SCH (20:54)
[2018-12-29] MEDS: AMITRIPTYLINE 10 MG TAB PO SCH (20:54)
[2018-12-29] MEDS: LATANOPROST 0.005% OPHTH SOLN 2.5 ML OU SCH (20:55)
[2018-12-29 22:15] LABS: INR 1.14; PROTHROMBIN TIME 14.3 SECONDS (11.8-14.0)
[2018-12-29] MEDS: HEPARIN SOD (PORCINE) 5000 UNITS/ML VIAL IV PRN (22:55)
[2018-12-30] VITALS (7 sets, daily range): BP systolic 141–158; BP diastolic 80–96
[2018-12-30] MEDS: PERCOCET 5MG/325MG TAB PO PRN ×3 (00:43→16:03)
[2018-12-30] MEDS: CEFEPIME HCL 2 GM in D5W MINI-BAG PLUS 50 ML IV SCH ×3 (00:43→16:31)
[2018-12-30] MEDS: HEPARIN DRIP 25,000 UNITS in APPROPRIATE DILUENT 1 EA IV SCH ×2 (01:40→18:24)
[2018-12-30 04:54] LABS: HEMATOCRIT 39.7 % (42.0-52.0); HEMOGLOBIN 12.5 g/dl (13.5-17.5); MEAN CORPUSCULAR HEMOGLOBIN 26.7 pg (27.0-33.0); MEAN CORPUSCULAR HGB CONC 31.5 g/dl (32.0-36.5); MEAN CORPUSCULAR VOLUME 84.6 fl (80.0-96.0); PLATELET COUNT, AUTOMATED 463 10^3/uL (150-450); RED BLOOD COUNT 4.69 10^6/uL (4.30-6.10); WHITE BLOOD COUNT 7.4 10^3/uL (4.0-10.0)
[2018-12-30 05:15] LABS: ALBUMIN 2.9 GM/DL (3.2-5.2); ALT/SGPT 72 U/L (12-78); BILIRUBIN,TOTAL 0.3 MG/DL (0.2-1.0); BLOOD UREA NITROGEN 12 MG/DL (7-18); CARBON DIOXIDE LEVEL 28 MEQ/L (21-32); CHLORIDE LEVEL 109 MEQ/L (98-107); CREATININE FOR GFR 1.09 MG/DL (0.70-1.30); GLOMERULAR FILTRATION RATE > 60.0 (>56); GLUCOSE, FASTING 110 MG/DL (70-100); POTASSIUM SERUM 4.2 MEQ/L (3.5-5.1); SODIUM LEVEL 141 MEQ/L (136-145); TOTAL PROTEIN 7.3 GM/DL (6.4-8.2)
[2018-12-30] MEDS: SLF 3 ML SYR IV SCH ×3 (05:16→20:55)
[2018-12-30] MEDS: MORPHINE 4 MG/ML 1ML VIAL/SYRINGE (J2270) IV PRN ×3 (05:16→20:57)
[2018-12-30] MEDS: METOPROLOL TART 25 MG TABLET PO SCH ×2 (09:17→20:55)
[2018-12-30] MEDS: BRIMONIDINE 0.1% OPHTH SOLN 5 ML OU SCH (09:22)
--- NOTE | 2018-12-30 13:25 | IPNPDOC ---
Date Seen The patient was seen on 12/30/18. Progress Note Vascular Surgery Dr Sanchez HPI: 58yoM with severe BLE PVD, with h/o L EIA stenting followed shortly thereafter by a left to right femfem bypass, s/p Rt Fem Pop bypass 10/29/[address] Sanchez. Pt reported to ED 12/25 stating he had noted a lump in the Rt groin 12/24/18 associated with Rt foot pain. Vascular surgery was consulted. The pt states he is still having foot pain. The pt is noted to be a poor historian. Avoids eye contact. Reluctant to respond to questions and short vague responses. Denies any fevers, chills, Headache, Chest Pain, Shortness of breath, cough, palpitations, abdominal pain, N/V/D or changes in bowel or bladder habits. PAST MEDICAL HISTORY: PAD Hypertension HLD anxiety depression glaucoma allergic rhinitis PAST SURGICAL HISTORY: skin graft L EIA stenting L to R femfem bypass Rt fem pop bypass PE: GEN: 58yoM, appears stated age. No acute distress. Alert and oriented x 3. HEENT: Normocephalic, atraumatic. Sclera are nonicteric. Conjunctiva without injection. Moist mucous membranes. CHEST: Regular rate and rhythm, +S1, +S2 LUNGS: Clear to auscultation bilaterally. No wheezes, rales, or rhonchi. ABD: Round, soft, non-tender, non-distended. +Bowel sounds throughout. EXT: Rt groin with dressing intact. No lower extremity edema appreciated. DP/PT Pulses Rt foot difficult to obtain but faint monophasic with Doppler. NEURO: Alert and oriented x 3. Cranial nerves III-XII are intact. No focal deficits appreciated. BLE arterial US. 12/18/18 The a [id number] femoral - femoral bypass graft is identified and occluded along with a right femoral - popliteal bypass graft which is also identified and occluded. The bilateral superficial femoral arteries demonstrate proximal/mid occlusion. The right common iliac artery and proximal external iliac artery demonstrate occlusion. The right popliteal artery demonstrates revascularization by the right anterior tibial artery and associated genicular arteries. A collateral vessel is also identified revascularizing the right proximal anterior tibial artery which demonstrates reversal of flow along the upstream anterior tibial artery at the point of collateral and downstream flow distal to the point of collateral vessel. The left external iliac artery demonstrates proximal occlusion extending to the femoral - femoral bypass graft anastomoses. The distal left superficial formal artery downstream to the occlusion is revascularized by genicular artery. Monophasic wave patterns are noted bilaterally as well as low velocity flow through the visualized distal aorta suggesting associated atherosclerotic disease with visualized areas of partial thrombosis. Right NICKIE equals at 0.41 Left NICKIE equals 0.85. Distal aorta velocity at 20 cm/sec. Peak systolic velocities (cm/sec) RIGHT LEFT Common femoral artery 17.3 158/54.6 Profunda femoris 68.3 88 8.8 SFA (proximal) occluded occluded SFA (mid) occluded occluded SFA (distal) occluded 43.2 Popliteal artery 41.0 38.1 JOSÉ MIGUEL (prox.) reversed 25.5 Tibioperoneal trunk 26.9 27.4 ELECT[employer] ME[employer]ICAL SOLAR TECHNICIAN (prox.) 24.9 42.6 ELECTRO MECH[employer]ICAL SOLAR TECHNICIAN (distal) 21.0 38.3 JOSÉ MIGUEL (distal) 12.1 9.1 Impression: Extensive atherosclerotic disease involving the aorta and bilateral [place] arteries with areas of occlusion through the bilateral superficial femoral arteries as well as occlusion of the femoral - femoral bypass graft and right femoral - popliteal bypass graft. Electronically Signed by Demetrius Aceves MD 12/26/2018 10:10 A CTA RLE No occlusion of the femoral to femoral cross over graft. Occlusion left superficial femoral artery with reconstitution of the left popliteal artery and single vessel run off into the left foot. Right superficial femoral artery graft is occluded throughout. Collateral vessel reconstitute to the right popliteal artery. No definite vessels are seen traversing into the right foot. Focal subcutaneous soft tissue density in the right inguinal region superficial to the right femoral graft I suspect represents focal inflammatory change. No walled off abscess is seen. There is mild adjacent reactive adenopathy. Unreviewed DD: Selvin Herrera MD, MD 12/25/18 1537 pelvis US Bypass graft occlusion. edema surrounding the partially collapsed occluded graft. Graft infection cannot be excluded. Unreviewed BLE venous US No evidence of DVT. Electronically signed by: Orestes Cerrato On 12/27/2018 20:19:53 PM A&P: PAD with h/o L EIA stenting followed by a left to right femfem bypass, s/p Rt Fem Pop bypass 10/29/[address] Sanchez. S/P Rt groin abscess drainage 12/27/[address] Sanchez. Tentative Plan as relayed by Dr Sanchez 12/30/18 is for possible AortoFem and Fem Pop bypass. IV cefepime as per primary team. IV Heparin gtt per protocol. PAF. Hospitalist notes the pt had an episode of tachycardia, improved with metoprolol 12/26/18. Also, the patient has history of AFIB and stated he was on eliquis but stopped taking medication when bottle ran out. Does not know when that was. Pt HR trend has been 59-80s, did have recorded 115-150 12/26/18. Metoprolol as per primary team. Pt had ran out of Eliquis and apparently did not refill, doesn't recall when that was. Heparin gtt currently. VS, I&O, 24H, Fishbone Vital Signs/I&O Vital Signs Date Time Temp Pulse Resp B/P (MAP) Pulse Ox O2 Delivery O2 Flow Rate FiO2 12/30/18 12:15 18 12/30/18 12:00 97.8 49 157/96 (116) 96 12/25/18 13:47 Room Air I&O- Last 24 Hours up to 6 AM 12/30/18 06:00 Intake Total 1290 ml Output Total 2250 ml Balance -960 ml Laboratory Data 24H LABS Laboratory Tests 2 12/29/18 15:46: Prothrombin Time 14.9H, Prothromb Time International Ratio 1.20, Activated Par tial Thromboplast Time 68.9H 12/29/18 21:32: Prothrombin Time 14.3H, Prothromb Time International Ratio 1.14, Activated Partial Thromboplast Time 44.0H 12/30/18 04:26: Activated Partial Thromboplast Time 185.6*H, Nucleated Red Blood Cells % (auto) 0.0, Anion Gap 4L, Glomerular Filtration Rate > 60.0, Blood Urea Nitrogen 12, Creatinine 1.09, Sodium Level 141, Potassium Level 4.2, Chloride Level 109H, Carbon Dioxide Level 28, Calcium Level 9.0, Aspartate Amino Transf (AST/SGOT) 44H, Alanine Aminotransferase (ALT/SGPT) 72, Alkaline Phosphatase 105, Total Bilirubin 0.3, Total Protein 7.3, Albumin 2.9L, Albumin/Globulin Ratio 0.66L 12/30/18 11:26: Activated Partial Thromboplast Time 104.5H CBC/BMP Laboratory Tests 12/30/18 04:26 Red Blood Count 4.69, Mean Corpuscular Volume 84.6, Mean Corpuscular Hemoglobin 26.7 L, Mean Corpuscular Hemoglobin Concent 31.5 L, Red Cell Distribution Width 14.4, Calcium Level 9.0, Aspartate Amino Transf (AST/SGOT) 44 H, Alanine Aminotransferase (ALT/SGPT) 72, Alkaline Phosphatase 105, Total Bilirubin 0.3, Total Protein 7.3, Albumin 2.9 L Microbiology Microbiology 12/25/18 Blood Culture - Final, Complete NO GROWTH AFTER 5 DAYS 12/25/18 Blood Culture - Final, Complete NO GROWTH AFTER 5 DAYS 12/27/18 Fungal Smear, Received Pending 12/27/18 Fungal Culture, Received Pending 12/27/18 Gram Stain - Final, Complete 12/27/18 Wound Culture - Final, Complete Staphylococcus Lugdunensis 12/27/18 Anaerobic Culture - Final, Complete Jo Ann Herrera Dec 30, 2018 13:25
--- NOTE | 2018-12-30 19:45 | IPNPDOC ---
Text Note Date of Service The patient was seen on 12/30/18. NOTE S: pateint states tired of being in hospital. States no change to right leg pain or growing lump in right groin. no palpitations, no CP, no N, no V, no SOB O: Vitals as below Tele: afib with PAC, PVC and occasional bigemeny Heart - irreg / irreg, no murmur LCTA Ext: right groin bandage intact; DP pulses faint but palpable on right A/P: 1) right groin mass - abscess with infected graft surgery consulted BC ordered. continue cefepime. S/P Rt groin abscess drainage 12/27/[address] Sanchez. 2) PAD S/P Grafts and possible occlusion right . -patient had left to right femfem bypass, s/p Rt Fem Pop bypass 10/29/[address] Sanchez. - patient was on ASA at home (hold ASA). - Dr Sanchez was consulted; - possible OR on 12/31/18 for AortoFem and Fem Pop bypass. - on heparin drip 3) history of pAFIB - intermittent bradycardia/tachycardia, bigemmeny,etc. on metoprolol BID. On heparin drip. restart eliquis or pradaxa for compliance prior to discharge 4) HTN -continue with increased dose of metoprolol . CODE STATUS: FULL CODE DVT prophylaxis: on heparin drip for graft occlusion VS,Fishbone, I+O VS, Fishbone, I+O Laboratory Tests 12/30/18 04:26 Red Blood Count 4.69, Mean Corpuscular Volume 84.6, Mean Corpuscular Hemoglobin 26.7 L, Mean Corpuscular Hemoglobin Concent 31.5 L, Red Cell Distribution Width 14.4, Calcium Level 9.0, Aspartate Amino Transf (AST/SGOT) 44 H, Alanine Aminotransferase (ALT/SGPT) 72, Alkaline Phosphatase 105, Total Bilirubin 0.3, Total Protein 7.3, Albumin 2.9 L Vital Signs Date Time Temp Pulse Resp B/P (MAP) Pulse Ox O2 Delivery O2 Flow Rate FiO2 12/30/18 16:35 18 12/30/18 16:00 98.6 61 143/90 (107) 100 12/25/18 13:47 Room Air I&O- Last 24 Hours up to 6 AM 12/30/18 06:00 Intake Total 1290 ml Output Total 2250 ml Balance -960 ml JOSE ORONA DO Dec 30, 2018 19:45
[2018-12-30] MEDS: AMITRIPTYLINE 10 MG TAB PO SCH (20:54)
[2018-12-30] MEDS: LATANOPROST 0.005% OPHTH SOLN 2.5 ML OU SCH (20:55)
[2018-12-30] MEDS: DOCUSATE SODIUM 100 MG CAP PO SCH (20:55)
[2018-12-31] VITALS (8 sets, daily range): BP systolic 116–143; BP diastolic 56–99
[2018-12-31] MEDS: CEFEPIME HCL 2 GM in D5W MINI-BAG PLUS 50 ML IV SCH ×3 (01:39→16:06)
[2018-12-31] MEDS: PERCOCET 5MG/325MG TAB PO PRN ×5 (01:40→20:22)
[2018-12-31] MEDS: MORPHINE 4 MG/ML 1ML VIAL/SYRINGE (J2270) IV PRN ×2 (03:20→16:16)
[2018-12-31] MEDS: SLF 3 ML SYR IV SCH ×3 (05:55→20:23)
[2018-12-31] MEDS: METOPROLOL TART 25 MG TABLET PO SCH ×2 (08:17→20:23)
[2018-12-31] MEDS: BRIMONIDINE 0.1% OPHTH SOLN 5 ML OU SCH (08:25)
--- NOTE | 2018-12-31 09:26 | IPNPDOC ---
Date Seen The patient was seen on 12/31/18. Progress Note Vascular Surgery Dr Sanchez HPI: 58yoM with severe BLE PVD, with h/o L EIA stenting followed shortly thereafter by a left to right femfem bypass, s/p Rt Fem Pop bypass 10/29/[address] Sanchez. Pt reported to ED 12/25 stating he had noted a lump in the Rt groin 12/24/18 associated with Rt foot pain. Vascular surgery was consulted. The pt states he is still having foot pain, states unchanged. The pt is noted to be a poor historian. Avoids eye contact. Reluctant to respond to questions and short vague responses. Denies any fevers, chills, Headache, Chest Pain, Shortness of breath, cough, palpitations, abdominal pain, N/V/D or changes in bowel or bladder habits. PAST MEDICAL HISTORY: PAD Hypertension HLD anxiety depression glaucoma allergic rhinitis PAST SURGICAL HISTORY: skin graft L EIA stenting L to R femfem bypass Rt fem pop bypass PE: GEN: 58yoM, appears stated age. No acute distress. Alert and oriented x 3. HEENT: Normocephalic, atraumatic. Sclera are nonicteric. Conjunctiva without injection. Moist mucous membranes. CHEST: Regular rate and rhythm, +S1, +S2 LUNGS: Clear to auscultation bilaterally. No wheezes, rales, or rhonchi. ABD: Round, soft, non-tender, non-distended. +Bowel sounds throughout. EXT: Rt groin with dressing intact. No lower extremity edema appreciated. DP/PT Pulses Rt foot monophasic with Doppler. NEURO: Alert and oriented x 3. Cranial nerves III-XII are intact. No focal deficits appreciated. BLE arterial US. 12/18/18 The a [id number] femoral - femoral bypass graft is identified and occluded along with a right femoral - popliteal bypass graft which is also identified and occluded. The bilateral superficial femoral arteries demonstrate proximal/mid occlusion. The right common iliac artery and proximal external iliac artery demonstrate occlusion. The right popliteal artery demonstrates revascularization by the right anterior tibial artery and associated genicular arteries. A collateral vessel is also identified revascularizing the right proximal anterior tibial artery which demonstrates reversal of flow along the upstream anterior tibial artery at the point of collateral and downstream flow distal to the point of collateral vessel. The left external iliac artery demonstrates proximal occlusion extending to the femoral - femoral bypass graft anastomoses. The distal left superficial formal artery downstream to the occlusion is revascularized by genicular artery. Monophasic wave patterns are noted bilaterally as well as low velocity flow through the visualized distal aorta suggesting associated atherosclerotic disease with visualized areas of partial thrombosis. Right NICKIE equals at 0.41 Left NICKIE equals 0.85. Distal aorta velocity at 20 cm/sec. Peak systolic velocities (cm/sec) RIGHT LEFT Common femoral artery 17.3 158/54.6 Profunda femoris 68.3 88 8.8 SFA (proximal) occluded occluded SFA (mid) occluded occluded SFA (distal) occluded 43.2 Popliteal artery 41.0 38.1 JOSÉ MIGUEL (prox.) reversed 25.5 Tibioperoneal trunk 26.9 27.4 WELDER GUN (prox.) 24.9 42.6 WELDER GUN (distal) 21.0 38.3 JOSÉ MIGUEL (distal) 12.1 9.1 Impression: Extensive atherosclerotic disease involving the aorta and bilateral [place] arteries with areas of occlusion through the bilateral superficial femoral arteries as well as occlusion of the femoral - femoral bypass graft and right femoral - popliteal bypass graft. Electronically Signed by Demetrius Aceves MD 12/26/2018 10:10 A CTA RLE No occlusion of the femoral to femoral cross over graft. Occlusion left superficial femoral artery with reconstitution of the left popliteal artery and single vessel run off into the left foot. Right superficial femoral artery graft is occluded throughout. Collateral vessel reconstitute to the right popliteal artery. No definite vessels are seen traversing into the right foot. Focal subcutaneous soft tissue density in the right inguinal region superficial to the right femoral graft I suspect represents focal inflammatory change. No walled off abscess is seen. There is mild adjacent reactive adenopathy. Unreviewed DD: Selvin Herrera MD, MD 12/25/18 0957 pelvis US Bypass graft occlusion. edema surrounding the partially collapsed occluded graft. Graft infection cannot be excluded. Unreviewed BLE venous US No evidence of DVT. Electronically signed by: Orestes Cerrato On 12/27/2018 20:19:53 PM A&P: PAD with h/o L EIA stenting followed by a left to right femfem bypass, s/p Rt Fem Pop bypass 10/29/[address] Sanchez. S/P Rt groin abscess drainage 12/27/[address] Sanchez. Tentative Plan as per Dr Sanchez 12/31/18 is for OR today for possible AortoFem and Fem Pop bypass. IV cefepime as per primary team. IV Heparin gtt per protocol. PAF. The patient has history of AFIB and he was on eliquis but stopped taking medication when bottle ran out. Does not know when that was. Metoprolol as per primary team. Eliquis on hold. Heparin gtt currently. VS, I&O, 24H, Fishbone Vital Signs/I&O Vital Signs Date Time Temp Pulse Resp B/P (MAP) Pulse Ox O2 Delivery O2 Flow Rate FiO2 12/31/18 08:50 18 12/31/18 08:17 75 130/87 12/31/18 08:00 98.5 97 12/25/18 13:47 Room Air I&O- Last 24 Hours up to 6 AM 12/31/18 06:00 Intake Total 2414 ml Output Total 2130 ml Balance 284 ml Laboratory Data 24H LABS Laboratory Tests 2 12/30/18 11:26: Activated Partial Thromboplast Time 104.5H 12/30/18 17:32: Activated Partial Thromboplast Time 110.9H 12/30/18 23:18: Activated Partial Thromboplast Time 89.1H 12/31/18 06:16: Activated Partial Thromboplast Time 79.7H Microbiology Microbiology 12/25/18 Blood Culture - Final, Complete NO GROWTH AFTER 5 DAYS 12/25/18 Blood Culture - Final, Complete NO GROWTH AFTER 5 DAYS 12/27/18 Fungal Smear, Received Pending 12/27/18 Fungal Culture, Received Pending 12/27/18 Gram Stain - Final, Complete 12/27/18 Wound Culture - Final, Complete Staphylococcus Lugdunensis 12/27/18 Anaerobic Culture - Final, Complete Jo Ann Herrera Dec 31, 2018 09:26
[2018-12-31] MEDS: HEPARIN DRIP 25,000 UNITS in APPROPRIATE DILUENT 1 EA IV SCH (10:33)
[2018-12-31] MEDS ORDERED: ISOVUE-370 76% 100ML VIAL (Q9967) As Ordered ONE (11:13)
[2018-12-31] MEDS ORDERED: LIDOCAINE 1% SDV INJ 30 ML VIAL As Ordered ONE (11:19)
[2018-12-31] MEDS ORDERED: HEPARIN SOD (PORCINE) 5000 UNITS/ML VIAL As Ordered ONE (11:19)
[2018-12-31] MEDS ORDERED: THROMBIN SOLN 20,000 UNITS KIT As Ordered ONE (11:19)
[2018-12-31] MEDS ORDERED: BUPIVACAINE HCL 0.5% 30 ML VIAL As Ordered ONE (11:19)
--- NOTE | 2018-12-31 12:09 | IPNPDOC ---
Subjective Date Seen The patient was seen on 12/31/18. Subjective Chief Complaint/HPI Patient seen and examined at the bedside. Denies any acute complaints at this time. Objective Physical Examination General Exam: Positive: Alert, Cooperative, No Acute Distress ENT Exam: Positive: Atraumatic, Mucous membr. moist/pink Neck Exam: Negative: JVD Chest Exam: Positive: Clear to auscultation, Normal air movement; Negative: Rales, Rhonchi, Wheezing, Diminished Heart Exam: Positive: Rate Normal, Normal S1, Normal S2 Telemetry: Positive: Other Telemetry: (noted to have PACs, PVCs) Abdomen Exam: Positive: Soft; Negative: Tenderness Extremity Exam: Positive: Other (no ankle or calf edema; lower extremity warm (not cold to touch). unable to see capillary refill due to skin pigmentation; faint DP pulse palable on right); Negative: Tenderness Neuro Exam: Positive: Normal Tone, Sensation Intact Psych Exam: Positive: Mental status NL, Mood NL, Oriented x 3 Assessment /Plan Plan/VTE VTE Prophylaxis Ordered?: Yes Plan Hx of PAD s/p L EIA stenting followed by a left to right femfem bypass, s/p Rt Fem Pop bypass 10/29/18 CTA of the Lower extremities on admission revealed right superficial femoral artery graft occlusion. Patient scheduled for possible aortofem and femoropopliteal bypass with vascular surgery today On heparin drip for anticoagulation We will continue to monitor and follow up with vascular surgery recommendations Right groin mass/abscess with infected graft S/P Rt groin abscess drainage 12/27/[address] Sanchez. Wound culture notable for MSSA On Cefepime we will transition this to PO in 24 hrs Cont to monitor History of paroxysmal AFIB Intermittent bradycardia/tachycardia, bigemmeny noted on telemetry Continue on on metoprolol BID On heparin drip for anticoagulation at this time History of neuropathy Continue amitriptyline, tizanidine DVT prophylaxis: on heparin drip for graft occlusion VS, I&O, 24H, Fishbone Vital Signs/I&O Vital Signs Date Time Temp Pulse Resp B/P (MAP) Pulse Ox O2 Delivery O2 Flow Rate FiO2 12/31/18 08:50 18 12/31/18 08:17 75 130/87 12/31/18 08:00 98.5 97 12/25/18 13:47 Room Air I&O- Last 24 Hours up to 6 AM 12/31/18 06:00 Intake Total 2414 ml Output Total 2130 ml Balance 284 ml Laboratory Data 24H LABS Laboratory Tests 2 12/30/18 17:32: Activated Partial Thromboplast Time 110.9H 12/30/18 23:18: Activated Partial Thromboplast Time 89.1H 12/31/18 06:16: Activated Partial Thromboplast Time 79.7H Microbiology Microbiology 12/25/18 Blood Culture - Final, Complete NO GROWTH AFTER 5 DAYS 12/25/18 Blood Culture - Final, Complete NO GROWTH AFTER 5 DAYS 12/27/18 Fungal Smear, Received Pending 12/27/18 Fungal Culture, Received Pending 12/27/18 Gram Stain - Final, Complete 12/27/18 Wound Culture - Final, Complete Staphylococcus Lugdunensis 12/27/18 Anaerobic Culture - Final, Complete ULISES CORREA MD Dec 31, 2018 12:09
[2018-12-31] MEDS ORDERED: PROPOFOL 200 MG/20 ML VIAL As Ordered ONE (12:20)
[2018-12-31] MEDS ORDERED: MIDAZOLAM INJ 2 MG/2 ML VIAL (J2250) As Ordered ONE (12:20)
[2018-12-31] MEDS ORDERED: LIDOCAINE 2% INJ 100 MG/5 ML SDV (FOR ANES.) As Ordered ONE (12:20)
[2018-12-31] MEDS ORDERED: fentaNYL 250 MCG/5 ML INJECTION (J3010) As Ordered ONE (12:20)
[2018-12-31] MEDS ORDERED: PERCOCET 5MG/325MG TAB As Ordered ONE ×2 (13:34→14:08)
[2018-12-31] MEDS ORDERED: fentaNYL 100 MCG/2 ML INJECTION (J3010) IV PRN (13:45)
[2018-12-31] MEDS ORDERED: LR 1,000 ML IV SCH (13:45)
[2018-12-31] MEDS ORDERED: METOCLOPRAMIDE INJ 10MG/2ML VIAL (J2765) IV PRN (13:45)
[2018-12-31] MEDS ORDERED: ONDANSETRON 4MG/2ML VIAL (J2405) IV PRN (13:45)
[2018-12-31] MEDS ORDERED: hydrALAZINE INJ 20 MG/ML VIAL As Ordered ONE (14:02)
[2018-12-31] MEDS: hydrALAZINE INJ 20 MG/ML VIAL IV SCH ×4 (14:05→14:20)
[2018-12-31 16:02] LABS: HEMATOCRIT 42.6 % (42.0-52.0); HEMOGLOBIN 13.4 g/dl (13.5-17.5); MEAN CORPUSCULAR HEMOGLOBIN 27.4 pg (27.0-33.0); MEAN CORPUSCULAR HGB CONC 31.5 g/dl (32.0-36.5); MEAN CORPUSCULAR VOLUME 87.1 fl (80.0-96.0); PLATELET COUNT, AUTOMATED 518 10^3/uL (150-450); RED BLOOD COUNT 4.89 10^6/uL (4.30-6.10); WHITE BLOOD COUNT 7.4 10^3/uL (4.0-10.0)
[2018-12-31 16:49] LABS: ALBUMIN 3.5 GM/DL (3.2-5.2); ALT/SGPT 63 U/L (12-78); BILIRUBIN,TOTAL 0.2 MG/DL (0.2-1.0); BLOOD UREA NITROGEN 11 MG/DL (7-18); CALCIUM LEVEL 10.1 MG/DL (8.5-10.1); CARBON DIOXIDE LEVEL 29 MEQ/L (21-32); CHLORIDE LEVEL 104 MEQ/L (98-107); GLOMERULAR FILTRATION RATE > 60.0 (>56); GLUCOSE, FASTING 118 MG/DL (70-100); POTASSIUM SERUM 4.1 MEQ/L (3.5-5.1); SODIUM LEVEL 138 MEQ/L (136-145); TOTAL PROTEIN 8.3 GM/DL (6.4-8.2)
--- NOTE | 2018-12-31 17:56 | REP ---
Lower extremity CT angiography with IV contrast: Comparison is 12/25/2018. The left iliac and femoral arteries are patent. The right iliac and femoral arteries are occluded. This is unchanged. There is a left to right crossover femoral - femoral graft . This graft is occluded. This is unchanged. There is a right fem-pop graft. i this is occluded. This is unchanged. There is a straight line flow from the popliteal arteries across the ankles through the posterior tibial arteries bilaterally. There is straight line flow across the right ankle through the anterior tibial artery. The left anterior tibial artery is occluded distally . The peroneal arteries are occluded distally bilaterally. The right inguinal focal inflammation at the right femoral graft has slightly decreased. There is a defect in the skin surface, not present previously at could be a surgical wound or an ulcer. Electronically Signed by Selvin Le MD 12/31/2018 05:47 P
[2018-12-31] MEDS: DOCUSATE SODIUM 100 MG CAP PO SCH (20:21)
[2018-12-31] MEDS: AMITRIPTYLINE 10 MG TAB PO SCH (20:23)
[2018-12-31] MEDS: LATANOPROST 0.005% OPHTH SOLN 2.5 ML OU SCH (20:23)
[2019-01-01] MEDS: CEFEPIME HCL 2 GM in D5W MINI-BAG PLUS 50 ML IV SCH ×3 (00:44→16:26)
[2019-01-01] MEDS: PERCOCET 5MG/325MG TAB PO PRN ×4 (03:01→20:20)
[2019-01-01 04:00] VITALS: BP 146/93
[2019-01-01] MEDS: HEPARIN DRIP 25,000 UNITS in APPROPRIATE DILUENT 1 EA IV SCH ×2 (04:49→23:11)
[2019-01-01 05:48] LABS: HEMATOCRIT 38.1 % (42.0-52.0); HEMOGLOBIN 11.9 g/dl (13.5-17.5); MEAN CORPUSCULAR HEMOGLOBIN 26.9 pg (27.0-33.0); MEAN CORPUSCULAR HGB CONC 31.2 g/dl (32.0-36.5); PLATELET COUNT, AUTOMATED 496 10^3/uL (150-450); RED BLOOD COUNT 4.43 10^6/uL (4.30-6.10); WHITE BLOOD COUNT 7.1 10^3/uL (4.0-10.0)
[2019-01-01] MEDS: SLF 3 ML SYR IV SCH ×3 (05:56→20:21)
[2019-01-01 06:09] LABS: ALBUMIN 3.1 GM/DL (3.2-5.2); ALT/SGPT 52 U/L (12-78); BILIRUBIN,TOTAL 0.2 MG/DL (0.2-1.0); BLOOD UREA NITROGEN 11 MG/DL (7-18); CALCIUM LEVEL 9.3 MG/DL (8.5-10.1); CARBON DIOXIDE LEVEL 29 MEQ/L (21-32); CHLORIDE LEVEL 106 MEQ/L (98-107); CREATININE FOR GFR 1.18 MG/DL (0.70-1.30); GLOMERULAR FILTRATION RATE > 60.0 (>56); GLUCOSE, FASTING 105 MG/DL (70-100); SODIUM LEVEL 139 MEQ/L (136-145); TOTAL PROTEIN 7.4 GM/DL (6.4-8.2)
[2019-01-01 08:00] VITALS: BP 134/78
[2019-01-01] MEDS: MORPHINE 4 MG/ML 1ML VIAL/SYRINGE (J2270) IV PRN (08:14)
[2019-01-01] MEDS: METOPROLOL TART 25 MG TABLET PO SCH ×2 (08:15→20:20)
[2019-01-01] MEDS: BRIMONIDINE 0.1% OPHTH SOLN 5 ML OU SCH (08:16)
--- NOTE | 2019-01-01 11:33 | IPNPDOC ---
Subjective Date Seen The patient was seen on 01/01/19. Subjective Chief Complaint/HPI Patient seen and examined at the bedside. Reports he continues to have right lower extremity pain, and this is relatively unchanged. Denies any other new complaints. Objective Physical Examination General Exam: Positive: Alert, Cooperative, No Acute Distress ENT Exam: Positive: Atraumatic, Mucous membr. moist/pink Neck Exam: Negative: JVD Chest Exam: Positive: Clear to auscultation, Normal air movement; Negative: Rales, Rhonchi, Wheezing, Diminished Heart Exam: Positive: Rate Normal, Normal S1, Normal S2 Telemetry: Positive: Other Telemetry: (noted to have PACs, PVCs) Abdomen Exam: Positive: Soft; Negative: Tenderness Extremity Exam: Positive: Other (no ankle or calf edema; lower extremity warm (not cold to touch). unable to see capillary refill due to skin pigmentation; faint DP pulse palable on right); Negative: Tenderness Neuro Exam: Positive: Normal Tone, Sensation Intact Psych Exam: Positive: Mental status NL, Mood NL, Oriented x 3 Assessment /Plan Plan/VTE VTE Prophylaxis Ordered?: Yes Plan Hx of PAD s/p L EIA stenting followed by a left to right femfem bypass, s/p Rt Fem Pop bypass 10/29/18 CTA of the Lower extremities on admission revealed right superficial femoral artery graft occlusion. s/p right femoral exploration, bypass graft ligation and partial removal On heparin drip for anticoagulation We will continue to monitor and follow up with vascular surgery recommendations Right groin mass/abscess with infected graft S/P Rt groin abscess drainage 12/27/[address] Sanchez. Wound culture notable for MSSA, repeat cultures from 12/31 pending On Cefepime Cont to monitor History of paroxysmal AFIB Intermittent bradycardia/tachycardia, bigemmeny noted on telemetry Continue on on metoprolol BID On heparin drip for anticoagulation at this time History of neuropathy Continue amitriptyline, tizanidine DVT prophylaxis: on heparin drip for graft occlusion VS, I&O, 24H, Micbonphylicia Vital Signs/I&O Vital Signs Date Time Temp Pulse Resp B/P (MAP) Pulse Ox O2 Delivery O2 Flow Rate FiO2 01/01/19 08:24 99.0 93 18 134/78 99 I&O- Last 24 Hours up to 6 AM 01/01/19 05:59 Intake Total 1547 ml Output Total 1700 ml Balance -153 ml Laboratory Data 24H LABS Laboratory Tests 2 12/31/18 15:47: Nucleated Red Blood Cells % (auto) 0.0, Anion Gap 5L, Glomerular Filtration Rate > 60.0, Blood Urea Nitrogen 11, Creatinine 1.10, Sodium Level 138, Potassium Level 4.1, Chloride Level 104, Carbon Dioxide Level 29, Calcium Level 10.1, Aspartate Amino Transf (AST/SGOT) 24, Alanine Aminotransferase (ALT/SGPT) 63, Alkaline Phosphatase 127H, Total Bilirubin 0.2, Total Protein 8.3H, Albumin 3.5#, Albumin/Globulin Ratio 0.73L 01/01/19 05:22: Nucleated Red Blood Cells % (auto) 0.0, Anion Gap 4L, Glomerular Filtration Rate > 60.0, Blood Urea Nitrogen 11, Creatinine 1.18, Sodium Level 139, Potassium Level 4.0, Chloride Level 106, Carbon Dioxide Level 29, Calcium Level 9.3, Aspartate Amino Transf (AST/SGOT) 20, Alanine Aminotransferase (ALT/SGPT) 52, Alkaline Phosphatase 112, Total Bilirubin 0.2, Total Protein 7.4, Albumin 3.1L, Albumin/Globulin Ratio 0.72L, Activated Partial Thromboplast Time 72.5H CBC/BMP Laboratory Tests 12/31/18 15:47 Red Blood Count 4.89, Mean Corpuscular Volume 87.1, Mean Corpuscular Hemoglobin 27.4, Mean Corpuscular Hemoglobin Concent 31.5 L, Red Cell Distribution Width 14.6 H, Calcium Level 10.1, Aspartate Amino Transf (AST/SGOT) 24, Alanine Aminotransferase (ALT/SGPT) 63, Alkaline Phosphatase 127 H, Total Bilirubin 0.2, Total Protein 8.3 H, Albumin 3.5 # 01/01/19 05:22 Red Blood Count 4.43, Mean Corpuscular Volume 86.0, Mean Corpuscular Hemoglobin 26.9 L, Mean Corpuscular Hemoglobin Concent 31.2 L, Red Cell Distribution Width 14.6 H, Calcium Level 9.3, Aspartate Amino Transf (AST/SGOT) 20, Alanine Aminotransferase (ALT/SGPT) 52, Alkaline Phosphatase 112, Total Bilirubin 0.2, Total Protein 7.4, Albumin 3.1 L Microbiology Microbiology 12/25/18 Blood Culture - Final, Complete NO GROWTH AFTER 5 DAYS 12/25/18 Blood Culture - Final, Complete NO GROWTH AFTER 5 DAYS 12/31/18 Gram Stain - Final, Resulted 12/31/18 Wound Culture, Resulted Pending 12/31/18 Anaerobic Culture, Resulted Pending 12/27/18 Fungal Smear, Received Pending 12/27/18 Fungal Culture, Received Pending 12/27/18 Gram Stain - Final, Complete 12/27/18 Wound Culture - Final, Complete Staphylococcus Lugdunensis 12/27/18 Anaerobic Culture - Final, Complete ULISES CORREA MD Jan 01, 2019 11:33
[2019-01-01 12:00] VITALS: BP 131/89
--- NOTE | 2019-01-01 14:44 | IPNPDOC ---
Date Seen The patient was seen on 01/01/19. Progress Note Vascular Surgery Dr Sanchez HPI: 58yoM with severe BLE PVD, with h/o L EIA stenting followed shortly thereafter by a left to right femfem bypass, s/p Rt Fem Pop bypass 10/29/[address] Sanchez. Pt reported to ED 12/25 stating he had noted a lump in the Rt groin 12/24/18 associated with Rt foot pain. Vascular surgery was consulted. The pt states he is still having foot pain, states it is worse today. States he has numbness and tingling Rt foot. The pt is noted to be a poor historian. Avoids eye contact. Reluctant to respond to questions and short vague responses. Denies any fevers, chills, Headache, Chest Pain, Shortness of breath, cough, palpitations, abdominal pain, N/V/D or changes in bowel or bladder habits. PAST MEDICAL HISTORY: PAD Hypertension HLD anxiety depression glaucoma allergic rhinitis PAST SURGICAL HISTORY: skin graft L EIA stenting L to R femfem bypass Rt fem pop bypass PE: GEN: 58yoM, appears stated age. No acute distress. Alert and oriented x 3. HEENT: Normocephalic, atraumatic. Sclera are nonicteric. Conjunctiva without injection. Moist mucous membranes. CHEST: Regular rate and rhythm, +S1, +S2 LUNGS: Clear to auscultation bilaterally. No wheezes, rales, or rhonchi. ABD: Round, soft, non-tender, non-distended. +Bowel sounds throughout. EXT: Rt groin with dressing intact. No lower extremity edema appreciated. Pulses Rt foot with Doppler DP monophasic, PT faint monophasic. Toes Rt foot cool to touch. NEURO: Alert and oriented x 3. Cranial nerves III-XII are intact. No focal deficits appreciated. BLE arterial US. 12/18/18 The a [id number] femoral - femoral bypass graft is identified and occluded along with a right femoral - popliteal bypass graft which is also identified and occluded. The bilateral superficial femoral arteries demonstrate proximal/mid occlusion. The right common iliac artery and proximal external iliac artery demonstrate occlusion. The right popliteal artery demonstrates revascularization by the right anterior tibial artery and associated genicular arteries. A collateral vessel is also identified revascularizing the right proximal anterior tibial artery which demonstrates reversal of flow along the upstream anterior tibial artery at the point of collateral and downstream flow distal to the point of collateral vessel. The left external iliac artery demonstrates proximal occlusion extending to the femoral - femoral bypass graft anastomoses. The distal left superficial formal artery downstream to the occlusion is revascularized by genicular artery. Monophasic wave patterns are noted bilaterally as well as low velocity flow through the visualized distal aorta suggesting associated atherosclerotic disease with visualized areas of partial thrombosis. Right NICKIE equals at 0.41 Left NICKIE equals 0.85. Distal aorta velocity at 20 cm/sec. Peak systolic velocities (cm/sec) RIGHT LEFT Common femoral artery 17.3 158/54.6 Profunda femoris 68.3 88 8.8 SFA (proximal) occluded occluded SFA (mid) occluded occluded SFA (distal) occluded 43.2 Popliteal artery 41.0 38.1 JOSÉ MIGUEL (prox.) reversed 25.5 Tibioperoneal trunk 26.9 27.4 INSPECTION CLERK (prox.) 24.9 42.6 INSPECTION CLERK (distal) 21.0 38.3 JOSÉ MIGUEL (distal) 12.1 9.1 Impression: Extensive atherosclerotic disease involving the aorta and bilateral inaja arteries with areas of occlusion through the bilateral superficial femoral arteries as well as occlusion of the femoral - femoral bypass graft and right femoral - popliteal bypass graft. Electronically Signed by Demetrius Aceves MD 12/26/2018 10:10 A CTA RLE No occlusion of the femoral to femoral cross over graft. Occlusion left superficial femoral artery with reconstitution of the left popliteal artery and single vessel run off into the left foot. Right superficial femoral artery graft is occluded throughout. Collateral vessel reconstitute to the right popliteal artery. No definite vessels are seen traversing into the right foot. Focal subcutaneous soft tissue density in the right inguinal region superficial to the right femoral graft I suspect represents focal inflammatory change. No walled off abscess is seen. There is mild adjacent reactive adenopathy. Unreviewed DD: Selvin Herrera MD, MD 12/25/18 1537 pelvis US Bypass graft occlusion. edema surrounding the partially collapsed occluded graft. Graft infection cannot be excluded. Unreviewed BLE venous US No evidence of DVT. Electronically signed by: Orestes Cerrato On 12/27/2018 20:19:53 PM A&P: PAD with h/o L EIA stenting followed by a left to right femfem bypass, s/p Rt Fem Pop bypass 10/29/[address] Sanchez. S/P Rt groin abscess drainage 12/27/[address] Sanchez. S/P right femoral exploration, bypass graft ligation and partial removal 12/31/[address] Sanchez. Tentative plan as relayed by Dr Snachez 01/01/19 is for possible revascularization procedure 01/02 or 01/03/19. IV cefepime as per primary team. IV Heparin gtt per protocol. PAF. The patient has history of AFIB and he was on eliquis but stopped taking medication when bottle ran out. Does not know when that was. Metoprolol as per primary team. Eliquis on hold. Heparin gtt currently. VS, I&O, 24H, Fishbone Vital Signs/I&O Vital Signs Date Time Temp Pulse Resp B/P (MAP) Pulse Ox O2 Delivery O2 Flow Rate FiO2 01/01/19 12:38 97.5 93 18 134/78 99 I&O- Last 24 Hours up to 6 AM 01/01/19 06:00 Intake Total 1547 ml Output Total 2300 ml Balance -753 ml Laboratory Data 24H LABS Laboratory Tests 2 12/31/18 15:47: Nucleated Red Blood Cells % (auto) 0.0, Anion Gap 5L, Glomerular Filtration Rate > 60.0, Blood Urea Nitrogen 11, Creatinine 1.10, Sodium Level 138, Potassium Level 4.1, Chloride Level 104, Carbon Dioxide Level 29, Calcium Level 10.1, Aspartate Amino Transf (AST/SGOT) 24, Alanine Aminotransferase (ALT/SGPT) 63, Alkaline Phosphatase 127H, Total Bilirubin 0.2, Total Protein 8.3H, Albumin 3.5#, Albumin/Globulin Ratio 0.73L 01/01/19 05:22: Nucleated Red Blood Cells % (auto) 0.0, Anion Gap 4L, Glomerular Filtration Rate > 60.0, Blood Urea Nitrogen 11, Creatinine 1.18, Sodium Level 139, Potassium Level 4.0, Chloride Level 106, Carbon Dioxide Level 29, Calcium Level 9.3, Aspartate Amino Transf (AST/SGOT) 20, Alanine Aminotransferase (ALT/SGPT) 52, Alkaline Phosphatase 112, Total Bilirubin 0.2, Total Protein 7.4, Albumin 3.1L, Albumin/Globulin Ratio 0.72L, Activated Partial Thromboplast Time 72.5H CBC/BMP Laboratory Tests 12/31/18 15:47 Red Blood Count 4.89, Mean Corpuscular Volume 87.1, Mean Corpuscular Hemoglobin 27.4, Mean Corpuscular Hemoglobin Concent 31.5 L, Red Cell Distribution Width 14.6 H, Calcium Level 10.1, Aspartate Amino Transf (AST/SGOT) 24, Alanine Aminotransferase (ALT/SGPT) 63, Alkaline Phosphatase 127 H, Total Bilirubin 0.2, Total Protein 8.3 H, Albumin 3.5 # 01/01/19 05:22 Red Blood Count 4.43, Mean Corpuscular Volume 86.0, Mean Corpuscular Hemoglobin 26.9 L, Mean Corpuscular Hemoglobin Concent 31.2 L, Red Cell Distribution Width 14.6 H, Calcium Level 9.3, Aspartate Amino Transf (AST/SGOT) 20, Alanine Aminotransferase (ALT/SGPT) 52, Alkaline Phosphatase 112, Total Bilirubin 0.2, Total Protein 7.4, Albumin 3.1 L Microbiology Microbiology 12/25/18 Blood Culture - Final, Complete NO GROWTH AFTER 5 DAYS 12/25/18 Blood Culture - Final, Complete NO GROWTH AFTER 5 DAYS 12/31/18 Gram Stain - Final, Resulted 12/31/18 Wound Culture, Resulted Pending 12/31/18 Anaerobic Culture, Resulted Pending 12/27/18 Fungal Smear, Received Pending 12/27/18 Fungal Culture, Received Pending 12/27/18 Gram Stain - Final, Complete 12/27/18 Wound Culture - Final, Complete Staphylococcus Lugdunensis 12/27/18 Anaerobic Culture - Final, Complete Jo Ann Herrera Jan 01, 2019 14:44
[2019-01-01 16:00] VITALS: BP 136/75
[2019-01-01] MEDS: tiZANidine 4 MG TAB PO PRN (16:38)
[2019-01-01 20:00] VITALS: BP 117/72
[2019-01-01] MEDS: DOCUSATE SODIUM 100 MG CAP PO SCH (20:19)
[2019-01-01] MEDS: AMITRIPTYLINE 10 MG TAB PO SCH (20:19)
[2019-01-01] MEDS: LATANOPROST 0.005% OPHTH SOLN 2.5 ML OU SCH (20:21)
[2019-01-02] VITALS (7 sets, daily range): BP systolic 116–154; BP diastolic 60–99
[2019-01-02] MEDS: CEFEPIME HCL 2 GM in D5W MINI-BAG PLUS 50 ML IV SCH ×3 (00:53→16:03)
[2019-01-02] MEDS: tiZANidine 4 MG TAB PO PRN ×3 (00:56→16:03)
[2019-01-02] MEDS: PERCOCET 5MG/325MG TAB PO PRN ×6 (00:57→20:47)
[2019-01-02] MEDS: SLF 3 ML SYR IV SCH ×3 (05:32→20:47)
[2019-01-02] MEDS: BRIMONIDINE 0.1% OPHTH SOLN 5 ML OU SCH (09:08)
[2019-01-02] MEDS: METOPROLOL TART 25 MG TABLET PO SCH ×2 (09:10→20:46)
--- NOTE | 2019-01-02 10:33 | IPNPDOC ---
Date Seen The patient was seen on 01/02/19. Progress Note Vascular Surgery Dr Sanchez HPI: 58yoM with severe BLE PVD, with h/o L EIA stenting followed shortly thereafter by a left to right femfem bypass, s/p Rt Fem Pop bypass 10/29/[address] Sanchez. Pt reported to ED 12/25 stating he had noted a lump in the Rt groin 12/24/18 associated with Rt foot pain. Vascular surgery was consulted. The pt states he is still having foot pain, states it is about the same today. States he has numbness and tingling Rt foot. The pt is noted to be a poor historian. Avoids eye contact. Reluctant to respond to questions and short vague responses. Denies any fevers, chills, Headache, Chest Pain, Shortness of breath, cough, palpitations, abdominal pain, N/V/D or changes in bowel or bladder habits. PAST MEDICAL HISTORY: PAD Hypertension HLD anxiety depression glaucoma allergic rhinitis PAST SURGICAL HISTORY: skin graft L EIA stenting L to R femfem bypass Rt fem pop bypass PE: GEN: 58yoM, appears stated age. No acute distress. Alert and oriented x 3. HEENT: Normocephalic, atraumatic. Sclera are nonicteric. Conjunctiva without injection. Moist mucous membranes. CHEST: Regular rate and rhythm, +S1, +S2 LUNGS: Clear to auscultation bilaterally. No wheezes, rales, or rhonchi. ABD: Round, soft, non-tender, non-distended. +Bowel sounds throughout. EXT: Rt groin with dressing changed, marjorie intact, small amount bloody drainage. No lower extremity edema appreciated. Pulses Rt foot with Doppler DP monophasic, PT monophasic. Toes Rt foot cool to touch. NEURO: Alert and oriented x 3. Cranial nerves III-XII are intact. No focal deficits appreciated. BLE arterial US. 12/18/18 The a [id number] femoral - femoral bypass graft is identified and occluded along with a right femoral - popliteal bypass graft which is also identified and occluded. The bilateral superficial femoral arteries demonstrate proximal/mid occlusion. The right common iliac artery and proximal external iliac artery demonstrate occlusion. The right popliteal artery demonstrates revascularization by the right anterior tibial artery and associated genicular arteries. A collateral vessel is also identified revascularizing the right proximal anterior tibial artery which demonstrates reversal of flow along the upstream anterior tibial artery at the point of collateral and downstream flow distal to the point of collateral vessel. The left external iliac artery demonstrates proximal occlusion extending to the femoral - femoral bypass graft anastomoses. The distal left superficial formal artery downstream to the occlusion is revascularized by genicular artery. Monophasic wave patterns are noted bilaterally as well as low velocity flow through the visualized distal aorta suggesting associated atherosclerotic disease with visualized areas of partial thrombosis. Right NICKIE equals at 0.41 Left NICKIE equals 0.85. Distal aorta velocity at 20 cm/sec. Peak systolic velocities (cm/sec) RIGHT LEFT Common femoral artery 17.3 158/54.6 Profunda femoris 68.3 88 8.8 SFA (proximal) occluded occluded SFA (mid) occluded occluded SFA (distal) occluded 43.2 Popliteal artery 41.0 38.1 JOSÉ MIGUEL (prox.) reversed 25.5 Tibioperoneal trunk 26.9 27.4 GROUND SURVEILLANCE SYSTEMS OPERATOR (prox.) 24.9 42.6 GROUND SURVEILLANCE SYSTEMS OPERATOR (distal) 21.0 38.3 JOSÉ MIGUEL (distal) 12.1 9.1 Impression: Extensive atherosclerotic disease involving the aorta and bilateral wiyot arteries with areas of occlusion through the bilateral superficial femoral arteries as well as occlusion of the femoral - femoral bypass graft and right femoral - popliteal bypass graft. Electronically Signed by Demetrius Aceves MD 12/26/2018 10:10 A CTA RLE No occlusion of the femoral to femoral cross over graft. Occlusion left superficial femoral artery with reconstitution of the left popliteal artery and single vessel run off into the left foot. Right superficial femoral artery graft is occluded throughout. Collateral vessel reconstitute to the right popliteal artery. No definite vessels are seen traversing into the right foot. Focal subcutaneous soft tissue density in the right inguinal region superficial to the right femoral graft I suspect represents focal inflammatory change. No walled off abscess is seen. There is mild adjacent reactive adenopathy. Unreviewed DD: Selvin Herrera MD, MD 12/25/18 [id number] pelvis US Bypass graft occlusion. edema surrounding the partially collapsed occluded graft. Graft infection cannot be excluded. Unreviewed BLE venous US No evidence of DVT. Electronically signed by: Orestes eCrrato On 12/27/2018 20:19:53 PM A&P: PAD with h/o L EIA stenting followed by a left to right femfem bypass, s/p Rt Fem Pop bypass 10/29/[address] Sanchez. S/P Rt groin abscess drainage 12/27/[address] Sanchez. S/P right femoral exploration, bypass graft ligation and partial removal 12/31/[address] Sanchez. Tentative plan as relayed by Dr Sanchez 01/01/19 is for possible revascularization procedure. IV cefepime as per primary team. IV Heparin gtt per protocol. PAF. The patient has history of AFIB and he was on eliquis but stopped taking medication when bottle ran out. Does not know when that was. Metoprolol as per primary team. Eliquis on hold. Heparin gtt currently. VS, I&O, 24H, Fishbone Vital Signs/I&O Vital Signs Date Time Temp Pulse Resp B/P (MAP) Pulse Ox O2 Delivery O2 Flow Rate FiO2 01/02/19 09:10 69 116/73 01/02/19 07:57 97.8 18 96 I&O- Last 24 Hours up to 6 AM 01/02/19 06:00 Intake Total 625 ml Output Total 875 ml Balance -250 ml Laboratory Data 24H LABS Laboratory Tests 2 01/02/19 05:03: Activated Partial Thromboplast Time 111.7H Microbiology Microbiology 12/25/18 Blood Culture - Final, Complete NO GROWTH AFTER 5 DAYS 12/25/18 Blood Culture - Final, Complete NO GROWTH AFTER 5 DAYS 12/31/18 Gram Stain - Final, Resulted 12/31/18 Wound Culture, Resulted Pending 12/31/18 Anaerobic Culture, Resulted Pending 12/27/18 Fungal Smear, Received Pending 12/27/18 Fungal Culture, Received Pending 12/27/18 Gram Stain - Final, Complete 12/27/18 Wound Culture - Final, Complete Staphylococcus Lugdunensis 12/27/18 Anaerobic Culture - Final, Complete Jo Ann Herrera Jan 02, 2019 10:33
--- NOTE | 2019-01-02 12:14 | IPNPDOC ---
Subjective Date Seen The patient was seen on 01/02/19. Subjective Chief Complaint/HPI Patient seen and examined at bedside. Reports that he has continued right lower extremity pain which is similar to before his intervention. Denies any changes or other acute complaints. Objective Physical Examination General Exam: Positive: Alert, Cooperative, No Acute Distress ENT Exam: Positive: Atraumatic, Mucous membr. moist/pink Neck Exam: Negative: JVD Chest Exam: Positive: Clear to auscultation, Normal air movement; Negative: Rales, Rhonchi, Wheezing, Diminished Heart Exam: Positive: Rate Normal, Normal S1, Normal S2 Telemetry: Positive: Other Telemetry: (noted to have PACs, PVCs) Abdomen Exam: Positive: Soft; Negative: Tenderness Extremity Exam: Positive: Other (no ankle or calf edema; lower extremity warm (not cold to touch). unable to see capillary refill due to skin pigmentation; faint DP pulse palable on right); Negative: Tenderness Neuro Exam: Positive: Normal Tone, Sensation Intact Psych Exam: Positive: Mental status NL, Mood NL, Oriented x 3 Assessment /Plan Plan/VTE VTE Prophylaxis Ordered?: Yes Plan Hx of PAD s/p L EIA stenting followed by a left to right femfem bypass, s/p Rt Fem Pop bypass 10/29/18 CTA of the Lower extremities on admission revealed right superficial femoral artery graft occlusion. s/p right femoral exploration, bypass graft ligation and partial removal On heparin drip for anticoagulation We will continue to monitor and follow up with vascular surgery recommendations/intervention Right groin mass/abscess with infected graft S/P Rt groin abscess drainage 12/27/[address] Sanchez. Wound culture notable for MSSA, repeat cultures from 12/31 pending On Cefepime Cont to monitor History of paroxysmal AFIB Intermittent bradycardia/tachycardia, bigemeny noted on telemetry Continue on on metoprolol BID On heparin drip for anticoagulation at this time History of neuropathy Continue amitriptyline, tizanidine DVT prophylaxis: on heparin drip for graft occlusion VS, I&O, 24H, Fishbone Vital Signs/I&O Vital Signs Date Time Temp Pulse Resp B/P (MAP) Pulse Ox O2 Delivery O2 Flow Rate FiO2 01/02/19 11:53 98.2 51 18 98 01/02/19 09:10 116/73 I&O- Last 24 Hours up to 6 AM0 01/02/19 06:00 Intake Total 625 ml Output Total 875 ml Balance -250 ml Laboratory Data 24H LABS Laboratory Tests 2 01/02/19 05:03: Activated Partial Thromboplast Time 111.7H 01/02/19 11:57: Microbiology Microbiology 12/25/18 Blood Culture - Final, Complete NO GROWTH AFTER 5 DAYS 12/25/18 Blood Culture - Final, Complete NO GROWTH AFTER 5 DAYS 12/31/18 Gram Stain - Final, Resulted 12/31/18 Wound Culture, Resulted Pending 12/31/18 Anaerobic Culture - Final, Resulted 12/27/18 Fungal Smear, Received Pending 12/27/18 Fungal Culture, Received Pending 12/27/18 Gram Stain - Final, Complete 12/27/18 Wound Culture - Final, Complete Staphylococcus Lugdunensis 12/27/18 Anaerobic Culture - Final, Complete ULISES CORREA MD Jan 02, 2019 12:14
[2019-01-02] MEDS: HEPARIN DRIP 25,000 UNITS in APPROPRIATE DILUENT 1 EA IV SCH (16:05)
[2019-01-02] MEDS: LATANOPROST 0.005% OPHTH SOLN 2.5 ML OU SCH (20:45)
[2019-01-02] MEDS: AMITRIPTYLINE 10 MG TAB PO SCH (20:46)
[2019-01-02] MEDS: DOCUSATE SODIUM 100 MG CAP PO SCH (20:46)
[2019-01-03] VITALS (8 sets, daily range): BP systolic 124–165; BP diastolic 72–99
[2019-01-03] MEDS: tiZANidine 4 MG TAB PO PRN ×2 (00:13→23:55)
[2019-01-03] MEDS: CEFEPIME HCL 2 GM in D5W MINI-BAG PLUS 50 ML IV SCH ×2 (00:46→08:53)
[2019-01-03] MEDS: PERCOCET 5MG/325MG TAB PO PRN ×5 (00:49→23:55)
[2019-01-03] MEDS: SLF 3 ML SYR IV SCH ×3 (05:39→22:19)
[2019-01-03 06:32] LABS: HEMATOCRIT 35.5 % (42.0-52.0); MEAN CORPUSCULAR HEMOGLOBIN 27.3 pg (27.0-33.0); MEAN CORPUSCULAR VOLUME 88.1 fl (80.0-96.0); PLATELET COUNT, AUTOMATED 443 10^3/uL (150-450); RED BLOOD COUNT 4.03 10^6/uL (4.30-6.10); WHITE BLOOD COUNT 6.5 10^3/uL (4.0-10.0)
[2019-01-03 06:49] LABS: BLOOD UREA NITROGEN 12 MG/DL (7-18); CALCIUM LEVEL 8.9 MG/DL (8.5-10.1); CARBON DIOXIDE LEVEL 28 MEQ/L (21-32); CHLORIDE LEVEL 108 MEQ/L (98-107); CREATININE FOR GFR 1.27 MG/DL (0.70-1.30); GLOMERULAR FILTRATION RATE > 60.0 (>56); GLUCOSE, FASTING 99 MG/DL (70-100); POTASSIUM SERUM 4.1 MEQ/L (3.5-5.1); SODIUM LEVEL 141 MEQ/L (136-145)
[2019-01-03] MEDS: METOPROLOL TART 25 MG TABLET PO SCH ×2 (08:53→20:59)
[2019-01-03] MEDS: BRIMONIDINE 0.1% OPHTH SOLN 5 ML OU SCH (08:53)
--- NOTE | 2019-01-03 11:04 | IPNPDOC ---
Subjective Date Seen The patient was seen on 01/03/19. Subjective Chief Complaint/HPI Patient seen and examined at the bedside. Continues to report right lower extremity pain/discomfort. States that it has been the same since admission. He is scheduled to be seen by vascular surgery today. Objective Physical Examination General Exam: Positive: Alert, Cooperative, No Acute Distress ENT Exam: Positive: Atraumatic, Mucous membr. moist/pink Neck Exam: Negative: JVD Chest Exam: Positive: Clear to auscultation, Normal air movement; Negative: Rales, Rhonchi, Wheezing, Diminished Heart Exam: Positive: Rate Normal, Normal S1, Normal S2 Abdomen Exam: Positive: Soft; Negative: Tenderness Extremity Exam: Positive: Other (no ankle or calf edema; lower extremity warm (not cold to touch). unable to see capillary refill due to skin pigmentation; faint DP pulse palable on right); Negative: Tenderness Neuro Exam: Positive: Normal Tone, Sensation Intact Psych Exam: Positive: Mental status NL, Mood NL, Oriented x 3 Assessment /Plan Plan/VTE VTE Prophylaxis Ordered?: Yes Plan Hx of PAD s/p L EIA stenting followed by a left to right femfem bypass, s/p Rt Fem Pop bypass 10/29/18 CTA of the Lower extremities on admission revealed right superficial femoral artery graft occlusion. s/p right femoral exploration, bypass graft ligation and partial removal On heparin drip for anticoagulation We will continue to monitor and follow up with vascular surgery recommendations/intervention Right groin mass/abscess with infected graft S/P Rt groin abscess drainage 12/27/[address] Sanchez. Wound culture notable for MSSA, repeat cultures from 12/31 notable for Coag Neg Staph On Cefepime, will transition to PO Clindamycin Cont to monitor History of paroxysmal AFIB Intermittent bradycardia/tachycardia, bigemeny noted on telemetry Continue on on metoprolol BID On heparin drip for anticoagulation at this time History of neuropathy Continue amitriptyline, tizanidine DVT prophylaxis: on heparin drip for graft occlusion VS, I&O, 24H, Fishbone Vital Signs/I&O Vital Signs Date Time Temp Pulse Resp B/P (MAP) Pulse Ox O2 Delivery O2 Flow Rate FiO2 01/03/19 08:53 95 162/95 01/03/19 08:52 18 01/03/19 07:39 98.2 100 I&O- Last 24 Hours up to 6 AM 01/03/19 06:00 Intake Total 1513 ml Output Total 1100 ml Balance 413 ml Laboratory Data 24H LABS Laboratory Tests 2 01/02/19 11:57: Activated Partial Thromboplast Time 104.8H 01/02/19 18:13: Activated Partial Thromboplast Time 76.3H 01/03/19 06:09: Activated Partial Thromboplast Time 92.5H, Nucleated Red Blood Cells % (auto) 0.0, Anion Gap 5L, Glomerular Filtration Rate > 60.0, Blood Urea Nitrogen 12, Creatinine 1.27, Sodium Level 141, Potassium Level 4.1, Chloride Level 108H, C arbon Dioxide Level 28, Calcium Level 8.9 CBC/BMP Laboratory Tests 01/03/19 06:09 Red Blood Count 4.03 L, Mean Corpuscular Volume 88.1, Mean Corpuscular Hemoglobin 27.3, Mean Corpuscular Hemoglobin Concent 31.0 L, Red Cell Distribution Width 14.7 H, Calcium Level 8.9 Microbiology Microbiology 12/25/18 Blood Culture - Final, Complete NO GROWTH AFTER 5 DAYS 12/25/18 Blood Culture - Final, Complete NO GROWTH AFTER 5 DAYS 12/31/18 Gram Stain - Final, Complete 12/31/18 Wound Culture - Final, Complete Staphylococcus Sp Coag Neg 12/31/18 Anaerobic Culture - Final, Complete 12/27/18 Fungal Smear, Received Pending 12/27/18 Fungal Culture, Received Pending 12/27/18 Gram Stain - Final, Complete 12/27/18 Wound Culture - Final, Complete Staphylococcus Lugdunensis 12/27/18 Anaerobic Culture - Final, Complete ULISES CORREA MD Jan 03, 2019 11:04
[2019-01-03] MEDS: HEPARIN DRIP 25,000 UNITS in APPROPRIATE DILUENT 1 EA IV SCH (11:37)
[2019-01-03] MEDS ORDERED: PROPOFOL 200 MG/20 ML VIAL As Ordered ONE (12:26)
[2019-01-03] MEDS ORDERED: fentaNYL 250 MCG/5 ML INJECTION (J3010) As Ordered ONE (12:26)
[2019-01-03] MEDS ORDERED: LIDOCAINE 2% INJ 100 MG/5 ML SDV (FOR ANES.) As Ordered ONE (12:26)
[2019-01-03] MEDS ORDERED: MIDAZOLAM INJ 2 MG/2 ML VIAL (J2250) As Ordered ONE (12:27)
[2019-01-03] MEDS ORDERED: LIDOCAINE 1% SDV INJ 30 ML VIAL As Ordered ONE (13:03)
[2019-01-03] MEDS ORDERED: THROMBIN SOLN 20,000 UNITS KIT As Ordered ONE (13:03)
[2019-01-03] MEDS ORDERED: BUPIVACAINE HCL 0.5% 30 ML VIAL As Ordered ONE (13:04)
[2019-01-03] MEDS ORDERED: HEPARIN SOD (PORCINE) 5000 UNITS/ML VIAL As Ordered ONE (13:04)
[2019-01-03] MEDS ORDERED: dexameTHASONE 4 MG/ML 1ML VIAL (J1100) As Ordered ONE (14:14)
[2019-01-03] MEDS ORDERED: ONDANSETRON 4MG/2ML VIAL (J2405) As Ordered ONE (14:14)
[2019-01-03] MEDS: LABETALOL HCL 100 MG/20 ML VIAL IV SCH ×3 (14:25→14:45)
[2019-01-03] MEDS ORDERED: LABETALOL HCL 100 MG/20 ML VIAL As Ordered ONE (14:29)
[2019-01-03] MEDS ORDERED: fentaNYL 100 MCG/2 ML INJECTION (J3010) As Ordered ONE (14:34)
[2019-01-03] MEDS ORDERED: oxyCODONE 5MG TAB As Ordered ONE (14:34)
[2019-01-03] MEDS: fentaNYL 100 MCG/2 ML INJECTION (J3010) IV PRN ×4 (14:37→14:57)
[2019-01-03] MEDS ORDERED: LR 1,000 ML IV SCH (14:45)
[2019-01-03] MEDS ORDERED: ONDANSETRON 4MG/2ML VIAL (J2405) IV PRN (14:45)
[2019-01-03] MEDS ORDERED: oxyCODONE 5MG TAB PO PRN (14:45)
[2019-01-03] MEDS: CLINDAMYCIN 150 MG CAP PO SCH ×2 (15:22→20:59)
[2019-01-03] MEDS: MORPHINE 4 MG/ML 1ML VIAL/SYRINGE (J2270) IV PRN (20:58)
[2019-01-03] MEDS: AMITRIPTYLINE 10 MG TAB PO SCH (20:59)
[2019-01-03] MEDS: DOCUSATE SODIUM 100 MG CAP PO SCH (20:59)
[2019-01-03] MEDS: LATANOPROST 0.005% OPHTH SOLN 2.5 ML OU SCH (21:00)
[2019-01-04] VITALS: BP 132/60
[2019-01-04] MEDS: MORPHINE 4 MG/ML 1ML VIAL/SYRINGE (J2270) IV PRN ×2 (03:10→21:26)
[2019-01-04 04:00] VITALS: BP 124/80
[2019-01-04] MEDS: CLINDAMYCIN 150 MG CAP PO SCH ×3 (05:55→21:26)
[2019-01-04] MEDS: SLF 3 ML SYR IV SCH ×3 (06:04→21:27)
[2019-01-04 06:32] LABS: HEMATOCRIT 35.6 % (42.0-52.0); HEMOGLOBIN 11.1 g/dl (13.5-17.5); MEAN CORPUSCULAR HEMOGLOBIN 26.6 pg (27.0-33.0); MEAN CORPUSCULAR HGB CONC 31.2 g/dl (32.0-36.5); MEAN CORPUSCULAR VOLUME 85.4 fl (80.0-96.0); PLATELET COUNT, AUTOMATED 516 10^3/uL (150-450); RED BLOOD COUNT 4.17 10^6/uL (4.30-6.10); WHITE BLOOD COUNT 14.6 10^3/uL (4.0-10.0)
[2019-01-04 06:42] LABS: INR 1.13; PROTHROMBIN TIME 14.2 SECONDS (11.8-14.0)
[2019-01-04 06:44] LABS: PARTIAL THROMBOPLASTIN TIME 67.2 SECONDS (25.0-38.4)
[2019-01-04 06:56] LABS: BLOOD UREA NITROGEN 12 MG/DL (7-18); CALCIUM LEVEL 9.5 MG/DL (8.5-10.1); CARBON DIOXIDE LEVEL 29 MEQ/L (21-32); CHLORIDE LEVEL 104 MEQ/L (98-107); CREATININE FOR GFR 1.27 MG/DL (0.70-1.30); GLOMERULAR FILTRATION RATE > 60.0 (>56); GLUCOSE, FASTING 131 MG/DL (70-100); SODIUM LEVEL 138 MEQ/L (136-145)
[2019-01-04] MEDS: METOPROLOL TART 25 MG TABLET PO SCH ×2 (07:50→21:26)
[2019-01-04] MEDS: BRIMONIDINE 0.1% OPHTH SOLN 5 ML OU SCH (07:50)
[2019-01-04] MEDS: tiZANidine 4 MG TAB PO PRN (07:59)
[2019-01-04 08:00] VITALS: BP 172/95
[2019-01-04 12:00] VITALS: BP 118/70
[2019-01-04] MEDS: PERCOCET 5MG/325MG TAB PO PRN (12:07)
[2019-01-04] MEDS ORDERED: MOM 30ML SUSPENSION UDC PO PRN (13:00)
--- NOTE | 2019-01-04 13:03 | IPNPDOC ---
Subjective Date Seen The patient was seen on 01/04/19. Subjective Chief Complaint/HPI Patient seen and examined at bedside this morning. States that he has some soreness in the right groin area where vascular surgery intervened on yesterday. Also notes that he has not had a bowel movement in several days, but endorses that he has been passing flatus. Objective Physical Examination General Exam: Positive: Alert, Cooperative, No Acute Distress ENT Exam: Positive: Atraumatic, Mucous membr. moist/pink Neck Exam: Negative: JVD Chest Exam: Positive: Clear to auscultation, Normal air movement Heart Exam: Positive: Rate Normal, Normal S1, Normal S2 Abdomen Exam: Positive: Soft; Negative: Tenderness Extremity Exam: Positive: Other (Right groin wound noted to be clean dry and intact) Psych Exam: Positive: Mental status NL, Mood NL, Oriented x 3 Assessment /Plan Plan/VTE VTE Prophylaxis Ordered?: Yes Plan Hx of PAD s/p L EIA stenting followed by a left to right femfem bypass, s/p Rt Fem Pop bypass 10/29/18 CTA of the Lower extremities on admission revealed right superficial femoral artery graft occlusion. s/p right femoral exploration, bypass graft ligation and partial removal on 12/31 s/p Removal of infected femoral popliteal bypass graft On heparin drip for anticoagulation We will continue to monitor and follow up with vascular surgery recommendations/intervention Right groin mass/abscess with infected graft S/P Rt groin abscess drainage 12/27/[address] Sanchez. Wound culture notable for MSSA, repeat cultures from 12/31 notable for Coag Neg Staph On PO Clindamycin Cont to monitor History of paroxysmal AFIB Intermittent bradycardia/tachycardia, bigemeny noted on telemetry Continue on on metoprolol BID On heparin drip for anticoagulation at this time History of neuropathy Continue amitriptyline, tizanidine DVT prophylaxis: on heparin drip VS, I&O, 24H, Fishbone Vital Signs/I&O Vital Signs Date Time Temp Pulse Resp B/P (MAP) Pulse Ox O2 Delivery O2 Flow Rate FiO2 01/04/19 12:07 18 01/04/19 12:00 97.8 104 118/70 (86) 100 01/03/19 14:35 12 I&O- Last 24 Hours up to 6 AM 01/04/19 06:00 Intake Total 1410 ml Output Total 1450 ml Balance -40 ml Laboratory Data 24H LABS Laboratory Tests 2 01/04/19 06:18: Nucleated Red Blood Cells % (auto) 0.0, Prothrombin Time 14.2H, Prothromb Time International Ratio 1.13, Activated Partial Thromboplast Time 67.2H, Anion Gap 5 L, Glomerular Filtration Rate > 60.0, Blood Urea Nitrogen 12, Creatinine 1.27, Sodium Level 138, Potassium Level 4.0, Chloride Level 104, Carbon Dioxide Level 29, Calcium Level 9.5 CBC/BMP Laboratory Tests 01/04/19 06:18 Red Blood Count 4.17 L, Mean Corpuscular Volume 85.4, Mean Corpuscular Hemoglobin 26.6 L, Mean Corpuscular Hemoglobin Concent 31.2 L, Red Cell Distribution Width 14.7 H, Calcium Level 9.5 Microbiology Microbiology 12/25/18 Blood Culture - Final, Complete NO GROWTH AFTER 5 DAYS 12/25/18 Blood Culture - Final, Complete NO GROWTH AFTER 5 DAYS 01/03/19 Anaerobic Culture, Received Pending 01/03/19 Gram Stain - Final, Resulted 01/03/19 Wound Culture, Resulted Pending 01/03/19 Gram Stain - Final, Resulted 01/03/19 Wound Culture, Resulted Pending 01/03/19 Anaerobic Culture, Received Pending 12/31/18 Gram Stain - Final, Complete 12/31/18 Wound Culture - Final, Complete Staphylococcus Sp Coag Neg 12/31/18 Anaerobic Culture - Final, Complete 12/27/18 Fungal Smear, Received Pending 12/27/18 Fungal Culture, Received Pending 12/27/18 Gram Stain - Final, Complete 12/27/18 Wound Culture - Final, Complete Staphylococcus Lugdunensis 12/27/18 Anaerobic Culture - Final, Complete ULISES CORREA MD Jan 04, 2019 13:02
[2019-01-04] MEDS: SENNA 8.6 MG TAB (SENOKOT) PO SCH ×2 (14:01→21:26)
[2019-01-04 16:00] VITALS: BP 124/73
[2019-01-04 20:00] VITALS: BP 134/80
[2019-01-04] MEDS: AMITRIPTYLINE 10 MG TAB PO SCH (21:27)
[2019-01-04] MEDS: DOCUSATE SODIUM 100 MG CAP PO SCH (21:27)
[2019-01-04] MEDS: LATANOPROST 0.005% OPHTH SOLN 2.5 ML OU SCH (21:27)
[2019-01-05] VITALS: BP 119/78
[2019-01-05] MEDS: tiZANidine 4 MG TAB PO PRN ×2 (00:05→12:56)
[2019-01-05] MEDS: HEPARIN DRIP 25,000 UNITS in APPROPRIATE DILUENT 1 EA IV SCH ×3 (00:13→18:17)
[2019-01-05 04:00] VITALS: BP 121/75
[2019-01-05 05:19] LABS: HEMATOCRIT 35.6 % (42.0-52.0); HEMOGLOBIN 11.1 g/dl (13.5-17.5); MEAN CORPUSCULAR HEMOGLOBIN 27.3 pg (27.0-33.0); MEAN CORPUSCULAR HGB CONC 31.2 g/dl (32.0-36.5); MEAN CORPUSCULAR VOLUME 87.7 fl (80.0-96.0); PLATELET COUNT, AUTOMATED 453 10^3/uL (150-450); RED BLOOD COUNT 4.06 10^6/uL (4.30-6.10); WHITE BLOOD COUNT 8.9 10^3/uL (4.0-10.0)
[2019-01-05 05:34] LABS: BLOOD UREA NITROGEN 10 MG/DL (7-18); CARBON DIOXIDE LEVEL 27 MEQ/L (21-32); CHLORIDE LEVEL 107 MEQ/L (98-107); CREATININE FOR GFR 1.24 MG/DL (0.70-1.30); GLOMERULAR FILTRATION RATE > 60.0 (>56); GLUCOSE, FASTING 91 MG/DL (70-100); POTASSIUM SERUM 4.2 MEQ/L (3.5-5.1); SODIUM LEVEL 141 MEQ/L (136-145)
[2019-01-05] MEDS: SLF 3 ML SYR IV SCH ×3 (05:44→21:50)
[2019-01-05] MEDS: CLINDAMYCIN 150 MG CAP PO SCH ×3 (05:45→21:05)
[2019-01-05 06:57] LABS: INR 1.07; PROTHROMBIN TIME 13.6 SECONDS (11.8-14.0)
[2019-01-05 06:59] LABS: PARTIAL THROMBOPLASTIN TIME 58.1 SECONDS (25.0-38.4)
[2019-01-05 08:00] VITALS: BP 125/83
[2019-01-05] MEDS: SENNA 8.6 MG TAB (SENOKOT) PO SCH ×2 (08:10→21:09)
[2019-01-05] MEDS: METOPROLOL TART 25 MG TABLET PO SCH ×2 (08:12→21:10)
[2019-01-05] MEDS: HEPARIN SOD (PORCINE) 5000 UNITS/ML VIAL IV PRN (08:13)
[2019-01-05] MEDS: BRIMONIDINE 0.1% OPHTH SOLN 5 ML OU SCH (09:04)
[2019-01-05] MEDS: PERCOCET 5MG/325MG TAB PO PRN ×3 (09:06→21:05)
[2019-01-05 12:00] VITALS: BP 138/88
--- NOTE | 2019-01-05 12:11 | IPNPDOC ---
Subjective Date Seen The patient was seen on 01/05/19. Subjective Chief Complaint/HPI Patient seen and examined at the bedside. No acute overnight events noted. The patient was seen by vascular surgery yesterday, and there are plans for further surgical intervention tomorrow or Sunday. Objective Physical Examination General Exam: Positive: Alert, Cooperative, No Acute Distress ENT Exam: Positive: Atraumatic, Mucous membr. moist/pink Neck Exam: Negative: JVD Chest Exam: Positive: Clear to auscultation, Normal air movement Heart Exam: Positive: Rate Normal, Normal S1, Normal S2 Abdomen Exam: Positive: Soft; Negative: Tenderness Extremity Exam: Positive: Other (Right groin wound noted to be clean dry and intact) Psych Exam: Positive: Mental status NL, Mood NL, Oriented x 3 Assessment /Plan Plan/VTE VTE Prophylaxis Ordered?: Yes Plan Hx of PAD s/p L EIA stenting followed by a left to right femfem bypass, s/p Rt Fem Pop bypass 10/29/18 CTA of the Lower extremities on admission revealed right superficial femoral artery graft occlusion. s/p right femoral exploration, bypass graft ligation and partial removal on 12/31 s/p Removal of infected femoral popliteal bypass graft On heparin drip for anticoagulation We will continue to monitor and follow up with vascular surgery recommendations/intervention Right groin mass/abscess with infected graft S/P Rt groin abscess drainage 12/27/[address] Sanchez. Wound culture notable for MSSA, repeat cultures from 12/31 notable for Coag Neg Staph On PO Clindamycin Cont to monitor History of paroxysmal AFIB Intermittent bradycardia/tachycardia, bigemeny noted on telemetry Continue on on metoprolol BID On heparin drip for anticoagulation at this time History of neuropathy Continue amitriptyline, tizanidine DVT prophylaxis: on heparin drip VS, I&O, 24H, Fishbone Vital Signs/I&O Vital Signs Date Time Temp Pulse Resp B/P (MAP) Pulse Ox O2 Delivery O2 Flow Rate FiO2 01/05/19 09:06 18 01/05/19 08:12 82 125/83 01/05/19 08:00 98.9 98 01/03/19 14:35 12 I&O- Last 24 Hours up to 6 AM 01/05/19 06:00 Intake Total 1668 ml Output Total 1825 ml Balance -157 ml Laboratory Data 24H LABS Laboratory Tests 2 01/05/19 04:54: Nucleated Red Blood Cells % (auto) 0.0, Anion Gap 7L, Glomerular Filtration Rate > 60.0, Blood Urea Nitrogen 10, Creatinine 1.24, Sodium Level 141, Potassium Level 4.2, Chloride Level 107, Carbon Dioxide Level 27, Calcium Level 9.0 01/05/19 06:28: Prothrombin Time 13.6, Prothromb Time International Ratio 1.07, Activated Partial Thromboplast Time 58.1H CBC/BMP Laboratory Tests 01/05/19 04:54 Red Blood Count 4.06 L, Mean Corpuscular Volume 87.7, Mean Corpuscular Hemoglobin 27.3, Mean Corpuscular Hemoglobin Concent 31.2 L, Red Cell Distribution Width 14.9 H, Calcium Level 9.0 Microbiology Microbiology 01/04/19 Stool Occult Blood (SASCHA) - Final, Complete 01/03/19 Anaerobic Culture - Final, Complete 01/03/19 Anaerobic Culture - Final, Complete 01/03/19 Gram Stain - Final, Complete 01/03/19 Wound Culture - Final, Complete Staphylococcus Lugdunensis 01/03/19 Gram Stain - Final, Resulted 01/03/19 Wound Culture, Resulted Pending 12/31/18 Gram Stain - Final, Complete 12/31/18 Wound Culture - Final, Complete Staphylococcus Sp Coag Neg 12/31/18 Anaerobic Culture - Final, Complete 12/27/18 Fungal Smear, Received Pending 12/27/18 Fungal Culture, Received Pending 12/27/18 Gram Stain - Final, Complete 12/27/18 Wound Culture - Final, Complete Staphylococcus Lugdunensis 12/27/18 Anaerobic Culture - Final, Complete ULISES CORREA MD Jan 05, 2019 12:11
[2019-01-05 16:00] VITALS: BP 138/69
[2019-01-05] MEDS: MORPHINE 4 MG/ML 1ML VIAL/SYRINGE (J2270) IV PRN (16:42)
[2019-01-05 20:00] VITALS: BP 121/69
[2019-01-05] MEDS: DOCUSATE SODIUM 100 MG CAP PO SCH (21:05)
[2019-01-05] MEDS: AMITRIPTYLINE 10 MG TAB PO SCH (21:05)
[2019-01-05] MEDS: LATANOPROST 0.005% OPHTH SOLN 2.5 ML OU SCH (21:06)
[2019-01-06] VITALS: BP 116/88
[2019-01-06] MEDS: PERCOCET 5MG/325MG TAB PO PRN ×5 (01:03→19:37)
[2019-01-06 04:00] VITALS: BP 119/69
[2019-01-06] MEDS: CLINDAMYCIN 150 MG CAP PO SCH ×3 (05:47→21:57)
[2019-01-06] MEDS: SLF 3 ML SYR IV SCH ×3 (05:48→22:00)
[2019-01-06 06:01] LABS: HEMATOCRIT 35.2 % (42.0-52.0); MEAN CORPUSCULAR HEMOGLOBIN 26.8 pg (27.0-33.0); MEAN CORPUSCULAR HGB CONC 31.3 g/dl (32.0-36.5); MEAN CORPUSCULAR VOLUME 85.6 fl (80.0-96.0); PLATELET COUNT, AUTOMATED 488 10^3/uL (150-450); RED BLOOD COUNT 4.11 10^6/uL (4.30-6.10); WHITE BLOOD COUNT 9.8 10^3/uL (4.0-10.0)
[2019-01-06 06:22] LABS: BLOOD UREA NITROGEN 11 MG/DL (7-18); CALCIUM LEVEL 9.3 MG/DL (8.5-10.1); CARBON DIOXIDE LEVEL 32 MEQ/L (21-32); CHLORIDE LEVEL 104 MEQ/L (98-107); CREATININE FOR GFR 1.26 MG/DL (0.70-1.30); GLOMERULAR FILTRATION RATE > 60.0 (>56); GLUCOSE, FASTING 100 MG/DL (70-100); POTASSIUM SERUM 4.6 MEQ/L (3.5-5.1); SODIUM LEVEL 140 MEQ/L (136-145)
--- NOTE | 2019-01-06 07:51 | ECGEPIP ---
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
[2019-01-06 08:00] VITALS: BP 136/78
[2019-01-06] MEDS: METOPROLOL TART 25 MG TABLET PO SCH ×2 (09:12→19:35)
[2019-01-06] MEDS: SENNA 8.6 MG TAB (SENOKOT) PO SCH ×2 (09:12→19:35)
[2019-01-06] MEDS: BRIMONIDINE 0.1% OPHTH SOLN 5 ML OU SCH (09:12)
[2019-01-06] MEDS: MORPHINE 4 MG/ML 1ML VIAL/SYRINGE (J2270) IV PRN ×3 (09:13→21:57)
--- NOTE | 2019-01-06 10:07 | IPNPDOC ---
Subjective Date Seen The patient was seen on 01/06/19. Subjective Chief Complaint/HPI Patient seen and examined at the bedside. No acute overnight events noted. Objective Physical Examination General Exam: Positive: Alert, Cooperative, No Acute Distress ENT Exam: Positive: Atraumatic, Mucous membr. moist/pink Neck Exam: Negative: JVD Chest Exam: Positive: Clear to auscultation, Normal air movement Heart Exam: Positive: Rate Normal, Normal S1, Normal S2 Abdomen Exam: Positive: Soft; Negative: Tenderness Extremity Exam: Positive: Other (Right groin wound noted to be clean dry and intact) Psych Exam: Positive: Mental status NL, Mood NL, Oriented x 3 Assessment /Plan Plan/VTE VTE Prophylaxis Ordered?: Yes Plan Hx of PAD s/p L EIA stenting followed by a left to right femfem bypass, s/p Rt Fem Pop bypass 10/29/18 CTA of the Lower extremities on admission revealed right superficial femoral artery graft occlusion. s/p right femoral exploration, bypass graft ligation and partial removal on 12/31 s/p Removal of infected femoral popliteal bypass graft On heparin drip for anticoagulation We will continue to monitor and follow up with vascular surgery recommenda tions/intervention Right groin mass/abscess with infected graft S/P Rt groin abscess drainage 12/27/[address] Sanchez. Wound culture notable for MSSA, repeat cultures from 12/31 notable for Coag Neg Staph On PO Clindamycin Cont to monitor History of paroxysmal AFIB Intermittent bradycardia/tachycardia, bigemeny noted on telemetry Continue on on metoprolol BID On heparin drip for anticoagulation at this time History of neuropathy Continue amitriptyline, tizanidine DVT prophylaxis: on heparin drip VS, I&O, 24H, [place] Vital Signs/I&O Vital Signs Date Time Temp Pulse Resp B/P (MAP) Pulse Ox O2 Delivery O2 Flow Rate FiO2 01/06/19 09:13 20 01/06/19 09:12 84 136/78 01/06/19 08:00 97.2 100 01/03/19 14:35 12 I&O- Last 24 Hours up to 6 AM 01/06/19 06:00 Intake Total 2568 ml Output Total 1740 ml Balance 828 ml Laboratory Data 24H LABS Laboratory Tests 2 01/05/19 14:13: Activated Partial Thromboplast Time 76.2H 01/05/19 19:52: Activated Partial Thromboplast Time 70.2H 01/06/19 05:27: Activated Partial Thromboplast Time 78.0H, Nucleated Red Blood Cells % (auto) 0.2H, Anion Gap 4L, Glomerular Filtration Rate > 60.0, Blood Urea Nitrogen 11, Creatinine 1.26, Sodium Level 140, Potassium Level 4.6, Chloride Level 104, Carbon Dioxide Level 32, Calcium Level 9.3 CBC/BMP Laboratory Tests 01/06/19 05:27 Red Blood Count 4.11 L, Mean Corpuscular Volume 85.6, Mean Corpuscular Hemoglobin 26.8 L, Mean Corpuscular Hemoglobin Concent 31.3 L, Red Cell Distribution Width 14.9 H, Calcium Level 9.3 Microbiology Microbiology 01/05/19 Stool Occult Blood (SASCHA) - Final, Complete 01/04/19 Stool Occult Blood (SASCHA) - Final, Complete 01/03/19 Anaerobic Culture - Final, Complete 01/03/19 Anaerobic Culture - Final, Complete 01/03/19 Gram Stain - Final, Complete 01/03/19 Wound Culture - Final, Complete Staphylococcus Lugdunensis 01/03/19 Gram Stain - Final, Complete 01/03/19 Wound Culture - Final, Complete Staphylococcus Lugdunensis 12/31/18 Gram Stain - Final, Complete 12/31/18 Wound Culture - Final, Complete Staphylococcus Sp Coag Neg 12/31/18 Anaerobic Culture - Final, Complete 12/27/18 Fungal Smear, Received Pending 12/27/18 Fungal Culture, Received Pending 12/27/18 Gram Stain - Final, Complete 12/27/18 Wound Culture - Final, Complete Staphylococcus Lugdunensis 12/27/18 Anaerobic Culture - Final, Complete ULISES CORREA MD Jan 06, 2019 10:07
[2019-01-06] MEDS: HEPARIN DRIP 25,000 UNITS in APPROPRIATE DILUENT 1 EA IV SCH (11:27)
[2019-01-06 12:00] VITALS: BP_SYST 115; BP_SYST 122; BP_DIAS 74
--- NOTE | 2019-01-06 14:23 | IPNPDOC ---
Date Seen The patient was seen on 01/06/19. Progress Note Vascular Surgery Dr Sanchez HPI: 58yoM with severe BLE PVD, with h/o L EIA stenting followed shortly thereafter by a left to right femfem bypass, s/p Rt Fem Pop bypass 10/29/[address] Sanchez. Pt admitted 12/25 with vascular graft infection. Vascular surgery was consulted. The pt states he is still having foot pain. Denies any fevers, chills, Headache, Chest Pain, Shortness of breath, cough, palpitations, abdominal pain, N/V/D or changes in bowel or bladder habits. PAST MEDICAL HISTORY: PAD Hypertension HLD anxiety depression glaucoma allergic rhinitis PAST SURGICAL HISTORY: skin graft L EIA stenting L to R femfem bypass Rt fem pop bypass PE: GEN: 58yoM, appears stated age. No acute distress. Alert and oriented x 3. HEENT: Normocephalic, atraumatic. Sclera are nonicteric. Conjunctiva without injection. Moist mucous membranes. CHEST: Regular rate and rhythm, +S1, +S2 LUNGS: Clear to auscultation bilaterally. No wheezes, rales, or rhonchi. ABD: Round, soft, non-tender, non-distended. +Bowel sounds throughout. EXT: Rt groin with dressing intact. No lower extremity edema appreciated. Pulses Rt foot with Doppler DP monophasic, PT monophasic. Toes Rt foot cool to touch. NEURO: Alert and oriented x 3. Cranial nerves III-XII are intact. No focal deficits appreciated. BLE arterial US. 12/18/18 The a [id number] femoral - femoral bypass graft is identified and occluded along with a right femoral - popliteal bypass graft which is also identified and occluded. The bilateral superficial femoral arteries demonstrate proximal/mid occlusion. The right common iliac artery and proximal external iliac artery demonstrate occlusion. The right popliteal artery demonstrates revascularization by the right anterior tibial artery and associated genicular arteries. A collateral vessel is also identified revascularizing the right proximal anterior tibial artery which demonstrates reversal of flow along the upstream anterior tibial artery at the point of collateral and downstream flow distal to the point of collateral vessel. The left external iliac artery demonstrates proximal occlusion extending to the femoral - femoral bypass graft anastomoses. The distal left superficial formal artery downstream to the occlusion is revascularized by genicular artery. Monophasic wave patterns are noted bilaterally as well as low velocity flow through the visualized distal aorta suggesting associated atherosclerotic disease with visualized areas of partial thrombosis. Right NICKIE equals at 0.41 Left NICKIE equals 0.85. Distal aorta velocity at 20 cm/sec. Peak systolic velocities (cm/sec) RIGHT LEFT Common femoral artery 17.3 158/54.6 Profunda femoris 68.3 88 8.8 SFA (proximal) occluded occluded SFA (mid) occluded occluded SFA (distal) occluded 43.2 Popliteal artery 41.0 38.1 JOSÉ MIGUEL (prox.) reversed 25.5 Tibioperoneal trunk 26.9 27.4 [employer]USED [employer]GER (prox.) 24.9 42.6 FOCUSED FACTORY MANAGER (distal) 21.0 38.3 JOSÉ MIGUEL (distal) 12.1 9.1 Impression: Extensive atherosclerotic disease involving the aorta and bilateral bill [place] arteries with areas of occlusion through the bilateral superficial femoral arteries as well as occlusion of the femoral - femoral bypass graft and right femoral - popliteal bypass graft. Electronically Signed by Demetrius Aceves MD 12/26/2018 10:10 A CTA RLE No occlusion of the femoral to femoral cross over graft. Occlusion left superficial femoral artery with reconstitution of the left popliteal artery and single vessel run off into the left foot. Right superficial femoral artery graft is occluded throughout. Collateral vessel reconstitute to the right popliteal artery. No definite vessels are seen traversing into the right foot. Focal subcutaneous soft tissue density in the right inguinal region superficial to the right femoral graft I suspect represents focal inflammatory change. No walled off abscess is seen. There is mild adjacent reactive adenopathy. Unreviewed DD: Selvin Herrera MD, MD 12/25/18 1537 pelvis US Bypass graft occlusion. edema surrounding the partially collapsed occluded graft. Graft infection cannot be excluded. Unreviewed BLE venous US No evidence of DVT. Electronically signed by: Orestes Cerrato On 12/27/2018 20:19:53 PM A&P: PAD with h/o L EIA stenting followed by a left to right femfem bypass, s/p Rt Fem Pop bypass 10/29/[address] Sanchez. S/P Rt groin abscess drainage 12/27/[address] Sanchez. S/P right femoral exploration, bypass graft ligation and partial removal 12/31/[address] Sanchez. S/P removal of infected graft 01/03/[address] Sanchez. Tentative plan as relayed by Dr Sanchez 01/06/19 is for possible revascularization procedure 01/07/19. po Clinda as per primary team. IV Heparin gtt per protocol. PAF. The patient has history of AFIB and he was on eliquis but stopped taking medication. Metoprolol as per primary team. Eliquis on hold. Heparin gtt currently. VS, I&O, 24H, Fishbone Vital Signs/I&O Vital Signs Date Time Temp Pulse Resp B/P (MAP) Pulse Ox O2 Delivery O2 Flow Rate FiO2 01/06/19 12:00 98.8 71 17 115/74 (88) 100 01/03/19 14:35 12 I&O- Last 24 Hours up to 6 AM 01/06/19 06:00 Intake Total 2568 ml Output Total 1740 ml Balance 828 ml Laboratory Data 24H LABS Laboratory Tests 2 01/05/19 19:52: Activated Partial Thromboplast Time 70.2H 01/06/19 05:27: Activated Partial Thromboplast Time 78.0H, Nucleated Red Blood Cells % (auto) 0.2H, Anion Gap 4L, Glomerular Filtration Rate > 60.0, Blood Urea Nitrogen 11, Creatinine 1.26, Sodium Level 140, Potassium Level 4.6, Chloride Level 104, Carbon Dioxide Level 32, Calcium Level 9.3 CBC/BMP Laboratory Tests 01/06/19 05:27 Red Blood Count 4.11 L, Mean Corpuscular Volume 85.6, Mean Corpuscular Hemoglobin 26.8 L, Mean Corpuscular Hemoglobin Concent 31.3 L, Red Cell Distribution Width 14.9 H, Calcium Level 9.3 Microbiology Microbiology 01/05/19 Stool Occult Blood (SASCHA) - Final, Complete 01/04/19 Stool Occult Blood (SASCHA) - Final, Complete 01/03/19 Anaerobic Culture - Final, Complete 01/03/19 Anaerobic Culture - Final, Complete 01/03/19 Gram Stain - Final, Complete 01/03/19 Wound Culture - Final, Complete Staphylococcus Lugdunensis 01/03/19 Gram Stain - Final, Complete 01/03/19 Wound Culture - Final, Complete Staphylococcus Lugdunensis 12/31/18 Gram Stain - Final, Complete 12/31/18 Wound Culture - Final, Complete Staphylococcus Sp Coag Neg 12/31/18 Anaerobic Culture - Final, Complete 12/27/18 Fungal Smear, Received Pending 12/27/18 Fungal Culture, Received Pending 12/27/18 Gram Stain - Final, Complete 12/27/18 Wound Culture - Final, Complete Staphylococcus Lugdunensis 12/27/18 Anaerobic Culture - Final, Complete Jo Ann Herrera Jan 06, 2019 14:23
[2019-01-06 16:00] VITALS: BP 136/88
[2019-01-06] MEDS: DOCUSATE SODIUM 100 MG CAP PO SCH (19:35)
[2019-01-06] MEDS: AMITRIPTYLINE 10 MG TAB PO SCH (19:35)
[2019-01-06] MEDS: LATANOPROST 0.005% OPHTH SOLN 2.5 ML OU SCH (19:37)
[2019-01-06 20:00] VITALS: BP 141/94
[2019-01-07] VITALS: BP 138/87
[2019-01-07] MEDS: PERCOCET 5MG/325MG TAB PO PRN ×4 (02:32→18:41)
[2019-01-07] MEDS: HEPARIN DRIP 25,000 UNITS in APPROPRIATE DILUENT 1 EA IV SCH ×2 (03:52→19:41)
[2019-01-07 04:00] VITALS: BP 134/87
[2019-01-07] MEDS: MORPHINE 4 MG/ML 1ML VIAL/SYRINGE (J2270) IV PRN ×5 (05:43→23:08)
[2019-01-07] MEDS: SLF 3 ML SYR IV SCH ×3 (05:49→21:20)
[2019-01-07] MEDS: CLINDAMYCIN 150 MG CAP PO SCH ×3 (05:49→21:19)
[2019-01-07 06:01] LABS: HEMATOCRIT 37.2 % (42.0-52.0); HEMOGLOBIN 11.6 g/dl (13.5-17.5); MEAN CORPUSCULAR HEMOGLOBIN 27.1 pg (27.0-33.0); MEAN CORPUSCULAR HGB CONC 31.2 g/dl (32.0-36.5); MEAN CORPUSCULAR VOLUME 86.9 fl (80.0-96.0); PLATELET COUNT, AUTOMATED 503 10^3/uL (150-450); RED BLOOD COUNT 4.28 10^6/uL (4.30-6.10); WHITE BLOOD COUNT 8.1 10^3/uL (4.0-10.0)
[2019-01-07 06:26] LABS: BLOOD UREA NITROGEN 12 MG/DL (7-18); CALCIUM LEVEL 9.2 MG/DL (8.5-10.1); CARBON DIOXIDE LEVEL 29 MEQ/L (21-32); CHLORIDE LEVEL 105 MEQ/L (98-107); CREATININE FOR GFR 1.14 MG/DL (0.70-1.30); GLOMERULAR FILTRATION RATE > 60.0 (>56); GLUCOSE, FASTING 109 MG/DL (70-100); POTASSIUM SERUM 4.3 MEQ/L (3.5-5.1); SODIUM LEVEL 140 MEQ/L (136-145)
[2019-01-07] MEDS: SENNA 8.6 MG TAB (SENOKOT) PO SCH ×2 (08:24→20:56)
[2019-01-07] MEDS: METOPROLOL TART 25 MG TABLET PO SCH ×2 (08:25→20:57)
[2019-01-07] MEDS: BRIMONIDINE 0.1% OPHTH SOLN 5 ML OU SCH (08:26)
[2019-01-07 08:32] VITALS: BP 185/96
--- NOTE | 2019-01-07 09:05 | IPNPDOC ---
Date Seen The patient was seen on 01/07/19. Progress Note Vascular Surgery Dr Sanchez HPI: 58yoM with severe BLE PVD, with h/o L EIA stenting followed shortly thereafter by a left to right femfem bypass, s/p Rt Fem Pop bypass 10/29/[address] Sanchez. Pt admitted 12/25 with vascular graft infection. Vascular surgery was consulted. The pt states he is still having foot pain, unchanged. Denies any fevers, chills, Headache, Chest Pain, Shortness of breath, cough, palpitations, abdominal pain, N/V/D or changes in bowel or bladder habits. PAST MEDICAL HISTORY: PAD Hypertension HLD anxiety depression glaucoma allergic rhinitis PAST SURGICAL HISTORY: skin graft L EIA stenting L to R femfem bypass Rt fem pop bypass PE: GEN: 58yoM, appears stated age. No acute distress. Alert and oriented x 3. HEENT: Normocephalic, atraumatic. Sclera are nonicteric. Conjunctiva without injection. Moist mucous membranes. CHEST: Regular rate and rhythm, +S1, +S2 LUNGS: Clear to auscultation bilaterally. No wheezes, rales, or rhonchi. ABD: Round, soft, non-tender, non-distended. +Bowel sounds throughout. EXT: Rt groin with dressing intact. No lower extremity edema appreciated. Rt foot is warm to touch, toes Rt foot are cooler to touch. NEURO: Alert and oriented x 3. Cranial nerves III-XII are intact. No focal deficits appreciated. BLE arterial US. 12/18/18 The a [id number] femoral - femoral bypass graft is identified and occluded along with a right femoral - popliteal bypass graft which is also identified and occluded. The bilateral superficial femoral arteries demonstrate proximal/mid occlusion. The right common iliac artery and proximal external iliac artery demonstrate occlusion. The right popliteal artery demonstrates revascularization by the right anterior tibial artery and associated genicular arteries. A collateral vessel is also identified revascularizing the right proximal anterior tibial artery which demonstrates reversal of flow along the upstream anterior tibial artery at the point of collateral and downstream flow distal to the point of collateral vessel. The left external iliac artery demonstrates proximal occlusion extending to the femoral - femoral bypass graft anastomoses. The distal left superficial formal artery downstream to the occlusion is revascularized by genicular artery. Monophasic wave patterns are noted bilaterally as well as low velocity flow through the visualized distal aorta suggesting associated atherosclerotic disease with visualized areas of partial thrombosis. Right NICKIE equals at 0.41 Left NICKIE equals 0.85. Distal aorta velocity at 20 cm/sec. Peak systolic velocities (cm/sec) RIGHT LEFT Common femoral artery 17.3 158/54.6 Profunda femoris 68.3 88 8.8 SFA (proximal) occluded occluded SFA (mid) occluded occluded SFA (distal) occluded 43.2 Popliteal artery 41.0 38.1 JOSÉ MIGUEL (prox.) reversed 25.5 Tibioperoneal trunk 26.9 27.4 WINDOWS TECHNICAL SPECIALIST (prox.) 24.9 42.6 WINDOWS TECHNICAL SPECIALIST (distal) 21.0 38.3 JOSÉ MIGUEL (distal) 12.1 9.1 Impression: Extensive atherosclerotic disease involving the aorta and bilateral tribal arteries with areas of occlusion through the bilateral superficial femoral arteries as well as occlusion of the femoral - femoral bypass graft and right femoral - popliteal bypass graft. Electronically Signed by Demetrius Aceves MD 12/26/2018 10:10 A CTA RLE No occlusion of the femoral to femoral cross over graft. Occlusion left superficial femoral artery with reconstitution of the left popliteal artery and single vessel run off into the left foot. Right superficial femoral artery graft is occluded throughout. Collateral vessel reconstitute to the right popliteal artery. No definite vessels are seen traversing into the right foot. Focal subcutaneous soft tissue density in the right inguinal region superficial to the right femoral graft I suspect represents focal inflammatory change. No walled off abscess is seen. There is mild adjacent reactive adenopathy. Unreviewed DD: Selvin Herrera MD, MD 12/25/18 1537 pelvis US Bypass graft occlusion. edema surrounding the partially collapsed occluded graft. Graft infection cannot be excluded. Unreviewed BLE venous US No evidence of DVT. Electronically signed by: Orestes Cerrato On 12/27/2018 20:19:53 PM A&P: PAD with h/o L EIA stenting followed by a left to right femfem bypass, s/p Rt Fem Pop bypass 10/29/[address] Sanchez. S/P Rt groin abscess drainage 12/27/[address] Sanchez. S/P right femoral exploration, bypass graft ligation and partial removal 12/31/[address] Sanchez. S/P removal of infected graft 01/03/[address] Sanchez. Tentative plan as relayed by Dr Sanchez 01/07/19 is for possible revascularization procedure 01/08/19. Rt Iliofemoral bypass. po Clinda as per primary team. IV Heparin gtt per protocol. PAF. The patient has history of AFIB and he was on eliquis but stopped taking medication. Metoprolol as per primary team. Eliquis on hold. Heparin gtt currently. VS, I&O, 24H, Fishbone Vital Signs/I&O Vital Signs Date Time Temp Pulse Resp B/P (MAP) Pulse Ox O2 Delivery O2 Flow Rate FiO2 01/07/19 08:32 98.7 77 19 185/96 (125) 100 01/03/19 14:35 12 I&O- Last 24 Hours up to 6 AM 01/07/19 06:00 Intake Total 1380 ml Output Total 1750 ml Balance -370 ml Laboratory Data 24H LABS Laboratory Tests 2 01/07/19 05:47: Nucleated Red Blood Cells % (auto) 0.0, Activated Partial Thromboplast Time 84.2H, Anion Gap 6L, Glomerular Filtration Rate > 60.0, Blood Urea Nitrogen 12, Creatinine 1.14, Sodium Level 140, Potassium Level 4.3, Chloride Level 105, Carbon Dioxide Level 29, Calcium Level 9.2 CBC/BMP Laboratory Tests 01/07/19 05:47 Red Blood Count 4.28 L, Mean Corpuscular Volume 86.9, Mean Corpuscular Hemoglobin 27.1, Mean Corpuscular Hemoglobin Concent 31.2 L, Red Cell Distribution Width 14.9 H, Calcium Level 9.2 Microbiology Microbiology 01/05/19 Stool Occult Blood (SASCHA) - Final, Complete 01/04/19 Stool Occult Blood (SASCHA) - Final, Complete 01/03/19 Anaerobic Culture - Final, Complete 01/03/19 Anaerobic Culture - Final, Complete 01/03/19 Gram Stain - Final, Complete 01/03/19 Wound Culture - Final, Complete Staphylococcus Lugdunensis 01/03/19 Gram Stain - Final, Complete 01/03/19 Wound Culture - Final, Complete Staphylococcus Lugdunensis 12/31/18 Gram Stain - Final, Complete 12/31/18 Wound Culture - Final, Complete Staphylococcus Sp Coag Neg 12/31/18 Anaerobic Culture - Final, Complete Jo Ann Herrera Jan 07, 2019 09:05
[2019-01-07 12:00] VITALS: BP 150/62
--- NOTE | 2019-01-07 17:37 | IPNPDOC ---
Text Note Date of Service The patient was seen on 01/07/19. NOTE S: patient states frustrated that revascularization surgery postponed until . States continues with right foot pain, worse at toes and "ball of foot". unable to describe pain except that it is constant O: Vitals as below General: sulheri, NALLELY AAOx3 Heart - irreg/irreg - rate controlled LCTA no W/R/R Ext: no edema bilaterally lower ankles; right foot slightly cooler to touch than left; sluggish cap refill. no palpable DP pulse. right groin with dime size tender mass (improved from admission). A/P: Hx of PAD s/p L EIA stenting followed by a left to right femfem bypass, s/p Rt Fem Pop bypass 10/29/18 CTA of the Lower extremities on admission revealed right superficial femoral artery graft occlusion. s/p right femoral exploration, bypass graft ligation and partial removal on 12/31 s/p Removal of infected femoral popliteal bypass graft 12/31 On heparin drip for anticoagulation await revascularization surgery right leg Right groin MSSA abscess with infected graft S/P Rt groin abscess drainage 12/27/[address] Sanchez. Wound culture notable for MSSA, repeat cultures from 12/31 notable for Coag Neg Staph On changed from IV Vanc to PO Clindamycin - unknown antibiotic duration needed. History of paroxysmal AFIB - continue with metoprolol and heparin drip. Change to eliquis when no further surgical intervention needed. HTN - continue with increased metoprolol dose (75mg BID). will add amlodipine BID History of neuropathy- Continue amitriptyline, tizanidine DVT prophylaxis: on heparin drip Current Medications Medications (Trade) Dose Ordered Sig/Anastacio Route PRN Reason Start Time Stop Time Status Last Admin Dose Admin Amitriptyline HCl (Elavil) 10 mg QHS PO 12/25/18 21:00 01/06/19 19:35 Apixaban (Eliquis) 5 mg BID PO 12/27/18 21:00 12/29/18 07:36 DC 12/28/18 19:53 Brimonidine Tartrate (Alphagan P 0.1%) 1 drop DAILY OU 12/25/18 09:00 01/07/19 08:26 Cefepime HCl 2 gm/ Dextrose 50 ml @ 100 mls/hr Q8H IV 12/26/18 01:00 01/03/19 11:02 DC 01/03/19 08:53 Clindamycin HCl (Cleocin) 300 mg Q8H PO 01/03/19 14:00 01/07/19 13:00 Docusate Sodium (Colace) 100 mg QHS PO 12/25/18 21:00 01/06/19 19:35 Fentanyl Citrate (Sublimaze) 25 mcg Q5MP PRN IV MODERATE PAIN (PS 4-7) 12/31/18 13:45 12/31/18 14:45 DC Fentanyl Citrate (Sublimaze) 25 mcg Q5MP PRN IV MODERATE PAIN (PS 4-7) 01/03/19 14:45 01/03/19 15:26 DC 01/03/19 14:57 Fluticasone Propionate (Flonase 0.05% Nasal Star) 2 spray DAILY PRN NARES CONGESTION 12/25/18 16:15 Heparin Sodium (Porcine) (Heparin) ASDIRECTED PRN IV SEE LABEL COMMENTS 12/29/18 07:45 01/05/19 08:13 Heparin Sodium (Porcine) (Heparin) 5,000 units Q12H SC 12/25/18 21:00 12/25/18 21:00 DC Heparin Sodium (Porcine) 83003 units/IV Miscellaneous Supplies 250 ml @ 0 mls/hr Q0M IV 12/29/18 09:00 01/07/19 03:52 Home Med (Med Rec Complete!) ASDIRECTED XX 12/25/18 13:00 12/25/18 13:00 DC Hydralazine HCl (Apresoline) 5 mg Q5M IV 12/31/18 14:15 12/31/18 15:15 DC 12/31/18 14:20 Labetalol HCl (Normodyne, Trandate) 5 mg Q5M IV 01/03/19 14:45 01/03/19 15:06 DC 01/03/19 14:45 Lactated Ringer's 1,000 ml @ 75 mls/hr [id number] IV 01/03/19 14:45 01/03/19 15:45 DC 01/03/19 14:24 Lactated Ringer's 1,000 ml @ 100 mls/hr Q10H IV 12/31/18 13:45 12/31/18 14:45 DC Latanoprost (Xalatan 0.005% Op Soln) 1 drop QHS OU 12/25/18 21:00 01/06/19 19:37 Magnesium Hydroxide (Milk Of Magnesia) 30 ml DAILYPRN PRN PO CONSTIPATION 01/04/19 13:00 Metoclopramide HCl (REGLAN INJection) 10 mg Q6HP PRN IV NAUSEA OR VOMITING 12/31/18 13:45 12/31/18 14:45 DC Metoprolol Tartrate (Lopressor) 5 mg STAT STAT IV 12/26/18 00:12 12/26/18 00:18 DC 12/26/18 00:32 Metoprolol Tartrate (Lopressor) 5 mg STAT STAT IV 12/27/18 17:58 12/27/18 17:59 DC 12/27/18 18:10 Metoprolol Tartrate (Lopressor) 12.5 mg BID PO 12/26/18 09:00 UNV Metoprolol Tartrate (Lopressor) 25 mg BID PO 12/26/18 09:00 12/26/18 18:01 DC 12/26/18 09:17 Metoprolol Tartrate (Lopressor) 50 mg BID PO 12/26/18 21:00 12/28/18 12:04 DC 12/28/18 08:07 Metoprolol Tartrate (Lopressor) 75 mg BID PO 12/28/18 21:00 12/29/18 09:47 DC 12/28/18 19:52 Metoprolol Tartrate (Lopressor) 75 mg BID PO 12/29/18 09:00 01/07/19 08:25 Miscellaneous (Unresolved Clarification Entry) SEE LABEL COMMENTS DAILY XX 01/04/19 09:00 01/04/19 09:38 DC Miscellaneous (Unresolved Clarification Entry) SEE LABEL COMMENTS DAILY XX 01/05/19 09:00 01/05/19 09:00 DC Morphine Sulfate (Morphine Sulfate Inj) 1 mg Q4HP PRN IV PAIN 12/27/18 09:00 12/29/18 03:01 DC 12/29/18 00:38 Morphine Sulfate (Morphine Sulfate Inj) 2 mg Q4HP PRN IV PAIN 12/29/18 03:00 01/07/19 15:36 Non-Formulary Medication (Heparin Iv Rate Change Documentation ml/ Hr) ASDIRECTED XX 12/29/18 07:45 01/03/19 07:44 DC 01/02/19 06:05 Ondansetron HCl (ZOFRAN INJection) 4 mg Q4HP PRN IV NAUSEA OR VOMITING 12/27/18 12:00 12/27/18 13:00 DC Ondansetron HCl (ZOFRAN INJection) 4 mg Q4HP PRN IV NAUSEA OR VOMITING 12/31/18 13:45 12/31/18 14:45 DC Ondansetron HCl (ZOFRAN INJection) 4 mg Q4HP PRN IV NAUSEA OR VOMITING 01/03/19 14:45 01/03/19 15:45 DC Oxycodone HCl (Roxicodone, Oxyir) 5 mg ASDIRECTED PRN PO MILD/MODERATE PAIN (PS 1-7) 12/27/18 12:00 12/27/18 13:00 DC 12/27/18 11:55 Oxycodone HCl (Roxicodone, Oxyir) 5 mg ASDIRECTED PRN PO MILD/MODERATE PAIN (PS 1-7) 01/03/19 14:45 01/03/19 15:45 DC 01/03/19 14:37 Oxycodone HCl (Roxicodone, Oxyir) 5 mg Q4HP PRN PO PAIN 12/26/18 15:38 12/29/18 03:01 DC 12/28/18 22:33 Oxycodone HCl (Roxicodone, Oxyir) 5 mg Q6HP PRN PO PAIN 12/25/18 16:15 12/26/18 15:40 DC 12/26/18 10:50 Oxycodone/ Acetaminophen (Percocet 5mg/ 325mg Tablet) 1 tab ASDIRECTED PRN PO MILD/MODERATE PAIN (PS 1-7) 12/31/18 13:45 12/31/18 14:10 DC 12/31/18 14:05 Oxycodone/ Acetaminophen (Percocet 5mg/ 325mg Tablet) 1 tab Q4HP PRN PO MILD/MODERATE PAIN (PS 1-7) 01/01/19 16:00 01/07/19 13:00 Oxycodone/ Acetaminophen (Percocet 5mg/ 325mg Tablet) 1 tab Q6HP PRN PO SEVERE PAIN (PS 8-10) 12/29/18 03:00 01/01/19 13:20 DC 01/01/19 12:08 Senna (Senokot) 2 tab BID PO 01/04/19 09:00 01/07/19 08:24 Sodium Chloride (Saline Lock Flush) 2 ml ASDIRECTED PRN IV SEE LABEL COMMENTS 12/27/18 08:45 Sodium Chloride (Saline Lock Flush) 2 ml SLF IV 12/27/18 14:00 01/07/19 14:31 Tizanidine HCl (Zanaflex) 4 mg TID PRN PO MUSCLE SPASMS 12/25/18 16:15 01/05/19 12:56 VS,Micbone, I+O VS, Fishbone, I+O Laboratory Tests 01/07/19 05:47 Red Blood Count 4.28 L, Mean Corpuscular Volume 86.9, Mean Corpuscular Hemoglobin 27.1, Mean Corpuscular Hemoglobin Concent 31.2 L, Red Cell Distribution Width 14.9 H, Calcium Level 9.2 Vital Signs Date Time Temp Pulse Resp B/P (MAP) Pulse Ox O2 Delivery O2 Flow Rate FiO2 01/07/19 15:36 8 01/07/19 08:32 98.7 77 185/96 (125) 100 01/03/19 14:35 12 I&O- Last 24 Hours up to 6 AM 01/07/19 06:00 Intake Total 1380 ml Output Total 1750 ml Balance -370 ml JOSE ORONA DO Jan 07, 2019 17:37
[2019-01-07] MEDS: tiZANidine 4 MG TAB PO PRN (19:50)
[2019-01-07 20:00] VITALS: BP 138/72
[2019-01-07] MEDS: AMITRIPTYLINE 10 MG TAB PO SCH (20:56)
[2019-01-07] MEDS: LATANOPROST 0.005% OPHTH SOLN 2.5 ML OU SCH (20:57)
[2019-01-07] MEDS: DOCUSATE SODIUM 100 MG CAP PO SCH (20:57)
[2019-01-07 23:59] VITALS: BP 105/61
[2019-01-08] VITALS (12 sets, daily range): BP systolic 109–166; BP diastolic 70–104
[2019-01-08] MEDS: MORPHINE 4 MG/ML 1ML VIAL/SYRINGE (J2270) IV PRN ×6 (02:18→19:29)
[2019-01-08] MEDS: PERCOCET 5MG/325MG TAB PO PRN ×2 (06:05→20:58)
[2019-01-08] MEDS: CLINDAMYCIN 150 MG CAP PO SCH ×3 (06:05→20:58)
[2019-01-08] MEDS: SLF 3 ML SYR IV SCH ×3 (06:06→22:00)
[2019-01-08 06:17] LABS: HEMATOCRIT 36.9 % (42.0-52.0); HEMOGLOBIN 11.6 g/dl (13.5-17.5); MEAN CORPUSCULAR HEMOGLOBIN 26.3 pg (27.0-33.0); MEAN CORPUSCULAR HGB CONC 31.4 g/dl (32.0-36.5); MEAN CORPUSCULAR VOLUME 83.7 fl (80.0-96.0); PLATELET COUNT, AUTOMATED 591 10^3/uL (150-450); RED BLOOD COUNT 4.41 10^6/uL (4.30-6.10); WHITE BLOOD COUNT 8.3 10^3/uL (4.0-10.0)
[2019-01-08 06:45] LABS: BLOOD UREA NITROGEN 14 MG/DL (7-18); CALCIUM LEVEL 9.8 MG/DL (8.5-10.1); CARBON DIOXIDE LEVEL 27 MEQ/L (21-32); CHLORIDE LEVEL 104 MEQ/L (98-107); CREATININE FOR GFR 1.07 MG/DL (0.70-1.30); GLOMERULAR FILTRATION RATE > 60.0 (>56); GLUCOSE, FASTING 104 MG/DL (70-100); POTASSIUM SERUM 4.1 MEQ/L (3.5-5.1); SODIUM LEVEL 138 MEQ/L (136-145)
[2019-01-08] MEDS: METOPROLOL TART 25 MG TABLET PO SCH ×2 (08:52→20:57)
[2019-01-08] MEDS: BRIMONIDINE 0.1% OPHTH SOLN 5 ML OU SCH (08:53)
[2019-01-08] MEDS: SENNA 8.6 MG TAB (SENOKOT) PO SCH ×2 (08:53→20:58)
[2019-01-08] MEDS: HEPARIN DRIP 25,000 UNITS in APPROPRIATE DILUENT 1 EA IV SCH (10:10)
--- NOTE | 2019-01-08 13:55 | IPNPDOC ---
Text Note Date of Service The patient was seen on 01/08/19. NOTE S: patient states frustrated . Does not want to talk today. O: Vitals as below Heart - irreg/irreg - rate controlled LCTA no W/R/R Ext: no edema bilaterally lower ankles; A/P: Hx of PAD s/p L EIA stenting followed by a left to right femfem bypass, s/p Rt Fem Pop bypass 10/29/18 CTA of the Lower extremities on admission revealed right superficial femoral artery graft occlusion. s/p right femoral exploration, bypass graft ligation and partial removal on 12/31 s/p Removal of infected femoral popliteal bypass graft 12/31 On heparin drip for anticoagulation await revascularization surgery right leg Possible revascularization 01/08/19 Right groin MSSA abscess with infected graft S/P Rt groin abscess drainage 12/27/[address] Sanchez. Wound culture notable for MSSA, repeat cultures from 12/31 notable for Coag Neg Staph On changed from IV Vanc to PO Clindamycin - unknown antibiotic duration needed. day 14 of antibiotics for groin abscess (initially IV Vanc and now po clindamycin) History of paroxysmal AFIB - continue with metoprolol and heparin drip. Change to eliquis when no further surgical intervention needed. HTN - continue with increased metoprolol dose (75mg BID). will add amlodipine BID History of neuropathy- Continue amitriptyline, tizanidine DVT prophylaxis: on heparin drip VS,Fishbone, I+O VS, Fishbone, I+O Laboratory Tests 01/08/19 05:56 Red Blood Count 4.41, Mean Corpuscular Volume 83.7, Mean Corpuscular Hemoglobin 26.3 L, Mean Corpuscular Hemoglobin Concent 31.4 L, Red Cell Distribution Width 14.6 H, Calcium Level 9.8 Vital Signs Date Time Temp Pulse Resp B/P (MAP) Pulse Ox O2 Delivery O2 Flow Rate FiO2 01/08/19 11:18 19 01/08/19 08:52 63 128/94 01/08/19 08:00 97.2 99 01/03/19 14:35 12 I&O- Last 24 Hours up to 6 AM 01/08/19 06:00 Intake Total 1260 ml Output Total 1550 ml Balance -290 ml JOSE ORONA DO Jan 08, 2019 11:28
[2019-01-08] MEDS ORDERED: PROPOFOL 200 MG/20 ML VIAL As Ordered ONE (16:14)
[2019-01-08] MEDS ORDERED: MIDAZOLAM INJ 2 MG/2 ML VIAL (J2250) As Ordered ONE (16:14)
[2019-01-08] MEDS ORDERED: LIDOCAINE 2% INJ 100 MG/5 ML SDV (FOR ANES.) As Ordered ONE (16:14)
[2019-01-08] MEDS ORDERED: fentaNYL 250 MCG/5 ML INJECTION (J3010) As Ordered ONE (16:14)
[2019-01-08] MEDS ORDERED: BUPIVACAINE HCL 0.5% 30 ML VIAL As Ordered ONE (16:21)
[2019-01-08] MEDS ORDERED: LIDOCAINE 1% SDV INJ 30 ML VIAL As Ordered ONE (16:21)
[2019-01-08] MEDS ORDERED: HEPARIN SOD (PORCINE) 5000 UNITS/ML VIAL As Ordered ONE (16:21)
[2019-01-08] MEDS ORDERED: THROMBIN SOLN 20,000 UNITS KIT As Ordered ONE (16:21)
[2019-01-08] MEDS ORDERED: LABETALOL HCL 100 MG/20 ML VIAL As Ordered ONE (17:25)
[2019-01-08] MEDS: LABETALOL HCL 100 MG/20 ML VIAL IV SCH ×2 (17:26→17:36)
[2019-01-08] MEDS ORDERED: LR 1,000 ML IV SCH (17:30)
[2019-01-08] MEDS ORDERED: ONDANSETRON 4MG/2ML VIAL (J2405) IV PRN (17:30)
[2019-01-08] MEDS ORDERED: PERCOCET 5MG/325MG TAB PO PRN (17:30)
[2019-01-08] MEDS ORDERED: fentaNYL 100 MCG/2 ML INJECTION (J3010) IV PRN (17:30)
[2019-01-08] MEDS ORDERED: METOCLOPRAMIDE INJ 10MG/2ML VIAL (J2765) IV PRN (17:30)
[2019-01-08] MEDS: DOCUSATE SODIUM 100 MG CAP PO SCH (20:58)
[2019-01-08] MEDS: AMITRIPTYLINE 10 MG TAB PO SCH (20:59)
[2019-01-08] MEDS: LATANOPROST 0.005% OPHTH SOLN 2.5 ML OU SCH (21:00)
[2019-01-09] MEDS: MORPHINE 4 MG/ML 1ML VIAL/SYRINGE (J2270) IV PRN ×8 (00:21→23:34)
[2019-01-09] MEDS: tiZANidine 4 MG TAB PO PRN ×2 (01:31→20:52)
[2019-01-09] MEDS: PERCOCET 5MG/325MG TAB PO PRN ×3 (01:32→19:52)
[2019-01-09 04:00] VITALS: BP 116/75
[2019-01-09] MEDS: HEPARIN DRIP 25,000 UNITS in APPROPRIATE DILUENT 1 EA IV SCH ×2 (04:26→19:57)
[2019-01-09 05:09] LABS: HEMOGLOBIN 10.9 g/dl (13.5-17.5); MEAN CORPUSCULAR HEMOGLOBIN 26.8 pg (27.0-33.0); MEAN CORPUSCULAR HGB CONC 31.1 g/dl (32.0-36.5); MEAN CORPUSCULAR VOLUME 86.2 fl (80.0-96.0); PLATELET COUNT, AUTOMATED 515 10^3/uL (150-450); RED BLOOD COUNT 4.06 10^6/uL (4.30-6.10); WHITE BLOOD COUNT 7.2 10^3/uL (4.0-10.0)
[2019-01-09 05:31] LABS: BLOOD UREA NITROGEN 14 MG/DL (7-18); CALCIUM LEVEL 9.3 MG/DL (8.5-10.1); CARBON DIOXIDE LEVEL 29 MEQ/L (21-32); CHLORIDE LEVEL 103 MEQ/L (98-107); CREATININE FOR GFR 1.18 MG/DL (0.70-1.30); GLOMERULAR FILTRATION RATE > 60.0 (>56); GLUCOSE, FASTING 102 MG/DL (70-100); POTASSIUM SERUM 4.2 MEQ/L (3.5-5.1); SODIUM LEVEL 138 MEQ/L (136-145)
[2019-01-09] MEDS: SLF 3 ML SYR IV SCH ×3 (05:59→20:49)
[2019-01-09] MEDS: CLINDAMYCIN 150 MG CAP PO SCH ×3 (05:59→20:49)
[2019-01-09 08:32] VITALS: BP 144/66
--- NOTE | 2019-01-09 09:02 | IPNPDOC ---
Date Seen The patient was seen on 01/09/19. Progress Note Vascular Surgery Dr Sanchez HPI: 58yoM with severe BLE PVD, with h/o L EIA stenting followed shortly thereafter by a left to right femfem bypass, s/p Rt Fem Pop bypass 10/29/[address] Sanchez. Pt admitted 12/25 with vascular graft infection. Vascular surgery was consulted. The pt states he is still having foot pain, unchanged this AM. Denies any fevers, chills, Headache, Chest Pain, Shortness of breath, cough, palpitations, abdominal pain, N/V/D or changes in bowel or bladder habits. PAST MEDICAL HISTORY: PAD Hypertension HLD anxiety depression glaucoma allergic rhinitis PAST SURGICAL HISTORY: skin graft L EIA stenting L to R femfem bypass Rt fem pop bypass PE: GEN: 58yoM, appears stated age. No acute distress. Alert and oriented x 3. HEENT: Normocephalic, atraumatic. Sclera are nonicteric. Conjunctiva without injection. Moist mucous membranes. CHEST: Regular rate and rhythm, +S1, +S2 LUNGS: Clear to auscultation bilaterally. No wheezes, rales, or rhonchi. ABD: Round, soft, non-tender, non-distended. +Bowel sounds throughout. EXT: Rt groin with dressing intact. No lower extremity edema appreciated. Rt foot is warm to touch, toes Rt foot are slightly cooler to touch, good cap refill. Wound vac intact Rt groin. NEURO: Alert and oriented x 3. Cranial nerves III-XII are intact. No focal deficits appreciated. BLE arterial US. 12/18/18 The a [id number] femoral - femoral bypass graft is identified and occluded along with a right femoral - popliteal bypass graft which is also identified and occluded. The bilateral superficial femoral arteries demonstrate proximal/mid occlusion. The right common iliac artery and proximal external iliac artery demonstrate occlusion. The right popliteal artery demonstrates revascularization by the right anterior tibial artery and associated genicular arteries. A collateral vessel is also identified revascularizing the right proximal anterior tibial artery which demonstrates reversal of flow along the upstream anterior tibial artery at the point of collateral and downstream flow distal to the point of collateral vessel. The left external iliac artery demonstrates proximal occlusion extending to the femoral - femoral bypass graft anastomoses. The distal left superficial formal artery downstream to the occlusion is revascularized by genicular artery. Monophasic wave patterns are noted bilaterally as well as low velocity flow through the visualized distal aorta suggesting associated atherosclerotic disease with visualized areas of partial thrombosis. Right NICKIE equals at 0.41 Left NICKIE equals 0.85. Distal aorta velocity at 20 cm/sec. Peak systolic velocities (cm/sec) RIGHT LEFT Common femoral artery 17.3 158/54.6 Profunda femoris 68.3 88 8.8 SFA (proximal) occluded occluded SFA (mid) occluded occluded SFA (distal) occluded 43.2 Popliteal artery 41.0 38.1 JOSÉ MIGUEL (prox.) reversed 25.5 Tibioperoneal trunk 26.9 27.4 VOCATIONAL AUTO BODY INSTRUCTOR (prox.) 24.9 42.6 VOCATIONAL AUTO BODY INSTRUCTOR (distal) 21.0 38.3 JOSÉ MIGUEL (distal) 12.1 9.1 Impression: Extensive atherosclerotic disease involving the aorta and bilateral [place] arteries with areas of occlusion through the bilateral superficial femoral arteries as well as occlusion of the femoral - femoral bypass graft and right femoral - popliteal bypass graft. Electronically Signed by Demetrius Aceves MD 12/26/2018 10:10 A CTA RLE No occlusion of the femoral to femoral cross over graft. Occlusion left superficial femoral artery with reconstitution of the left popliteal artery and single vessel run off into the left foot. Right superficial femoral artery graft is occluded throughout. Collateral vessel reconstitute to the right popliteal artery. No definite vessels are seen traversing into the right foot. Focal subcutaneous soft tissue density in the right inguinal region superficial to the right femoral graft I suspect represents focal inflammatory change. No walled off abscess is seen. There is mild adjacent reactive adenopathy. Unreviewed DD: Selvin Herrera MD, MD 12/25/18 1537 pelvis US Bypass graft occlusion. edema surrounding the partially collapsed occluded graft. Graft infection cannot be excluded. Unreviewed BLE venous US No evidence of DVT. Electronically signed by: Orestes Cerrato On 12/27/2018 20:19:53 PM A&P: PAD with h/o L EIA stenting followed by a left to right femfem bypass, s/p Rt Fem Pop bypass 10/29/[address] Sanchez. S/P Rt groin abscess drainage 12/27/[address] Sanchez. S/P right femoral exploration, bypass graft ligation and partial removal 12/31/[address] Sanchez. S/P removal of infected graft 01/03/[address] Sanchez. S/P Rt groin debridement/Wound vac placement as per Dr Sanchez 01/08/19. Tentative plan as per Dr Sanchez for possible revascularization procedure 01/10 or 01/11. po Clinda as per primary team. IV Heparin gtt per protocol. PAF. The patient has history of AFIB and he was on eliquis but stopped taking medicat ion. Metoprolol as per primary team. Eliquis on hold. Heparin gtt currently. VS, I&O, 24H, Fishbone Vital Signs/I&O Vital Signs Date Time Temp Pulse Resp B/P (MAP) Pulse Ox O2 Delivery O2 Flow Rate FiO2 01/09/19 08:32 97.8 48 19 144/66 (92) 98 01/08/19 17:15 2 I&O- Last 24 Hours up to 6 AM 01/09/19 06:00 Intake Total 1495 ml Output Total 853 ml Balance 642 ml Laboratory Data 24H LABS Laboratory Tests 2 01/09/19 04:56: Nucleated Red Blood Cells % (auto) 0.0, Anion Gap 6L, Glomerular Filtration Rate > 60.0, Blood Urea Nitrogen 14, Creatinine 1.18, Sodium Level 138, Potassium Level 4.2, Chloride Level 103, Carbon Dioxide Level 29, Calcium Level 9.3 01/09/19 07:54: Activated Partial Thromboplast Time 96.1H CBC/BMP Laboratory Tests 01/09/19 04:56 Red Blood Count 4.06 L, Mean Corpuscular Volume 86.2, Mean Corpuscular Hemoglobin 26.8 L, Mean Corpuscular Hemoglobin Concent 31.1 L, Red Cell Distribution Width 14.7 H, Calcium Level 9.3 Microbiology Microbiology 01/05/19 Stool Occult Blood (SASCHA) - Final, Complete 01/04/19 Stool Occult Blood (SASCHA) - Final, Complete 01/08/19 Gram Stain, Received Pending 01/08/19 Wound Culture, Received Pending 01/08/19 Anaerobic Culture, Received Pending 01/03/19 Anaerobic Culture - Final, Complete 01/03/19 Anaerobic Culture - Final, Complete 01/03/19 Gram Stain - Final, Complete 01/03/19 Wound Culture - Final, Complete Staphylococcus Lugdunensis 01/03/19 Gram Stain - Final, Complete 01/03/19 Wound Culture - Final, Complete Staphylococcus Lugdunensis 12/31/18 Gram Stain - Final, Complete 12/31/18 Wound Culture - Final, Complete Staphylococcus Sp Coag Neg 12/31/18 Anaerobic Culture - Final, Complete Jo Ann Herrera Jan 09, 2019 09:02
[2019-01-09] MEDS: METOPROLOL TART 25 MG TABLET PO SCH ×2 (11:07→21:03)
[2019-01-09] MEDS: SENNA 8.6 MG TAB (SENOKOT) PO SCH ×2 (11:07→20:49)
[2019-01-09] MEDS: BRIMONIDINE 0.1% OPHTH SOLN 5 ML OU SCH (11:08)
[2019-01-09 16:00] VITALS: BP 129/76
--- NOTE | 2019-01-09 16:11 | IPNPDOC ---
Text Note Date of Service The patient was seen on 01/09/19. NOTE S: patient eating lunch meal. states good appetite, no N, no V, no CP. Still with leg pain. Had right groin debridement and wound vac placement yesterday O: Vitals as below General: pleasant, NAD AAOx3 Heart irreg/irreg Ext: no edema to ankles A/P: Hx of PAD with history of L EIA stenting followed by a left to right femfem bypass, On heparin drip for anticoagulation await revascularization surgery right leg 10/29/18 s/p Rt Fem Pop bypass CTA of the Lower extremities on admission revealed right superficial femoral artery graft occlusion. 12/27/18 S/P Rt groin abscess drainage by Dr Sanchez 12/31/18 s/p right femoral exploration, bypass graft ligation and partial removal 01/03/19 s/p Removal of infected femoral popliteal bypass graft 01/08/19 S/P Rt groin debridement/Wound vac placement Tentative plan as per Dr Sanchez for possible revascularization procedure 01/10 or 01/11. Right groin MSSA abscess with infected graft - as above. On day 15 of antibiotic therapy (intially IV Vanc and then changed to po clindamycin) Wound culture notable for MSSA, repeat cultures from 12/31 notable for Coag Neg Staph; Wound cultures obtained from 01/08/19 pending - unknown antibiotic duration needed. History of paroxysmal AFIB - continue with metoprolol and heparin drip. Change to eliquis when no further surgical intervention needed. HTN - well controlled with metoprolol dose (75mg BID) and amlodipine BID History of neuropathy- Continue amitriptyline, tizanidine DVT prophylaxis: on heparin drip VS,Fishbone, I+O VS, Fishbone, I+O Laboratory Tests 01/09/19 04:56 Red Blood Count 4.06 L, Mean Corpuscular Volume 86.2, Mean Corpuscular Hemoglobin 26.8 L, Mean Corpuscular Hemoglobin Concent 31.1 L, Red Cell Distribution Width 14.7 H, Calcium Level 9.3 Vital Signs Date Time Temp Pulse Resp B/P (MAP) Pulse Ox O2 Delivery O2 Flow Rate FiO2 01/09/19 08:32 97.8 48 19 144/66 (92) 98 01/08/19 17:15 2 I&O- Last 24 Hours up to 6 AM 01/09/19 05:59 Intake Total 2095 ml Output Total 1203 ml Balance 892 ml JOSE ORONA DO Jan 09, 2019 09:11
[2019-01-09 17:46] VITALS: BP 113/73
[2019-01-09] MEDS: LATANOPROST 0.005% OPHTH SOLN 2.5 ML OU SCH (20:49)
[2019-01-09] MEDS: AMITRIPTYLINE 10 MG TAB PO SCH (20:49)
[2019-01-09] MEDS: DOCUSATE SODIUM 100 MG CAP PO SCH (20:49)
[2019-01-09 22:00] VITALS: BP 139/82
[2019-01-10] VITALS (7 sets, daily range): BP systolic 120–164; BP diastolic 73–101
[2019-01-10] MEDS: PERCOCET 5MG/325MG TAB PO PRN ×4 (00:20→23:26)
[2019-01-10] MEDS: MORPHINE 4 MG/ML 1ML VIAL/SYRINGE (J2270) IV PRN ×5 (03:46→20:05)
[2019-01-10] MEDS: CLINDAMYCIN 150 MG CAP PO SCH ×3 (05:20→21:49)
[2019-01-10] MEDS: SLF 3 ML SYR IV SCH ×3 (05:20→21:51)
[2019-01-10] MEDS: METOPROLOL TART 25 MG TABLET PO SCH ×2 (09:01→21:50)
[2019-01-10] MEDS: BRIMONIDINE 0.1% OPHTH SOLN 5 ML OU SCH (09:01)
[2019-01-10] MEDS: SENNA 8.6 MG TAB (SENOKOT) PO SCH ×2 (09:01→21:49)
--- NOTE | 2019-01-10 09:42 | IPNPDOC ---
Date Seen The patient was seen on 01/10/19. Progress Note Vascular Surgery Dr Sanchez HPI: 58yoM with severe BLE PVD, with h/o L EIA stenting followed shortly thereafter by a left to right femfem bypass, s/p Rt Fem Pop bypass 10/29/[address] Sanchez. Pt admitted 12/25 with vascular graft infection. Vascular surgery was consulted. The pt states he is still having foot pain, states is is worse this AM. States it began to worsen last PM. has been requiring more pain control. States it is a little better if he puts leg over side of bed. Denies any fevers, chills, Headache, Chest Pain, Shortness of breath, cough, palpitations, abdominal pain, N/V/D or changes in bowel or bladder habits. PAST MEDICAL HISTORY: PAD Hypertension HLD anxiety depression glaucoma allergic rhinitis PAST SURGICAL HISTORY: skin graft L EIA stenting L to R femfem bypass Rt fem pop bypass PE: GEN: 58yoM, appears stated age. Alert and oriented x 3. HEENT: Normocephalic, atraumatic. Moist mucous membranes. CHEST: Regular rate and rhythm, +S1, +S2 LUNGS: Clear to auscultation bilaterally. No wheezes, rales, or rhonchi. ABD: Round, soft, non-tender, non-distended. +Bowel sounds throughout. EXT: Rt groin with wound vac dressing intact. No lower extremity edema appreciated. Rt foot is is cooler to touch, toes Rt foot are slightly cooler to touch, cap refill 4 secs this am. Pulses are obtained with doppler faint monophasic Rt DP, unable to obtain PT. Pt c/o pain with touching Rt foot/toes. NEURO: Alert and oriented x 3. Cranial nerves III-XII are intact. No focal deficits appreciated. BLE arterial US. 12/18/18 The a [id number] femoral - femoral bypass graft is identified and occluded along with a right femoral - popliteal bypass graft which is also identified and occluded. The bilateral superficial femoral arteries demonstrate proximal/mid occlusion. The right common iliac artery and proximal external iliac artery demonstrate occlusion. The right popliteal artery demonstrates revascularization by the right anterior tibial artery and associated genicular arteries. A collateral vessel is also identified revascularizing the right proximal anterior tibial artery which demonstrates reversal of flow along the upstream anterior tibial artery at the point of collateral and downstream flow distal to the point of collateral vessel. The left external iliac artery demonstrates proximal occlusion extending to the femoral - femoral bypass graft anastomoses. The distal left superficial formal artery downstream to the occlusion is revascularized by genicular artery. Monophasic wave patterns are noted bilaterally as well as low velocity flow through the visualized distal aorta suggesting associated atherosclerotic disease with visualized areas of partial thrombosis. Right NICKIE equals at 0.41 Left NICKIE equals 0.85. Distal aorta velocity at 20 cm/sec. Peak systolic velocities (cm/sec) RIGHT LEFT Common femoral artery 17.3 158/54.6 Profunda femoris 68.3 88 8.8 SFA (proximal) occluded occluded SFA (mid) occluded occluded SFA (distal) occluded 43.2 Popliteal artery 41.0 38.1 JOSÉ MIGUEL (prox.) reversed 25.5 Tibioperoneal trunk 26.9 27.4 [employer] (prox.) 24.9 42.6 DISTRICT RESOURCE OFFICER (distal) 21.0 38.3 JOSÉ MIGUEL (distal) 12.1 9.1 Impression: Extensive atherosclerotic disease involving the aorta and bilateral deering arteries with areas of occlusion through the bilateral superficial femoral arteries as well as occlusion of the femoral - femoral bypass graft and right femoral - popliteal bypass graft. Electronically Signed by Demetrius Aceves MD 12/26/2018 10:10 A CTA RLE No occlusion of the femoral to femoral cross over graft. Occlusion left superficial femoral artery with reconstitution of the left popliteal artery and single vessel run off into the left foot. Right superficial femoral artery graft is occluded throughout. Collateral vessel reconstitute to the right popliteal artery. No definite vessels are seen traversing into the right foot. Focal subcutaneous soft tissue density in the right inguinal region superficial to the right femoral graft I suspect represents focal inflammatory change. No walled off abscess is seen. There is mild adjacent reactive adenopathy. Unreviewed DD: Selvin Herrera MD, MD 12/25/18 1537 pelvis US Bypass graft occlusion. edema surrounding the partially collapsed occluded graft. Graft infection cannot be excluded. Unreviewed BLE venous US No evidence of DVT. Electronically signed by: Orestes Cerrato On 12/27/2018 20:19:53 PM A&P: PAD with h/o L EIA stenting followed by a left to right femfem bypass, s/p Rt Fem Pop bypass 10/29/[address] Sanchez. S/P Rt groin abscess drainage 7/19/[address] Sanchez. S/P right femoral exploration, bypass graft ligation and partial removal 12/31/[address] Sanchez. S/P removal of infected graft 01/03/[address] Sanchez. S/P Rt groin debridement/Wound vac placement as per Dr Sanchez 01/08/19. Tentative plan as per Dr Sanchez for possible revascularization procedure. Relayed current symptom status and exam to Dr Sanchez this AM, who states he will further evaluate and relay plan. po Clinda as per primary team. IV Heparin gtt per protocol. PAF. The patient has history of AFIB and he was on eliquis but stopped taking medication. Metoprolol as per primary team. Eliquis on hold. Heparin gtt currently. VS, I&O, 24H, Fishbone Vital Signs/I&O Vital Signs Date Time Temp Pulse Resp B/P (MAP) Pulse Ox O2 Delivery O2 Flow Rate FiO2 01/10/19 09:00 62 139/69 01/10/19 08:59 18 01/10/19 06:00 97.9 100 01/08/19 17:15 2 I&O- Last 24 Hours up to 6 AM 01/10/19 06:00 Intake Total 1110 ml Output Total 2050 ml Balance -940 ml Laboratory Data 24H LABS Laboratory Tests 2 01/10/19 05:38: Activated Partial Thromboplast Time 94.6H Microbiology Microbiology 01/05/19 Stool Occult Blood (SASCHA) - Final, Complete 01/04/19 Stool Occult Blood (SASCHA) - Final, Complete 01/08/19 Gram Stain - Final, Resulted 01/08/19 Wound Culture, Resulted Pending 01/08/19 Anaerobic Culture, Resulted Pending 01/03/19 Anaerobic Culture - Final, Complete 01/03/19 Anaerobic Culture - Final, Complete 01/03/19 Gram Stain - Final, Complete 01/03/19 Wound Culture - Final, Complete Staphylococcus Lugdunensis 01/03/19 Gram Stain - Final, Complete 01/03/19 Wound Culture - Final, Complete Staphylococcus Lugdunensis 12/31/18 Gram Stain - Final, Complete 12/31/18 Wound Culture - Final, Complete Staphylococcus Sp Coag Neg 12/31/18 Anaerobic Culture - Final, Complete Jo Ann Herrera Jan 10, 2019 09:42
[2019-01-10] MEDS: HEPARIN DRIP 25,000 UNITS in APPROPRIATE DILUENT 1 EA IV SCH (12:44)
--- NOTE | 2019-01-10 13:26 | IPNPDOC ---
Text Note Date of Service The patient was seen on 01/10/19. NOTE S: increasing foot pain, requiring more morphine. He states no further right groin pain and wound vac in place O: Vitals as below General: moderate pain, AAOx3 Heart - irreg/irreg - rate controlled LCTA no W/R/R Ext: no edema; right groin wound vac intact; right foot cool (patient using heating pad to leg), no palpable DP pulse. A/P: Hx of PAD with history of L EIA stenting followed by a left to right femfem bypass, On heparin drip for anticoagulation await revascularization surgery right leg 10/29/18 s/p Rt Fem Pop bypass CTA of the Lower extremities on admission revealed right superficial femoral artery graft occlusion. 12/27/18 S/P Rt groin abscess drainage by Dr Sanchez 12/31/18 s/p right femoral exploration, bypass graft ligation and partial removal 01/03/19 s/p Removal of infected femoral popliteal bypass graft 01/08/19 S/P Rt groin debridement/Wound vac placement PENDING possible revascularization procedure per Dr Sanchez ; will increase morphine for pain control. Right groin MSSA abscess with infected graft - as above. On day 15 of antibiotic therapy (intially IV Vanc and then changed to po clindamycin) Wound culture notable for MSSA, repeat cultures from 12/31 notable for Coag Neg Staph; Wound cultures obtained from 01/08/19 pending - unknown antibiotic duration needed. History of paroxysmal AFIB - continue with metoprolol and heparin drip. Change to eliquis when no further surgical intervention needed. HTN - well controlled with metoprolol dose (75mg BID) and amlodipine BID History of neuropathy- Continue amitriptyline, tizanidine DVT prophylaxis: on heparin drip VS,Fishbone, I+O VS, Fishbone, I+O Vital Signs Date Time Temp Pulse Resp B/P (MAP) Pulse Ox O2 Delivery O2 Flow Rate FiO2 01/10/19 12:40 18 01/10/19 10:00 97.5 104 100 01/10/19 09:50 2.0 I&O- Last 24 Hours up to 6 AM 01/10/19 05:59 Intake Total 900 ml Output Total 1700 ml Balance -800 ml JOSE ORONA DO Jan 10, 2019 13:26
[2019-01-10] MEDS: tiZANidine 4 MG TAB PO PRN (21:49)
[2019-01-10] MEDS: AMITRIPTYLINE 10 MG TAB PO SCH (21:49)
[2019-01-10] MEDS: DOCUSATE SODIUM 100 MG CAP PO SCH (21:50)
[2019-01-10] MEDS: LATANOPROST 0.005% OPHTH SOLN 2.5 ML OU SCH (21:51)
[2019-01-11 06:00] VITALS: BP 137/80
[2019-01-11] MEDS: SLF 3 ML SYR IV SCH ×3 (06:02→21:08)
[2019-01-11] MEDS: CLINDAMYCIN 150 MG CAP PO SCH (06:02)
[2019-01-11] MEDS: HEPARIN DRIP 25,000 UNITS in APPROPRIATE DILUENT 1 EA IV SCH ×2 (06:15→23:27)
[2019-01-11] MEDS: MORPHINE 4 MG/ML 1ML VIAL/SYRINGE (J2270) IV PRN ×5 (08:40→23:00)
[2019-01-11] MEDS: SENNA 8.6 MG TAB (SENOKOT) PO SCH ×2 (08:41→21:06)
[2019-01-11] MEDS: PERCOCET 5MG/325MG TAB PO PRN ×3 (08:41→19:34)
[2019-01-11] MEDS: METOPROLOL TART 25 MG TABLET PO SCH ×2 (08:42→21:07)
[2019-01-11] MEDS: BRIMONIDINE 0.1% OPHTH SOLN 5 ML OU SCH (08:43)
[2019-01-11 10:00] VITALS: BP 129/76
--- NOTE | 2019-01-11 12:11 | IPNPDOC ---
Text Note Date of Service The patient was seen on 01/11/19. NOTE S: patient states right leg pain is under better control as nursing staff keeping on top of pain medication delivery and alternating between po and iV. He states no groin pain and wound vac still attached. No fever. O: Vitals as below Heart - irreg/irreg rate controlled LCTA Ext: right leg,foot cool to touch, no edema; right groin with wound vac , no calor or rubor to right groin area. A/P: Hx of PAD with history of L EIA stenting followed by a left to right femfem bypass, On heparin drip for anticoagulation await revascularization surgery right leg 10/29/18 s/p Rt Fem Pop bypass CTA of the Lower extremities on admission revealed right superficial femoral artery graft occlusion. 12/27/18 S/P Rt groin abscess drainage by Dr Sanchez 12/31/18 s/p right femoral exploration, bypass graft ligation and partial removal 01/03/19 s/p Removal of infected femoral popliteal bypass graft 01/08/19 S/P Rt groin debridement/Wound vac placement PENDING possible revascularization procedure per Dr Sanchez ; Renew heparin drip, PTT levels stable Right groin MSSA abscess with infected graft - as above. On day 16 of antibiotic therapy (intially IV Vanc and then changed to po clindamycin) Since repeat wound culture is negative, will dc clindamycin and monitor. continue with wound vac. Wound culture notable for MSSA, repeat cultures from 12/31 notable for Coag Neg Staph; Wound cultures obtained from 01/08/19 negative D/C clindamycin History of paroxysmal AFIB - continue with metoprolol and heparin drip. Change to eliquis when no further surgical intervention needed. HTN - well controlled with metoprolol dose (75mg BID) and amlodipine BID VS,Fishbone, I+O VS, Fishbone, I+O Vital Signs Date Time Temp Pulse Resp B/P (MAP) Pulse Ox O2 Delivery O2 Flow Rate FiO2 01/11/19 08:41 17 132/78 01/11/19 06:00 98.7 52 94 01/10/19 09:50 2.0 I&O- Last 24 Hours up to 6 AM 01/11/19 06:00 Intake Total 1170 ml Output Total 1525 ml Balance -355 ml JOSE ORONA DO Jan 11, 2019 09:27
[2019-01-11 14:00] VITALS: BP 123/88
[2019-01-11 18:00] VITALS: BP 123/76
[2019-01-11] MEDS: DOCUSATE SODIUM 100 MG CAP PO SCH (21:06)
[2019-01-11] MEDS: tiZANidine 4 MG TAB PO PRN (21:06)
[2019-01-11] MEDS: AMITRIPTYLINE 10 MG TAB PO SCH (21:06)
[2019-01-11] MEDS: LATANOPROST 0.005% OPHTH SOLN 2.5 ML OU SCH (21:08)
[2019-01-11 22:00] VITALS: BP 161/95
[2019-01-12] MEDS: PERCOCET 5MG/325MG TAB PO PRN ×4 (01:30→23:42)
[2019-01-12] MEDS: MORPHINE 4 MG/ML 1ML VIAL/SYRINGE (J2270) IV PRN ×6 (02:44→23:41)
[2019-01-12 06:00] VITALS: BP 136/90
[2019-01-12] MEDS: SLF 3 ML SYR IV SCH ×3 (06:00→21:26)
[2019-01-12 06:49] LABS: HEMATOCRIT 40.2 % (42.0-52.0); HEMOGLOBIN 12.3 g/dl (13.5-17.5); MEAN CORPUSCULAR HEMOGLOBIN 26.7 pg (27.0-33.0); MEAN CORPUSCULAR HGB CONC 30.6 g/dl (32.0-36.5); MEAN CORPUSCULAR VOLUME 87.4 fl (80.0-96.0); PLATELET COUNT, AUTOMATED 602 10^3/uL (150-450); WHITE BLOOD COUNT 6.1 10^3/uL (4.0-10.0)
[2019-01-12 07:02] LABS: ALBUMIN 3.2 GM/DL (3.2-5.2); ALT/SGPT 53 U/L (12-78); BILIRUBIN,TOTAL 0.2 MG/DL (0.2-1.0); BLOOD UREA NITROGEN 13 MG/DL (7-18); CALCIUM LEVEL 9.5 MG/DL (8.5-10.1); CARBON DIOXIDE LEVEL 31 MEQ/L (21-32); CHLORIDE LEVEL 105 MEQ/L (98-107); CREATININE FOR GFR 1.19 MG/DL (0.70-1.30); GLOMERULAR FILTRATION RATE > 60.0 (>56); GLUCOSE, FASTING 102 MG/DL (70-100); POTASSIUM SERUM 4.6 MEQ/L (3.5-5.1); SODIUM LEVEL 139 MEQ/L (136-145); TOTAL PROTEIN 8.1 GM/DL (6.4-8.2)
[2019-01-12] MEDS: METOPROLOL TART 25 MG TABLET PO SCH ×2 (09:05→21:25)
[2019-01-12] MEDS: SENNA 8.6 MG TAB (SENOKOT) PO SCH ×2 (09:05→21:25)
[2019-01-12] MEDS: BRIMONIDINE 0.1% OPHTH SOLN 5 ML OU SCH (09:05)
[2019-01-12 10:00] VITALS: BP 136/80
--- NOTE | 2019-01-12 13:47 | IPNPDOC ---
Text Note Date of Service The patient was seen on 01/12/19. NOTE S: patient states "everything is the same", still with right leg/foot pain O: Vitals as below General: NAD AAOX3 Heart -irreg/irreg LCTA A/P; Hx of PAD with history of L EIA stenting followed by a left to right femfem bypass, On heparin drip for anticoagulation await revascularization surgery right leg 10/29/18 s/p Rt Fem Pop bypass CTA of the Lower extremities on admission revealed right superficial femoral artery graft occlusion. 12/27/18 S/P Rt groin abscess drainage by Dr Sanchez 12/31/18 s/p right femoral exploration, bypass graft ligation and partial removal 01/03/19 s/p Removal of infected femoral popliteal bypass graft 01/08/19 S/P Rt groin debridement/Wound vac placement PENDING possible revascularization procedure per Dr Sanchez ; Renew heparin drip, PTT levels stable Right groin MSSA abscess with infected graft - as above. On day 16 of antibiotic therapy (intially IV Vanc and then changed to po clindamycin) Since repeat wound culture is negative, will dc clindamycin and monitor. continue with wound vac. Wound culture notable for MSSA, repeat cultures from 12/31 notable for Coag Neg Staph; Wound cultures obtained from 01/08/19 negative D/C clindamycin 01/11 History of paroxysmal AFIB - continue with metoprolol and heparin drip. Change to eliquis when no further surgical intervention needed. HTN - well controlled with metoprolol dose (75mg BID) and amlodipine BID VS,Fishbone, I+O VS, Fishbone, I+O Laboratory Tests 01/12/19 06:08 Red Blood Count 4.60, Mean Corpuscular Volume 87.4, Mean Corpuscular Hemoglobin 26.7 L, Mean Corpuscular Hemoglobin Concent 30.6 L, Red Cell Distribution Width 14.7 H, Calcium Level 9.5, Aspartate Amino Transf (AST/SGOT) 27, Alanine Aminotransferase (ALT/SGPT) 53, Alkaline Phosphatase 152 H, Total Bilirubin 0.2, Total Protein 8.1, Albumin 3.2 Vital Signs Date Time Temp Pulse Resp B/P (MAP) Pulse Ox O2 Delivery O2 Flow Rate FiO2 01/12/19 10:00 97.6 65 15 136/80 (98) 97 01/11/19 19:34 2.0 I&O- Last 24 Hours up to 6 AM 01/12/19 06:00 Intake Total 2455 ml Output Total 1000 ml Balance 1455 ml JOSE ORONA DO Jan 12, 2019 13:47
[2019-01-12 14:00] VITALS: BP 131/78
[2019-01-12] MEDS: HEPARIN DRIP 25,000 UNITS in APPROPRIATE DILUENT 1 EA IV SCH (16:01)
[2019-01-12 18:00] VITALS: BP 121/88
[2019-01-12] MEDS: DOCUSATE SODIUM 100 MG CAP PO SCH (21:24)
[2019-01-12] MEDS: AMITRIPTYLINE 10 MG TAB PO SCH (21:24)
[2019-01-12] MEDS: LATANOPROST 0.005% OPHTH SOLN 2.5 ML OU SCH (21:26)
[2019-01-12] MEDS: tiZANidine 4 MG TAB PO PRN (21:38)
[2019-01-12 22:00] VITALS: BP 154/92
[2019-01-13] MEDS: MORPHINE 4 MG/ML 1ML VIAL/SYRINGE (J2270) IV PRN ×3 (00:51→20:52)
[2019-01-13 02:00] VITALS: BP 138/89
[2019-01-13 06:00] VITALS: BP 127/76
[2019-01-13] MEDS: SLF 3 ML SYR IV SCH ×3 (06:37→20:54)
[2019-01-13] MEDS: PERCOCET 5MG/325MG TAB PO PRN ×3 (06:44→23:34)
[2019-01-13] MEDS: SENNA 8.6 MG TAB (SENOKOT) PO SCH ×2 (08:39→20:52)
[2019-01-13] MEDS: METOPROLOL TART 25 MG TABLET PO SCH ×2 (08:39→20:53)
[2019-01-13] MEDS: BRIMONIDINE 0.1% OPHTH SOLN 5 ML OU SCH (09:49)
[2019-01-13 10:00] VITALS: BP 131/89
[2019-01-13] MEDS: HEPARIN DRIP 25,000 UNITS in APPROPRIATE DILUENT 1 EA IV SCH (11:12)
--- NOTE | 2019-01-13 13:52 | IPNPDOC ---
Date Seen The patient was seen on 01/13/19. Progress Note Vascular Surgery Dr Sanchez HPI: 58yoM with severe BLE PVD, with h/o L EIA stenting followed shortly thereafter by a left to right femfem bypass, s/p Rt Fem Pop bypass 10/29/[address] Sanchez. Pt admitted 12/25 with vascular graft infection. Vascular surgery was consulted. The pt states he is feeling the "same as yesterday". Denies any fevers, chills, Headache, Chest Pain, Shortness of breath, cough, pa lpitations, abdominal pain, N/V/D or changes in bowel or bladder habits. PAST MEDICAL HISTORY: PAD Hypertension HLD anxiety depression glaucoma allergic rhinitis PAST SURGICAL HISTORY: skin graft L EIA stenting L to R femfem bypass Rt fem pop bypass PE: GEN: 58yoM, appears stated age. Alert and oriented x 3. HEENT: Normocephalic, atraumatic. Moist mucous membranes. CHEST: Regular rate and rhythm, +S1, +S2 LUNGS: Clear to auscultation bilaterally. No wheezes, rales, or rhonchi. ABD: Round, soft, non-tender, non-distended. +Bowel sounds throughout. EXT: Rt groin with wound vac dressing intact. No lower extremity edema appreciated. Rt foot is is warm to touch, cap refill 3 secs this am. NEURO: Alert and oriented x 3. Cranial nerves III-XII are intact. No focal deficits appreciated. A&P: PAD with h/o L EIA stenting followed by a left to right femfem bypass, s/p Rt Fem Pop bypass 10/29/[address] Sanchez. S/P Rt groin abscess drainage 12/27/[address] Sanchez. S/P right femoral exploration, bypass graft ligation and partial removal 12/31/[address] Sanchez. S/P removal of infected graft 01/03/[address] Sanchez. S/P Rt groin debridement/Wound vac placement as per Dr Sanchez 01/08/19. Tentative plan as per Dr Sanchez for possible revascularization procedure 01/14/19. S/P po Clinda as per primary team. IV Heparin gtt per protocol. PAF. The patient has history of AFIB and he was on eliquis but stopped taking medication. Metoprolol as per primary team. Eliquis on hold. Heparin gtt currently. VS, I&O, 24H, Fishbone Vital Signs/I&O Vital Signs Date Time Temp Pulse Resp B/P (MAP) Pulse Ox O2 Delivery O2 Flow Rate FiO2 01/13/19 10:00 98.5 50 18 131/89 (103) 100 01/11/19 19:34 2.0 I&O- Last 24 Hours up to 6 AM 01/13/19 06:00 Intake Total 555 ml Output Total 1900 ml Balance -1345 ml Laboratory Data 24H LABS Laboratory Tests 2 01/12/19 17:47: Activated Partial Thromboplast Time 69.9H 01/12/19 23:54: Activated Partial Thromboplast Time 89.5H 01/13/19 05:24: Activated Partial Thromboplast Time 98.4H Microbiology Microbiology 01/12/19 Stool Occult Blood (SASCHA) - Final, Complete 01/05/19 Stool Occult Blood (SASCHA) - Final, Complete 01/04/19 Stool Occult Blood (SASCHA) - Final, Complete 01/08/19 Gram Stain - Final, Complete 01/08/19 Wound Culture - Final, Complete 01/08/19 Anaerobic Culture - Final, Complete 01/03/19 Anaerobic Culture - Final, Complete 01/03/19 Anaerobic Culture - Final, Complete 01/03/19 Gram Stain - Final, Complete 01/03/19 Wound Culture - Final, Complete Staphylococcus Lugdunensis 01/03/19 Gram Stain - Final, Complete 01/03/19 Wound Culture - Final, Complete Staphylococcus Lugdunensis Jo Ann Herrera Jan 13, 2019 13:52
[2019-01-13 14:00] VITALS: BP 131/89
[2019-01-13 18:00] VITALS: BP 137/90
[2019-01-13] MEDS: LATANOPROST 0.005% OPHTH SOLN 2.5 ML OU SCH (20:53)
[2019-01-13] MEDS: AMITRIPTYLINE 10 MG TAB PO SCH (20:53)
[2019-01-13] MEDS: DOCUSATE SODIUM 100 MG CAP PO SCH (20:53)
[2019-01-13 22:00] VITALS: BP 144/90
--- NOTE | 2019-01-13 22:19 | IPNPDOC ---
Text Note Date of Service The patient was seen on 01/13/19. NOTE S: patient states might have revasc of right leg tomorrow. states still with leg pain O: Vitals as below General: AAOx3, mild distress, Heart -irreg/irreg A/P: Hx of PAD with history of L EIA stenting followed by a left to right femfem bypass, On heparin drip for anticoagulation await revascularization surgery right leg 10/29/18 s/p Rt Fem Pop bypass CTA of the Lower extremities on admission revealed right superficial femoral artery graft occlusion. 12/27/18 S/P Rt groin abscess drainage by Dr Sanchez 12/31/18 s/p right femoral exploration, bypass graft ligation and partial removal 01/03/19 s/p Removal of infected femoral popliteal bypass graft 01/08/19 S/P Rt groin debridement/Wound vac placement PENDING possible revascularization procedure per Dr Sanchez ; Renew heparin drip, PTT levels stable Right groin MSSA abscess with infected graft - as above. On day 16 of antibiotic therapy (intially IV Vanc and then changed to po clindamycin) Since repeat wound culture is negative, will dc clindamycin and monitor. continue with wound vac. Wound culture notable for MSSA, repeat cultures from 12/31 notable for Coag Neg Staph; Wound cultures obtained from 01/08/19 negative D/C clindamycin 01/11 History of paroxysmal AFIB - continue with metoprolol and heparin drip. Change to eliquis when no further surgical intervention needed. HTN - well controlled with metoprolol dose (75mg BID) and amlodipine BID VS,Fishbone, I+O VS, Fishbone, I+O Vital Signs Date Time Temp Pulse Resp B/P (MAP) Pulse Ox O2 Delivery O2 Flow Rate FiO2 01/13/19 14:00 98.7 82 18 95 01/13/19 10:00 131/89 (103) 01/11/19 19:34 2.0 I&O- Last 24 Hours up to 6 AM 01/13/19 06:00 Intake Total 555 ml Output Total 1900 ml Balance -1345 ml JOSE ORONA DO Jan 13, 2019 14:38
[2019-01-14] VITALS (9 sets, daily range): BP systolic 123–156; BP diastolic 76–96
[2019-01-14] MEDS: MORPHINE 4 MG/ML 1ML VIAL/SYRINGE (J2270) IV PRN (01:19)
[2019-01-14] MEDS: PERCOCET 5MG/325MG TAB PO PRN ×3 (04:16→13:35)
[2019-01-14] MEDS: SLF 3 ML SYR IV SCH ×3 (05:00→22:08)
[2019-01-14] MEDS: HEPARIN DRIP 25,000 UNITS in APPROPRIATE DILUENT 1 EA IV SCH ×2 (05:13→21:49)
[2019-01-14] MEDS: SENNA 8.6 MG TAB (SENOKOT) PO SCH ×2 (09:03→22:05)
[2019-01-14] MEDS: METOPROLOL TART 25 MG TABLET PO SCH ×2 (09:03→22:07)
[2019-01-14] MEDS: BRIMONIDINE 0.1% OPHTH SOLN 5 ML OU SCH (09:03)
[2019-01-14] MEDS: HYDROMORPHONE HCL 0.5 MG/ 0.5 ML SYRINGE (J1170 PER 1) IV PRN ×5 (10:06→20:17)
--- NOTE | 2019-01-14 11:41 | IPNPDOC ---
Date Seen The patient was seen on 01/14/19. Progress Note Vascular Surgery Dr Sanchez HPI: 58yoM with severe BLE PVD, with h/o L EIA stenting followed shortly thereafter by a left to right femfem bypass, s/p Rt Fem Pop bypass 10/29/[address] Sanchez. Pt admitted 12/25 with vascular graft infection. Vascular surgery was consulted. The pt states "same as yesterday". Does not report any additional concerns. Denies any fevers, chills, Headache, Chest Pain, Shortness of breath, cough, palpitations, abdominal pain, N/V/D or changes in bowel or bladder habits. PAST MEDICAL HISTORY: PAD Hypertension HLD anxiety depression glaucoma allergic rhinitis PAST SURGICAL HISTORY: skin graft L EIA stenting L to R femfem bypass Rt fem pop bypass PE: GEN: 58yoM, appears stated age. HEENT: Normocephalic, atraumatic. Moist mucous membranes. CHEST: Regular rate and rhythm, +S1, +S2 LUNGS: Clear to auscultation bilaterally. No wheezes, rales, or rhonchi. ABD: Round, soft, non-tender, non-distended. EXT: Rt groin with wound vac dressing intact. No lower extremity edema apprec iated. Rt foot is is warm to touch, cap refill 3 secs this am. No pain with palpation. NEURO: Alert and oriented x 3. No focal deficits appreciated. A&P: PAD with h/o L EIA stenting followed by a left to right femfem bypass, s/p Rt Fem Pop bypass 10/29/[address] Sanchez. S/P Rt groin abscess drainage 12/27/[address] Sanchez. S/P right femoral exploration, bypass graft ligation and partial removal 12/31/[address] Sanchez. S/P removal of infected graft 01/03/[address] Sanchez. S/P Rt groin debridement/Wound vac placement as per Dr Sanchez 01/08/19. Tentative plan as per Dr Sanchez for possible revascularization procedure/possible iliac stent placement 01/14/19. S/P po Clinda as per primary team. IV Heparin gtt per protocol. PAF. The patient has history of AFIB and he was on eliquis but stopped taking medication. Metoprolol as per primary team. Eliquis on hold. Heparin gtt currently. VS, I&O, 24H, Fishbone Vital Signs/I&O Vital Signs Date Time Temp Pulse Resp B/P (MAP) Pulse Ox O2 Delivery O2 Flow Rate FiO2 01/14/19 10:00 98.6 74 129/93 (105) 98 01/14/19 09:31 17 01/11/19 19:34 2.0 I&O- Last 24 Hours up to 6 AM 01/14/19 06:00 Intake Total 2175 ml Output Total 1250 ml Balance 925 ml Laboratory Data 24H LABS Laboratory Tests 2 01/14/19 06:20: Activated Partial Thromboplast Time 100.4H Microbiology Microbiology 01/12/19 Stool Occult Blood (SASCHA) - Final, Complete 01/05/19 Stool Occult Blood (SASCHA) - Final, Complete 01/04/19 Stool Occult Blood (SASCHA) - Final, Complete 01/08/19 Gram Stain - Final, Complete 01/08/19 Wound Culture - Final, Complete 01/08/19 Anaerobic Culture - Final, Complete Jo Ann Herrera Jan 14, 2019 11:41
--- NOTE | 2019-01-14 14:37 | IPNPDOC ---
Subjective Date Seen The patient was seen on 01/14/19. Subjective Chief Complaint/HPI Patient seen and examined at the bedside. Does not endorse any new complaints at this time. No acute overnight events noted. Objective Physical Examination General Exam: Positive: Alert, Cooperative, No Acute Distress ENT Exam: Positive: Atraumatic, Mucous membr. moist/pink Neck Exam: Negative: JVD Chest Exam: Positive: Clear to auscultation, Normal air movement Heart Exam: Positive: Rate Normal, Normal S1, Normal S2 Abdomen Exam: Positive: Soft; Negative: Tenderness Extremity Exam: Positive: Other (Right groin wound noted to be clean dry and intact) Psych Exam: Positive: Mental status NL, Mood NL, Oriented x 3 Assessment /Plan Plan/VTE VTE Prophylaxis Ordered?: Yes Plan Hx of PAD s/p L EIA stenting followed by a left to right femfem bypass, s/p Rt Fem Pop bypass 10/29/18 CTA of the Lower extremities on admission revealed right superficial femoral a rtery graft occlusion. s/p right femoral exploration, bypass graft ligation and partial removal on 12/31 s/p Removal of infected femoral popliteal bypass graft on 01/03 s/p Rt groin debridement/Wound vac placement as per Dr Sanchez 01/08/19. On heparin drip for anticoagulation We will continue to monitor and follow up with vascular surgery recommendations/intervention Right groin mass/abscess with infected graft S/P Rt groin abscess drainage 12/27/[address] Sanchez. Wound culture notable for MSSA, repeat cultures from 12/31 notable for Coag Neg Staph On PO Clindamycin Cont to monitor History of paroxysmal AFIB Intermittent bradycardia/tachycardia, bigemeny noted on telemetry Continue on on metoprolol BID On heparin drip for anticoagulation at this time History of neuropathy Continue amitriptyline, tizanidine DVT prophylaxis: on heparin drip, will follow up with Vascular recommendations VS, I&O, 24H, Fishbone Vital Signs/I&O Vital Signs Date Time Temp Pulse Resp B/P (MAP) Pulse Ox O2 Delivery O2 Flow Rate FiO2 01/14/19 14:00 98.3 69 17 124/82 (96) 99 01/14/19 13:35 2.0 I&O- Last 24 Hours up to 6 AM 01/14/19 05:59 Intake Total 2265 ml Output Total 1450 ml Balance 815 ml Laboratory Data 24H LABS Laboratory Tests 2 01/14/19 06:20: Activated Partial Thromboplast Time 100.4H Microbiology Microbiology 01/12/19 Stool Occult Blood (SASCHA) - Final, Complete 01/05/19 Stool Occult Blood (SASCHA) - Final, Complete 01/04/19 Stool Occult Blood (SASCHA) - Final, Complete 01/08/19 Gram Stain - Final, Complete 01/08/19 Wound Culture - Final, Complete 01/08/19 Anaerobic Culture - Final, Complete ULISES CORREA MD Jan 14, 2019 14:37
[2019-01-14] MEDS ORDERED: KETAMINE HCL 200 MG/20 ML VIAL As Ordered ONE (17:15)
[2019-01-14] MEDS ORDERED: ONDANSETRON 4MG/2ML VIAL (J2405) As Ordered ONE (17:16)
[2019-01-14] MEDS ORDERED: fentaNYL 100 MCG/2 ML INJECTION (J3010) As Ordered ONE ×2 (17:16→19:18)
[2019-01-14] MEDS ORDERED: PROPOFOL 500 MG/50 ML VIAL As Ordered ONE ×2 (17:16→19:18)
[2019-01-14] MEDS ORDERED: LIDOCAINE 2% INJ 100 MG/5 ML SDV (FOR ANES.) As Ordered ONE (17:16)
[2019-01-14] MEDS ORDERED: MIDAZOLAM INJ 2 MG/2 ML VIAL (J2250) As Ordered ONE (17:16)
[2019-01-14] MEDS ORDERED: CLINDAMYCIN 600 MG/50 ML PREMIX BAG As Ordered ONE (17:34)
[2019-01-14] MEDS ORDERED: CONRAY-60 60% 50ML VIAL (Q9961) As Ordered ONE (17:34)
[2019-01-14] MEDS ORDERED: THROMBIN SOLN 20,000 UNITS KIT As Ordered ONE (17:34)
[2019-01-14] MEDS ORDERED: HEPARIN SOD (PORCINE) 5000 UNITS/ML VIAL As Ordered ONE (17:35)
[2019-01-14] MEDS ORDERED: BUPIVACAINE HCL 0.25% 10 ML VIAL As Ordered ONE (18:08)
[2019-01-14] MEDS ORDERED: LIDOCAINE 2% MDV 20 ML VIAL As Ordered ONE (18:08)
[2019-01-14] MEDS ORDERED: ISOVUE-300 61% 50ML VIAL (Q9967) As Ordered ONE (18:11)
[2019-01-14] MEDS ORDERED: ZOSYN 3.375 GM VIAL (J2543) As Ordered ONE (18:22)
[2019-01-14] MEDS ORDERED: METOPROLOL 5 MG/5 ML VIAL As Ordered ONE (18:49)
[2019-01-14] MEDS ORDERED: KETOROLAC 60 MG/2 ML VIAL (J1885) As Ordered ONE (19:29)
[2019-01-14] MEDS ORDERED: HYDROMORPHONE HCL 0.5 MG/ 0.5 ML SYRINGE (J1170 PER 1) As Ordered ONE ×2 (19:54→20:00)
[2019-01-14] MEDS ORDERED: ONDANSETRON 4MG/2ML VIAL (J2405) IV PRN (20:15)
[2019-01-14] MEDS ORDERED: fentaNYL 100 MCG/2 ML INJECTION (J3010) IV PRN (20:15)
[2019-01-14] MEDS ORDERED: PERCOCET 5MG/325MG TAB PO PRN (20:15)
[2019-01-14] MEDS ORDERED: METOPROLOL 5 MG/5 ML VIAL IV SCH (20:15)
[2019-01-14] MEDS: DOCUSATE SODIUM 100 MG CAP PO SCH (22:05)
[2019-01-14] MEDS: AMITRIPTYLINE 10 MG TAB PO SCH (22:05)
[2019-01-14] MEDS: LATANOPROST 0.005% OPHTH SOLN 2.5 ML OU SCH (22:08)
[2019-01-15] VITALS (7 sets, daily range): BP systolic 101–121; BP diastolic 63–80
[2019-01-15] MEDS: MORPHINE 4 MG/ML 1ML VIAL/SYRINGE (J2270) IV PRN ×3 (00:16→23:04)
[2019-01-15] MEDS: PERCOCET 5MG/325MG TAB PO PRN ×5 (00:17→20:03)
[2019-01-15] MEDS: SLF 3 ML SYR IV SCH ×3 (05:50→22:31)
[2019-01-15 08:28] LABS: HEMATOCRIT 34.9 % (42.0-52.0); HEMOGLOBIN 10.9 g/dl (13.5-17.5); MEAN CORPUSCULAR HEMOGLOBIN 26.6 pg (27.0-33.0); MEAN CORPUSCULAR HGB CONC 31.2 g/dl (32.0-36.5); MEAN CORPUSCULAR VOLUME 85.1 fl (80.0-96.0); PLATELET COUNT, AUTOMATED 630 10^3/uL (150-450); WHITE BLOOD COUNT 9.1 10^3/uL (4.0-10.0)
[2019-01-15 08:32] LABS: BLOOD UREA NITROGEN 11 MG/DL (7-18); CALCIUM LEVEL 9.1 MG/DL (8.5-10.1); CARBON DIOXIDE LEVEL 28 MEQ/L (21-32); CHLORIDE LEVEL 105 MEQ/L (98-107); CREATININE FOR GFR 1.37 MG/DL (0.70-1.30); GLOMERULAR FILTRATION RATE > 60.0 (>56); GLUCOSE, FASTING 103 MG/DL (70-100); POTASSIUM SERUM 4.4 MEQ/L (3.5-5.1); SODIUM LEVEL 140 MEQ/L (136-145)
[2019-01-15] MEDS: SENNA 8.6 MG TAB (SENOKOT) PO SCH ×2 (09:15→21:43)
[2019-01-15] MEDS: BRIMONIDINE 0.1% OPHTH SOLN 5 ML OU SCH (09:15)
[2019-01-15] MEDS: METOPROLOL TART 25 MG TABLET PO SCH ×2 (09:16→21:42)
--- NOTE | 2019-01-15 12:32 | IPNPDOC ---
Date Seen The patient was seen on 01/15/19. Progress Note Vascular Surgery Dr Sanchez HPI: 58yoM with severe BLE PVD, with h/o L EIA stenting followed shortly thereafter by a left to right femfem bypass, s/p Rt Fem Pop bypass 10/29/[address] Sanchez. Pt admitted 12/25 with vascular graft infection. Vascular surgery was consulted. The pt states "same as yesterday". No voiced complaints this AM, pt watching TV. Denies any fevers, chills, Headache, Chest Pain, Shortness of breath, cough, palpitations, abdominal pain, N/V/D or changes in bowel or bladder habits. PAST MEDICAL HISTORY: PAD Hypertension HLD anxiety depression glaucoma allergic rhinitis PAST SURGICAL HISTORY: skin graft L EIA stenting L to R femfem bypass Rt fem pop bypass PE: GEN: 58yoM, appears stated age. HEENT: Normocephalic, atraumatic. Moist mucous membranes. CHEST: Regular rate and rhythm, +S1, +S2 LUNGS: Clear to auscultation bilaterally. No wheezes, rales, or rhonchi. ABD: Round, soft, non-tender, non-distended. EXT: Rt groin with wound vac dressing intact. No lower extremity edema appreciated. Rt foot is is warm to touch, cap refill 3 secs this am. No pain with palpation. Pulses were not able to be obtained this Am with doppler, but have been faint monophasic with Doppler. NEURO: Alert and oriented x 3. No focal deficits appreciated. A&P: PAD with h/o L EIA stenting followed by a left to right femfem bypass, s/p Rt Fem Pop bypass 10/29/[address] Sanchez. S/P Rt groin abscess drainage 12/27/[address] Sanchez. S/P right femoral exploration, bypass graft ligation and partial removal 12/31/[address] Sanchez. S/P removal of infected graft 01/03/[address] Sanchez. S/P Rt groin debridement/Wound vac placement as per Dr Sanchez 01/08/19. Status post right femoral exploration, right femoral angioplasty, right femoral wound debridement 01/14/19. Tentative plan as per Dr Sanchez for possible revascularization procedure 01/16 or 01/17/19. The patient is reviewed with Dr. Sanchez, aware of current exam. Would recommend continued IV antibiotics. Have discussed with the primary team. IV Heparin gtt per protocol. PAF. The patient has history of AFIB and he was on eliquis but stopped taking medication. Metoprolol as per primary team. Eliquis on hold. Heparin gtt currently. VS, I&O, 24H, Fishbone Vital Signs/I&O Vital Signs Date Time Temp Pulse Resp B/P (MAP) Pulse Ox O2 Delivery O2 Flow Rate FiO2 01/15/19 10:50 16 01/15/19 10:00 99.2 90 105/63 (77) 97 01/14/19 20:17 2.0 I&O- Last 24 Hours up to 6 AM 01/15/19 06:00 Intake Total 530 ml Output Total 1035 ml Balance -505 ml Laboratory Data 24H LABS Laboratory Tests 2 01/15/19 05:19: Nucleated Red Blood Cells % (auto) 0.0, Anion Gap 7L, Glomerular Filtration Rate > 60.0, Blood Urea Nitrogen 11, Creatinine 1.37H, Sodium Level 140, Potassium Level 4.4, Chloride Level 105, Carbon Dioxide Level 28, Calcium Level 9.1 01/15/19 05:21: Activated Partial Thromboplast Time 96.7H CBC/BMP Laboratory Tests 01/15/19 05:19 Red Blood Count 4.10 L, Mean Corpuscular Volume 85.1, Mean Corpuscular Hemoglobin 26.6 L, Mean Corpuscular Hemoglobin Concent 31.2 L, Red Cell Distribution Width 14.7 H, Calcium Level 9.1 Microbiology Microbiology 01/12/19 Stool Occult Blood (SASCHA) - Final, Complete 01/05/19 Stool Occult Blood (SASCHA) - Final, Complete 01/14/19 Gram Stain - Final, Resulted 01/14/19 Surgical Biopsy Culture, Resulted Pending 01/08/19 Gram Stain - Final, Complete 01/08/19 Wound Culture - Final, Complete 01/08/19 Anaerobic Culture - Final, Complete Jo Ann Herrera Jan 15, 2019 12:32
[2019-01-15] MEDS: HEPARIN DRIP 25,000 UNITS in APPROPRIATE DILUENT 1 EA IV SCH (14:04)
[2019-01-15] MEDS: PIPERACILLIN/TAZOBACTAM SOD 3.375 GM in D5W MINI-BAG PLUS 50 ML IV SCH ×2 (14:45→21:43)
--- NOTE | 2019-01-15 15:17 | IPNPDOC ---
Subjective Date Seen The patient was seen on 01/15/19. Subjective Chief Complaint/HPI Patient seen and examined at the bedside. Denies any overnight events. States that his right lower extremity pain is the same as before. Objective Physical Examination General Exam: Positive: Alert, Cooperative, No Acute Distress ENT Exam: Positive: Atraumatic, Mucous membr. moist/pink Neck Exam: Negative: JVD Chest Exam: Positive: Clear to auscultation, Normal air movement Heart Exam: Positive: Rate Normal, Normal S1, Normal S2 Abdomen Exam: Positive: Soft; Negative: Tenderness Extremity Exam: Positive: Other (Right groin wound noted to be clean dry and intact) Psych Exam: Positive: Mental status NL, Mood NL, Oriented x 3 Assessment /Plan Plan/VTE VTE Prophylaxis Ordered?: Yes Plan Hx of PAD s/p L EIA stenting followed by a left to right femfem bypass, s/p Rt Fem Pop bypass 10/29/18 CTA of the Lower extremities on admission revealed right superficial femoral artery graft occlusion. s/p right femoral exploration, bypass graft ligation and partial removal on 12/31 s/p Removal of infected femoral popliteal bypass graft on 01/03 s/p Rt groin debridement/Wound vac placement as per Dr Sanchez 01/08/19. s/p Right Femoral Exploration and Wound Debridement, Right Femoral Major Artery Angioplasty on 01/14 On heparin drip for anticoagulation We will continue to monitor and follow up with vascular surgery recommendations/intervention Right groin mass/abscess with infected graft S/P Rt groin abscess drainage 12/27/[address] Sanchez. Wound culture notable for MSSA, repeat cultures from 12/31 notable for Coag Neg Staph IV Zosyn for empiric coverage Cont to monitor History of paroxysmal AFIB Intermittent bradycardia/tachycardia, bigemeny noted on telemetry Continue on on metoprolol BID On heparin drip for anticoagulation at this time History of neuropathy Continue amitriptyline, tizanidine DVT prophylaxis: on heparin drip, will follow up with Vascular recommendations VS, I&O, 24H, Fishbone Vital Signs/I&O Vital Signs Date Time Temp Pulse Resp B/P (MAP) Pulse Ox O2 Delivery O2 Flow Rate FiO2 01/15/19 14:46 16 01/15/19 14:00 99.3 74 102/66 (78) 100 01/14/19 20:17 2.0 I&O- Last 24 Hours up to 6 AM 01/15/19 06:00 Intake Total 530 ml Output Total 1035 ml Balance -505 ml Laboratory Data 24H LABS Laboratory Tests 2 01/14/19 19:12: POC pH (Misc Panel) 7.390, POC Base Excess (Misc Panel) 4.0H, POC Saturated Percent O2 (Misc) 100H, POC pO2 (Misc Panel) 278.0H, POC pCO2 (Misc Panel) 48.3H, POC HCO3 (Misc Panel) 29.2H, POC Glucose (Misc Panel) 117H, POC Sodium (Misc Panel) 138, POC Potassium (Misc Panel) 4.3, POC Total CO2 (Misc Panel) 31.0H, POC Ionized Calcium (Misc Panel) 5.1, POC Hemoglobin (Calculated)(Misc) 12.9, POC Hematocrit (Misc Panel) 38.0 01/15/19 05:19: Nucleated Red Blood Cells % (auto) 0.0, Anion Gap 7L, Glomerular Filtration Rate > 60.0, Blood Urea Nitrogen 11, Creatinine 1.37H, Sodium Level 140, Potassium Level 4.4, Chloride Level 105, Carbon Dioxide Level 28, Calcium Level 9.1 01/15/19 05:21: Activated Partial Thromboplast Time 96.7H CBC/BMP Laboratory Tests 01/15/19 05:19 Red Blood Count 4.10 L, Mean Corpuscular Volume 85.1, Mean Corpuscular Hemoglobin 26.6 L, Mean Corpuscular Hemoglobin Concent 31.2 L, Red Cell Distribution Width 14.7 H, Calcium Level 9.1 Microbiology Microbiology 01/12/19 Stool Occult Blood (SASCHA) - Final, Complete 01/05/19 Stool Occult Blood (SASCHA) - Final, Complete 01/14/19 Gram Stain - Final, Resulted 01/14/19 Surgical Biopsy Culture, Resulted Pending 01/08/19 Gram Stain - Final, Complete 01/08/19 Wound Culture - Final, Complete 01/08/19 Anaerobic Culture - Final, Complete ULISES CORREA MD Jan 15, 2019 15:17
[2019-01-15] MEDS: DOCUSATE SODIUM 100 MG CAP PO SCH (21:41)
[2019-01-15] MEDS: AMITRIPTYLINE 10 MG TAB PO SCH (21:42)
[2019-01-15] MEDS: LATANOPROST 0.005% OPHTH SOLN 2.5 ML OU SCH (21:43)
[2019-01-15] MEDS: tiZANidine 4 MG TAB PO PRN (21:54)
[2019-01-16] MEDS: PERCOCET 5MG/325MG TAB PO PRN ×5 (01:09→20:05)
[2019-01-16 02:00] VITALS: BP 101/59
[2019-01-16] MEDS: MORPHINE 4 MG/ML 1ML VIAL/SYRINGE (J2270) IV PRN ×5 (03:08→22:48)
[2019-01-16] MEDS: PIPERACILLIN/TAZOBACTAM SOD 3.375 GM in D5W MINI-BAG PLUS 50 ML IV SCH ×4 (03:09→20:38)
[2019-01-16] MEDS: SLF 3 ML SYR IV SCH ×3 (05:45→22:12)
[2019-01-16 06:00] VITALS: BP 108/66
[2019-01-16 06:22] LABS: HEMATOCRIT 31.6 % (42.0-52.0); MEAN CORPUSCULAR HEMOGLOBIN 26.7 pg (27.0-33.0); MEAN CORPUSCULAR HGB CONC 31.6 g/dl (32.0-36.5); MEAN CORPUSCULAR VOLUME 84.3 fl (80.0-96.0); PLATELET COUNT, AUTOMATED 548 10^3/uL (150-450); RED BLOOD COUNT 3.75 10^6/uL (4.30-6.10); WHITE BLOOD COUNT 10.4 10^3/uL (4.0-10.0)
[2019-01-16 06:45] LABS: BLOOD UREA NITROGEN 10 MG/DL (7-18); CALCIUM LEVEL 9.3 MG/DL (8.5-10.1); CARBON DIOXIDE LEVEL 29 MEQ/L (21-32); CHLORIDE LEVEL 103 MEQ/L (98-107); CREATININE FOR GFR 1.34 MG/DL (0.70-1.30); GLOMERULAR FILTRATION RATE > 60.0 (>56); GLUCOSE, FASTING 91 MG/DL (70-100); POTASSIUM SERUM 3.8 MEQ/L (3.5-5.1); SODIUM LEVEL 138 MEQ/L (136-145)
[2019-01-16] MEDS: SENNA 8.6 MG TAB (SENOKOT) PO SCH ×2 (09:12→20:05)
[2019-01-16] MEDS: METOPROLOL TART 25 MG TABLET PO SCH ×2 (09:14→20:06)
[2019-01-16] MEDS: BRIMONIDINE 0.1% OPHTH SOLN 5 ML OU SCH (09:15)
[2019-01-16 10:00] VITALS: BP 103/66
[2019-01-16] MEDS: HEPARIN DRIP 25,000 UNITS in APPROPRIATE DILUENT 1 EA IV SCH (10:56)
--- NOTE | 2019-01-16 11:18 | IPNPDOC ---
Date Seen The patient was seen on 01/16/19. Progress Note Vascular Surgery Dr Sanchez HPI: 58yoM with severe BLE PVD, with h/o L EIA stenting followed shortly thereafter by a left to right femfem bypass, s/p Rt Fem Pop bypass 10/29/[address] Sanchez. Pt admitted 12/25 with vascular graft infection. Vascular surgery was consulted. The pt states "same as yesterday". No other voiced complaints this AM. Denies any fevers, chills, Headache, Chest Pain, Shortness of breath, cough, palpitations, abdominal pain, N/V/D or changes in bowel or bladder habits. PAST MEDICAL HISTORY: PAD Hypertension HLD anxiety depression glaucoma allergic rhinitis PAST SURGICAL HISTORY: skin graft L EIA stenting L to R femfem bypass Rt fem pop bypass PE: GEN: 58yoM, appears stated age. HEENT: Normocephalic, atraumatic. Moist mucous membranes. CHEST: Regular rate and rhythm, +S1, +S2 LUNGS: Clear to auscultation bilaterally. No wheezes, rales, or rhonchi. ABD: Round, soft, non-tender, non-distended. EXT: Rt groin with wound vac dressing intact. No lower extremity edema appreciated. Rt foot is is warm to touch toes slightly cool, cap refill 3-4 secs this am. No pain with palpation. Pulses were not able to be obtained this Am w ith Doppler. NEURO: Alert and oriented x 3. No focal deficits appreciated. A&P: PAD with h/o L EIA stenting followed by a left to right femfem bypass, s/p Rt Fem Pop bypass 10/29/[address] Sanchez. S/P Rt groin abscess drainage 12/27/[address] Sanchez. S/P right femoral exploration, bypass graft ligation and partial removal 12/31/[address] Sanchez. S/P removal of infected graft 01/03/[address] Sanchez. S/P Rt groin debridement/Wound vac placement as per Dr Sanchez 01/08/19. Status post right femoral exploration, right femoral angioplasty, right femoral wound debridement 01/14/19. Tentative plan as per Dr Sanchez for possible revascularization procedure 01/17 or 01/18/19. IV Zosyn. IV Heparin gtt per protocol. PAF. The patient has history of AFIB and he was on eliquis but stopped taking medication. Metoprolol as per primary team. Eliquis on hold. Heparin gtt currently. VS, I&O, 24H, Fishbone VS, I&O, 24H, Fishbone Vital Signs/I&O Vital Signs Date Time Temp Pulse Resp B/P (MAP) Pulse Ox O2 Delivery O2 Flow Rate FiO2 01/16/19 10:57 18 01/16/19 10:00 99.4 79 103/66 (78) 97 01/14/19 20:17 2.0 I&O- Last 24 Hours up to 6 AM 01/16/19 06:00 Intake Total 1141 ml Output Total 750 ml Balance 391 ml Laboratory Data 24H LABS Laboratory Tests 2 01/16/19 05:32: Nucleated Red Blood Cells % (auto) 0.0, Activated Partial Thromboplast Time 95.5H, Anion Gap 6L, Glomerular Filtration Rate > 60.0, Blood Urea Nitrogen 10, Creatinine 1.34H, Sodium Level 138, Potassium Level 3.8, Chloride Level 103, Car bon Dioxide Level 29, Calcium Level 9.3 CBC/BMP Laboratory Tests 01/16/19 05:32 Red Blood Count 3.75 L, Mean Corpuscular Volume 84.3, Mean Corpuscular Hemoglobin 26.7 L, Mean Corpuscular Hemoglobin Concent 31.6 L, Red Cell Distribution Width 14.7 H, Calcium Level 9.3 Microbiology Microbiology 01/15/19 Stool Occult Blood (SASCHA) - Final, Complete 01/12/19 Stool Occult Blood (SASCHA) - Final, Complete 01/14/19 Gram Stain - Final, Resulted 01/14/19 Surgical Biopsy Culture, Resulted Pending 01/08/19 Gram Stain - Final, Complete 01/08/19 Wound Culture - Final, Complete 01/08/19 Anaerobic Culture - Final, Complete Jo Ann Herrera Jan 16, 2019 11:18
--- NOTE | 2019-01-16 13:24 | IPNPDOC ---
Subjective Date Seen The patient was seen on 01/16/19. Subjective Chief Complaint/HPI Patient seen and examined at bedside. No acute overnight events noted. The patient is still tentatively scheduled for revascularization with vascular surgery on 01/17 or 01/18. Objective Physical Examination General Exam: Positive: Alert, Cooperative, No Acute Distress ENT Exam: Positive: Atraumatic, Mucous membr. moist/pink Neck Exam: Negative: JVD Chest Exam: Positive: Clear to auscultation, Normal air movement Heart Exam: Positive: Rate Normal, Normal S1, Normal S2 Abdomen Exam: Positive: Soft; Negative: Tenderness Extremity Exam: Positive: Other (Right groin wound noted to be clean dry and intact) Psych Exam: Positive: Mental status NL, Mood NL, Oriented x 3 Assessment /Plan Plan/VTE VTE Prophylaxis Ordered?: Yes Plan Hx of PAD s/p L EIA stenting followed by a left to right femfem bypass, s/p Rt Fem Pop bypass 10/29/18 CTA of the Lower extremities on admission revealed right superficial femoral artery graft occlusion. s/p right femoral exploration, bypass graft ligation and partial removal on 12/31 s/p Removal of infected femoral popliteal bypass graft on 01/03 s/p Rt groin debridement/Wound vac placement as per Dr Sanchez 01/08/19. s/p Right Femoral Exploration and Wound Debridement, Right Femoral Major Artery Angioplasty on 01/14 Patient tentatively scheduled for further revascularization with vascular surgery on 01/17 or 01/18 On heparin drip for anticoagulation We will continue to monitor and follow up with vascular surgery recommendations/intervention Right groin mass/abscess with infected graft S/P Rt groin abscess drainage 12/27/[address] Sanchez. Wound culture notable for MSSA, repeat cultures from 12/31 notable for Coag Neg Staph IV Zosyn for empiric coverage Cont to monitor History of paroxysmal AFIB Intermittent bradycardia/tachycardia, bigemeny noted on telemetry Continue on on metoprolol BID On heparin drip for anticoagulation at this time History of neuropathy Continue amitriptyline, tizanidine DVT prophylaxis: on heparin drip, will follow up with Vascular recommendations VS, I&O, 24H, Fishbone Vital Signs/I&O Vital Signs Date Time Temp Pulse Resp B/P (MAP) Pulse Ox O2 Delivery O2 Flow Rate FiO2 01/16/19 12:55 18 01/16/19 11:14 99.0 01/16/19 10:00 79 103/66 (78) 97 01/14/19 20:17 2.0 I&O- Last 24 Hours up to 6 AM 01/16/19 06:00 Intake Total 1141 ml Output Total 750 ml Balance 391 ml Laboratory Data 24H LABS Laboratory Tests 2 01/16/19 05:32: Nucleated Red Blood Cells % (auto) 0.0, Activated Partial Thromboplast Time 95.5H, Anion Gap 6L, Glomerular Filtration Rate > 60.0, Blood Urea Nitrogen 10, Creatinine 1.34H, Sodium Level 138, Potassium Level 3.8, Chloride Level 103, Carbon Dioxide Level 29, Calcium Level 9.3 CBC/BMP Laboratory Tests 01/16/19 05:32 Red Blood Count 3.75 L, Mean Corpuscular Volume 84.3, Mean Corpuscular Hemoglobin 26.7 L, Mean Corpuscular Hemoglobin Concent 31.6 L, Red Cell Distribution Width 14.7 H, Calcium Level 9.3 Microbiology Microbiology 01/15/19 Stool Occult Blood (SASCHA) - Final, Complete 01/12/19 Stool Occult Blood (SASCHA) - Final, Complete 01/14/19 Gram Stain - Final, Resulted 01/14/19 Surgical Biopsy Culture, Resulted Pending 01/08/19 Gram Stain - Final, Complete 01/08/19 Wound Culture - Final, Complete 01/08/19 Anaerobic Culture - Final, Complete ULISES CORREA MD Jan 16, 2019 13:24
[2019-01-16 14:00] VITALS: BP 102/63
[2019-01-16] MEDS: DOCUSATE SODIUM 100 MG CAP PO SCH (20:04)
[2019-01-16] MEDS: AMITRIPTYLINE 10 MG TAB PO SCH (20:05)
[2019-01-16] MEDS: LATANOPROST 0.005% OPHTH SOLN 2.5 ML OU SCH (20:07)
[2019-01-16 22:00] VITALS: BP 104/66
[2019-01-17] MEDS: PERCOCET 5MG/325MG TAB PO PRN ×5 (03:13→21:12)
[2019-01-17] MEDS: PIPERACILLIN/TAZOBACTAM SOD 3.375 GM in D5W MINI-BAG PLUS 50 ML IV SCH ×2 (03:14→08:25)
[2019-01-17] MEDS: tiZANidine 4 MG TAB PO PRN ×2 (03:21→21:12)
[2019-01-17] MEDS: HEPARIN DRIP 25,000 UNITS in APPROPRIATE DILUENT 1 EA IV SCH (04:28)
[2019-01-17 06:00] VITALS: BP 108/68
[2019-01-17] MEDS: MORPHINE 4 MG/ML 1ML VIAL/SYRINGE (J2270) IV PRN ×4 (06:30→18:41)
[2019-01-17] MEDS: SLF 3 ML SYR IV SCH ×2 (06:30→13:47)
[2019-01-17 07:46] LABS: BLOOD UREA NITROGEN 8 MG/DL (7-18); CALCIUM LEVEL 9.2 MG/DL (8.5-10.1); CARBON DIOXIDE LEVEL 30 MEQ/L (21-32); CHLORIDE LEVEL 104 MEQ/L (98-107); CREATININE FOR GFR 1.29 MG/DL (0.70-1.30); GLOMERULAR FILTRATION RATE > 60.0 (>56); GLUCOSE, FASTING 110 MG/DL (70-100); POTASSIUM SERUM 4.1 MEQ/L (3.5-5.1); SODIUM LEVEL 139 MEQ/L (136-145)
[2019-01-17 07:48] LABS: HEMATOCRIT 30.6 % (42.0-52.0); HEMOGLOBIN 9.7 g/dl (13.5-17.5); MEAN CORPUSCULAR HEMOGLOBIN 27.4 pg (27.0-33.0); MEAN CORPUSCULAR HGB CONC 31.7 g/dl (32.0-36.5); MEAN CORPUSCULAR VOLUME 86.4 fl (80.0-96.0); PLATELET COUNT, AUTOMATED 543 10^3/uL (150-450); RED BLOOD COUNT 3.54 10^6/uL (4.30-6.10); WHITE BLOOD COUNT 9.4 10^3/uL (4.0-10.0)
[2019-01-17] MEDS: SENNA 8.6 MG TAB (SENOKOT) PO SCH ×2 (08:25→21:25)
[2019-01-17] MEDS: METOPROLOL TART 25 MG TABLET PO SCH ×2 (08:26→21:25)
[2019-01-17] MEDS: BRIMONIDINE 0.1% OPHTH SOLN 5 ML OU SCH (08:27)
--- NOTE | 2019-01-17 10:11 | IPNPDOC ---
Date Seen The patient was seen on 01/17/19. Progress Note Vascular Surgery Dr Sanchez HPI: 58yoM with severe BLE PVD, with h/o L EIA stenting followed shortly thereafter by a left to right femfem bypass, s/p Rt Fem Pop bypass 10/29/[address] Sanchez. Pt admitted 12/25 with vascular graft infection. Vascular surgery was consulted. The pt states "same as yesterday". No other voiced complaints this AM. Denies foot pain currently this AM. Denies any fevers, chills, Headache, Chest Pain, Shortness of breath, cough, palpitations, abdominal pain, N/V/D or changes in bowel or bladder habits. PAST MEDICAL HISTORY: PAD Hypertension HLD anxiety depression glaucoma allergic rhinitis PAST SURGICAL HISTORY: skin graft L EIA stenting L to R femfem bypass Rt fem pop bypass PE: GEN: 58yoM, appears stated age. HEENT: Normocephalic, atraumatic. Moist mucous membranes. CHEST: Regular rate and rhythm, +S1, +S2 LUNGS: Clear to auscultation bilaterally. No wheezes, rales, or rhonchi. ABD: Round, soft, non-tender, non-distended. EXT: Rt groin with wound vac dressing intact. No lower extremity edema appreciated. Rt foot is is warm to touch toes slightly cool, cap refill 2-3 secs this am. No pain with palpation. NEURO: Alert and oriented x 3. No focal deficits appreciated. A&P: PAD with h/o L EIA stenting followed by a left to right femfem bypass, s/p Rt Fem Pop bypass 10/29/[address] Sanchez. S/P Rt groin abscess drainage 12/27/[address] Sanchez. S/P right femoral exploration, bypass graft ligation and partial removal 12/31/[address] Sanchez. S/P removal of infected graft 01/03/[address] Sanchez. S/P Rt groin debridement/Wound vac placement as per Dr Sanchez 01/08/19. Status post right femoral exploration, right femoral angioplasty, right femoral wound debridement 01/14/19. Tentative plan as per Dr Sanchez for possible revascularization procedure 01/18/19. IV Zosyn. IV Heparin gtt per protocol. PAF. The patient has history of AFIB and he was on eliquis but stopped taking medication. Metoprolol as per primary team. Eliquis on hold. Heparin gtt currently. VS, I&O, 24H, Fishbone Vital Signs/I&O Vital Signs Date Time Temp Pulse Resp B/P (MAP) Pulse Ox O2 Delivery O2 Flow Rate FiO2 01/17/19 08:57 18 01/17/19 08:26 83 123/78 01/17/19 06:00 98.2 98 01/14/19 20:17 2.0 I&O- Last 24 Hours up to 6 AM 01/17/19 06:00 Intake Total 665 ml Output Total 1800 ml Balance -1135 ml Laboratory Data 24H LABS Laboratory Tests 2 01/17/19 06:01: Nucleated Red Blood Cells % (auto) 0.0, Anion Gap 5L, Glomerular Filtration Rate > 60.0, Blood Urea Nitrogen 8, Creatinine 1.29, Sodium Level 139, Potassium Level 4.1, Chloride Level 104, Carbon Dioxide Level 30, Calcium Level 9.2 01/17/19 06:03: Activated Partial Thromboplast Time 103.1H CBC/BMP Laboratory Tests 01/17/19 06:01 Red Blood Count 3.54 L, Mean Corpuscular Volume 86.4, Mean Corpuscular Hemoglobin 27.4, Mean Corpuscular Hemoglobin Concent 31.7 L, Red Cell Distribution Width 14.7 H, Calcium Level 9.2 Microbiology Microbiology 01/15/19 Stool Occult Blood (SASCHA) - Final, Complete 01/12/19 Stool Occult Blood (SASCHA) - Final, Complete 01/14/19 Gram Stain - Final, Complete 01/14/19 Surgical Biopsy Culture - Final, Complete Staphylococcus Epidermidis Staphylococcus Epidermidis#2 01/08/19 Gram Stain - Final, Complete 01/08/19 Wound Culture - Final, Complete 01/08/19 Anaerobic Culture - Final, Complete Jo Ann Herrera Jan 17, 2019 10:11
[2019-01-17 14:00] VITALS: BP 127/79
[2019-01-17] MEDS ORDERED: VANCOMYCIN HCL 500 MG in D5W MINI-BAG PLUS 100 ML IV ONE (14:00)
--- NOTE | 2019-01-17 14:15 | PHACANCOPD ---
PHARMACY VANCOMYCIN DOSING Pt Demographics Demographics Patient Age:58 , Weight:67.300 , Gender: male Adjusted Body Weight Date: 01/17/19, Adjusted Body Weight: Kg Events Past 24 Hours Events Past 24 Hours: NO: Dialysis, Diuretic Therapy, Change in CrCl, Fever, Elevation in WBC, Pending Diagnostics, Pending Procedures, Other Vancomycin Vancomycin Target Ranges: 15-20 mcg/ml Vancomycin Load Y/N: Yes Load Dose Date Time Vancomycin Load Dose: 1500MG Date: 01/17/19 Time: 1500 Vancomycin Dose Date: 01/17/19. Current Vancomycin Dose: Intermittent Dosing?: No Labs Labs Item Value Date Time White Blood Count 9.4 10^3/uL 01/17/19 0601 White Blood Count 10.4 10^3/uL H 01/16/19 0532 White Blood Count 9.1 10^3/uL 01/15/19 0519 White Blood Count 6.1 10^3/uL 01/12/19 0608 Creatinine 1.29 MG/DL 01/17/19 0601 Creatinine 1.34 MG/DL H 01/16/19 0532 Creatinine 1.37 MG/DL H 01/15/19 0519 Micro Microbiology 01/15/19 Stool Occult Blood (SASCHA) - Final, Complete 01/12/19 Stool Occult Blood (SASCHA) - Final, Complete 01/14/19 Gram Stain - Final, Complete 01/14/19 Surgical Biopsy Culture - Final, Complete Staphylococcus Epidermidis Staphylococcus Epidermidis#2 01/08/19 Gram Stain - Final, Complete 01/08/19 Wound Culture - Final, Complete 01/08/19 Anaerobic Culture - Final, Complete Creatinine Clearance Date:01/17/19. Creatinine Clearance: . Assessment and Plan Maintaining Current Dose?: Yes Reason for dose change: No Dose Change Pharmacist Note Pharmacist Note Date: 01/17/19. Pharmacist note: Pt. is a 58 year old male here due to a skin graft infection. We have been consulted to dose Vancomycin. I have loaded the patient with Vanco 1500mg x1, followed by Vanco 1G IV Q18H. We will continue to monitor and adjust dose as needed. RUEL NAZARIO PHARMACY Jan 17, 2019 14:15
--- NOTE | 2019-01-17 14:34 | IPNPDOC ---
Subjective Date Seen The patient was seen on 01/17/19. Subjective Chief Complaint/HPI Patient seen and examined at the bedside. Continues to endorse right lower extremity pain which has been evident since admission. He is scheduled to undergo further vascular intervention at the discretion of Dr. Sanchez Objective Physical Examination General Exam: Positive: Alert, Cooperative, No Acute Distress ENT Exam: Positive: Atraumatic, Mucous membr. moist/pink Neck Exam: Negative: JVD Chest Exam: Positive: Clear to auscultation, Normal air movement Heart Exam: Positive: Rate Normal, Normal S1, Normal S2 Abdomen Exam: Positive: Soft; Negative: Tenderness Extremity Exam: Positive: Other (Right groin wound noted to be clean dry and intact) Psych Exam: Positive: Mental status NL, Mood NL, Oriented x 3 Assessment /Plan Plan/VTE VTE Prophylaxis Ordered?: Yes Plan Hx of PAD s/p L EIA stenting followed by a left to right femfem bypass, s/p Rt Fem Pop bypass 10/29/18 CTA of the Lower extremities on admission revealed right superficial femoral artery graft occlusion. s/p right femoral exploration, bypass graft ligation and partial removal on 12/31 s/p Removal of infected femoral popliteal bypass graft on 01/03 s/p Rt groin debridement/Wound vac placement as per Dr Sanchez 01/08/19. s/p Right Femoral Exploration and Wound Debridement, Right Femoral Major Artery Angioplasty on 01/14 Patient tentatively scheduled for further revascularization with vascular surgery on 01/17 or 01/18 On heparin drip for anticoagulation We will continue to monitor and follow up with vascular surgery recommendations/intervention Right groin mass/abscess with infected graft S/P Rt groin abscess drainage 12/27/[address] Sanchez. Wound culture notable for MSSA, repeat cultures from 12/31 notable for Coag Neg Staph 01/14 cultures notable for Staph Epi IV Vancomycin for empiric coverage Cont to monitor History of paroxysmal AFIB Intermittent bradycardia/tachycardia, bigemeny noted on telemetry Continue on on metoprolol BID On heparin drip for anticoagulation at this time History of neuropathy Continue amitriptyline, tizanidine, we will add gabapentin DVT prophylaxis: on heparin drip, will follow up with Vascular recommendations VS, I&O, 24H, Fishbone Vital Signs/I&O Vital Signs Date Time Temp Pulse Resp B/P (MAP) Pulse Ox O2 Delivery O2 Flow Rate FiO2 8/9/19 13:48 18 01/17/19 08:26 83 123/78 01/17/19 06:00 98.2 98 01/14/19 20:17 2.0 I&O- Last 24 Hours up to 6 AM 01/17/19 06:00 Intake Total 665 ml Output Total 1800 ml Balance -1135 ml Laboratory Data 24H LABS Laboratory Tests 2 01/17/19 06:01: Nucleated Red Blood Cells % (auto) 0.0, Anion Gap 5L, Glomerular Filtration Rate > 60.0, Blood Urea Nitrogen 8, Creatinine 1.29, Sodium Level 139, Potassium Level 4.1, Chloride Level 104, Carbon Dioxide Level 30, Calcium Level 9.2 01/17/19 06:03: Activated Partial Thromboplast Time 103.1H CBC/BMP Laboratory Tests 01/17/19 06:01 Red Blood Count 3.54 L, Mean Corpuscular Volume 86.4, Mean Corpuscular Hemoglobin 27.4, Mean Corpuscular Hemoglobin Concent 31.7 L, Red Cell Distribution Width 14.7 H, Calcium Level 9.2 Microbiology Microbiology 01/15/19 Stool Occult Blood (SASCHA) - Final, Complete 01/12/19 Stool Occult Blood (SASCHA) - Final, Complete 01/14/19 Gram Stain - Final, Complete 01/14/19 Surgical Biopsy Culture - Final, Complete Staphylococcus Epidermidis Staphylococcus Epidermidis#2 01/08/19 Gram Stain - Final, Complete 01/08/19 Wound Culture - Final, Complete 01/08/19 Anaerobic Culture - Final, Complete ULISES CORREA MD Jan 17, 2019 14:34
[2019-01-17] MEDS: VANCOMYCIN HCL 1,000 MG, VIAL MATE ADAPTER 1 EACH in D5W 250 ML IV SCH (15:14)
[2019-01-17] MEDS: GABAPENTIN 100 MG CAP PO SCH ×3 (15:14→21:00)
[2019-01-17] MEDS ORDERED: MORPHINE 4 MG/ML 1ML VIAL/SYRINGE (J2270) IV ONE (19:00)
[2019-01-17] MEDS: LATANOPROST 0.005% OPHTH SOLN 2.5 ML OU SCH (21:00)
[2019-01-17] MEDS: DOCUSATE SODIUM 100 MG CAP PO SCH (21:25)
[2019-01-17] MEDS: AMITRIPTYLINE 10 MG TAB PO SCH (21:25)
[2019-01-17 23:56] VITALS: BP 94/56
[2019-01-18 00:01] VITALS: BP 94/50
[2019-01-18] MEDS: HEPARIN DRIP 25,000 UNITS in APPROPRIATE DILUENT 1 EA IV SCH ×3 (00:13→17:51)
[2019-01-18] MEDS: SLF 3 ML SYR IV SCH ×4 (00:25→21:29)
[2019-01-18] MEDS ORDERED: ACETAMINOPHEN 500 MG TAB PO ONE (01:30)
[2019-01-18 02:43] VITALS: BP 119/78
[2019-01-18 04:00] VITALS: BP 152/99
[2019-01-18] MEDS: MORPHINE 4 MG/ML 1ML VIAL/SYRINGE (J2270) IV PRN (04:10)
[2019-01-18 06:00] VITALS: BP 143/72
[2019-01-18 06:53] LABS: HEMATOCRIT 32.3 % (42.0-52.0); HEMOGLOBIN 10.4 g/dl (13.5-17.5); MEAN CORPUSCULAR HEMOGLOBIN 27.2 pg (27.0-33.0); MEAN CORPUSCULAR HGB CONC 32.2 g/dl (32.0-36.5); MEAN CORPUSCULAR VOLUME 84.3 fl (80.0-96.0); PLATELET COUNT, AUTOMATED 550 10^3/uL (150-450); RED BLOOD COUNT 3.83 10^6/uL (4.30-6.10); WHITE BLOOD COUNT 9.1 10^3/uL (4.0-10.0)
[2019-01-18 07:15] LABS: BLOOD UREA NITROGEN 8 MG/DL (7-18); CALCIUM LEVEL 9.3 MG/DL (8.5-10.1); CARBON DIOXIDE LEVEL 27 MEQ/L (21-32); CHLORIDE LEVEL 105 MEQ/L (98-107); CREATININE FOR GFR 1.04 MG/DL (0.70-1.30); GLOMERULAR FILTRATION RATE > 60.0 (>56); GLUCOSE, FASTING 102 MG/DL (70-100); POTASSIUM SERUM 4.1 MEQ/L (3.5-5.1); SODIUM LEVEL 140 MEQ/L (136-145)
[2019-01-18] MEDS: VANCOMYCIN HCL 1,000 MG, VIAL MATE ADAPTER 1 EACH in D5W 250 ML IV SCH ×2 (08:50→20:39)
[2019-01-18] MEDS: SENNA 8.6 MG TAB (SENOKOT) PO SCH ×2 (08:50→20:44)
[2019-01-18] MEDS: METOPROLOL TART 25 MG TABLET PO SCH ×2 (08:52→20:43)
[2019-01-18] MEDS: HYDROMORPHONE HCL 0.5 MG/ 0.5 ML SYRINGE (J1170 PER 1) IV PRN (08:53)
[2019-01-18] MEDS: BRIMONIDINE 0.1% OPHTH SOLN 5 ML OU SCH (09:55)
[2019-01-18 09:56] LABS: VANCOMYCIN RANDOM 8.9 UG/ML
[2019-01-18] MEDS: tiZANidine 4 MG TAB PO PRN ×2 (10:02→21:28)
--- NOTE | 2019-01-18 14:07 | IPNPDOC ---
Subjective Date Seen The patient was seen on 01/18/19. Subjective Chief Complaint/HPI She is seen and examined at the bedside. Reports that his pain is better controlled with the switch to IV dilaudid. Reports that he overall feels the "same." Vascular surgery discussed possibly taking the patient to the OR today. Objective Physical Examination General Exam: Positive: Alert, Cooperative, No Acute Distress ENT Exam: Positive: Atraumatic, Mucous membr. moist/pink Neck Exam: Negative: JVD Chest Exam: Positive: Clear to auscultation, Normal air movement Heart Exam: Positive: Rate Normal, Normal S1, Normal S2 Abdomen Exam: Positive: Soft; Negative: Tenderness Extremity Exam: Positive: Other (Right groin wound noted to be clean dry and intact) Psych Exam: Positive: Mental status NL, Mood NL, Oriented x 3 Assessment /Plan Plan/VTE VTE Prophylaxis Ordered?: Yes Plan Hx of PAD s/p L EIA stenting followed by a left to right femfem bypass, s/p Rt Fem Pop bypass 10/29/18 CTA of the Lower extremities on admission revealed right superficial femoral artery graft occlusion. s/p right femoral exploration, bypass graft ligation and partial removal on 12/31 s/p Removal of infected femoral popliteal bypass graft on 01/03 s/p Rt groin debridement/Wound vac placement as per Dr Sanchez 01/08/19. s/p Right Femoral Exploration and Wound Debridement, Right Femoral Major Artery Angioplasty on 01/14 Patient tentatively scheduled for further revascularization with vascular janice michelle On heparin drip for anticoagulation We will continue to monitor and follow up with vascular surgery recommendations/intervention Right groin mass/abscess with infected graft S/P Rt groin abscess drainage 12/27/[address] Sanchez. Wound culture notable for MSSA, repeat cultures from 12/31 notable for Coag Neg Staph 01/14 cultures notable for Staph Epi IV Vancomycin for empiric coverage Cont to monitor History of paroxysmal AFIB Intermittent bradycardia/tachycardia, bigemeny noted on telemetry Continue on on metoprolol BID On heparin drip for anticoagulation at this time History of neuropathy Continue amitriptyline, tizanidine, we will add gabapentin DVT prophylaxis: on heparin drip, will follow up with Vascular recommendations VS, I&O, 24H, Fishbone Vital Signs/I&O Vital Signs Date Time Temp Pulse Resp B/P (MAP) Pulse Ox O2 Delivery O2 Flow Rate FiO2 01/18/19 09:03 18 01/18/19 08:52 78 147/85 01/18/19 06:00 97.2 100 01/14/19 20:17 2.0 I&O- Last 24 Hours up to 6 AM 01/18/19 06:00 Intake Total 1270 ml Output Total 2175 ml Balance -905 ml Laboratory Data 24H LABS Laboratory Tests 2 01/18/19 06:33: Nucleated Red Blood Cells % (auto) 0.0, Activated Partial Thromboplast Time 107.9H, Anion Gap 8, Glomerular Filtration Rate > 60.0, Blood Urea Nitrogen 8, Creatinine 1.04, Sodium Level 140, Potassium Level 4.1, Chloride Level 105, Carbon Dioxide Level 27, Calcium Level 9.3, Random Vancomycin Level 8.9 CBC/BMP Laboratory Tests 01/18/19 06:33 Red Blood Count 3.83 L, Mean Corpuscular Volume 84.3, Mean Corpuscular Hemoglobin 27.2, Mean Corpuscular Hemoglobin Concent 32.2, Red Cell Distribution Width 14.7 H, Calcium Level 9.3 Microbiology Microbiology 01/15/19 Stool Occult Blood (SASCHA) - Final, Complete 01/12/19 Stool Occult Blood (SASCHA) - Final, Complete 01/14/19 Gram Stain - Final, Complete 01/14/19 Surgical Biopsy Culture - Final, Complete Staphylococcus Epidermidis Staphylococcus Epidermidis#2 01/08/19 Gram Stain - Final, Complete 01/08/19 Wound Culture - Final, Complete 01/08/19 Anaerobic Culture - Final, Complete ULISES CORREA MD Jan 18, 2019 14:07
[2019-01-18] MEDS: HYDROmorphone HCL 2 MG/ML 1ML VIAL (J1170) IV PRN ×3 (14:21→20:21)
[2019-01-18 15:04] LABS: INR 1.19; PROTHROMBIN TIME 14.8 SECONDS (11.8-14.0)
[2019-01-18 18:53] VITALS: BP 125/88
[2019-01-18] MEDS: AMITRIPTYLINE 10 MG TAB PO SCH (20:42)
[2019-01-18] MEDS: DOCUSATE SODIUM 100 MG CAP PO SCH (20:44)
[2019-01-18] MEDS: LATANOPROST 0.005% OPHTH SOLN 2.5 ML OU SCH (21:28)
[2019-01-18 22:00] VITALS: BP 128/88
[2019-01-19 00:07] VITALS: BP 128/88
[2019-01-19] MEDS: HYDROmorphone HCL 2 MG/ML 1ML VIAL (J1170) IV PRN ×6 (00:33→21:13)
[2019-01-19 04:15] LABS: HEMATOCRIT 29.6 % (42.0-52.0); HEMOGLOBIN 9.5 g/dl (13.5-17.5); MEAN CORPUSCULAR HEMOGLOBIN 26.6 pg (27.0-33.0); MEAN CORPUSCULAR HGB CONC 32.1 g/dl (32.0-36.5); MEAN CORPUSCULAR VOLUME 82.9 fl (80.0-96.0); PLATELET COUNT, AUTOMATED 588 10^3/uL (150-450); RED BLOOD COUNT 3.57 10^6/uL (4.30-6.10)
[2019-01-19 04:40] LABS: BLOOD UREA NITROGEN 10 MG/DL (7-18); CARBON DIOXIDE LEVEL 29 MEQ/L (21-32); CHLORIDE LEVEL 103 MEQ/L (98-107); CREATININE FOR GFR 1.41 MG/DL (0.70-1.30); GLOMERULAR FILTRATION RATE > 60.0 (>56); GLUCOSE, FASTING 110 MG/DL (70-100); POTASSIUM SERUM 4.2 MEQ/L (3.5-5.1); SODIUM LEVEL 138 MEQ/L (136-145)
[2019-01-19] MEDS: SLF 3 ML SYR IV SCH ×3 (05:45→22:21)
[2019-01-19 06:00] VITALS: BP 147/82
[2019-01-19] MEDS: VANCOMYCIN HCL 1,000 MG, VIAL MATE ADAPTER 1 EACH in D5W 250 ML IV SCH (08:00)
[2019-01-19] MEDS: METOPROLOL TART 25 MG TABLET PO SCH ×2 (08:01→21:11)
[2019-01-19] MEDS: BRIMONIDINE 0.1% OPHTH SOLN 5 ML OU SCH (08:02)
[2019-01-19] MEDS: SENNA 8.6 MG TAB (SENOKOT) PO SCH ×2 (08:02→21:00)
--- NOTE | 2019-01-19 12:14 | IPNPDOC ---
Subjective Date Seen The patient was seen on 01/19/19. Subjective Chief Complaint/HPI Patient seen and examined at the bedside. No acute overnight events noted. Vascular surgery was contacted by the patient's nurse, and they plan to intervene on the patient's right lower extremity in the next 24-48 hours. We will follow up with further recommendations. Objective Physical Examination General Exam: Positive: Alert, Cooperative, No Acute Distress ENT Exam: Positive: Atraumatic, Mucous membr. moist/pink Neck Exam: Negative: JVD Chest Exam: Positive: Clear to auscultation, Normal air movement Heart Exam: Positive: Rate Normal, Normal S1, Normal S2 Abdomen Exam: Positive: Soft; Negative: Tenderness Extremity Exam: Positive: Other (Right groin wound noted to be clean dry and intact) Psych Exam: Positive: Mental status NL, Mood NL, Oriented x 3 Assessment /Plan Plan/VTE VTE Prophylaxis Ordered?: Yes Plan Hx of PAD s/p L EIA stenting followed by a left to right femfem bypass, s/p Rt Fem Pop bypass 10/29/18 CTA of the Lower extremities on admission revealed right superficial femoral artery graft occlusion. s/p right femoral exploration, bypass graft ligation and partial removal on 12/31 s/p Removal of infected femoral popliteal bypass graft on 01/03 s/p Rt groin debridement/Wound vac placement as per Dr Sanchez 01/08/19. s/p Right Femoral Exploration and Wound Debridement, Right Femoral Major Artery Angioplasty on 01/14 Patient tentatively scheduled for further revascularization with vascular surgery On heparin drip for anticoagulation We will continue to monitor and follow up with vascular surgery recommendations/intervention Right groin mass/abscess with infected graft S/P Rt groin abscess drainage 12/27/[address] Sanchez. Wound culture notable for MSSA, repeat cultures from 12/31 notable for Coag Neg Staph 01/14 cultures notable for Staph Epi IV Vancomycin for empiric coverage Cont to monitor History of paroxysmal AFIB Intermittent bradycardia/tachycardia, bigemeny noted on telemetry Continue on on metoprolol BID On heparin drip for anticoagulation at this time History of neuropathy Continue amitriptyline, tizanidine, we will add gabapentin DVT prophylaxis: on heparin drip, will follow up with Vascular recommendations VS, I&O, 24H, Fishbone Vital Signs/I&O Vital Signs Date Time Temp Pulse Resp B/P (MAP) Pulse Ox O2 Delivery O2 Flow Rate FiO2 01/19/19 10:22 16 01/19/19 08:01 71 128/62 01/19/19 06:00 98.4 100 01/14/19 20:17 2.0 I&O- Last 24 Hours up to 6 AM 01/19/19 06:00 Intake Total 1548 ml Output Total 1450 ml Balance 98 ml Laboratory Data 24H LABS Laboratory Tests 2 01/18/19 14:39: Prothrombin Time 14.8H, Prothromb Time International Ratio 1.19, Activated Partial Thromboplast Time 81.0H 01/18/19 20:25: Activated Partial Thromboplast Time 76.9H 01/19/19 04:05: Activated Partial Thromboplast Time 73.4H, Nucleated Red Blood Cells % (auto) 0.0, Anion Gap 6L, Glomerular Filtration Rate > 60.0, Blood Urea Nitrogen 10, Creatinine 1.41H, Sodium Level 138, Potassium Level 4.2, Chloride Level 103, Ca rbon Dioxide Level 29, Calcium Level 9.0 CBC/BMP Laboratory Tests 01/19/19 04:05 Red Blood Count 3.57 L, Mean Corpuscular Volume 82.9, Mean Corpuscular Hemoglobin 26.6 L, Mean Corpuscular Hemoglobin Concent 32.1, Red Cell Distribution Width 14.7 H, Calcium Level 9.0 Microbiology Microbiology 01/18/19 Stool Occult Blood (SASCHA) - Final, Complete 01/15/19 Stool Occult Blood (SASCHA) - Final, Complete 01/12/19 Stool Occult Blood (SASCHA) - Final, Complete 01/14/19 Gram Stain - Final, Complete 01/14/19 Surgical Biopsy Culture - Final, Complete Staphylococcus Epidermidis Staphylococcus Epidermidis#2 ULISES CORREA MD Jan 19, 2019 12:14
[2019-01-19] MEDS: HEPARIN DRIP 25,000 UNITS in APPROPRIATE DILUENT 1 EA IV SCH (12:16)
[2019-01-19 14:00] VITALS: BP 135/79
[2019-01-19] MEDS: tiZANidine 4 MG TAB PO PRN ×2 (14:18→22:21)
[2019-01-19] MEDS: DOCUSATE SODIUM 100 MG CAP PO SCH (21:00)
[2019-01-19 21:08] VITALS: BP 144/83
[2019-01-19] MEDS: AMITRIPTYLINE 10 MG TAB PO SCH (21:11)
[2019-01-19] MEDS: LATANOPROST 0.005% OPHTH SOLN 2.5 ML OU SCH (21:11)
[2019-01-19 22:00] VITALS: BP 126/81
[2019-01-19] MEDS ORDERED: VANCOMYCIN HCL 750 MG, VIAL MATE ADAPTER 1 EACH in D5W 250 ML IV SCH (22:00)
[2019-01-20] MEDS: HYDROmorphone HCL 2 MG/ML 1ML VIAL (J1170) IV PRN ×4 (02:11→16:34)
--- NOTE | 2019-01-20 04:37 | PHACANCOPD ---
PHARMACY VANCOMYCIN DOSING Pt Demographics Demographics Patient Age:58 , Weight:67.300 , Gender: male Adjusted Body Weight Date: 01/17/19, Adjusted Body Weight: Kg Vancomycin Vancomycin Target Ranges: 15-20 mcg/ml Vancomycin Load Y/N: Yes Load Dose Date Time Vancomycin Load Dose: 1500MG Date: 01/17/19 Time: 1500 Vancomycin Dose Date: 01/17/19. Current Vancomycin Dose: Intermittent Dosing?: No Labs Micro Microbiology 01/19/19 Stool Occult Blood (SASCHA) - Final, Complete 01/18/19 Stool Occult Blood (SASCHA) - Final, Complete 01/15/19 Stool Occult Blood (SASCHA) - Final, Complete 01/12/19 Stool Occult Blood (SASCHA) - Final, Complete 01/14/19 Gram Stain - Final, Complete 01/14/19 Surgical Biopsy Culture - Final, Complete Staphylococcus Epidermidis Staphylococcus Epidermidis#2 Creatinine Clearance Date:01/17/19. Creatinine Clearance: . Assessment and Plan Maintaining Current Dose?: No Reason for dose change: Change in serum Cr Pharmacist Note Pharmacist Note Date 01/19/19: Patient's trough taken at 1928 resulted at 19.3. Trough was taken 28 minutes late. Due to patient's renal function having decreased to CrCl of 63 vs 86 the day before I am decreasing dose to vancomycin IV 750mg q12h starting at 2200 tonight. I have scheduled a trough for 01/20/19 at 2100. We will continue to monitor patient and adjust dose as needed. Date: 01/17/19. Pharmacist note: Pt. is a 58 year old male here due to a skin graft infection. We have been consulted to dose Vancomycin. I have loaded the pa tient with Vanco 1500mg x1, followed by Vanco 1G IV Q18H. We will continue to monitor and adjust dose as needed. SHERI ESCALERA PHARMACY Jan 20, 2019 04:37
[2019-01-20 06:00] VITALS: BP 131/86
[2019-01-20] MEDS: tiZANidine 4 MG TAB PO PRN ×3 (06:37→22:50)
[2019-01-20] MEDS: HEPARIN DRIP 25,000 UNITS in APPROPRIATE DILUENT 1 EA IV SCH ×2 (06:46→23:02)
[2019-01-20] MEDS: SLF 3 ML SYR IV SCH ×3 (06:52→20:41)
[2019-01-20 07:34] LABS: HEMATOCRIT 33.3 % (42.0-52.0); HEMOGLOBIN 10.3 g/dl (13.5-17.5); MEAN CORPUSCULAR HEMOGLOBIN 26.5 pg (27.0-33.0); MEAN CORPUSCULAR HGB CONC 30.9 g/dl (32.0-36.5); MEAN CORPUSCULAR VOLUME 85.6 fl (80.0-96.0); PLATELET COUNT, AUTOMATED 646 10^3/uL (150-450); RED BLOOD COUNT 3.89 10^6/uL (4.30-6.10); WHITE BLOOD COUNT 7.7 10^3/uL (4.0-10.0)
[2019-01-20 08:01] LABS: CALCIUM LEVEL 9.5 MG/DL (8.5-10.1); CREATININE FOR GFR 2.04 MG/DL (0.70-1.30); GLOMERULAR FILTRATION RATE 43.3 (>56); POTASSIUM SERUM 3.3 MEQ/L (3.5-5.1)
[2019-01-20] MEDS: HEPARIN SOD (PORCINE) 5000 UNITS/ML VIAL IV PRN (08:28)
[2019-01-20] MEDS: METOPROLOL TART 25 MG TABLET PO SCH ×2 (08:29→20:38)
[2019-01-20] MEDS: BRIMONIDINE 0.1% OPHTH SOLN 5 ML OU SCH (09:00)
[2019-01-20] MEDS: SENNA 8.6 MG TAB (SENOKOT) PO SCH ×2 (09:00→20:39)
[2019-01-20 10:00] VITALS: BP 92/60
[2019-01-20] MEDS ORDERED: SODIUM CHLORIDE 0.9% 1000ML IV ONE (10:30)
[2019-01-20] MEDS: POTASSIUM CHLORIDE 10 MEQ SR TABLET PO ONE ×2 (10:59→11:04)
[2019-01-20] MEDS: NS 1,000 ML IV SCH ×2 (12:37→22:53)
[2019-01-20 12:38] VITALS: BP 156/99
[2019-01-20] MEDS: CEFTAROLINE FOSAMIL 400 MG in D5W MINI-BAG PLUS 50 ML IV SCH ×2 (13:53→22:53)
[2019-01-20 14:00] VITALS: BP 114/84
--- NOTE | 2019-01-20 14:52 | IPNPDOC ---
Subjective Date Seen The patient was seen on 01/20/19. Subjective Chief Complaint/HPI Patient seen and examined at the bedside. Reports that his lower extremity pain is about the same. Denies any nausea, vomiting, abdominal pain, or any diarrhea. Objective Physical Examination General Exam: Positive: Alert, Cooperative, No Acute Distress ENT Exam: Positive: Atraumatic, Mucous membr. moist/pink Neck Exam: Negative: JVD Chest Exam: Positive: Clear to auscultation, Normal air movement Heart Exam: Positive: Rate Normal, Normal S1, Normal S2 Abdomen Exam: Positive: Soft; Negative: Tenderness Extremity Exam: Positive: Other (Right groin wound noted to be clean dry and intact) Psych Exam: Positive: Mental status NL, Mood NL, Oriented x 3 Assessment /Plan Plan/VTE VTE Prophylaxis Ordered?: Yes Plan Hx of PAD s/p L EIA stenting followed by a left to right femfem bypass, s/p Rt Fem Pop bypass 10/29/18 CTA of the Lower extremities on admission revealed right superficial femoral artery graft occlusion. s/p right femoral exploration, bypass graft ligation and partial removal on 12/31 s/p Removal of infected femoral popliteal bypass graft on 01/03 s/p Rt groin debridement/Wound vac placement as per Dr Sanchez 01/08/19. s/p Right Femoral Exploration and Wound Debridement, Right Femoral Major Artery Angioplasty on 01/14 Patient tentatively scheduled for further revascularization with vascular surgery On heparin drip for anticoagulation We will continue to monitor and follow up with vascular surgery recommendations/intervention Right groin mass/abscess with infected graft S/P Rt groin abscess drainage 12/27/[address] Sanchez. Wound culture notable for MSSA, repeat cultures from 12/31 notable for Coag Neg Staph 01/14 cultures notable for Staph Epi IV Vancomycin transitioned to Rocephin for empiric coverage Cont to monitor Acute Kidney Injury Likely 2/2 Decreased PO Intake Increase in Vanco Trough levels Vanco D/C'd IVF Hydration ordered Renal U/S Bladder Scan Hold Nephrotoxins We will cont to monitor the patient at this time History of paroxysmal AFIB Intermittent bradycardia/tachycardia, bigemeny noted on telemetry Continue on on metoprolol BID On heparin drip for anticoagulation at this time History of neuropathy Continue amitriptyline, tizanidine, we will add gabapentin DVT prophylaxis: on heparin drip, will follow up with Vascular recommendations VS, I&O, 24H, Micbonphylicia Vital Signs/I&O Vital Signs Date Time Temp Pulse Resp B/P (MAP) Pulse Ox O2 Delivery O2 Flow Rate FiO2 01/20/19 12:57 12 01/20/19 12:47 71 156/99 01/20/19 06:00 97.6 99 01/14/19 20:17 2.0 I&O- Last 24 Hours up to 6 AM 01/20/19 05:59 Intake Total 3392 ml Output Total 1400 ml Balance 1992 ml Laboratory Data 24H LABS Laboratory Tests 2 01/19/19 19:28: Vancomycin Level Trough 19.3 01/20/19 07:04: Nucleated Red Blood Cells % (auto) 0.0, Activated Partial Thromboplast Time 48.8H, Anion Gap 13, Glomerular Filtration Rate 43.3L, Blood Urea Nitrogen 11, Creatinine 2.04H, Sodium Level 138, Potassium Level 3.3#L, Chloride Level 101, Carbon Dioxide Level 24, Calcium Level 9.5, Random Vancomycin Level 28.0 01/20/19 14:27: CBC/BMP Laboratory Tests 01/20/19 07:04 Red Blood Count 3.89 L, Mean Corpuscular Volume 85.6, Mean Corpuscular Hemoglobin 26.5 L, Mean Corpuscular Hemoglobin Concent 30.9 L, Red Cell Distribution Width 14.7 H, Calcium Level 9.5 Microbiology Microbiology 01/19/19 Stool Occult Blood (SASCHA) - Final, Complete 01/18/19 Stool Occult Blood (SASCHA) - Final, Complete 01/15/19 Stool Occult Blood (SASCHA) - Final, Complete 01/12/19 Stool Occult Blood (SASCHA) - Final, Complete 01/14/19 Gram Stain - Final, Complete 01/14/19 Surgical Biopsy Culture - Final, Complete Staphylococcus Epidermidis Staphylococcus Epidermidis#2 ULISES CORREA MD Jan 20, 2019 14:52
[2019-01-20] MEDS: AMITRIPTYLINE 10 MG TAB PO SCH (20:39)
[2019-01-20] MEDS: DOCUSATE SODIUM 100 MG CAP PO SCH (20:39)
[2019-01-20] MEDS: HYDROMORPHONE HCL 0.5 MG/ 0.5 ML SYRINGE (J1170 PER 1) IV PRN (20:41)
[2019-01-20] MEDS: LATANOPROST 0.005% OPHTH SOLN 2.5 ML OU SCH (20:43)
[2019-01-20 22:00] VITALS: BP 166/98
[2019-01-21] MEDS: HEPARIN SOD (PORCINE) 5000 UNITS/ML VIAL IV PRN ×2 (01:05→17:35)
[2019-01-21] MEDS: HYDROmorphone HCL 2 MG/ML 1ML VIAL (J1170) IV PRN ×6 (01:08→18:51)
[2019-01-21] MEDS: SLF 3 ML SYR IV SCH ×3 (05:15→22:40)
[2019-01-21 06:00] VITALS: BP_SYST 127; BP_SYST 141; BP_DIAS 73; BP_DIAS 79
[2019-01-21] MEDS: NS 1,000 ML IV SCH ×2 (06:30→18:53)
[2019-01-21 07:01] LABS: HEMATOCRIT 26.2 % (42.0-52.0); HEMOGLOBIN 8.4 g/dl (13.5-17.5); MEAN CORPUSCULAR HEMOGLOBIN 26.5 pg (27.0-33.0); MEAN CORPUSCULAR HGB CONC 32.1 g/dl (32.0-36.5); MEAN CORPUSCULAR VOLUME 82.6 fl (80.0-96.0); PLATELET COUNT, AUTOMATED 577 10^3/uL (150-450); RED BLOOD COUNT 3.17 10^6/uL (4.30-6.10); WHITE BLOOD COUNT 7.1 10^3/uL (4.0-10.0)
[2019-01-21 07:20] LABS: CALCIUM LEVEL 9.8 MG/DL (8.5-10.1); CREATININE FOR GFR 1.83 MG/DL (0.70-1.30); GLOMERULAR FILTRATION RATE 49.1 (>56); POTASSIUM SERUM 4.1 MEQ/L (3.5-5.1)
[2019-01-21] MEDS: METOPROLOL TART 25 MG TABLET PO SCH ×2 (08:07→21:59)
[2019-01-21] MEDS: SENNA 8.6 MG TAB (SENOKOT) PO SCH ×2 (08:08→21:58)
[2019-01-21] MEDS: BRIMONIDINE 0.1% OPHTH SOLN 5 ML OU SCH (08:08)
--- NOTE | 2019-01-21 08:19 | REP ---
REASON: Renal failure. PRIORS: None. The right kidney measures 11.5 x 5.1 x 4.5 cm and the left kidney measures 11.2 x 5 x 5.5 cm. The renal cortical echoes are diffusely increased. 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 No cystic or solid masses are seen on the right. In the left kidney there is a small parapelvic cyst which measures 1.2 cm. There are no solid left renal masses. On imaging the right kidney a 2.6 cm sized septated anechoic structure was seen in the liver. The exhibits posterior wall enhancement and increased through transmission and is consistent with a slightly complex cyst. It is incompletely imaged on this renal ultrasound. Also seen but on scanning the left kidney, note was made of a possible splenic mass. Ultrasonography poorly evaluates the spleen. IMPRESSION: 1. Bilateral increased renal cortical echoes consistent with medical renal disease. 2. Small left renal parapelvic cyst. 3. Suspect incidental finding involving the liver and spleen as described above. Contrast enhanced CT is recommended for further evaluation of clinically relevant. Electronically Signed by Hans Calderon DO 01/21/2019 12:00 P
--- NOTE | 2019-01-21 08:53 | IPNPDOC ---
Date Seen The patient was seen on 01/21/19. Progress Note Vascular Surgery Dr Sanchez HPI: 58yoM with severe BLE PVD, with h/o L EIA stenting followed shortly thereafter by a left to right femfem bypass, s/p Rt Fem Pop bypass 10/29/[address] Sanchez. Pt admitted 12/25 with vascular graft infection. Vascular surgery was consulted. The pt states worsening pain in RLE since 7 AM. Denies any fevers, chills, Headache, Chest Pain, Shortness of breath, cough, palpitations, abdominal pain, N/V/D or changes in bowel or bladder habits. PAST MEDICAL HISTORY: PAD Hypertension HLD anxiety depression glaucoma allergic rhinitis PAST SURGICAL HISTORY: skin graft L EIA stenting L to R femfem bypass Rt fem pop bypass PE: GEN: 58yoM, appears stated age. HEENT: Normocephalic, atraumatic. Moist mucous membranes. CHEST: Regular rate and rhythm, +S1, +S2 LUNGS: Clear to auscultation bilaterally. No wheezes, rales, or rhonchi. ABD: Round, soft, non-tender, non-distended. EXT: Rt groin with wound vac dressing intact. No lower extremity edema appreciated. Rt foot is is warm to touch, toes slightly cool, cap refill 4-5 secs this am. Toes TTP. Unable to obtain pulses with Doppler this AM. NEURO: Alert and oriented x 3. No focal deficits appreciated. Renal US REASON: Renal failure. PRIORS: None. The right kidney measures 11.5 x 5.1 x 4.5 cm and the left kidney measures 11.2 x 5 x 5.5 cm. The renal cortical echoes are diffusely increased. 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 No cystic or solid masses are seen on the right. In the left kidney there is a small parapelvic cyst which measures 1.2 cm. There are no solid left renal masses. On imaging the right kidney a 2.6 cm sized septated anechoic structure was seen in the liver. The exhibits posterior wall enhancement and increased through transmission and is consistent with a slightly complex cyst. It is incompletely imaged on this renal ultrasound. Also seen but on scanning the left kidney, note was made of a possible splenic mass. Ultrasonography poorly evaluates the spleen. IMPRESSION: 1. Bilateral increased renal cortical echoes consistent with medical renal disease. 2. Small left renal parapelvic cyst. 3. Suspect incidental finding involving the liver and spleen as described above. Contrast enhanced CT is recommended for further evaluation of clinically relevant. Unreviewed DD: Hans Calderon MD DO 01/20/19 3013 A&P: PAD with h/o L EIA stenting followed by a left to right femfem bypass, s/p Rt Fem Pop bypass 10/29/[address] Sanchez. S/P Rt groin abscess drainage 12/27/[address] Sanchez. S/P right femoral exploration, bypass graft ligation and partial removal 12/31/[address] Sanchez. S/P removal of infected graft 01/03/[address] Sanchez. S/P Rt groin debridement/Wound vac placement as per Dr Sanchez 01/08/19. Status post right femoral exploration, right femoral angioplasty, right femoral wound debridement 01/14/19. Wound vac in place Rt Groin. Pt is reviewed with Dr Sanchez this AM, unable to obtain CTA A/P with runoff this AM related to pt renal function. Tentative plan as per Dr Sanchez for possible revascularization procedure 01/22/19. IV Ceftaroline as per medicine svc. IV Heparin gtt per protocol. DEVON Possibly related to decreased PO Intake Vanco D/C'd IVF Hydration ordered as per medicine svc. Renal U/S as above Bladder Scan Avoid Nephrotoxins PAF. The patient has history of AFIB and he was on eliquis but stopped taking medication. Metoprolol as per primary team. Eliquis on hold. Heparin gtt currently. Addendum. Called at 15:36 to re evaluate pt's Rt groin wound area with wound vac removed. Benkel[place] are intact, black foam present in open area of wound. There is a firm 4-5 cm area with TTP, not present the previous time wound vac was changed. Reviewed exam and current symptoms with Dr Sanchez. Pt continues with Rt foot/RLE pain unchanged from this AM. Per Dr Sanchez: D/C wound vac for now. Dakin's 1/4% Wet to dry dressing Q6hrs. Dr Sanchez planning OR tomorrow for possible revascularization, per Dr Sanchez pt may need additional debridement of rt groin wound. No additional testing requested at this time. Monitor. Plan is relayed to nursing. VS, I&O, 24H, Fishbone Vital Signs/I&O Vital Signs Date Time Temp Pulse Resp B/P (MAP) Pulse Ox O2 Delivery O2 Flow Rate FiO2 01/21/19 08:08 92 173/92 01/21/19 08:06 16 01/21/19 06:00 97.7 99 I&O- Last 24 Hours up to 6 AM 01/21/19 05:59 Intake Total 2670 ml Output Total 2200 ml Balance 470 ml Laboratory Data 24H LABS Laboratory Tests 2 01/20/19 14:27: Activated Partial Thromboplast Time 106.8H 01/20/19 22:37: Activated Partial Thromboplast Time 54.5H 01/21/19 06:44: Nucleated Red Blood Cells % (auto) 0.0, Anion Gap 7L, Glomerular Filtration Rate 49.1L, Blood Urea Nitrogen 9, Creatinine 1.83H, Sodium Level 139, Potassium Level 4.1#, Chloride Level 108H, Carbon Dioxide Level 24, Calcium Level 9.8 01/21/19 08:03: CBC/BMP Laboratory Tests 01/21/19 06:44 Red Blood Count 3.17 L, Mean Corpuscular Volume 82.6, Mean Corpuscular Hemoglobin 26.5 L, Mean Corpuscular Hemoglobin Concent 32.1, Red Cell Distribution Width 14.6 H, Calcium Level 9.8 Microbiology Microbiology 01/19/19 Stool Occult Blood (SASCHA) - Final, Complete 01/18/19 Stool Occult Blood (SASCHA) - Final, Complete 01/15/19 Stool Occult Blood (SASCHA) - Final, Complete 01/12/19 Stool Occult Blood (SASCHA) - Final, Complete 01/14/19 Gram Stain - Final, Complete 01/14/19 Surgical Biopsy Culture - Final, Complete Staphylococcus Epidermidis Staphylococcus Epidermidis#2 Jo Ann Herrera Jan 21, 2019 08:53
[2019-01-21] MEDS: CEFTAROLINE FOSAMIL 400 MG in D5W MINI-BAG PLUS 50 ML IV SCH (13:01)
[2019-01-21 14:00] VITALS: BP 140/98
[2019-01-21] MEDS: HEPARIN DRIP 25,000 UNITS in APPROPRIATE DILUENT 1 EA IV SCH (15:07)
--- NOTE | 2019-01-21 17:31 | IPNPDOC ---
Text Note Date of Service The patient was seen on 01/21/19. NOTE S:Patient states wound vac to right groin "stopped working". He states minimal leg pain and groin pain. No fever, no SOB, no CP, no palpitations O: Vital as below General: pleasant, NAD AAOx3 HRRR ( no irreg from afib today) LCTA no W/R/R Ext: no ankle edema (patient with ice pack below knee and on groin for comfort/relief) Right groin wound vac in place but not functioning/not turned on at this time (nursing staff addressing). Renal US: 1. Bilateral increased renal cortical echoes consistent with medical renal disease. 2. Small left renal parapelvic cyst. Other abnormalities on spleen and liver per report Item Value Date Time Creatinine 1.83 MG/DL H 01/21/19 0644 Creatinine 2.04 MG/DL H 01/20/19 0704 Creatinine 1.04 MG/DL 01/18/19 0633 Creatinine 1.19 MG/DL 01/12/19 0608 Creatinine 1.18 MG/DL 01/09/19 0456 A/P: Hx of PAD s/p L EIA stenting followed by a left to right femfem bypass, s/p Rt Fem Pop bypass 10/29/18 CTA of the Lower extremities on admission revealed right superficial femoral artery graft occlusion. s/p right femoral exploration, bypass graft ligation and partial removal on 12/31 s/p Removal of infected femoral popliteal bypass graft on 01/03 s/p Rt groin debridement/Wound vac placement as per Dr Sanchez 01/08/19. s/p Right Femoral Exploration and Wound Debridement, Right Femoral Major Artery Angioplasty on 01/14 Patient tentatively re scheduled for further revascularization with vascular surgery On heparin drip for anticoagulation We will continue to monitor and follow up with vascular surgery recommendations/intervention Right groin mass/abscess with infected graft S/P Rt groin abscess drainage 12/27/[address] Sanchez. Wound culture notable for MSSA, repeat cultures from 12/31 notable for Coag Neg Staph 01/14 cultures notable for Staph Epi IV Vancomycin transitioned to cephalosporin for empiric coverage Cont to monitor Acute Kidney Injury - improving Likely 2/2 Decreased PO Intake Increase in Vanco Trough levels Vanco D/C'd IVF Hydration ordered Renal U/S with abnormalities - (unable to do contrast CT due to DEVON) Hold Nephrotoxins We will cont to monitor the patient at this time History of paroxysmal AFIB Intermittent bradycardia/tachycardia, bigemeny noted on telemetry Continue on on metoprolol BID On heparin drip for anticoagulation at this time History of neuropathy Continue amitriptyline, tizanidine, we will add gabapentin DVT prophylaxis: on heparin drip, will follow up with Vascular recommendations Heavenly LEPE, I+O VSHeavenly I+O Laboratory Tests 01/21/19 06:44 Red Blood Count 3.17 L, Mean Corpuscular Volume 82.6, Mean Corpuscular Hemog lobin 26.5 L, Mean Corpuscular Hemoglobin Concent 32.1, Red Cell Distribution Width 14.6 H, Calcium Level 9.8 Vital Signs Date Time Temp Pulse Resp B/P (MAP) Pulse Ox O2 Delivery O2 Flow Rate FiO2 01/21/19 11:40 15 01/21/19 08:08 92 173/92 01/21/19 06:00 97.7 99 I&O- Last 24 Hours up to 6 AM 01/21/19 06:00 Intake Total 2970 ml Output Total 2650 ml Balance 320 ml JOSE ORONA DO Jan 21, 2019 14:50
[2019-01-21] MEDS: DAKIN'S 0.25% HALF-STRENGTH SOLN 480 ML TOP SCH ×2 (18:52→21:00)
[2019-01-21] MEDS: LATANOPROST 0.005% OPHTH SOLN 2.5 ML OU SCH (21:00)
[2019-01-21] MEDS: DOCUSATE SODIUM 100 MG CAP PO SCH (21:58)
[2019-01-21] MEDS: AMITRIPTYLINE 10 MG TAB PO SCH (21:58)
[2019-01-21 22:00] VITALS: BP 142/80
[2019-01-21] MEDS: HYDROMORPHONE HCL 0.5 MG/ 0.5 ML SYRINGE (J1170 PER 1) IV PRN (22:00)
[2019-01-22] MEDS: CEFTAROLINE FOSAMIL 400 MG in D5W MINI-BAG PLUS 50 ML IV SCH ×2 (00:56→12:02)
[2019-01-22] MEDS: HYDROMORPHONE HCL 0.5 MG/ 0.5 ML SYRINGE (J1170 PER 1) IV PRN ×3 (00:56→21:36)
[2019-01-22] MEDS: SLF 3 ML SYR IV SCH ×3 (05:44→21:38)
[2019-01-22 06:00] VITALS: BP 153/78
[2019-01-22 07:13] LABS: HEMATOCRIT 28.9 % (42.0-52.0); HEMOGLOBIN 9.1 g/dl (13.5-17.5); MEAN CORPUSCULAR HEMOGLOBIN 26.1 pg (27.0-33.0); MEAN CORPUSCULAR HGB CONC 31.5 g/dl (32.0-36.5); PLATELET COUNT, AUTOMATED 646 10^3/uL (150-450); RED BLOOD COUNT 3.48 10^6/uL (4.30-6.10)
[2019-01-22 07:31] LABS: CALCIUM LEVEL 9.9 MG/DL (8.5-10.1); CREATININE FOR GFR 1.86 MG/DL (0.70-1.30); GLOMERULAR FILTRATION RATE 48.2 (>56); POTASSIUM SERUM 3.8 MEQ/L (3.5-5.1)
[2019-01-22] MEDS: SENNA 8.6 MG TAB (SENOKOT) PO SCH ×2 (09:00→21:36)
[2019-01-22] MEDS: DAKIN'S 0.25% HALF-STRENGTH SOLN 480 ML TOP SCH ×4 (09:00→21:37)
[2019-01-22] MEDS: METOPROLOL TART 25 MG TABLET PO SCH ×2 (09:17→21:36)
[2019-01-22] MEDS: BRIMONIDINE 0.1% OPHTH SOLN 5 ML OU SCH (09:17)
[2019-01-22] MEDS: HEPARIN DRIP 25,000 UNITS in APPROPRIATE DILUENT 1 EA IV SCH (09:35)
[2019-01-22] MEDS: NS 1,000 ML IV SCH ×2 (09:47→21:34)
[2019-01-22] MEDS: HYDROmorphone HCL 2 MG/ML 1ML VIAL (J1170) IV PRN ×3 (10:47→17:38)
--- NOTE | 2019-01-22 12:10 | IPNPDOC ---
Date Seen The patient was seen on 01/22/19. Progress Note Vascular Surgery Dr Sanchez HPI: 58yoM with severe BLE PVD, with h/o L EIA stenting followed shortly thereafter by a left to right femfem bypass, s/p Rt Fem Pop bypass 10/29/[address] Sanchez. Pt admitted 12/25 with vascular graft infection. Vascular surgery was consulted. The pt states RLE pain unchanged. Pt reports persistent Rt foot and leg pain. Denies any fevers, chills, Headache, Chest Pain, Shortness of breath, cough, palpitations, abdominal pain, N/V/D or changes in bowel or bladder habits. PAST MEDICAL HISTORY: PAD Hypertension HLD anxiety depression glaucoma allergic rhinitis PAST SURGICAL HISTORY: skin graft L EIA stenting L to R femfem bypass Rt fem pop bypass PE: GEN: 58yoM, appears stated age. HEENT: Normocephalic, atraumatic. Moist mucous membranes. CHEST: Regular rate and rhythm, +S1, +S2 LUNGS: Clear to auscultation bilaterally. No wheezes, rales, or rhonchi. ABD: Round, soft, non-tender, non-distended. EXT: Rt groin with dry dressing intact, [place] are intact, packing present in open area of wound, no drainage is noted. There is a firm 4-5 cm area with less TTP this AM. No lower extremity edema appreciated. Rt foot is is warm to touch, toes slightly cool, cap refill 4-5 secs. Toes TTP. Unable to obtain pulses with Doppler. NEURO: Alert and oriented x 3. No focal deficits appreciated. Renal US REASON: Renal failure. PRIORS: None. The right kidney measures 11.5 x 5.1 x 4.5 cm and the left kidney measures 11.2 x 5 x 5.5 cm. The renal cortical echoes are diffusely increased. 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 No cystic or solid masses are seen on the right. In the left kidney there is a small parapelvic cyst which measures 1.2 cm. There are no solid left renal masses. On imaging the right kidney a 2.6 cm sized septated anechoic structure was seen in the liver. The exhibits posterior wall enhancement and increased through transmission and is consistent with a slightly complex cyst. It is incompletely imaged on this renal ultrasound. Also seen but on scanning the left kidney, note was made of a possible splenic mass. Ultrasonography poorly evaluates the spleen. IMPRESSION: 1. Bilateral increased renal cortical echoes consistent with medical renal disease. 2. Small left renal parapelvic cyst. 3. Suspect incidental finding involving the liver and spleen as described above. Contrast enhanced CT is recommended for further evaluation of clinically relevant. Unreviewed DD: Hans Calderon MD DO 01/20/19 9508 A&P: PAD with h/o L EIA stenting followed by a left to right femfem bypass, s/p Rt Fem Pop bypass 10/29/[address] Sanchez. S/P Rt groin abscess drainage 12/27/[address] Sanchez. S/P right femoral exploration, bypass graft ligation and partial removal 12/31/[address] Sanchez. S/P removal of infected graft 01/03/[address] Sanchez. S/P Rt groin debridement/Wound vac placement as per Dr Sanchez 01/08/19. Status post right femoral exploration, right femoral angioplasty, right femoral wound debridement 01/14/19. Pt is reviewed with Dr Sanchez this AM, Dr Sanchez aware of wound Rt groin, currently wound vac off, wet to dry dressing changes with Dakins Q6hr. unable to obtain CTA A/P with runoff this AM related to pt renal function, SCr 1.86. Plan for Rt ax-fem bypass procedure this afternoon. IV Ceftaroline as per medicine svc. IV Heparin gtt per protocol. DEVON Possibly related to decreased PO Intake Vanco D/C'd IVF Hydration ordered as per medicine svc. Renal U/S as above Bladder Scan Avoid Nephrotoxins Scr 1.86 PAF. The patient has history of AFIB and he was on eliquis but stopped taking medication. Metoprolol as per primary team. Eliquis on hold. Heparin gtt currently. VS, I&O, 24H, Fishbone Vital Signs/I&O Vital Signs Date Time Temp Pulse Resp B/P (MAP) Pulse Ox O2 Delivery O2 Flow Rate FiO2 01/22/19 10:57 15 01/22/19 09:17 82 153/78 01/22/19 06:00 97.2 98 I&O- Last 24 Hours up to 6 AM 01/22/19 06:00 Intake Total 1810 ml Output Total 3050 ml Balance -1240 ml Laboratory Data 24H LABS Laboratory Tests 2 01/21/19 16:22: Activated Partial Thromboplast Time 55.6H 01/21/19 23:19: Activated Partial Thromboplast Time 110.1H 01/22/19 06:57: Activated Partial Thromboplast Time 67.0H, Nucleated Red Blood Cells % (auto) 0.0, Anion Gap 8, Glomerular Filtration Rate 48.2L, Blood Urea Nitrogen 6L, Creatinine 1.86H, Sodium Level 141, Potassium Level 3.8, Chloride Level 108H, Carbon Dioxide Level 25, Calcium Level 9.9 CBC/BMP Laboratory Tests 01/22/19 06:57 Red Blood Count 3.48 L, Mean Corpuscular Volume 83.0, Mean Corpuscular Hemoglobin 26.1 L, Mean Corpuscular Hemoglobin Concent 31.5 L, Red Cell Distribution Width 14.6 H, Calcium Level 9.9 Microbiology Microbiology 01/21/19 Stool Occult Blood (SASCHA) - Final, Complete 01/19/19 Stool Occult Blood (SASCHA) - Final, Complete 01/18/19 Stool Occult Blood (SASCHA) - Final, Complete 01/15/19 Stool Occult Blood (SASCHA) - Final, Complete 01/12/19 Stool Occult Blood (SASCHA) - Final, Complete 01/14/19 Gram Stain - Final, Complete 01/14/19 Surgical Biopsy Culture - Final, Complete Staphylococcus Epidermidis Staphylococcus Epidermidis#2 Jo Ann Herrera Jan 22, 2019 12:10
[2019-01-22 14:00] VITALS: BP 161/99
--- NOTE | 2019-01-22 18:44 | IPNPDOC ---
Text Note Date of Service The patient was seen on 01/22/19. NOTE S: patient seen at 1600 and has been NPO anticipating possible revascular of right leg. O: Vitals as below General: flat affect, NAD AAOx3 heart irreg/irreg rate controlled 80's LCTA A/P: 1) Hx of PAD s/p L EIA stenting followed by a left to right femfem bypass, s/p Rt Fem Pop bypass 10/29/18 CTA of the Lower extremities on admission revealed right superficial femoral artery graft occlusion. s/p right femoral exploration, bypass graft ligation and partial removal on 12/31 s/p Removal of infected femoral popliteal bypass graft on 01/03 s/p Rt groin debridement/Wound vac placement as per Dr Sanchez 01/08/19. s/p Right Femoral Exploration and Wound Debridement, Right Femoral Major Artery Angioplasty on 01/14 On heparin drip for anticoagulation and Patient tentatively scheduled for further revascularization with vascular surgery today We will continue to monitor and follow up with vascular surgery recommendations/intervention 2) Right groin mass/abscess with infected graft S/P Rt groin abscess drainage 12/27/[address] Sanchez. Wound culture notable for MSSA, repeat cultures from 12/31 notable for Coag Neg Staph and 01/08 repeat culture negative 01/14 cultures notable for Staph Epi IV Vancomycin transitioned to cephalosporin for empiric coverage - suspect staph epi is contaminent but will continue to treat for total 7 days. Cont to monitor All other problems as per note (stable) on 01/21/19 VS,Micbone, I+O VS, Fishbone, I+O Laboratory Tests 01/22/19 06:57 Red Blood Count 3.48 L, Mean Corpuscular Volume 83.0, Mean Corpuscular Hemoglobin 26.1 L, Mean Corpuscular Hemoglobin Concent 31.5 L, Red Cell Distribu tion Width 14.6 H, Calcium Level 9.9 Vital Signs Date Time Temp Pulse Resp B/P (MAP) Pulse Ox O2 Delivery O2 Flow Rate FiO2 01/22/19 17:48 16 01/22/19 14:00 98.6 58 161/99 (119) 98 I&O- Last 24 Hours up to 6 AM 01/22/19 06:00 Intake Total 1810 ml Output Total 3725 ml Balance -1915 ml JOSE ORONA A. DO Jan 22, 2019 18:44
[2019-01-22] MEDS: DOCUSATE SODIUM 100 MG CAP PO SCH (21:36)
[2019-01-22] MEDS: LATANOPROST 0.005% OPHTH SOLN 2.5 ML OU SCH (21:37)
[2019-01-22] MEDS: AMITRIPTYLINE 10 MG TAB PO SCH (21:37)
[2019-01-22 22:00] VITALS: BP 134/88
[2019-01-23] MEDS: HYDROMORPHONE HCL 0.5 MG/ 0.5 ML SYRINGE (J1170 PER 1) IV PRN ×3 (00:53→12:06)
[2019-01-23] MEDS: CEFTAROLINE FOSAMIL 400 MG in D5W MINI-BAG PLUS 50 ML IV SCH ×2 (00:55→12:04)
[2019-01-23] MEDS: tiZANidine 4 MG TAB PO PRN (01:14)
[2019-01-23] MEDS: HEPARIN DRIP 25,000 UNITS in APPROPRIATE DILUENT 1 EA IV SCH ×2 (02:52→21:26)
[2019-01-23 06:00] VITALS: BP 106/79
[2019-01-23] MEDS ORDERED: THROMBIN SOLN 20,000 UNITS KIT As Ordered ONE ×2 (07:43→14:32)
[2019-01-23] MEDS ORDERED: PROTAMINE SULF INJ 50 MG/5 ML VIAL (J2720) As Ordered ONE ×3 (07:43→18:31)
[2019-01-23] MEDS ORDERED: HEPARIN SOD (PORCINE) 5000 UNITS/ML VIAL As Ordered ONE ×4 (07:43→18:31)
[2019-01-23 08:02] LABS: CALCIUM LEVEL 9.1 MG/DL (8.5-10.1); CREATININE FOR GFR 1.89 MG/DL (0.70-1.30); GLOMERULAR FILTRATION RATE 47.3 (>56); POTASSIUM SERUM 3.8 MEQ/L (3.5-5.1)
[2019-01-23 08:15] LABS: HEMATOCRIT 26.7 % (42.0-52.0); HEMOGLOBIN 8.4 g/dl (13.5-17.5); MEAN CORPUSCULAR HEMOGLOBIN 25.9 pg (27.0-33.0); MEAN CORPUSCULAR HGB CONC 31.5 g/dl (32.0-36.5); MEAN CORPUSCULAR VOLUME 82.4 fl (80.0-96.0); PLATELET COUNT, AUTOMATED 621 10^3/uL (150-450); RED BLOOD COUNT 3.24 10^6/uL (4.30-6.10); WHITE BLOOD COUNT 5.5 10^3/uL (4.0-10.0)
[2019-01-23] MEDS: NS 1,000 ML IV SCH ×3 (08:30→21:25)
[2019-01-23] MEDS: METOPROLOL TART 25 MG TABLET PO SCH ×2 (08:54→21:28)
[2019-01-23] MEDS: SENNA 8.6 MG TAB (SENOKOT) PO SCH ×2 (08:54→21:00)
[2019-01-23] MEDS: BRIMONIDINE 0.1% OPHTH SOLN 5 ML OU SCH (08:56)
[2019-01-23] MEDS: DAKIN'S 0.25% HALF-STRENGTH SOLN 480 ML TOP SCH ×3 (08:56→17:00)
[2019-01-23] MEDS: SLF 3 ML SYR IV SCH ×3 (09:31→23:11)
--- NOTE | 2019-01-23 10:14 | IPNPDOC ---
Date Seen The patient was seen on 01/23/19. Progress Note Vascular Surgery Dr Sanchez HPI: 58yoM with severe BLE PVD, with h/o L EIA stenting followed shortly thereafter by a left to right femfem bypass, s/p Rt Fem Pop bypass 10/29/[address] Sanchez. Pt admitted 12/25 with vascular graft infection. Vascular surgery was consulted. The pt states RLE pain unchanged. Pt reports persistent Rt foot and leg pain. Pt states overall no change. Denies any fevers, chills, Headache, Chest Pain, Shortness of breath, cough, palpitations, abdominal pain, N/V/D or changes in bowel or bladder habits. PAST MEDICAL HISTORY: PAD Hypertension HLD anxiety depression glaucoma allergic rhinitis PAST SURGICAL HISTORY: skin graft L EIA stenting L to R femfem bypass Rt fem pop bypass PE: GEN: 58yoM, appears stated age. HEENT: Normocephalic, atraumatic. Moist mucous membranes. CHEST: Regular rate and rhythm, +S1, +S2 LUNGS: Clear to auscultation bilaterally. No wheezes, rales, or rhonchi. ABD: Round, soft, non-tender, non-distended. EXT: Rt groin with dressing intact, [place] are intact, packing present in open area of wound, no drainage is noted. There is a firm 4-5 cm area with less TTP this AM. No lower extremity edema appreciated. Rt foot is is warm to touch, toes slightly cool, cap refill 4 secs. Toes TTP. Have been unable to obtain pulses with doppler. NEURO: Alert and oriented x 3. No focal deficits appreciated. Renal US REASON: Renal failure. PRIORS: None. The right kidney measures 11.5 x 5.1 x 4.5 cm and the left kidney measures 11.2 x 5 x 5.5 cm. The renal cortical echoes are diffusely increased. 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 No cystic or solid masses are seen on the right. In the left kidney there is a small parapelvic cyst which measures 1.2 cm. There are no solid left renal masses. On imaging the right kidney a 2.6 cm sized septated anechoic structure was seen in the liver. The exhibits posterior wall enhancement and increased through transmission and is consistent with a slightly complex cyst. It is incompletely imaged on this renal ultrasound. Also seen but on scanning the left kidney, note was made of a possible splenic mass. Ultrasonography poorly evaluates the spleen. IMPRESSION: 1. Bilateral increased renal cortical echoes consistent with medical renal disease. 2. Small left renal parapelvic cyst. 3. Suspect incidental finding involving the liver and spleen as described above. Contrast enhanced CT is recommended for further evaluation of clinically relevant. Unreviewed DD: Hans Calderon MD DO 01/20/19 8353 A&P: PAD with h/o L EIA stenting followed by a left to right femfem bypass, s/p Rt Fem Pop bypass 10/29/[address] Sanchez. S/P Rt groin abscess drainage 12/27/[address] Sanchez. S/P right femoral exploration, bypass graft ligation and partial removal 12/31/[address] Sanchez. S/P removal of infected graft 01/03/[address] Sanchez. S/P Rt groin debridement/Wound vac placement as per Dr Sanchez 01/08/19. Status post right femoral exploration, right femoral angioplasty, right femoral wound debridement 01/14/[address] Sanchez. Pt is reviewed with Dr Sanchez this AM, Dr Sanchez aware of wound Rt groin, currently wound vac off, wet to dry dressing changes with Dakins Q6hr. Unable to obtain CTA A/P with runoff related to pt renal function, SCr 1.89. Plan as per Dr Sanchez this AM, for Rt fem profunda bypass procedure this afternoon. IV Ceftaroline as per medicine svc. IV Heparin gtt per protocol. DEVON Possibly related to decreased PO Intake Vanco D/C'd IVF Hydration ordered as per medicine svc. Renal U/S as above Bladder Scan Avoid Nephrotoxins Scr 1.89 PAF. The patient has history of AFIB and he was on eliquis but stopped taking medication. Metoprolol as per primary team. Eliquis on hold. Heparin gtt currently. VS, I&O, 24H, Fishbone Vital Signs/I&O Vital Signs Date Time Temp Pulse Resp B/P (MAP) Pulse Ox O2 Delivery O2 Flow Rate FiO2 01/23/19 09:01 74 143/73 01/23/19 06:22 20 01/23/19 06:00 97.2 99 I&O- Last 24 Hours up to 6 AM 01/23/19 06:00 Intake Total 1260 ml Output Total 2150 ml Balance -890 ml Laboratory Data 24H LABS Laboratory Tests 2 01/22/19 13:23: Activated Partial Thromboplast Time 79.0H 01/22/19 19:31: Activated Partial Thromboplast Time 80.7H 01/23/19 01:36: Activated Partial Thromboplast Time 70.1H 01/23/19 07:18: Activated Partial Thromboplast Time 80.8H, Nucleated Red Blood Cells % (auto) 0.0, Anion Gap 7L, Glomerular Filtration Rate 47.3L, Blood Urea Nitrogen 7, Creatinine 1.89H, Sodium Level 142, Potassium Level 3.8, Chloride Level 108H, Carbon Dioxide Level 27, Calcium Level 9.1, Total Creatine Kinase 100 CBC/BMP Laboratory Tests 01/23/19 07:18 Red Blood Count 3.24 L, Mean Corpuscular Volume 82.4, Mean Corpuscular Hemoglo bin 25.9 L, Mean Corpuscular Hemoglobin Concent 31.5 L, Red Cell Distribution Width 14.3, Calcium Level 9.1 Microbiology Microbiology 01/23/19 Stool Occult Blood (SASCHA), Received Pending 01/21/19 Stool Occult Blood (SASCHA) - Final, Complete 01/19/19 Stool Occult Blood (SASCHA) - Final, Complete 01/18/19 Stool Occult Blood (SASCHA) - Final, Complete 01/15/19 Stool Occult Blood (SASCHA) - Final, Complete 01/14/19 Gram Stain - Final, Complete 01/14/19 Surgical Biopsy Culture - Final, Complete Staphylococcus Epidermidis Staphylococcus Epidermidis#2 Jo Ann Herrera Jan 23, 2019 09:46
[2019-01-23] MEDS ORDERED: PROPOFOL 500 MG/50 ML VIAL As Ordered ONE ×5 (13:46→18:29)
[2019-01-23] MEDS ORDERED: dexameTHASONE 4 MG/ML 1ML VIAL (J1100) As Ordered ONE ×2 (13:47→15:29)
[2019-01-23] MEDS ORDERED: KETAMINE HCL 200 MG/20 ML VIAL As Ordered ONE (13:47)
[2019-01-23] MEDS ORDERED: MIDAZOLAM INJ 2 MG/2 ML VIAL (J2250) As Ordered ONE ×2 (13:47→15:32)
[2019-01-23] MEDS ORDERED: ONDANSETRON 4MG/2ML VIAL (J2405) As Ordered ONE ×2 (13:48→15:29)
[2019-01-23] MEDS ORDERED: LIDOCAINE 1% SDV INJ 30 ML VIAL As Ordered ONE (14:32)
[2019-01-23] MEDS ORDERED: BUPIVACAINE HCL 0.25% 30 ML VIAL As Ordered ONE (14:32)
[2019-01-23] MEDS ORDERED: PROPOFOL 200 MG/20 ML VIAL As Ordered ONE (15:29)
[2019-01-23] MEDS ORDERED: LIDOCAINE 2% INJ 100 MG/5 ML SDV (FOR ANES.) As Ordered ONE ×2 (15:29→16:04)
[2019-01-23] MEDS ORDERED: LIDOCAINE 2% MDV 20 ML VIAL As Ordered ONE (15:32)
[2019-01-23] MEDS ORDERED: fentaNYL 100 MCG/2 ML INJECTION (J3010) As Ordered ONE ×3 (15:32→19:20)
[2019-01-23] MEDS ORDERED: BUPIVACAINE HCL 0.5% 10 ML VIAL As Ordered ONE (16:14)
--- NOTE | 2019-01-23 19:09 | IPNPDOC ---
Text Note Date of Service The patient was seen on 01/23/19. NOTE S: patient returned to room. he had vascular procedure performed today. He is resting comfortably and states no pain at this time O: Vitals as below General: pleasant NAD AAOX3 Heart - irreg/irreg - rate controlled LCTA Ext: right leg bandage/dressing intact A/P: 1) PAD - patient had Rt fem profunda bypass procedure this afternoon 01/23/19; report pending He had previous right fempop bypass 10/29/18 and stopped taking eliquis. the grafe of right superficial femoral artery became occluded. He was admitted and placed on heparin drip. s/p right femoral exploration, bypass graft ligation and partial removal on 12/31 s/p Removal of infected femoral popliteal bypass graft on 01/03 s/p Rt groin debridement/Wound vac placement as per Dr Sanchez 01/08/19. s/p Right Femoral Exploration and Wound Debridement, Right Femoral Major Artery Angioplasty on 01/14 On heparin drip for anticoagulation and await recommendations from vascular surgery on when to restart eliquis. 2) Right groin mass/abscess with infected graft S/P Rt groin abscess drainage 12/27/[address] Sanchez. Wound culture notable for MSSA, repeat cultures from 12/31 notable for Coag Neg Staph 01/14 cultures notable for Staph Epi ; IV Vancomycin transitioned to cephalosporin for empiric coverage - duration of antibiotic unknown. 01/22 patient developed hematoma adjacent to graft - management per vasc surgery. 3) Acute Kidney Injury -stable - no worsening Likely 2/2 Decreased PO Intake Increase in Vanco Trough levels Vanco D/C'd IVF Hydration ordered Renal U/S with abnormalities - (unable to do contrast CT due to DEVON) Hold Nephrotoxins We will cont to monitor the patient at this time 4) History of paroxysmal AFIB Continue on on metoprolol BID On heparin drip for anticoagulation at this time , change to eliquis when ok with vasc surgery 5) History of neuropathy Continue amitriptyline, tizanidine, gabapentin Disposition - pending outcome of vascular surgery VS,Fishbone, I+O VS, Fishbone, I+O Laboratory Tests 01/23/19 07:18 Red Blood Count 3.24 L, Mean Corpuscular Volume 82.4, Mean Corpuscular Hemoglobin 25.9 L, Mean Corpuscular Hemoglobin Concent 31.5 L, Red Cell Distribution Width 14.3, Calcium Level 9.1 Vital Signs Date Time Temp Pulse Resp B/P (MAP) Pulse Ox O2 Delivery O2 Flow Rate FiO2 01/23/19 12:06 18 01/23/19 09:01 74 143/73 01/23/19 06:00 97.2 99 I&O- Last 24 Hours up to 6 AM 01/23/19 06:00 Intake Total 1260 ml Output Total 2150 ml Balance -890 ml JOSE ORONA DO Jan 23, 2019 19:09
[2019-01-23] MEDS: fentaNYL 100 MCG/2 ML INJECTION (J3010) IV PRN ×4 (19:15→19:45)
[2019-01-23] MEDS ORDERED: LABETALOL HCL 100 MG/20 ML VIAL As Ordered ONE (19:39)
[2019-01-23] MEDS: LABETALOL HCL 100 MG/20 ML VIAL IV SCH ×3 (19:40→19:50)
[2019-01-23] MEDS ORDERED: HYDROMORPHONE HCL 0.5 MG/ 0.5 ML SYRINGE (J1170 PER 1) IV PRN (19:45)
[2019-01-23] MEDS ORDERED: LR 1,000 ML IV SCH (19:45)
[2019-01-23] MEDS ORDERED: ONDANSETRON 4MG/2ML VIAL (J2405) IV PRN (19:45)
[2019-01-23 20:55] VITALS: BP 145/83
[2019-01-23] MEDS: DOCUSATE SODIUM 100 MG CAP PO SCH (21:00)
[2019-01-23] MEDS ORDERED: hydrALAZINE INJ 20 MG/ML VIAL IV SCH (21:00)
[2019-01-23 21:22] VITALS: BP_SYST 141; BP_SYST 145; BP_DIAS 81
[2019-01-23] MEDS: HYDROmorphone HCL 2 MG/ML 1ML VIAL (J1170) IV PRN (21:27)
[2019-01-23] MEDS: AMITRIPTYLINE 10 MG TAB PO SCH (21:29)
[2019-01-23 22:00] VITALS: BP 144/81
[2019-01-23 23:00] VITALS: BP 144/79
[2019-01-24] VITALS: BP 140/77
[2019-01-24 01:00] VITALS: BP 141/83
[2019-01-24] MEDS: CEFTAROLINE FOSAMIL 400 MG in D5W MINI-BAG PLUS 50 ML IV SCH ×2 (01:20→12:49)
[2019-01-24] MEDS: LATANOPROST 0.005% OPHTH SOLN 2.5 ML OU SCH ×2 (01:55→20:19)
[2019-01-24] MEDS: tiZANidine 4 MG TAB PO PRN (01:56)
[2019-01-24] MEDS: DAKIN'S 0.25% HALF-STRENGTH SOLN 480 ML TOP SCH ×5 (01:56→20:20)
[2019-01-24] MEDS: HYDROmorphone HCL 2 MG/ML 1ML VIAL (J1170) IV PRN ×5 (01:57→20:19)
[2019-01-24 02:00] VITALS: BP 140/87
[2019-01-24] MEDS: NS 1,000 ML IV SCH ×2 (04:30→05:56)
[2019-01-24 05:30] VITALS: BP 98/65
[2019-01-24] MEDS: SLF 3 ML SYR IV SCH ×3 (05:38→20:19)
[2019-01-24 06:41] LABS: HEMATOCRIT 24.1 % (42.0-52.0); HEMOGLOBIN 7.6 g/dl (13.5-17.5); MEAN CORPUSCULAR HEMOGLOBIN 26.7 pg (27.0-33.0); MEAN CORPUSCULAR HGB CONC 31.5 g/dl (32.0-36.5); MEAN CORPUSCULAR VOLUME 84.6 fl (80.0-96.0); PLATELET COUNT, AUTOMATED 528 10^3/uL (150-450); RED BLOOD COUNT 2.85 10^6/uL (4.30-6.10); WHITE BLOOD COUNT 10.1 10^3/uL (4.0-10.0)
[2019-01-24 06:56] LABS: CALCIUM LEVEL 8.9 MG/DL (8.5-10.1); CREATININE FOR GFR 1.84 MG/DL (0.70-1.30); GLOMERULAR FILTRATION RATE 48.8 (>56); POTASSIUM SERUM 3.8 MEQ/L (3.5-5.1)
[2019-01-24] MEDS: METOPROLOL TART 25 MG TABLET PO SCH ×2 (07:58→20:17)
[2019-01-24] MEDS: SENNA 8.6 MG TAB (SENOKOT) PO SCH ×2 (07:59→20:17)
[2019-01-24] MEDS: BRIMONIDINE 0.1% OPHTH SOLN 5 ML OU SCH (07:59)
[2019-01-24] MEDS ORDERED: NS 500 ML IV ONE (08:15)
--- NOTE | 2019-01-24 09:39 | IPNPDOC ---
Date Seen The patient was seen on 01/24/19. Progress Note Vascular Surgery Dr Sanchez HPI: 58yoM with severe BLE PVD, with h/o L EIA stenting followed shortly thereafter by a left to right femfem bypass, s/p Rt Fem Pop bypass 10/29/[address] Sanchez. Pt admitted 12/25 with vascular graft infection. Vascular surgery was consulted. The pt states he is still having pain in RLE/foot. He is sitting up in bed and eating breakfast, watching TV. States he feels sore. Denies any fevers, chills, Headache, Chest Pain, Shortness of breath, cough, palpitations, abdominal pain, N/V/D or changes in bowel or bladder habits. PAST MEDICAL HISTORY: PAD Hypertension HLD anxiety depression glaucoma allergic rhinitis PAST SURGICAL HISTORY: skin graft L EIA stenting L to R femfem bypass Rt fem pop bypass PE: GEN: 58yoM, appears stated age. HEENT: Normocephalic, atraumatic. Moist mucous membranes. CHEST: Regular rate and rhythm, +S1, +S2 LUNGS: Clear to auscultation bilaterally. No wheezes, rales, or rhonchi. ABD: Round, soft, non-tender, non-distended. EXT: Rt groin with dressing intact, no drainage is noted. Rt thigh dressing intact, no drainage, no TTP. There is a dressing Rt posterior and anterior chest area, no drainage noted. No lower extremity edema appreciated. No calf TTP, swelling. Rt foot is warm to touch, toes warm, cap refill <3secs. DP/PT pulses are monophasic with doppler. NEURO: Alert and oriented x 3. No focal deficits appreciated. A&P: PAD with h/o L EIA stenting followed by a left to right femfem bypass, s/p Rt Fem Pop bypass 10/29/[address] Sanchez. S/P Rt groin abscess drainage 12/27/[address] Sanchez. S/P right femoral exploration, bypass graft ligation and partial removal 12/31/[address] Sanchez. S/P removal of infected graft 01/03/[address] Sanchez. S/P Rt groin debridement/Wound vac placement as per Dr Sanchez 01/08/19. Status post right femoral exploration, right femoral angioplasty, right femoral wound debridement 01/14/[address] Sanchez. POD1 Rt axillary-Profunda Bypass as per Dr Sanchez 01/23/19. Pt is reviewed with Dr Sanchez this AM, Dr Sanchez aware wound Rt groin, wet to dry dressing changes with Dakins Q6hr contd. IV Ceftaroline as per medicine svc. IV Heparin gtt per protocol. Per Dr Sanchez the pt can restart Eliquis today at which alisha Heparin gtt can be d/cd. OK for PT/OT/D/C planning possibly consider ARU screen. Plan is reviewed with Dr Paula this Am. DEVON Mgmt as per Med svc. IVF as per medicine svc. Renal U/S as above Bladder Scan Avoid Nephrotoxins Scr 1.84 PAF. The patient has history of AFIB and he was on eliquis but stopped taking medicat ion. Metoprolol as per primary team. Eliquis on hold. Heparin gtt currently. VS, I&O, 24H, Fishbone Vital Signs/I&O Vital Signs Date Time Temp Pulse Resp B/P (MAP) Pulse Ox O2 Delivery O2 Flow Rate FiO2 01/24/19 08:23 18 01/24/19 07:58 74 119/71 01/24/19 05:30 97.2 97 01/23/19 19:50 2 I&O- Last 24 Hours up to 6 AM 01/24/19 06:00 Intake Total 3578 ml Output Total 2500 ml Balance 1078 ml Laboratory Data 24H LABS Laboratory Tests 2 01/24/19 06:09: Nucleated Red Blood Cells % (auto) 0.0, Activated Partial Thromboplast Time 83.3H, Anion Gap 7L, Glomerular Filtration Rate 48.8L, Blood Urea Nitrogen 8, Creatinine 1.84H, Sodium Level 139, Potassium Level 3.8, Chloride Level 107, Carbon Dioxide Level 25, Calcium Level 8.9 CBC/BMP Laboratory Tests 01/24/19 06:09 Red Blood Count 2.85 L, Mean Corpuscular Volume 84.6, Mean Corpuscular Hemoglobin 26.7 L, Mean Corpuscular Hemoglobin Concent 31.5 L, Red Cell Distribution Width 14.2, Calcium Level 8.9 Microbiology Microbiology 01/23/19 Stool Occult Blood (SASCHA) - Final, Complete 01/21/19 Stool Occult Blood (SASCHA) - Final, Complete 01/19/19 Stool Occult Blood (SASCHA) - Final, Complete 01/18/19 Stool Occult Blood (SASCHA) - Final, Complete 01/15/19 Stool Occult Blood (SASCHA) - Final, Complete 01/14/19 Gram Stain - Final, Complete 01/14/19 Surgical Biopsy Culture - Final, Complete Staphylococcus Epidermidis Staphylococcus Epidermidis#2 Jo Ann Herrera Jan 24, 2019 09:39
[2019-01-24] MEDS: APIXABAN 5 MG TAB (ELIQUIS) PO SCH ×2 (12:50→20:18)
[2019-01-24 14:00] VITALS: BP 134/72
--- NOTE | 2019-01-24 18:09 | IPNPDOC ---
Text Note Date of Service The patient was seen on 01/24/19. NOTE S: patient had revascularization yesterday. States still with leg throbbing pain but no longer "cold" feeling. He is using ice pack on right dorsum of foot. no CP, no SOB O: Vitals as below General: pleasant , mild distress, AAOx3 Heart - irreg/irreg at 65 bpm LCTA no W/R/R Ext: no edema to ankles; warm feet bilaterally A/P: 1) PAD - patient had Rt fem profunda bypass procedure this afternoon 01/23/19; report pending He had previous right fempop bypass 10/29/18 and stopped taking eliquis. the grafe of right superficial femoral artery became occluded. He was admitted and placed on heparin drip. s/p right femoral exploration, bypass graft ligation and partial removal on 12/31 s/p Removal of infected femoral popliteal bypass graft on 01/03 s/p Rt groin debridement/Wound vac placement as per Dr Sanchez 01/08/19. s/p Right Femoral Exploration and Wound Debridement, Right Femoral Major Artery Angioplasty on 01/14 s/p Right axillary profunda bypass 01/23/19 D/C heparin ana rosa goins and restart eliquis. PT/OT consult pending for disposition. will need to follow up gabino Sanchez in 1 week for post op evaluation. 2) Right groin mass/abscess with infected graft S/P Rt groin abscess drainage 12/27/[address] Sanchez. Wound culture notable for MSSA, repeat cultures from 12/31 notable for Coag Neg Staph 01/14 cultures notable for Staph Epi ; IV Vancomycin transitioned to cephalosporin for empiric coverage - 01/22 patient developed hematoma adjacent to graft - management per vasc surgery. Dr Sanchez recommends continuing IV antibitoic until discharged, then augmentin x 7 more days until seen in follow up. 3) Acute Kidney Injury -stable - no worsening Likely 2/2 Decreased PO Intake Increase in Vanco Trough levels Vanco D/C'd IVF Hydration ordered Renal U/S with abnormalities - (unable to do contrast CT due to DEVON) Hold Nephrotoxins We will cont to monitor the patient at this time 4) History of paroxysmal AFIB Continue on on metoprolol BID On heparin drip for anticoagulation at this time , change to eliquis when ok nicolas th vasc surgery 5) History of neuropathy Continue amitriptyline, tizanidine, gabapentin Disposition: awaiting evaluation by PT/OT . Will be medically stable for discharge tomorrow VSHeavenly, I+O VSHeavenly, I+O Laboratory Tests 01/24/19 06:09 Red Blood Count 2.85 L, Mean Corpuscular Volume 84.6, Mean Corpuscular Hemoglobin 26.7 L, Mean Corpuscular Hemoglobin Concent 31.5 L, Red Cell Distribution Width 14.2, Calcium Level 8.9 Vital Signs Date Time Temp Pulse Resp B/P (MAP) Pulse Ox O2 Delivery O2 Flow Rate FiO2 01/24/19 08:23 18 01/24/19 07:58 74 119/71 01/24/19 05:30 97.2 97 01/23/19 19:50 2 I&O- Last 24 Hours up to 6 AM 01/24/19 06:00 Intake Total 3970 ml Output Total 2500 ml Balance 1470 ml JOSE ORONA DO Jan 24, 2019 11:11
[2019-01-24] MEDS: DOCUSATE SODIUM 100 MG CAP PO SCH (20:17)
[2019-01-24] MEDS: AMITRIPTYLINE 10 MG TAB PO SCH (20:18)
[2019-01-24 22:00] VITALS: BP 128/70
[2019-01-25] MEDS: CEFTAROLINE FOSAMIL 400 MG in D5W MINI-BAG PLUS 50 ML IV SCH ×2 (00:15→12:30)
[2019-01-25] MEDS: HYDROMORPHONE HCL 0.5 MG/ 0.5 ML SYRINGE (J1170 PER 1) IV PRN ×5 (00:15→21:37)
[2019-01-25 02:00] VITALS: BP 105/65
[2019-01-25] MEDS: HYDROmorphone HCL 2 MG/ML 1ML VIAL (J1170) IV PRN (05:33)
[2019-01-25] MEDS: SLF 3 ML SYR IV SCH ×3 (05:36→21:38)
[2019-01-25 06:00] VITALS: BP 124/81
[2019-01-25 07:16] LABS: HEMOGLOBIN 8.4 g/dl (13.5-17.5); MEAN CORPUSCULAR HEMOGLOBIN 26.5 pg (27.0-33.0); MEAN CORPUSCULAR HGB CONC 31.1 g/dl (32.0-36.5); MEAN CORPUSCULAR VOLUME 85.2 fl (80.0-96.0); PLATELET COUNT, AUTOMATED 549 10^3/uL (150-450); RED BLOOD COUNT 3.17 10^6/uL (4.30-6.10)
[2019-01-25 07:44] LABS: ALBUMIN 2.6 GM/DL (3.2-5.2); BILIRUBIN,TOTAL 0.2 MG/DL (0.2-1.0); CALCIUM LEVEL 8.9 MG/DL (8.5-10.1); CREATININE FOR GFR 1.91 MG/DL (0.70-1.30); GLOMERULAR FILTRATION RATE 46.8 (>56); POTASSIUM SERUM 4.1 MEQ/L (3.5-5.1)
[2019-01-25] MEDS: SENNA 8.6 MG TAB (SENOKOT) PO SCH ×2 (09:50→21:37)
[2019-01-25] MEDS: APIXABAN 5 MG TAB (ELIQUIS) PO SCH ×2 (09:50→21:38)
[2019-01-25] MEDS: BRIMONIDINE 0.1% OPHTH SOLN 5 ML OU SCH (09:51)
[2019-01-25] MEDS: METOPROLOL TART 25 MG TABLET PO SCH ×2 (09:51→21:37)
[2019-01-25] MEDS: DAKIN'S 0.25% HALF-STRENGTH SOLN 480 ML TOP SCH ×4 (09:51→21:38)
[2019-01-25 14:00] VITALS: BP 130/68
[2019-01-25] MEDS: DOCUSATE SODIUM 100 MG CAP PO SCH (21:38)
[2019-01-25] MEDS: AMITRIPTYLINE 10 MG TAB PO SCH (21:38)
[2019-01-25] MEDS: LATANOPROST 0.005% OPHTH SOLN 2.5 ML OU SCH (21:38)
[2019-01-25 22:00] VITALS: BP 125/80
[2019-01-26] MEDS: HYDROMORPHONE HCL 0.5 MG/ 0.5 ML SYRINGE (J1170 PER 1) IV PRN ×5 (00:41→16:06)
[2019-01-26] MEDS: CEFTAROLINE FOSAMIL 400 MG in D5W MINI-BAG PLUS 50 ML IV SCH ×2 (00:41→12:14)
[2019-01-26 02:00] VITALS: BP 130/69
[2019-01-26] MEDS: SLF 3 ML SYR IV SCH ×3 (05:25→20:46)
[2019-01-26 06:00] VITALS: BP 127/78
--- NOTE | 2019-01-26 07:43 | IPNPDOC ---
Text Note Date of Service The patient was seen on 01/25/19. NOTE S:patient states still with leg pain, back pain and generalized myalgias. Has covers pulled over his head. states "I don't want to go home if the pain is not gone" O: Vitals as below General: NAD, AAOx3, flat affect Heart - irreg/irreg LCTA Ext: no ankle edema; bilateral legs warm to touch ; right arm bandage intact; radial pulse intact A/P: 1) PAD - patient had Rt fem profunda bypass procedure this afternoon 01/23/19; report pending He had previous right fempop bypass 10/29/18 and stopped taking eliquis. the grafe of right superficial femoral artery became occluded. He was admitted and placed on heparin drip. s/p right femoral exploration, bypass graft ligation and partial removal on 12/31 s/p Removal of infected femoral popliteal bypass graft on 01/03 s/p Rt groin debridement/Wound vac placement as per Dr Sanchez 01/08/19. s/p Right Femoral Exploration and Wound Debridement, Right Femoral Major Artery Angioplasty on 01/14 s/p Right axillary profunda bypass 01/23/19 PT/OT consult pending for disposition. will need to follow up with DR Sanchez in 1 week for post op evaluation. 2) Right groin mass/abscess with infected graft S/P Rt groin abscess drainage 12/27/[address] Sanchez. Wound culture notable for MSSA, repeat cultures from 12/31 notable for Coag Neg Staph 01/14 cultures notable for Staph Epi ; IV Vancomycin transitioned to cephalosporin for empiric coverage - 01/22 patient developed hematoma adjacent to graft - management per vasc surgery. Dr Sanchez recommends continuing IV antibitoic until discharged, then augmentin x 7 more days until seen in follow up. 3) Acute Kidney Injury -stable - no worsening Likely 2/2 Decreased PO Intake Increase in Vanco Trough levels Vanco D/C'd IVF Hydration ordered Renal U/S with abnormalities - (unable to do contrast CT due to DEVON) Hold Nephrotoxins We will cont to monitor the patient at this time 4) History of paroxysmal AFIB Continue on on metoprolol BID On heparin drip for anticoagulation at this time , change to eliquis when ok with vasc surgery 5) History of neuropathy Continue amitriptyline, tizanidine, gabapentin Disposition: awaiting evaluation by PT/OT ROBERTH,Heavenly, I+O VS, Heavenly I+O Laboratory Tests 01/25/19 05:33 Red Blood Count 3.17 L, Mean Corpuscular Volume 85.2, Mean Corpuscular Hemoglobin 26.5 L, Mean Corpuscular Hemoglobin Concent 31.1 L, Red Cell Distribution Width 14.4, Calcium Level 8.9, Aspartate Amino Transf (AST/SGOT) 19, Alanine Aminotransferase (ALT/SGPT) 20, Alkaline Phosphatase 84, Total Bilirubin 0.2, Total Protein 6.0 L, Albumin 2.6 L Vital Signs Date Time Temp Pulse Resp B/P (MAP) Pulse Ox O2 Delivery O2 Flow Rate FiO2 01/25/19 18:27 18 01/25/19 14:00 97.2 80 130/68 (88) 97 01/23/19 19:50 2 I&O- Last 24 Hours up to 6 AM 01/25/19 05:59 Intake Total 2555 ml Output Total 2250 ml Balance 305 ml JOSE ORONA DO Jan 25, 2019 19:55
[2019-01-26] MEDS: SENNA 8.6 MG TAB (SENOKOT) PO SCH ×2 (09:37→20:44)
[2019-01-26] MEDS: APIXABAN 5 MG TAB (ELIQUIS) PO SCH ×2 (09:37→20:44)
[2019-01-26] MEDS: DAKIN'S 0.25% HALF-STRENGTH SOLN 480 ML TOP SCH ×4 (09:41→20:45)
[2019-01-26] MEDS: BRIMONIDINE 0.1% OPHTH SOLN 5 ML OU SCH (09:41)
[2019-01-26] MEDS: METOPROLOL TART 25 MG TABLET PO SCH ×2 (09:41→20:44)
[2019-01-26 14:00] VITALS: BP 123/73
--- NOTE | 2019-01-26 16:52 | IPNPDOC ---
Text Note Date of Service The patient was seen on 01/26/19. NOTE S: patient watching TV. declining at talk or answer questions except with yes/no response or no response. no CP, no SOB, + leg pain O: Vitals as below General: sullen, laying in bed watching TV, no direct eye contact, not cooperative in answering questions Heart - irreg/irreg at 65 LCTA Ext: no edema; Skin: right chest wall dressing intact; left groin dressing intact no labs done today A/P: 1) PAD - patient had Rt fem profunda bypass procedure this afternoon 01/23/19; report pending He had previous right fempop bypass 10/29/18 and stopped taking eliquis. the grafe of right superficial femoral artery became occluded. He was admitted and placed on heparin drip. s/p right femoral exploration, bypass graft ligation and partial removal on 12/31 s/p Removal of infected femoral popliteal bypass graft on 01/03 s/p Rt groin debridement/Wound vac placement as per Dr Sanchez 01/08/19. s/p Right Femoral Exploration and Wound Debridement, Right Femoral Major Artery Angioplasty on 01/14 s/p Right axillary profunda bypass 01/23/19 PT/OT consult pending for disposition. will need to follow up with DR Sanchez in 1 week for post op evaluation. 2) Right groin mass/abscess with infected graft S/P Rt groin abscess drainage 12/27/[address] Sanchez. Wound culture notable for MSSA, repeat cultures from 12/31 notable for Coag Neg Staph 01/14 cultures notable for Staph Epi ; IV Vancomycin transitioned to cephalosporin for empiric coverage - 01/22 patient developed hematoma adjacent to graft - management per vasc surgery. Dr Sanchez recommends continuing IV antibiotic (cefepime) until discharged, then Augmentin x 7 more days until seen in follow up. 3) Acute Kidney Injury -stable - no worsening Likely 2/2 Decreased PO Intake Increase in Vanco Trough levels Vanco D/C'd IVF Hydration ordered Renal U/S with abnormalities - (unable to do contrast CT due to DEVON) Hold Nephrotoxins We will cont to monitor the patient at this time 4) History of paroxysmal AFIB Continue on on metoprolol BID On heparin drip for anticoagulation at this time , change to eliquis when ok with vasc surgery 5) History of neuropathy Continue amitriptyline, tizanidine, gabapentin Disposition: awaiting evaluation by PT/OT Current Medications Medications (Trade) Dose Ordered Sig/Anastacio Route PRN Reason Start Time Stop Time Status Last Admin Dose Admin Amitriptyline HCl (Elavil) 10 mg QHS PO 12/25/18 21:00 01/25/19 21:38 Amlodipine Besylate (Norvasc) 2.5 mg BID PO 01/07/19 21:00 01/26/19 09:40 Apixaban (Eliquis) 5 mg BID PO 12/27/18 21:00 12/29/18 07:36 DC 12/28/18 19:53 Apixaban (Eliquis) 5 mg BID PO 01/24/19 09:00 01/26/19 09:37 Brimonidine Tartrate (Alphagan P 0.1%) 1 drop DAILY OU 12/25/18 09:00 01/26/19 09:41 Cefepime HCl 2 gm/ Dextrose 50 ml @ 100 mls/hr Q8H IV 12/26/18 01:00 01/03/19 11:02 DC 01/03/19 08:53 Ceftaroline Fosamil 400 mg/ Dextrose 50 ml @ 50 mls/hr Q12H IV 01/20/19 12:00 01/26/19 12:14 Clindamycin HCl (Cleocin) 300 mg Q8H PO 01/03/19 14:00 01/11/19 12:11 DC 01/11/19 06:02 Docusate Sodium (Colace) 100 mg QHS PO 12/25/18 21:00 01/25/19 21:38 Fentanyl Citrate (Sublimaze) 25 mcg Q5MP PRN IV MODERATE PAIN (PS 4-7) 12/31/18 13:45 12/31/18 14:45 DC Fentanyl Citrate (Sublimaze) 25 mcg Q5MP PRN IV MODERATE PAIN (PS 4-7) 01/03/19 14:45 01/03/19 15:26 DC 01/03/19 14:57 Fentanyl Citrate (Sublimaze) 25 mcg Q5MP PRN IV MODERATE PAIN (PS 4-7) 01/08/19 17:30 01/08/19 18:30 DC Fentanyl Citrate (Sublimaze) 25 mcg Q5MP PRN IV MODERATE PAIN (PS 4-7) 01/23/19 19:45 01/23/19 20:46 DC 01/23/19 19:45 Fentanyl Citrate (Sublimaze) 25 mcg Q5MP PRN IV MODERATE PAIN (PS 4-7) 01/14/19 20:15 01/14/19 21:15 DC Fluticasone Propionate (Flonase 0.05% Nasal [place]) 2 spray DAILY PRN NARES CONGESTION 12/25/18 16:15 Gabapentin (Neurontin) 100 mg TID PO 01/17/19 16:00 01/18/19 08:05 DC Heparin Sodium (Porcine) (Heparin) ASDIRECTED PRN IV SEE LABEL COMMENTS 12/29/18 07:45 01/24/19 11:13 DC 01/21/19 17:35 Heparin Sodium (Porcine) (Heparin) 5,000 units Q12H SC 12/25/18 21:00 12/25/18 21:00 DC Heparin Sodium (Porcine) 92100 units/IV Miscellaneous Supplies 250 ml @ 0 mls/hr Q0M IV 12/29/18 09:00 01/24/19 11:13 DC 01/23/19 21:26 Home Med (Med Rec Complete!) ASDIRECTED XX 12/25/18 13:00 12/25/18 13:00 DC Hydralazine HCl (Apresoline) 5 mg ASDIRECTED IV 01/23/19 21:00 01/23/19 22:00 DC Hydralazine HCl (Apresoline) 5 mg Q5M IV 12/31/18 14:15 12/31/18 15:15 DC 12/31/18 14:20 Hydromorphone HCl (Dilaudid) 0.2 mg Q5MP PRN IV MODERATE/SEVERE PAIN (PS 5-10) 01/23/19 19:45 01/23/19 20:46 DC Hydromorphone HCl (Dilaudid) 0.2 mg Q5MP PRN IV MODERATE/SEVERE PAIN (PS 5-10) 01/14/19 20:15 01/14/19 20:29 DC 01/14/19 20:17 Hydromorphone HCl (Dilaudid) 1 mg Q3HP PRN IV MILD PAIN (PS 1-4) 01/18/19 08:15 01/26/19 16:06 Hydromorphone HCl (Dilaudid) 1.6 mg Q3HP PRN IV MODERATE/SEVERE PAIN (PS 5-10) 01/18/19 08:15 01/25/19 08:14 DC 01/25/19 05:33 Labetalol HCl (Normodyne, Trandate) 5 mg ASDIRECTED IV 01/23/19 21:00 01/23/19 22:00 DC 01/23/19 19:50 Labetalol HCl (Normodyne, Trandate) 5 mg Q5M IV 01/03/19 14:45 01/03/19 15:06 DC 01/03/19 14:45 Labetalol HCl (Normodyne, Trandate) 5 mg Q5M IV 01/08/19 17:30 01/08/19 18:30 DC 01/08/19 17:36 Lactated Ringer's 1,000 ml @ 75 mls/hr [id number] IV 01/03/19 14:45 01/03/19 15:45 DC 01/03/19 14:24 Lactated Ringer's 1,000 ml @ 100 mls/hr Q10H IV 12/31/18 13:45 12/31/18 14:45 DC Lactated Ringer's 1,000 ml @ 100 mls/hr Q10H IV 01/08/19 17:30 01/08/19 18:30 DC Lactated Ringer's 1,000 ml @ 100 mls/hr Q10H IV 01/23/19 19:45 01/23/19 20:46 DC Latanoprost (Xalatan 0.005% Op Soln) 1 drop QHS OU 12/25/18 21:00 01/25/19 21:38 Magnesium Hydroxide (Milk Of Magnesia) 30 ml DAILYPRN PRN PO CONSTIPATION 01/04/19 13:00 Metoclopramide HCl (REGLAN INJection) 10 mg Q6HP PRN IV NAUSEA OR VOMITING 12/31/18 13:45 12/31/18 14:45 DC Metoclopramide HCl (REGLAN INJection) 10 mg Q6HP PRN IV NAUSEA OR VOMITING 01/08/19 17:30 01/08/19 18:30 DC Metoprolol Tartrate (Lopressor) 1 mg ASDIRECTED IV 01/14/19 20:15 01/14/19 21:15 DC Metoprolol Tartrate (Lopressor) 5 mg STAT STAT IV 12/26/18 00:12 12/26/18 00:18 DC 12/26/18 00:32 Metoprolol Tartrate (Lopressor) 5 mg STAT STAT IV 12/27/18 17:58 12/27/18 17:59 DC 12/27/18 18:10 Metoprolol Tartrate (Lopressor) 12.5 mg BID PO 12/26/18 09:00 UNV Metoprolol Tartrate (Lopressor) 25 mg BID PO 12/26/18 09:00 12/26/18 18:01 DC 12/26/18 09:17 Metoprolol Tartrate (Lopressor) 50 mg BID PO 12/26/18 21:00 12/28/18 12:04 DC 12/28/18 08:07 Metoprolol Tartrate (Lopressor) 75 mg BID PO 12/28/18 21:00 12/29/18 09:47 DC 12/28/18 19:52 Metoprolol Tartrate (Lopressor) 75 mg BID PO 12/29/18 09:00 01/26/19 09:41 Miscellaneous (Unresolved Clarification Entry) SEE LABEL COMMENTS DAILY XX 01/04/19 09:00 01/04/19 09:38 DC Miscellaneous (Unresolved Clarification Entry) SEE LABEL COMMENTS DAILY XX 01/05/19 09:00 01/05/19 09:00 DC Miscellaneous (Unresolved Clarification Entry) SEE LABEL COMMENTS DAILY XX 01/09/19 09:00 01/09/19 15:00 DC Morphine Sulfate (Morphine Sulfate Inj) 1 mg Q4HP PRN IV PAIN 12/27/18 09:00 12/29/18 03:01 DC 12/29/18 00:38 Morphine Sulfate (Morphine Sulfate Inj) 2 mg Q2HP PRN IV PAIN 01/07/19 21:15 01/10/19 13:22 DC 01/10/19 12:40 Morphine Sulfate (Morphine Sulfate Inj) 2 mg Q4HP PRN IV PAIN 12/29/18 03:00 01/07/19 21:16 DC 01/07/19 20:56 Morphine Sulfate (Morphine Sulfate Inj) 4 mg Q3HP PRN IV PAIN 01/10/19 13:30 01/18/19 08:05 DC 01/18/19 04:10 Non-Formulary Medication (Heparin Iv Rate Change Documentation ml/ Hr) ASDIRECTED XX 12/29/18 07:45 01/03/19 07:44 DC 01/02/19 06:05 Non-Formulary Medication (Heparin Iv Rate Change Documentation ml/ Hr) ASDIRECTED XX 01/18/19 08:15 01/23/19 08:14 DC 01/22/19 00:59 Ondansetron HCl (ZOFRAN INJection) 4 mg Q4HP PRN IV NAUSEA OR VOMITING 12/27/18 12:00 12/27/18 13:00 DC Ondansetron HCl (ZOFRAN INJection) 4 mg Q4HP PRN IV NAUSEA OR VOMITING 12/31/18 13:45 12/31/18 14:45 DC Ondansetron HCl (ZOFRAN INJection) 4 mg Q4HP PRN IV NAUSEA OR VOMITING 01/03/19 14:45 01/03/19 15:45 DC Ondansetron HCl (ZOFRAN INJection) 4 mg Q4HP PRN IV NAUSEA OR VOMITING 01/08/19 17:30 01/08/19 18:30 DC Ondansetron HCl (ZOFRAN INJection) 4 mg Q4HP PRN IV NAUSEA OR VOMITING 01/23/19 19:45 01/23/19 20:46 DC Ondansetron HCl (ZOFRAN INJection) 4 mg Q4HP PRN IV NAUSEA OR VOMITING 01/14/19 20:15 01/14/19 21:15 DC Oxycodone HCl (Roxicodone, Oxyir) 5 mg ASDIRECTED PRN PO MILD/MODERATE PAIN (PS 1-7) 12/27/18 12:00 12/27/18 13:00 DC 12/27/18 11:55 Oxycodone HCl (Roxicodone, Oxyir) 5 mg ASDIRECTED PRN PO MILD/MODERATE PAIN (PS 1-7) 01/03/19 14:45 01/03/19 15:45 DC 01/03/19 14:37 Oxycodone HCl (Roxicodone, Oxyir) 5 mg Q4HP PRN PO PAIN 12/26/18 15:38 12/29/18 03:01 DC 12/28/18 22:33 Oxycodone HCl (Roxicodone, Oxyir) 5 mg Q6HP PRN PO PAIN 12/25/18 16:15 12/26/18 15:40 DC 12/26/18 10:50 Oxycodone/ Acetaminophen (Percocet 5mg/ 325mg Tablet) 1 tab ASDIRECTED PRN PO MILD/MODERATE PAIN (PS 1-7) 12/31/18 13:45 12/31/18 14:10 DC 12/31/18 14:05 Oxycodone/ Acetaminophen (Percocet 5mg/ 325mg Tablet) 1 tab ASDIRECTED PRN PO MILD/MODERATE PAIN (PS 1-7) 01/08/19 17:30 01/08/19 18:30 DC Oxycodone/ Acetaminophen (Percocet 5mg/ 325mg Tablet) 1 tab ASDIRECTED PRN PO MILD/MODERATE PAIN (PS 1-7) 01/14/19 20:15 01/14/19 21:15 DC Oxycodone/ Acetaminophen (Percocet 5mg/ 325mg Tablet) 1 tab Q4HP PRN PO MILD/MODERATE PAIN (PS 1-7) 01/01/19 16:00 01/18/19 08:05 DC 01/17/19 21:12 Oxycodone/ Acetaminophen (Percocet 5mg/ 325mg Tablet) 1 tab Q6HP PRN PO SEVERE PAIN (PS 8-10) 12/29/18 03:00 01/01/19 13:20 DC 01/01/19 12:08 Piperacillin Sod/ Tazobactam Sod 3.375 gm/Dextrose 50 ml @ 50 mls/hr Q6H IV 01/15/19 15:00 01/17/19 11:36 DC 01/17/19 08:25 Senna (Senokot) 2 tab BID PO 01/04/19 09:00 01/26/19 09:37 Sodium Hypochlorite (Dakin'S Solution) 10ML dakins wet to dry... QID TOP 01/21/19 17:00 01/26/19 16:06 Sodium Chloride 1,000 ml @ 100 mls/hr Q10H IV 01/20/19 10:30 01/24/19 11:13 DC 01/24/19 05:56 Sodium Chloride (Saline Lock Flush) 2 ml ASDIRECTED PRN IV SEE LABEL COMMENTS 12/27/18 08:45 01/17/19 06:30 Sodium Chloride (Saline Lock Flush) 2 ml SLF IV 12/27/18 14:00 01/26/19 14:56 Tizanidine HCl (Zanaflex) 4 mg TID PRN PO MUSCLE SPASMS 12/25/18 16:15 01/24/19 01:56 Vancomycin HCl 750 mg/IV Miscellaneous Supplies 1 each/ Dextrose 275 ml @ 275 mls/hr Q12H IV 01/19/19 22:00 01/20/19 10:37 DC 01/19/19 22:20 Vancomycin HCl 1000 mg/IV Miscellaneous Supplies 1 each/ Dextrose 270 ml @ 270 mls/hr Q12H IV 01/18/19 20:00 01/19/19 20:43 DC 01/19/19 08:00 Vancomycin HCl 1000 mg/IV Miscellaneous Supplies 1 each/ Dextrose 270 ml @ 270 mls/hr Q18H IV 01/17/19 15:00 01/18/19 09:59 DC 01/18/19 08:50 VS,Fishbone, I+O VS, Fishbone, I+O Vital Signs Date Time Temp Pulse Resp B/P (MAP) Pulse Ox O2 Delivery O2 Flow Rate FiO2 01/26/19 16:06 18 01/26/19 14:00 97.9 77 123/73 (90) 98 01/23/19 19:50 2 I&O- Last 24 Hours up to 6 AM 01/26/19 06:00 Intake Total 906 ml Output Total 1750 ml Balance -844 ml JOSE ORONA DO Jan 26, 2019 16:52
[2019-01-26] MEDS: DOCUSATE SODIUM 100 MG CAP PO SCH (20:44)
[2019-01-26] MEDS: AMITRIPTYLINE 10 MG TAB PO SCH (20:44)
[2019-01-26] MEDS: LATANOPROST 0.005% OPHTH SOLN 2.5 ML OU SCH (20:45)
[2019-01-26] MEDS: PERCOCET 5MG/325MG TAB PO PRN (20:46)
[2019-01-26] MEDS: tiZANidine 4 MG TAB PO PRN (20:51)
[2019-01-26 22:00] VITALS: BP 155/92
[2019-01-27] MEDS: HYDROMORPHONE HCL 0.5 MG/ 0.5 ML SYRINGE (J1170 PER 1) IV PRN ×3 (01:07→15:08)
[2019-01-27] MEDS: CEFTAROLINE FOSAMIL 400 MG in D5W MINI-BAG PLUS 50 ML IV SCH ×2 (01:07→12:09)
[2019-01-27] MEDS: PERCOCET 5MG/325MG TAB PO PRN ×3 (02:51→21:31)
[2019-01-27 06:00] VITALS: BP 154/71
[2019-01-27] MEDS: SLF 3 ML SYR IV SCH ×3 (06:04→21:39)
[2019-01-27] MEDS: APIXABAN 5 MG TAB (ELIQUIS) PO SCH ×2 (08:55→21:32)
[2019-01-27] MEDS: SENNA 8.6 MG TAB (SENOKOT) PO SCH ×2 (08:55→21:00)
[2019-01-27] MEDS: BRIMONIDINE 0.1% OPHTH SOLN 5 ML OU SCH (08:58)
[2019-01-27] MEDS: METOPROLOL TART 25 MG TABLET PO SCH ×2 (08:58→21:38)
[2019-01-27] MEDS: DAKIN'S 0.25% HALF-STRENGTH SOLN 480 ML TOP SCH ×4 (09:00→21:39)
--- NOTE | 2019-01-27 11:58 | IPNPDOC ---
Date Seen The patient was seen on 01/27/19. Progress Note Vascular Surgery Dr Sanchez HPI: 58yoM with severe BLE PVD, with h/o L EIA stenting followed shortly thereafter by a left to right femfem bypass, s/p Rt Fem Pop bypass 10/29/[address] Sanchez. Pt admitted 12/25 with vascular graft infection. Vascular surgery was consulted. The pt states he still has 8-10 level pain continually on RLE. Pt unable to state additional details and responds "It just hurts". Denies any fevers, chills, Headache, Chest Pain, Shortness of breath, cough, palpitations, abdominal pain, N/V/D or changes in bowel or bladder habits. PAST MEDICAL HISTORY: PAD Hypertension HLD anxiety depression glaucoma allergic rhinitis PAST SURGICAL HISTORY: skin graft L EIA stenting L to R femfem bypass Rt fem pop bypass PE: GEN: 58yoM, appears stated age. HEENT: Normocephalic, atraumatic. Moist mucous membranes. CHEST: Regular rate and rhythm, +S1, +S2 LUNGS: Clear to auscultation bilaterally. No wheezes, rales, or rhonchi. ABD: Round, soft, non-tender, non-distended. EXT: Rt groin with dressing intact, no drainage is noted. Rt thigh dressing intact, no drainage, no TTP. There is a dressing Rt posterior and anterior chest area, no drainage noted. No lower extremity edema appreciated. No calf TTP, swelling. Rt foot remains warm to touch, toes warm, cap refill <3secs. DP/PT pulses are monophasic with Doppler this AM. NEURO: Alert and oriented x 3. No focal deficits appreciated. A&P: PAD with h/o L EIA stenting followed by a left to right femfem bypass, s/p Rt Fem Pop bypass 10/29/[address] Sanchez. S/P Rt groin abscess drainage 12/27/[address] Sanchez. S/P right femoral exploration, bypass graft ligation and partial removal 12/31/[address] Sanchez. S/P removal of infected graft 01/03/[address] Sanchez. S/P Rt groin debridement/Wound vac placement as per Dr Sanchez 01/08/19. Status post right femoral exploration, right femoral angioplasty, right femoral wound debridement 01/14/[address] Sanchez. POD4 Rt axillary-Profunda Bypass as per Dr Sanchez 01/23/19. Pt is reviewed with Dr Sanchez this AM, Dr Sanchez aware wound Rt groin, wet to dry dressing changes with Dakins Q6hr contd. Plan for foam dressing daily at DC. IV Ceftaroline as per medicine svc. Eliquis po OK for PT/OT/D/C planning. Would recommend possibly consider Pain mgmt consultation. Pt reports Dilaudid/Percocet ineffective. DEVON Mgmt as per Med svc. IVF as per medicine svc. Renal U/S as above Bladder Scan Avoid Nephrotoxins Scr 1.91 PAF. The patient has history of AFIB and he was on eliquis but stopped taking medication. Metoprolol as per primary team. Eliquis restarted. VS, I&O, 24H, Fishbone Vital Signs/I&O Vital Signs Date Time Temp Pulse Resp B/P (MAP) Pulse Ox O2 Delivery O2 Flow Rate FiO2 01/27/19 09:12 16 01/27/19 08:58 82 156/97 01/27/19 06:00 97.4 97 01/23/19 19:50 2 I&O- Last 24 Hours up to 6 AM 01/27/19 05:59 Intake Total 2105 ml Output Total 1550 ml Balance 555 ml Laboratory Data Microbiology Microbiology 01/23/19 Stool Occult Blood (SASCHA) - Final, Complete 01/21/19 Stool Occult Blood (SASCHA) - Final, Complete 01/19/19 Stool Occult Blood (SASCHA) - Final, Complete 01/18/19 Stool Occult Blood (SASCHA) - Final, Complete Jo Ann Herrera Jan 27, 2019 11:58
[2019-01-27 14:00] VITALS: BP 149/84
[2019-01-27] MEDS: tiZANidine 4 MG TAB PO PRN (18:56)
--- NOTE | 2019-01-27 20:04 | IPNPDOC ---
Text Note Date of Service The patient was seen on 01/27/19. NOTE S: patient seen and examined at 0800. he states he doesn't want to talk today and still with pain. States wants to go back to sleep. O: Vitals as below General: sullen, NAD heart - irreg/irreg - rate controlled; chest wall bandage on right intact ext; no edema; - warm bilaterally A/P: A/P: 1) PAD - patient had Rt fem profunda bypass procedure this afternoon 01/23/19; report pending He had previous right fempop bypass 10/29/18 and stopped taking eliquis. the graft of right superficial femoral artery became occluded. He was admitted and placed on heparin drip. s/p right femoral exploration, bypass graft ligation and partial removal on 12/31 s/p Removal of infected femoral popliteal bypass graft on 01/03 s/p Rt groin debridement/Wound vac placement as per Dr Sanchez 01/08/19. s/p Right Femoral Exploration and Wound Debridement, Right Femoral Major Artery Angioplasty on 01/14 s/p Right axillary profunda bypass 01/23/19 PT/OT consult pending for disposition. will need to follow up with DR Sanchez in 1 week for post op evaluation. Start tapering off IV pain medications. 2) Right groin mass/abscess with infected graft S/P Rt groin abscess drainage 12/27/[address] Sanchez. Wound culture notable for MSSA, repeat cultures from 12/31 notable for Coag Neg Staph 01/14 cultures notable for Staph Epi ; IV Vancomycin transitioned to cephalosporin for empiric coverage - 01/22 patient developed hematoma adjacent to graft - management per vasc surgery. Dr Sanchez recommends continuing IV antibiotic (cefepime) until discharged, then Augmentin x 7 more days until seen in follow up. 3) Acute Kidney Injury -stable - no worsening Likely 2/2 Decreased PO Intake Increase in Vanco Trough levels Vanco D/C'd IVF Hydration ordered Renal U/S with abnormalities - (unable to do contrast CT due to DEVON) Hold Nephrotoxins We will cont to monitor the patient at this time 4) History of paroxysmal AFIB Continue on on metoprolol BID On heparin drip for anticoagulation at this time , change to eliquis when ok with vasc surgery 5) History of neuropathy Continue amitriptyline, tizanidine, gabapentin Disposition: awaiting evaluation by PT/OT ROBERTH,Heavenly, I+O VS, Heavenly, I+O Vital Signs Date Time Temp Pulse Resp B/P (MAP) Pulse Ox O2 Delivery O2 Flow Rate FiO2 01/27/19 15:18 18 01/27/19 14:00 97.9 65 149/84 (105) 100 01/23/19 19:50 2 I&O- Last 24 Hours up to 6 AM 01/27/19 06:00 Intake Total 2705 ml Output Total 1800 ml Balance 905 ml JOSE ORONA DO Jan 27, 2019 20:04
[2019-01-27] MEDS: DOCUSATE SODIUM 100 MG CAP PO SCH (21:00)
[2019-01-27] MEDS: AMITRIPTYLINE 10 MG TAB PO SCH (21:32)
[2019-01-27] MEDS: LATANOPROST 0.005% OPHTH SOLN 2.5 ML OU SCH (21:38)
[2019-01-27 22:00] VITALS: BP 109/77
[2019-01-28] MEDS: CEFTAROLINE FOSAMIL 400 MG in D5W MINI-BAG PLUS 50 ML IV SCH ×3 (00:25→23:17)
[2019-01-28] MEDS: HYDROMORPHONE HCL 0.5 MG/ 0.5 ML SYRINGE (J1170 PER 1) IV PRN ×2 (01:46→08:36)
[2019-01-28] MEDS: SLF 3 ML SYR IV SCH ×3 (05:33→21:28)
[2019-01-28] MEDS: tiZANidine 4 MG TAB PO PRN ×3 (05:33→18:32)
[2019-01-28] MEDS: PERCOCET 5MG/325MG TAB PO PRN ×4 (05:34→22:38)
[2019-01-28 06:00] VITALS: BP 137/70
[2019-01-28 06:53] LABS: BASO # 0.1 10^3/uL (0.0-0.2); BASO % 0.8 % (0.0-1.0); EOS # 0.7 10^3/uL (0.0-0.50); HEMATOCRIT 27.3 % (42.0-52.0); HEMOGLOBIN 8.8 g/dl (13.5-17.5); LYMPH # 1.8 10^3/uL (1.5-4.5); LYMPH % 28.6 % (24.0-44.0); MEAN CORPUSCULAR HEMOGLOBIN 26.8 pg (27.0-33.0); MEAN CORPUSCULAR HGB CONC 32.2 g/dl (32.0-36.5); MEAN CORPUSCULAR VOLUME 83.2 fl (80.0-96.0); MONO # 0.6 10^3/uL (0.0-0.8); MONO % 8.8 % (0.0-5.0); NEUTROPHILS # 3.2 10^3/uL (1.8-7.7); NEUTROPHILS % 50.5 % (36.0-66.0); PLATELET COUNT, AUTOMATED 524 10^3/uL (150-450); RED BLOOD COUNT 3.28 10^6/uL (4.30-6.10); WHITE BLOOD COUNT 6.4 10^3/uL (4.0-10.0)
[2019-01-28 07:20] LABS: ALBUMIN 2.7 GM/DL (3.2-5.2); BILIRUBIN,TOTAL 0.3 MG/DL (0.2-1.0); CALCIUM LEVEL 9.3 MG/DL (8.5-10.1); CREATININE FOR GFR 1.74 MG/DL (0.70-1.30); GLOMERULAR FILTRATION RATE 52.1 (>56); POTASSIUM SERUM 3.5 MEQ/L (3.5-5.1)
[2019-01-28] MEDS: BRIMONIDINE 0.1% OPHTH SOLN 5 ML OU SCH (08:33)
[2019-01-28] MEDS: APIXABAN 5 MG TAB (ELIQUIS) PO SCH ×2 (08:34→21:26)
[2019-01-28] MEDS: SENNA 8.6 MG TAB (SENOKOT) PO SCH ×2 (08:34→21:26)
[2019-01-28] MEDS: DAKIN'S 0.25% HALF-STRENGTH SOLN 480 ML TOP SCH ×4 (08:34→21:28)
[2019-01-28] MEDS: METOPROLOL TART 25 MG TABLET PO SCH ×2 (08:40→21:27)
[2019-01-28 14:00] VITALS: BP 92/54
--- NOTE | 2019-01-28 15:01 | IPNPDOC ---
Text Note Date of Service The patient was seen on 01/28/19. NOTE Subjective: patient seen and examined at bedside. Complains of chronic pain. Objective: Vitals as below General - NAD, Eyes - PERRLA, EOM intact Neck - No noticeable or palpable swelling, redness or rash around throat or on face Lymph Nodes - No lymphadenopathy Cardiovascular - RRR no m/r/g, no JVD, no carotid bruits Lungs - Clear to auscltation, no use of acessory muscles, no crackles or wheezes. Skin - No rashes, skin warm and dry, no erythematous areas Abdomen - Normal bowel sounds, abdomen soft and nontender Extremeties - No edema, cyanosis or clubbing Neurological Alert and oriented x 3, CN 2-12 grossly intact A/P: #PAD - patient had Rt fem profunda bypass procedure this afternoon 01/23/19; report pending -He had previous right fempop bypass 10/29/18 and stopped taking eliquis. the graft of right superficial femoral artery became occluded. He was admitted and placed on heparin drip. -s/p right femoral exploration, bypass graft ligation and partial removal on 12/31 -s/p Removal of infected femoral popliteal bypass graft on 01/03 -s/p Rt groin debridement/Wound vac placement as per Dr Sanchez 01/08/19. -s/p Right Femoral Exploration and Wound Debridement, Right Femoral Major Artery Angioplasty on 01/14 -s/p Right axillary profunda bypass 01/23/19 - will need to follow up with DR Sanchez in 1 week for post op evaluation.' -Start tapering off IV pain medications. IV dilaudid switched to IV Morphine - Pain mgmt consulted and will follow #Right groin mass/abscess with infected graft -S/P Rt groin abscess drainage 12/27/[address] Sanchez. -Wound culture notable for MSSA, repeat cultures from 12/31 notable for Coag Neg Staph -01/14 cultures notable for Staph Epi ; IV Vancomycin transitioned to ceph alosporin for empiric coverage - -01/22 patient developed hematoma adjacent to graft - management per [facility] surgery. -Dr Sanchez recommends continuing IV antibiotic (cefepime) until discharged, then Augmentin x 7 more days until seen in follow up. # Acute Kidney Injury -stable -Likely 2/2 Decreased PO Intake -renal U/S with abnormalities - (unable to do contrast CT due to DEVON) -Hold Nephrotoxins -We will cont to monitor the patient at this time #History of paroxysmal AFIB -Continue on on metoprolol BID -On heparin drip for anticoagulation at this time , change to eliquis when ok with vasc surgery #History of neuropathy -Continue amitriptyline, tizanidine, gabapentin Disposition: awaiting evaluation by PT/OT, placement per CM VS,Micbone, I+O VS, Fishbone, I+O Laboratory Tests 01/28/19 06:28 Red Blood Count 3.28 L, Mean Corpuscular Volume 83.2, Mean Corpuscular Hemoglobin 26.8 L, Mean Corpuscular Hemoglobin Concent 32.2, Red Cell D istribution Width 14.1, Neutrophils (%) (Auto) 50.5, Lymphocytes (%) (Auto) 28.6, Monocytes (%) (Auto) 8.8 H, Eosinophils (%) (Auto) 11.0 H, Basophils (%) (Auto) 0.8, Neutrophils # (Auto) 3.2, Lymphocytes # (Auto) 1.8, Monocytes # (Auto) 0.6, Eosinophils # (Auto) 0.7 H, Basophils # (Auto) 0.1, Calcium Level 9.3, Aspartate Amino Transf (AST/SGOT) 12, Alanine Aminotransferase (ALT/SGPT) 18, Alkaline Phosphatase 84, Total Bilirubin 0.3, Total Protein 7.0, Albumin 2.7 L Vital Signs Date Time Temp Pulse Resp B/P (MAP) Pulse Ox O2 Delivery O2 Flow Rate FiO2 01/28/19 14:00 98.4 65 21 92/54 (67) 100 01/23/19 19:50 2 I&O- Last 24 Hours up to 6 AM 01/28/19 06:00 Intake Total 290 ml Output Total 2450 ml Balance -2160 ml ABHI ESPINO MD Jan 28, 2019 15:01
[2019-01-28] MEDS: MORPHINE 4 MG/ML 1ML VIAL/SYRINGE (J2270) IV PRN (16:45)
[2019-01-28] MEDS: DOCUSATE SODIUM 100 MG CAP PO SCH (21:26)
[2019-01-28] MEDS: AMITRIPTYLINE 10 MG TAB PO SCH (21:26)
[2019-01-28] MEDS: LATANOPROST 0.005% OPHTH SOLN 2.5 ML OU SCH (21:27)
[2019-01-28 22:00] VITALS: BP 148/70
[2019-01-29] MEDS: MORPHINE 4 MG/ML 1ML VIAL/SYRINGE (J2270) IV PRN ×3 (01:51→17:35)
[2019-01-29] MEDS: SLF 3 ML SYR IV SCH ×3 (05:18→20:54)
[2019-01-29] MEDS: tiZANidine 4 MG TAB PO PRN ×2 (05:18→17:35)
[2019-01-29] MEDS: PERCOCET 5MG/325MG TAB PO PRN ×3 (05:20→20:56)
[2019-01-29 05:54] LABS: BASO # 0.1 10^3/uL (0.0-0.2); EOS # 0.7 10^3/uL (0.0-0.50); EOS % 9.5 % (0.0-3.0); HEMATOCRIT 26.5 % (42.0-52.0); HEMOGLOBIN 8.8 g/dl (13.5-17.5); LYMPH % 27.5 % (24.0-44.0); MEAN CORPUSCULAR HEMOGLOBIN 27.3 pg (27.0-33.0); MEAN CORPUSCULAR HGB CONC 33.2 g/dl (32.0-36.5); MEAN CORPUSCULAR VOLUME 82.3 fl (80.0-96.0); MONO # 0.6 10^3/uL (0.0-0.8); MONO % 7.8 % (0.0-5.0); NEUTROPHILS # 3.9 10^3/uL (1.8-7.7); NEUTROPHILS % 53.8 % (36.0-66.0); PLATELET COUNT, AUTOMATED 512 10^3/uL (150-450); RED BLOOD COUNT 3.22 10^6/uL (4.30-6.10); WHITE BLOOD COUNT 7.2 10^3/uL (4.0-10.0)
[2019-01-29 06:00] VITALS: BP 113/83
[2019-01-29 06:17] LABS: CALCIUM LEVEL 9.6 MG/DL (8.5-10.1); CREATININE FOR GFR 1.89 MG/DL (0.70-1.30); GLOMERULAR FILTRATION RATE 47.3 (>56); POTASSIUM SERUM 3.5 MEQ/L (3.5-5.1)
[2019-01-29] MEDS: SENNA 8.6 MG TAB (SENOKOT) PO SCH ×2 (09:00→20:52)
[2019-01-29] MEDS: METOPROLOL TART 25 MG TABLET PO SCH ×2 (09:27→20:53)
[2019-01-29] MEDS: APIXABAN 5 MG TAB (ELIQUIS) PO SCH ×2 (09:29→20:52)
[2019-01-29] MEDS: BRIMONIDINE 0.1% OPHTH SOLN 5 ML OU SCH (09:29)
[2019-01-29] MEDS: DAKIN'S 0.25% HALF-STRENGTH SOLN 480 ML TOP SCH ×4 (09:30→20:54)
--- NOTE | 2019-01-29 12:24 | IPNPDOC ---
Date Seen The patient was seen on 01/29/19. Progress Note Vascular Surgery Dr Sanchez HPI: 58yoM with severe BLE PVD, with h/o L EIA stenting followed shortly thereafter by a left to right femfem bypass, s/p Rt Fem Pop bypass 10/29/[address] Sanchez. Pt admitted 12/25 with vascular graft infection. Vascular surgery was consulted. The pt states he still has 10/10 level pain continually on RLE. Pt unable to give additional information at this time. Eyes closed throughout exam. Nursing concerned this AM related to darker discoloration of toes of Rt foot. Denies any fevers, chills, Headache, Chest Pain, Shortness of breath, cough, palpitations, abdominal pain, N/V/D or changes in bowel or bladder habits. PAST MEDICAL HISTORY: PAD Hypertension HLD anxiety depression glaucoma allergic rhinitis PAST SURGICAL HISTORY: skin graft L EIA stenting L to R femfem bypass Rt fem pop bypass PE: GEN: 58yoM, appears stated age. HEENT: Normocephalic, atraumatic. Moist mucous membranes. CHEST: Regular rate and rhythm, +S1, +S2 LUNGS: Clear to auscultation bilaterally. No wheezes, rales, or rhonchi. ABD: Round, soft, non-tender, non-distended. EXT: Rt groin with dressing intact, no drainage is noted. Rt thigh dressing intact, no drainage, no TTP. There is a dressing Rt posterior and anterior chest area, no drainage noted. Rt groin wound contd with wet to dry with Dakins, remaining are replaced with dry dressing. No lower extremity edema appreciated. No calf TTP, swelling. Rt foot remains warm to touch, toes with dark discoloration but are warm, cap refill Rt great toe 3-4 secs. DP/PT pulses are faint monophasic with Doppler this AM. NEURO: Alert and oriented x 3. No focal deficits appreciated. A&P: PAD with h/o L EIA stenting followed by a left to right femfem bypass, s/p Rt Fem Pop bypass 10/29/[address] Sanchez. S/P Rt groin abscess drainage 12/27/[address] Sanchez. S/P right femoral exploration, bypass graft ligation and partial removal 12/31/[address] Sanchez. S/P removal of infected graft 01/03/[address] Sanchez. S/P Rt groin debridement/Wound vac placement as per Dr Sanchez 01/08/19. Status post right femoral exploration, right femoral angioplasty, right femoral wound debridement 01/14/[address] Sanchez. POD4 Rt axillary-Profunda Bypass as per Dr Sanchez 01/23/19. Pt is reviewed with Dr Sanchez this AM, Wound Rt groin, wet to dry dressing changes with Dakins Q6hr contd. Plan for foa m dressing daily at [place]. IV Ceftaroline as per medicine svc. Eliquis po Pain mgmt consultation pending. Reviewed pt symptom status and physical eam with Dr Sanchez who is aware, he will also examine pt. At this time no further intervention or testing recommended as per Dr Sanchez. Monitor. DEVON Mgmt as per Med svc. IVF as per medicine svc. Renal U/S as above Bladder Scan Avoid Nephrotoxins Scr 1.89 PAF. The patient has history of AFIB and he was on eliquis but stopped taking medication. Metoprolol as per primary team. Eliquis is restarted. VS, I&O, 24H, [facility] Vital Signs/I&O Vital Signs Date Time Temp Pulse Resp B/P (MAP) Pulse Ox O2 Delivery O2 Flow Rate FiO2 01/29/19 09:42 16 01/29/19 09:27 78 130/83 01/29/19 06:00 98.1 99 01/23/19 19:50 2 I&O- Last 24 Hours up to 6 AM 01/29/19 06:00 Intake Total 1540 ml Output Total 1450 ml Balance 90 ml Laboratory Data 24H LABS Laboratory Tests 2 01/29/19 05:43: Immature Granulocyte % (Auto) 0.4, White Blood Count 7.2, Red Blood Count 3.22L, Hemoglobin 8.8L, Hematocrit 26.5L, Mean Corpuscular Volume 82.3, Mean Corpuscular Hemoglobin 27.3, Mean Corpuscular Hemoglobin Concent 33.2, Red Cell Distribution Width 14.3, Platelet Count 512H, Neutrophils (%) (Auto) 53.8, Lymphocytes (%) (Auto) 27.5, Monocytes (%) (Auto) 7.8H, Eosinophils (%) (Auto) 9.5H, Basophils (%) (Auto) 1.0, Neutrophils # (Auto) 3.9, Lymphocytes # (Auto) 2.0, Monocytes # (Auto) 0.6, Eosinophils # (Auto) 0.7H, Basophils # (Auto) 0.1, Nucleated Red Blood Cells % (auto) 0.0, Anion Gap 9, Glomerular Filtration Rate 47.3L, Blood Urea Nitrogen 13, Creatinine 1.89H, Sodium Level 140, Potassium Level 3.5, Chloride Level 104, Carbon Dioxide Level 27, Calcium Level 9.6 CBC/BMP Laboratory Tests 01/29/19 05:43 Red Blood Count 3.22 L, Mean Corpuscular Volume 82.3, Mean Corpuscular Hemoglobin 27.3, Mean Corpuscular Hemoglobin Concent 33.2, Red Cell Distribution Width 14.3, Neutrophils (%) (Auto) 53.8, Lymphocytes (%) (Auto) 27.5, Monocytes (%) (Auto) 7.8 H, Eosinophils (%) (Auto) 9.5 H, Basophils (%) (Auto) 1.0, Neutrophils # (Auto) 3.9, Lymphocytes # (Auto) 2.0, Monocytes # (Auto) 0.6, Eosinophils # (Auto) 0.7 H, Basophils # (Auto) 0.1, Calcium Level 9.6 Microbiology Microbiology 01/23/19 Stool Occult Blood (SASCHA) - Final, Complete 01/21/19 Stool Occult Blood (SASCHA) - Final, Complete 01/19/19 Stool Occult Blood (SASCHA) - Final, Complete Jo Ann Herrera Jan 29, 2019 12:24
[2019-01-29] MEDS: CEFTAROLINE FOSAMIL 400 MG in D5W MINI-BAG PLUS 50 ML IV SCH (12:27)
[2019-01-29 14:00] VITALS: BP 116/83
--- NOTE | 2019-01-29 15:09 | IPNPDOC ---
Text Note Date of Service The patient was seen on 01/29/19. NOTE Subjective: patient seen and examined at bedside. Complains of chronic pain. Objective: Vitals as below General - NAD, Eyes - PERRLA, EOM intact Neck - No noticeable or palpable swelling, redness or rash around throat or on face Lymph Nodes - No lymphadenopathy Cardiovascular - RRR no m/r/g, no JVD, no carotid bruits Lungs - Clear to auscltation, no use of acessory muscles, no crackles or wheezes. Skin - No rashes, skin warm and dry, no erythematous areas Abdomen - Normal bowel sounds, abdomen soft and nontender Extremeties - No edema, cyanosis or clubbing Neurological Alert and oriented x 3, CN 2-12 grossly intact A/P: #PAD - patient had Rt fem profunda bypass procedure this afternoon 01/23/19; report pending -He had previous right fempop bypass 10/29/18 and stopped taking eliquis. the graft of right superficial femoral artery became occluded. He was admitted and placed on heparin drip. -s/p right femoral exploration, bypass graft ligation and partial removal on 12/31 -s/p Removal of infected femoral popliteal bypass graft on 01/03 -s/p Rt groin debridement/Wound vac placement as per Dr Sanchez 01/08/19. -s/p Right Femoral Exploration and Wound Debridement, Right Femoral Major Artery Angioplasty on 01/14 -s/p Right axillary profunda bypass 01/23/19 - will need to follow up with DR Sanchez in 1 week for post op evaluation.' -Start tapering off IV pain medications. IV dilaudid switched to IV Morphine - Pain mgmt consulted and will follow #Right groin mass/abscess with infected graft -S/P Rt groin abscess drainage 12/27/[address] Sanchez. -Wound culture notable for MSSA, repeat cultures from 12/31 notable for Coag Neg Staph -01/14 cultures notable for Staph Epi ; IV Vancomycin transitioned to ceph alosporin for empiric coverage - -01/22 patient developed hematoma adjacent to graft - management per [facility] [place] surgery. -Dr Sanchez recommends continuing IV antibiotic (cefepime) until discharged, then Augmentin x 7 more days until seen in follow up. # Acute Kidney Injury -stable -Likely 2/2 Decreased PO Intake -renal U/S with abnormalities - (unable to do contrast CT due to DEVON) -Hold Nephrotoxins -We will cont to monitor the patient at this time #History of paroxysmal AFIB -Continue on on metoprolol BID -On heparin drip for anticoagulation at this time , change to eliquis when ok with vasc surgery #History of neuropathy -Continue amitriptyline, tizanidine, gabapentin Disposition: awaiting evaluation by PT/OT, placement per CM VS,Micbone, I+O VS, Fishbone, I+O Laboratory Tests 01/29/19 05:43 Red Blood Count 3.22 L, Mean Corpuscular Volume 82.3, Mean Corpuscular Hemoglobin 27.3, Mean Corpuscular Hemoglobin Concent 33.2, Red Cell Distribution Width 14.3, Neutrophils (%) (Auto) 53.8, Lymphocytes (%) (Auto) 27.5, Monocytes (%) (Auto) 7.8 H, Eosinophils (%) (Auto) 9.5 H, Basophils (%) (Auto) 1.0, Neutrophils # (Auto) 3.9, Lymphocytes # (Auto) 2.0, Monocytes # (Auto) 0.6, Eosinophils # (Auto) 0.7 H, Basophils # (Auto) 0.1, Calcium Level 9.6 Vital Signs Date Time Temp Pulse Resp B/P (MAP) Pulse Ox O2 Delivery O2 Flow Rate FiO2 01/29/19 14:00 98.3 80 17 116/83 (94) 96 01/23/19 19:50 2 I&O- Last 24 Hours up to 6 AM 01/29/19 06:00 Intake Total 1540 ml Output Total 1450 ml Balance 90 ml ABHI ESPINO MD Jan 29, 2019 15:09
--- NOTE | 2019-01-29 16:54 | CR ---
DATE OF CONSULTATION: 01/28/[address] Perez regarding uncontrolled pain. HISTORY OF PRESENT ILLNESS: This is a 58-year-old male who had a bypass on 10/29/2018 and developed subsequent abscess that started on the 24 of December and progressed. He was admitted on 12/25/2018 and has been on IV morphine, IV Dilaudid and oxycodone to help manage his pain, which has left him with little to no relief. When asked, the patient does state that he has been on Tylenol #4 and Percocet in the past and it has helped with pain. PAST MEDICAL HISTORY: Significant for hypertension, hyperlipidemia, anxiety, depression, glaucoma, allergic rhinitis, and atrial fibrillation. PAST SURGICAL HISTORY: Significant for skin graft, left EAI stenting and bypass. ALLERGIES: PENICILLIN. REVIEW OF SYSTEMS: Denies shortness of breath, chest pain or pressure, abdominal pain, nausea, vomiting, diarrhea, headaches, or visual disturbances. He does endorse pain along the right side. PHYSICAL EXAMINATION: He is alert, oriented and pleasant. Heart rate is regular. Lung sounds clear. He denies pain to touch, but does state that when he lies on his right side that he does experience pain so he has not been able to do so. PLAN: The plan for him at this time is to use MS-Contin 15 mg twice a day as needed for pain. Thank you for allowing us to participate in the care of your patient. Should you have any questions or concerns, please feel free to call us at the pain center.
[2019-01-29] MEDS: AMITRIPTYLINE 10 MG TAB PO SCH (20:52)
[2019-01-29] MEDS: DOCUSATE SODIUM 100 MG CAP PO SCH (20:52)
[2019-01-29] MEDS: LATANOPROST 0.005% OPHTH SOLN 2.5 ML OU SCH (20:52)
[2019-01-29 22:00] VITALS: BP 118/67
[2019-01-30] MEDS: CEFTAROLINE FOSAMIL 400 MG in D5W MINI-BAG PLUS 50 ML IV SCH ×2 (00:41→12:25)
[2019-01-30] MEDS: MORPHINE 4 MG/ML 1ML VIAL/SYRINGE (J2270) IV PRN ×2 (00:48→09:22)
[2019-01-30] MEDS: tiZANidine 4 MG TAB PO PRN ×2 (02:07→14:25)
[2019-01-30] MEDS: SLF 3 ML SYR IV SCH ×2 (05:30→14:33)
[2019-01-30] MEDS: PERCOCET 5MG/325MG TAB PO PRN ×3 (05:30→19:26)
[2019-01-30 06:00] VITALS: BP 119/72
[2019-01-30] MEDS: METOPROLOL TART 25 MG TABLET PO SCH ×2 (09:18→21:13)
[2019-01-30] MEDS: SENNA 8.6 MG TAB (SENOKOT) PO SCH ×2 (09:19→21:11)
[2019-01-30] MEDS: APIXABAN 5 MG TAB (ELIQUIS) PO SCH ×2 (09:19→21:11)
[2019-01-30] MEDS: BRIMONIDINE 0.1% OPHTH SOLN 5 ML OU SCH ×2 (09:22→21:14)
[2019-01-30] MEDS: DAKIN'S 0.25% HALF-STRENGTH SOLN 480 ML TOP SCH ×4 (09:22→21:15)
--- NOTE | 2019-01-30 11:50 | IPNPDOC ---
Date Seen The patient was seen on 01/30/19. Progress Note Vascular Surgery Dr Sanchez HPI: 58yoM with severe BLE PVD, with h/o L EIA stenting followed shortly thereafter by a left to right femfem bypass, s/p Rt Fem Pop bypass 10/29/[address] Sanchez. Pt admitted 12/25 with vascular graft infection. Vascular surgery was consulted. There has been concern for darker discoloration of toes of Rt foot. Dr Sanchez is aware. The pt is able to move his toes, he has numbness in his toes which the pt states has been unchanged. Toes are warm to touch. Denies any fevers, chills, Headache, Chest Pain, Shortness of breath, cough, palpitations, abdominal pain, N/V/D or changes in bowel or bladder habits. PAST MEDICAL HISTORY: PAD Hypertension HLD anxiety depression glaucoma allergic rhinitis PAST SURGICAL HISTORY: skin graft L EIA stenting L to R femfem bypass Rt fem pop bypass PE: GEN: 58yoM, appears stated age. HEENT: Normocephalic, atraumatic. Moist mucous membranes. CHEST: Regular rate and rhythm, +S1, +S2 LUNGS: Clear to auscultation bilaterally. No wheezes, rales, or rhonchi. ABD: Round, soft, non-tender, non-distended. EXT: Rt groin with dressing intact, no drainage is noted. Rt thigh dressing intact, no drainage, no TTP. There is a dressing Rt posterior and anterior chest area, no drainage noted. No lower extremity edema appreciated. No calf TTP, swelling. Rt foot remains warm to touch, toes with dark discoloration but are warm, cap refill Rt great toe 3-4 secs. DP/PT pulses are monophasic with Doppler this AM. NEURO: Alert and oriented x 3. No focal deficits appreciated. A&P: PAD with h/o L EIA stenting followed by a left to right femfem bypass, s/p Rt Fem Pop bypass 10/29/[address] Sanchez. S/P Rt groin abscess drainage 12/27/[address] Sanchez. S/P right femoral exploration, bypass graft ligation and partial removal 12/31/[address] Sanchez. S/P removal of infected graft 01/03/[address] Sanchez. S/P Rt groin debridement/Wound vac placement as per Dr Sanchez 01/08/19. Status post right femoral exploration, right femoral angioplasty, right femoral wound debridement 01/14/[address] Sanchez. Rt axillary-Profunda Bypass as per Dr Sanchez 01/23/19. Pt is reviewed with Dr Sanchez this AM, Wound Rt groin, wet to dry dressing changes with Dakins Q6hr contd. Plan for foam dressing daily at [place]. IV Ceftaroline as per medicine svc. Eliquis po Reviewed pt symptom status and physical exam with Dr Sanchez who is aware. At this time no further intervention or testing recommended as per Dr Sanchez. Outpt FU with Dr Sanchez's office. Monitor. DEVON Mgmt as per Med svc. IVF as per medicine svc. Renal U/S as above Bladder Scan Avoid Nephrotoxins Scr 1.89 PAF. The patient has history of AFIB and he was on eliquis but stopped taking medication. Metoprolol as per primary team. Eliquis is restarted. VS, I&O, 24H, Fishbone Vital Signs/I&O Vital Signs Date Time Temp Pulse Resp B/P (MAP) Pulse Ox O2 Delivery O2 Flow Rate FiO2 01/30/19 09:32 15 01/30/19 09:18 80 141/93 01/30/19 06:00 97.7 97 I&O- Last 24 Hours up to 6 AM 01/30/19 06:00 Intake Total 1605 ml Output Total 2025 ml Balance -420 ml Laboratory Data Microbiology Microbiology 01/23/19 Stool Occult Blood (SASCHA) - Final, Complete 01/21/19 Stool Occult Blood (SASCHA) - Final, Complete Jo Ann Herrera Jan 30, 2019 11:50
[2019-01-30 14:00] VITALS: BP 145/82
--- NOTE | 2019-01-30 15:45 | IPNPDOC ---
Text Note Date of Service The patient was seen on 01/30/19. NOTE SUBJECTIVE: This is a 58-year-old male with groin abscess to prior site of femorofemoral bypass. He has had to have removal of the graft and subsequent drainage and debridement of the wound site. He has been treated with a wound VAC which is now off. OBJECTIVE: Please see below for vital signs. General: The patient is minimally conversant, and otherwise without distress. HENT: Neck is supple, no adenopathy, mucosa is moist, he does not have scleral injection or icterus Cardiovascular: Irregular rate and rhythm, no appreciable murmur. Abdomen: Soft, nontender, nondistended, thin body habitus Extremities: Inguinal wound sites are intact, distally, pedal pulses are palpable ASSESSMENT/PLAN: 1. Groin wound-- Staph epidermidis isolated. Patient to remain on Ceftaroline. Anticipate he'll be transitioned to oral antibiotics at discharge; Augmentin most likely. 2. Chronic atrial fibrillation. Patient will be on anticoagulation with Eliquis. 3. Opiate dependency. The patient had been using multiple doses of opiates. We will consult with pain management team. We are reducing his overall dosage by discontinuing his IV morphine; he will be on MS Contin twice a day only. VS,Fishbone, I+O VS, Fishbone, I+O Vital Signs Date Time Temp Pulse Resp B/P (MAP) Pulse Ox O2 Delivery O2 Flow Rate FiO2 01/30/19 14:00 97.9 70 18 145/82 (103) 100 I&O- Last 24 Hours up to 6 AM 01/30/19 06:00 Intake Total 1605 ml Output Total 2025 ml Balance -420 ml ADRINA KELSEY MD Jan 30, 2019 15:45
[2019-01-30] MEDS: DOCUSATE SODIUM 100 MG CAP PO SCH (21:11)
[2019-01-30] MEDS: AMITRIPTYLINE 10 MG TAB PO SCH (21:11)
[2019-01-30] MEDS: MORPHINE 15 MG SA TAB PO SCH (21:12)
[2019-01-30] MEDS: LATANOPROST 0.005% OPHTH SOLN 2.5 ML OU SCH (21:15)
[2019-01-30 22:00] VITALS: BP 147/89
[2019-01-31] MEDS: tiZANidine 4 MG TAB PO PRN ×3 (00:01→22:23)
[2019-01-31] MEDS: CEFTAROLINE FOSAMIL 400 MG in D5W MINI-BAG PLUS 50 ML IV SCH ×3 (00:01→23:29)
[2019-01-31] MEDS: SLF 3 ML SYR IV SCH ×4 (00:01→21:09)
[2019-01-31] MEDS: PERCOCET 5MG/325MG TAB PO PRN ×3 (01:12→17:34)
[2019-01-31 06:00] VITALS: BP 106/69
[2019-01-31] MEDS: MORPHINE 15 MG SA TAB PO SCH ×2 (08:12→21:07)
[2019-01-31] MEDS: APIXABAN 5 MG TAB (ELIQUIS) PO SCH ×2 (08:12→21:04)
[2019-01-31] MEDS: SENNA 8.6 MG TAB (SENOKOT) PO SCH ×2 (08:12→21:04)
[2019-01-31] MEDS: METOPROLOL TART 25 MG TABLET PO SCH ×2 (08:13→21:05)
[2019-01-31] MEDS: DAKIN'S 0.25% HALF-STRENGTH SOLN 480 ML TOP SCH ×4 (08:15→21:04)
[2019-01-31] MEDS: BRIMONIDINE 0.1% OPHTH SOLN 5 ML OU SCH (08:15)
--- NOTE | 2019-01-31 09:48 | IPNPDOC ---
Date Seen The patient was seen on 01/31/19. Progress Note Vascular Surgery Dr Sanchez HPI: 58yoM with severe BLE PVD, with h/o L EIA stenting followed shortly thereafter by a left to right femfem bypass, s/p Rt Fem Pop bypass 10/29/[address] Sanchez. Pt admitted 12/25 with vascular graft infection. Vascular surgery was consulted. There has been concern for darker discoloration of toes of Rt foot. Dr Sanchez is aware. The pt has numbness in his toes which the pt states has been unchanged. Denies any fevers, chills, Headache, Chest Pain, Shortness of breath, cough, palpitations, abdominal pain, N/V/D or changes in bowel or bladder habits. PAST MEDICAL HISTORY: PAD Hypertension HLD anxiety depression glaucoma allergic rhinitis PAST SURGICAL HISTORY: skin graft L EIA stenting L to R femfem bypass Rt fem pop bypass PE: GEN: 58yoM, appears stated age. HEENT: Normocephalic, atraumatic. Moist mucous membranes. CHEST: Regular rate and rhythm, +S1, +S2 LUNGS: Clear to auscultation bilaterally. No wheezes, rales, or rhonchi. ABD: Round, soft, non-tender, non-distended. EXT: Rt groin with dressing intact, no drainage is noted. Rt thigh dressing intact, no drainage, no TTP. There is a dressing Rt posterior and anterior chest area, no drainage noted. No lower extremity edema appreciated. No calf TTP, swelling. Rt foot remains warm to touch, toes 2-5 have dark discoloration at the tips, but no open wounds, cap refill Rt great toe 3-4 secs. DP/PT pulses are monophasic with Doppler. NEURO: Alert and oriented x 3. No focal deficits appreciated. A&P: PAD with h/o L EIA stenting followed by a left to right femfem bypass, s/p Rt Fem Pop bypass 10/29/[address] Sanchez. S/P Rt groin abscess drainage 12/27/[address] Sanchez. S/P right femoral exploration, bypass graft ligation and partial removal 12/31/[address] Sanchez. S/P removal of infected graft 01/03/[address] Sanchez. S/P Rt groin debridement/Wound vac placement as per Dr Sanchez 01/08/19. Status post right femoral exploration, right femoral angioplasty, right femoral wound debridement 01/14/[address] Sanchez. Rt axillary-Profunda Bypass as per Dr Sanchez 01/23/19. Pt is reviewed with Dr Sanchez this AM, Wound Rt groin, wet to dry dressing changes with Dakins Q6hr contd. Plan for foam dressing daily at [place]. IV Ceftaroline as per medicine [facility] [place]. Daniel po Reviewed pt symptom status and physical exam with Dr Sanchez who is aware. At this time no further intervention or testing recommended as per Dr Sanchez. ARU screen. Outpt FU with Dr Sanchez's office. Monitor. VS, I&O, 24H, Fishbone Vital Signs/I&O Vital Signs Date Time Temp Pulse Resp B/P (MAP) Pulse Ox O2 Delivery O2 Flow Rate FiO2 01/31/19 08:13 82 110/72 01/31/19 08:12 17 01/31/19 06:00 97.5 98 I&O- Last 24 Hours up to 6 AM 01/31/19 06:00 Intake Total 1345 ml Output Total 2725 ml Balance -1380 ml Laboratory Data Microbiology Microbiology 01/23/19 Stool Occult Blood (SASCHA) - Final, Complete 01/21/19 Stool Occult Blood (SASCHA) - Final, Complete Jo Ann Herrera Jan 31, 2019 09:47
[2019-01-31 14:00] VITALS: BP 121/76
--- NOTE | 2019-01-31 17:16 | IPNPDOC ---
Text Note Date of Service The patient was seen on 01/31/19. NOTE SUBJECTIVE: Mr. Carrillo is more communicative today. He is making more of an effort to be ambulatory and working with physical therapy. Pain management appears to be adequate with his current regimen. Patient was admitted with a right groin abscess and is status post removal of infected graft. OBJECTIVE: Please see vital signs below General: The patient is minimally conversant, and otherwise without distress. HENT: Neck is supple, no adenopathy, mucosa is moist, he does not have scleral injection or icterus Cardiovascular: Irregular rate and rhythm, no appreciable murmur. Respiratory: He is clear to auscultation, no rhonchi or wheezes or cough Abdomen: Soft, nontender, nondistended, thin body habitus Extremities: Inguinal wound sites are intact; wound VAC is off; distally, pedal pulses are palpable ASSESSMENT/PLAN: The patient has undergone intervention inclusive of removal of infected graft, wound debridement and axillary profunda bypass. Current needs are for wound care and physical therapy. Patient could be well suited for acute rehabilitation and is undergoing eval. Patient remains on antibiotics in the form of Ceftaroline; anticipate changing over to Augmentin at discharge. He is on anticoagulation in the form of Eliquis. Pain management regimen includes use of MS Contin. The patient is off all forms of IV pain medication. VS,Fishbone, I+O VS, Fishbone, I+O Vital Signs Date Time Temp Pulse Resp B/P (MAP) Pulse Ox O2 Delivery O2 Flow Rate FiO2 01/31/19 14:00 96.4 65 18 121/76 (91) 99 I&O- Last 24 Hours up to 6 AM 01/31/19 06:00 Intake Total 1345 ml Output Total 2725 ml Balance -1380 ml ADRIAN KELSEY MD Jan 31, 2019 17:16
[2019-01-31] MEDS: LATANOPROST 0.005% OPHTH SOLN 2.5 ML OU SCH (21:03)
[2019-01-31] MEDS: DOCUSATE SODIUM 100 MG CAP PO SCH (21:04)
[2019-01-31] MEDS: AMITRIPTYLINE 10 MG TAB PO SCH (21:05)
[2019-01-31 22:00] VITALS: BP 133/82
[2019-02-01] MEDS: PERCOCET 5MG/325MG TAB PO PRN ×3 (00:43→14:18)
[2019-02-01] MEDS: SLF 3 ML SYR IV SCH ×3 (05:13→21:30)
[2019-02-01 06:00] VITALS: BP 117/70
[2019-02-01 06:29] LABS: CALCIUM LEVEL 9.2 MG/DL (8.5-10.1); CREATININE FOR GFR 2.11 MG/DL (0.70-1.30); GLOMERULAR FILTRATION RATE 41.7 (>56); POTASSIUM SERUM 3.8 MEQ/L (3.5-5.1)
[2019-02-01] MEDS: METOPROLOL TART 25 MG TABLET PO SCH ×2 (09:00→21:28)
[2019-02-01] MEDS: BRIMONIDINE 0.1% OPHTH SOLN 5 ML OU SCH (09:06)
[2019-02-01] MEDS: DAKIN'S 0.25% HALF-STRENGTH SOLN 480 ML TOP SCH ×4 (09:07→21:31)
[2019-02-01] MEDS: tiZANidine 4 MG TAB PO PRN ×2 (09:08→22:59)
[2019-02-01] MEDS: SENNA 8.6 MG TAB (SENOKOT) PO SCH ×2 (09:08→21:28)
[2019-02-01] MEDS: APIXABAN 5 MG TAB (ELIQUIS) PO SCH ×2 (09:11→21:29)
[2019-02-01] MEDS: MORPHINE 15 MG SA TAB PO SCH ×2 (09:13→21:30)
[2019-02-01] MEDS: CEFTAROLINE FOSAMIL 400 MG in D5W MINI-BAG PLUS 50 ML IV SCH ×2 (11:58→23:00)
--- NOTE | 2019-02-01 13:37 | IPNPDOC ---
Text Note Date of Service The patient was seen on 02/01/19. NOTE SUBJECTIVE: Mr. Carrillo was admitted with a right groin abscess. He has underlying peripheral vascular disease. He is now status post removal of infected graft with debridement and then subsequent femoropopliteal bypass. OBJECTIVE: Please see vital signs below HENT: Neck is supple, no adenopathy, mucosa is moist, he does not have scleral injection or icterus Cardiovascular: Irregular rate and rhythm, no appreciable murmur. Respiratory: He is clear to auscultation, no rhonchi or wheezes or cough Abdomen: Soft, nontender, nondistended, thin body habitus Extremities: Wound sites to right groin and right upper chest look clean; wound VAC is off; distally, pedal pulses are not readily palpable ASSESSMENT/PLAN: 1. Peripheral vascular disease The patient has undergone intervention inclusive of removal of infected graft, wound debridement and axillary profunda bypass. Current needs are for wound care and physical therapy. Patient could be well suited for acute rehabilitation and is undergoing eval. Patient remains on antibiotics in the form of Ceftaroline; 2 forms of staph epidermidis were isolated, anticipate changing over to Augmentin at discharge. He is on anticoagulation in the form of Eliquis. Pain management regimen includes use of MS Contin. The patient is off all forms of IV pain medication. VS,Fishbone, I+O VS, Fishbone, I+O Laboratory Tests 02/01/19 05:30 Calcium Level 9.2 Vital Signs Date Time Temp Pulse Resp B/P (MAP) Pulse Ox O2 Delivery O2 Flow Rate FiO2 02/01/19 09:13 16 02/01/19 09:12 88 102/56 02/01/19 06:00 99.3 98 I&O- Last 24 Hours up to 6 AM 02/01/19 06:00 Intake Total 1010 ml Output Total 1625 ml Balance -615 ml ADRIAN KELSEY MD Feb 01, 2019 13:37
[2019-02-01 14:00] VITALS: BP 120/70
[2019-02-01] MEDS: LATANOPROST 0.005% OPHTH SOLN 2.5 ML OU SCH (21:27)
[2019-02-01] MEDS: AMITRIPTYLINE 10 MG TAB PO SCH (21:28)
[2019-02-01] MEDS: DOCUSATE SODIUM 100 MG CAP PO SCH (21:29)
[2019-02-01 22:00] VITALS: BP 130/82
[2019-02-02] MEDS: PERCOCET 5MG/325MG TAB PO PRN ×2 (05:10→12:38)
[2019-02-02] MEDS: SLF 3 ML SYR IV SCH ×3 (05:11→20:48)
[2019-02-02 06:00] VITALS: BP 137/87
[2019-02-02] MEDS: BRIMONIDINE 0.1% OPHTH SOLN 5 ML OU SCH (08:53)
[2019-02-02] MEDS: DAKIN'S 0.25% HALF-STRENGTH SOLN 480 ML TOP SCH ×4 (08:54→20:48)
[2019-02-02] MEDS: SENNA 8.6 MG TAB (SENOKOT) PO SCH ×2 (08:54→20:46)
[2019-02-02] MEDS: tiZANidine 4 MG TAB PO PRN (08:55)
[2019-02-02] MEDS: METOPROLOL TART 25 MG TABLET PO SCH ×2 (08:55→20:46)
[2019-02-02] MEDS: MORPHINE 15 MG SA TAB PO SCH ×2 (08:56→20:47)
[2019-02-02] MEDS: APIXABAN 5 MG TAB (ELIQUIS) PO SCH ×2 (08:56→20:46)
[2019-02-02] MEDS: CEFTAROLINE FOSAMIL 400 MG in D5W MINI-BAG PLUS 50 ML IV SCH (11:26)
--- NOTE | 2019-02-02 12:18 | IPNPDOC ---
Text Note Date of Service The patient was seen on 02/02/19. NOTE SUBJECTIVE: Mr. Carrillo was admitted with a right groin wound infection with abscess after prior right femoropopliteal bypass. He has underlying peripheral vascular disease. He is now status post removal of infected graft with debridement and then subsequent femoropopliteal bypass. OBJECTIVE: Please see vital signs below HENT: Neck is supple, no adenopathy, mucosa is moist, he does not have scleral injection or icterus Cardiovascular: Irregular rate and rhythm, no appreciable murmur. Respiratory: He is clear to auscultation, no rhonchi or wheezes or cough Abdomen: Soft, nontender, nondistended, thin body habitus Extremities: Wound sites to right groin and right upper chest look clean; wound VAC is off; distally, pedal pulses are not readily palpable ASSESSMENT/PLAN: 1. Peripheral vascular disease The patient has undergone intervention inclusive of removal of infected graft, wound debridement and axillary profunda bypass. Current needs are for wound care and physical therapy. Patient could be well suited for acute rehabilitation and is undergoing eval. Patient remains on antibiotics in the form of Ceftaroline; 2 forms of staph epidermidis were isolated, anticipate changing over to Augmentin at discharge/transfer. 2. Paroxysmal atrial fibrillation He is on anticoagulation in the form of Eliquis. 3. Pain management regimen includes use of MS Contin per ecommendations from the pain management service. VS,Fishbone, I+O VS, Fishbone, I+O Vital Signs Date Time Temp Pulse Resp B/P (MAP) Pulse Ox O2 Delivery O2 Flow Rate FiO2 02/02/19 08:57 70 109/66 02/02/19 08:56 14 02/02/19 06:00 97.4 98 I&O- Last 24 Hours up to 6 AM 02/02/19 06:00 Intake Total 1230 ml Output Total 1200 ml Balance 30 ml ADRIAN KELSEY MD Feb 02, 2019 12:18
[2019-02-02 14:00] VITALS: BP 129/76
[2019-02-02] MEDS: DOCUSATE SODIUM 100 MG CAP PO SCH (20:45)
[2019-02-02] MEDS: AMITRIPTYLINE 10 MG TAB PO SCH (20:46)
[2019-02-02] MEDS: LATANOPROST 0.005% OPHTH SOLN 2.5 ML OU SCH (20:48)
[2019-02-02 22:00] VITALS: BP 112/68
[2019-02-03] MEDS: tiZANidine 4 MG TAB PO PRN (00:10)
[2019-02-03] MEDS: PERCOCET 5MG/325MG TAB PO PRN ×3 (00:12→15:35)
[2019-02-03] MEDS: CEFTAROLINE FOSAMIL 400 MG in D5W MINI-BAG PLUS 50 ML IV SCH ×3 (00:14→23:49)
[2019-02-03 06:00] VITALS: BP 114/74
[2019-02-03] MEDS: SLF 3 ML SYR IV SCH ×3 (06:22→21:27)
[2019-02-03] MEDS: APIXABAN 5 MG TAB (ELIQUIS) PO SCH ×2 (09:08→21:25)
[2019-02-03] MEDS: MORPHINE 15 MG SA TAB PO SCH ×2 (09:08→21:25)
[2019-02-03] MEDS: METOPROLOL TART 25 MG TABLET PO SCH ×2 (09:09→21:23)
[2019-02-03] MEDS: SENNA 8.6 MG TAB (SENOKOT) PO SCH ×2 (09:09→21:24)
[2019-02-03] MEDS: BRIMONIDINE 0.1% OPHTH SOLN 5 ML OU SCH (09:10)
[2019-02-03] MEDS: DAKIN'S 0.25% HALF-STRENGTH SOLN 480 ML TOP SCH ×4 (09:10→21:27)
[2019-02-03 14:00] VITALS: BP 117/74
--- NOTE | 2019-02-03 18:13 | IPNPDOC ---
Date Seen The patient was seen on 02/03/19. Progress Note SUBJECTIVE: still c/o 8/10 pain "in my legs when I walk." better with pain meds. no c/o falls, unsteady gait. says his girlfriend lives with him, but "she's not always around to help me." Pt is reluctant to be discharged. OBJECTIVE: vital signs below GEN: lying on his left side in position in no distress. appears to be withdrawn and does not make eye contact. HENT: no pallor anicteric sclera no jaundice no JVD or LADNeck is supple, no adenopathy, mucosa is moist Cardiovascular:S1 S2 Irregular rate and rhythm nondisplaced PMI Respiratory: AEBE clear to auscultation, no rhonchi or wheezes Abdomen: (+) BS x 4 quadrants no abdominal bruits Soft, nontender,no HSM, nondistended, no rebound or guarding Extremities: Wound sites to right groin and right upper chest look clean; wound VAC is off; distally, pedal pulses are not readily palpable ASSESSMENT/PLAN: 58 y/o AA male with PAD admitted with right groin wound infection with abscess after prior right femoropopliteal bypass. He underwent removal of infected graft with debridement and femoropopliteal bypass. 1. right groin wound infection with abscess due to infected graft with debridement and fempop bypass managed by vascular surgery, on IV ceftaroline , and being evaluated for rehab vs home. PT/OT consulted. pain mgt consulted. 2. Paroxysmal atrial fibrillation rate controlled and anticoagulated he is on Eliquis. 3. Protein calorie malnutrition bmi 19 administrative support assistant consult disposition: await PT clearance. VS, I&O, 24H, Fishbone Vital Signs/I&O Vital Signs Date Time Temp Pulse Resp B/P (MAP) Pulse Ox O2 Delivery O2 Flow Rate FiO2 02/03/19 15:35 18 02/03/19 14:00 98.3 65 117/74 (88) 98 I&O- Last 24 Hours up to 6 AM 02/03/19 05:59 Intake Total 1030 ml Output Total 2575 ml Balance -1545 ml ALEX WHITTAKER MD Feb 03, 2019 18:08
[2019-02-03] MEDS: DOCUSATE SODIUM 100 MG CAP PO SCH (21:24)
[2019-02-03] MEDS: AMITRIPTYLINE 10 MG TAB PO SCH (21:25)
[2019-02-03] MEDS: LATANOPROST 0.005% OPHTH SOLN 2.5 ML OU SCH (21:26)
[2019-02-04] MEDS: tiZANidine 4 MG TAB PO PRN
[2019-02-04] MEDS: PERCOCET 5MG/325MG TAB PO PRN ×2 (00:38→16:28)
[2019-02-04 06:00] VITALS: BP 129/86
[2019-02-04] MEDS: SLF 3 ML SYR IV SCH ×3 (06:26→22:03)
[2019-02-04] MEDS: DAKIN'S 0.25% HALF-STRENGTH SOLN 480 ML TOP SCH ×4 (09:51→22:03)
[2019-02-04] MEDS: APIXABAN 5 MG TAB (ELIQUIS) PO SCH ×2 (09:52→21:59)
[2019-02-04] MEDS: SENNA 8.6 MG TAB (SENOKOT) PO SCH ×2 (09:52→21:00)
[2019-02-04] MEDS: MORPHINE 15 MG SA TAB PO SCH ×2 (09:53→22:01)
[2019-02-04] MEDS: METOPROLOL TART 25 MG TABLET PO SCH ×2 (09:53→22:00)
[2019-02-04] MEDS: BRIMONIDINE 0.1% OPHTH SOLN 5 ML OU SCH (09:54)
[2019-02-04] MEDS: CEFTAROLINE FOSAMIL 400 MG in D5W MINI-BAG PLUS 50 ML IV SCH (12:21)
[2019-02-04] MEDS ORDERED: AMLO25TA PO (13:21)
[2019-02-04] MEDS ORDERED: OXYC1TAB23 PO (13:21)
[2019-02-04] MEDS ORDERED: MOM30SS2 PO (13:21)
[2019-02-04] MEDS ORDERED: METO1TAB87 PO (13:21)
[2019-02-04] MEDS ORDERED: SENN18TA PO (13:21)
[2019-02-04] MEDS ORDERED: ELIQ5TAB PO (13:21)
[2019-02-04 14:00] VITALS: BP 112/78
[2019-02-04] MEDS: DOCUSATE SODIUM 100 MG CAP PO SCH (21:00)
--- NOTE | 2019-02-04 21:31 | IPNPDOC ---
Text Note Date of Service The patient was seen on 02/04/19. NOTE SUBJECTIVE: No any acute events overnight . Pt is reluctant to be discharged. Patient feels upset about discharge OBJECTIVE: vital signs below GEN: lying on his left side in position in no distress. appears to be withdrawn and does not make eye contact. HENT: no pallor anicteric sclera no jaundice no JVD or LADNeck is supple, no adenopathy, mucosa is moist Cardiovascular:S1 S2 Irregular rate and rhythm nondisplaced PMI Respiratory: AEBE clear to auscultation, no rhonchi or wheezes Abdomen: (+) BS x 4 quadrants no abdominal bruits Soft, nontender,no HSM, nondistended, no rebound or guarding Extremities: Wound sites to right groin and right upper chest look clean ASSESSMENT/PLAN: 58 y/o AA male with PAD admitted with right groin wound infection with abscess after prior right femoropopliteal bypass. He underwent removal of infected graft with debridement and femoropopliteal bypass. 1. right groin wound infection with abscess due to infected graft with debridement and fempop bypass managed by vascular surgery, on IV ceftaroline , and being evaluated for rehab vs home. PT/OT consulted. pain mgt consulted. 2. Paroxysmal atrial fibrillation rate controlled and anticoagulated he is on Eliquis. 3. Protein calorie malnutrition bmi 19 Follow painter ordnance recommendation Ensure disposition: await PT clearance. VS,Fishbone, I+O VS, Fishbone, I+O Vital Signs Date Time Temp Pulse Resp B/P (MAP) Pulse Ox O2 Delivery O2 Flow Rate FiO2 02/04/19 16:58 16 02/04/19 14:00 98.1 70 112/78 (89) 98 I&O- Last 24 Hours up to 6 AM 02/04/19 06:00 Intake Total 2010 ml Output Total 600 ml Balance 1410 ml CRISELDA LANGSTON DO Feb 04, 2019 21:31
[2019-02-04] MEDS: AMITRIPTYLINE 10 MG TAB PO SCH (21:59)
[2019-02-04 22:00] VITALS: BP 138/87
[2019-02-04] MEDS: LATANOPROST 0.005% OPHTH SOLN 2.5 ML OU SCH (22:02)
[2019-02-05] MEDS: CEFTAROLINE FOSAMIL 400 MG in D5W MINI-BAG PLUS 50 ML IV SCH (00:32)
[2019-02-05] MEDS: SLF 3 ML SYR IV SCH ×2 (05:55→12:37)
[2019-02-05] MEDS: PERCOCET 5MG/325MG TAB PO PRN (06:01)
[2019-02-05 08:00] VITALS: BP 125/63
[2019-02-05] MEDS: METOPROLOL TART 25 MG TABLET PO SCH (09:00)
[2019-02-05] MEDS: APIXABAN 5 MG TAB (ELIQUIS) PO SCH (09:39)
[2019-02-05] MEDS: BRIMONIDINE 0.1% OPHTH SOLN 5 ML OU SCH (09:39)
[2019-02-05] MEDS: SENNA 8.6 MG TAB (SENOKOT) PO SCH (09:39)
[2019-02-05 09:40] VITALS: BP 140/82
[2019-02-05] MEDS: DAKIN'S 0.25% HALF-STRENGTH SOLN 480 ML TOP SCH ×2 (09:41→12:37)
[2019-02-05] MEDS: MORPHINE 15 MG SA TAB PO SCH (09:42)
--- NOTE | 2019-02-05 22:18 | DS.PDOC ---
Discharge Summary General Date of Admission Dec 25, 2018 at 14:54 Date of Discharge 03/08/19 Attending Physician: CRISELDA LANGSTON DO Discharge Summary PROCEDURES PERFORMED DURING STAY: P Rt groin abscess drainage 12/27/18 , Rt fem profunda bypass procedure ADMITTING DIAGNOSES: PAD Right groin mass/abscess with infected graft Acute Kidney Injury History of paroxysmal AFIB History of neuropathy DISCHARGE DIAGNOSES: PAD -s/p right femoral exploration, bypass graft ligation and partial removal on 12/31 -s/p Removal of infected femoral popliteal bypass graft on 01/03 -s/p Rt groin debridement/Wound vac placement as per Dr Sanchez 01/08/19. -s/p Right Femoral Exploration and Wound Debridement, Right Femoral Major Artery Angioplasty on 01/14 -s/p Right axillary profunda bypass 01/23/19 -Start tapering off IV pain medications. IV dilaudid switched to IV Morphine Right groin mass/abscess with infected graft Acute Kidney Injury History of paroxysmal AFIB History of neuropathy COMPLICATIONS/CHIEF COMPLAINT: Vascular Graft Infection. HISTORY OF PRESENT ILLNESS: 58yoM with severe BLE PVD, with h/o L EIA stenting followed shortly thereafter by a left to right femfem bypass, s/p Rt Fem Pop bypass 10/29/[address] Sanchez. He had previous right fempop bypass 10/29/18 and stopped taking eliquis. The graft of right superficial femoral artery became occluded. He was admitted and placed on heparin drip. Patient was found to have 12/25 with vascular graft infection. HOSPITAL COURSE: During hospital stay the following issue was addressed: PAD with h/o L EIA stenting followed by a left to right femfem bypass, s/p Rt Fem Pop bypass 10/29/[address] Sanchez. S/P Rt groin abscess drainage 12/27/[address] Sanchez. S/P right femoral exploration, bypass graft ligation and partial removal 12/31/[address] Sanchez. S/P removal of infected graft 01/03/[address] Sanchez. S/P Rt groin debridement/Wound vac placement as per Dr Sanchez 01/08/19. Status post right femoral exploration, right femoral angioplasty, right femoral wound debridement 01/14/[address] Sanchez. Rt axillary-Profunda Bypass as per Dr Sanchez 01/23/19. #Right groin mass/abscess with infected graft -S/P Rt groin abscess drainage 12/27/[address] Sanchez. -Wound culture notable for MSSA, repeat cultures from 12/31 notable for Coag Neg Staph -8/6 cultures notable for Staph Epi ; IV Vancomycin transitioned to cephalosporin for empiric coverage - patient received Ceftaroline # Acute Kidney Injury -Likely 2/2 Decreased PO Intake -renal U/S with abnormalities - (unable to do contrast CT due to DEVON) #History of paroxysmal AFIB -Continue on on metoprolol BID -On heparin drip for anticoagulation then change to eliquis #History of neuropathy - amitriptyline, tizanidine, gabapentin DISCHARGE MEDICATIONS: Please see below. ALLERGIES: Please see below. PHYSICAL EXAMINATION ON DISCHARGE: VITAL SIGNS: Please see below. GEN: lying on his left side in position in no distress. appears to be withdrawn and does not make eye contact. HENT: no pallor anicteric sclera no jaundice no JVD Cardiovascular:S1 S2 Irregular rate and rhythm nondisplaced PMI Respiratory: AEBE clear to auscultation, no rhonchi or wheezes Abdomen: (+) BS x 4 quadrants no abdominal bruits Soft, nontender,no HSM, nondistended, no rebound or guarding Extremities: Wound sites to right groin and right upper chest look clean LABORATORY DATA: Please see below. IMAGING:Lower extremity CT angiography with IV contrast: Comparison is 12/25/2018. The left iliac and femoral arteries are patent. The right iliac and femoral arteries are occluded. This is unchanged. There is a left to right crossover femoral - femoral graft . This graft is occluded. This is unchanged. There is a right fem-pop graft. i this is occluded. This is unchanged. There is a straight line flow from the popliteal arteries across the ankles through the posterior tibial arteries bilaterally. There is straight line flow across the right ankle through the anterior tibial artery. The left anterior tibial artery is occluded distally . The peroneal arteries are occluded distally bilaterally. The right inguinal focal inflammation at the right femoral graft has slightly decreased. There is a defect in the skin surface, not present previously at could be a surgical wound or an ulcer. PROGNOSIS: Depends on patient compliance to medical regimen ACTIVITY: As tolerated DIET: Cardiac DISCHARGE PLAN: Follow-up with muscular surgeon and PCP in 2-3 days DISPOSITION: 06 Home Health Service. DISCHARGE INSTRUCTIONS: 1. Take prescribed medications ITEMS TO FOLLOWUP ON ON OUTPATIENT: 1. Follow-up with Dr. Sanchez DISCHARGE CONDITION: Stable. TIME SPENT ON DISCHARGE: Greater than 30 minutes. Vital Signs/I&Os Vital Signs Date Time Temp Pulse Resp B/P (MAP) Pulse Ox O2 Delivery O2 Flow Rate FiO2 02/05/19 09:42 16 02/05/19 09:40 140/82 02/05/19 09:00 57 02/05/19 08:00 97.7 99 I&O- Last 24 Hours up to 6 AM 02/05/19 06:00 Intake Total 800 ml Output Total 2150 ml Balance -1350 ml Discharge Medications Scheduled Amitriptyline HCl (Amitriptyline HCl) 10 Mg Tablet, 10 MG PO QHS, (Reported) Amlodipine Besylate (Amlodipine Besylate) 2.5 Mg Tablet, 2.5 MG PO BID Apixaban (Eliquis) 5 Mg Tablet, 5 MG PO BID Aspirin (Aspir 81) 81 Mg Tab, 81 MG PO DAILY, (Reported) Brimonidine Tartrate (Alphagan P) 100 Drop/5 Ml Soln, 1 DROP OU DAILY, (Reported) Docusate Sodium (Stool Softener) 100 Mg Capsule, 100 MG PO QHS, (Reported) Latanoprost (Xalatan) 0.005 % Roopa, 1 DROP OU QHS, (Reported) Metoprolol Tartrate (Metoprolol Tartrate) 25 Mg Tablet, 75 MG PO BID Senna (Senna Lax) 8.6 Mg Tablet, 2 TAB PO BID Scheduled PRN Fluticasone Propionate (Flonase Allergy Relief) 9.9 Ml [place].susp, 2 SPRAY NARES DAILY PRN for CONGESTION, (Reported) Magnesium Hydroxide (Milk of Magnesia) 400 Mg/5 Ml Oral.susp, 30 ML PO DAILYPRN PRN for CONSTIPATION Oxycodone HCl/Acetaminophen (Oxycodone-Acetaminophen 5-325) 1 Each Tablet, 1 TAB PO QIDP PRN for pain Tizanidine HCl (Tizanidine HCl) 4 Mg Cap, 4 MG PO TID PRN for MUSCLE SPASMS, (Reported) Allergies Coded Allergies: Penicillins (Verified Allergy, Unknown, CHILDHOOD ALLERGY, 12/25/18) CRISELDA LANGSTON DO Feb 05, 2019 22:18
--- NOTE | 2019-02-05 22:20 | IPNPDOC ---
Text Note Date of Service The patient was seen on 02/05/19. NOTE SUBJECTIVE: No any acute events overnight . Await discharge. Patient feels more upset about discharge than yesterday OBJECTIVE: vital signs below GEN: lying on his left side in position in no distress. appears to be withdrawn and does not make eye contact. HENT: no pallor anicteric sclera no jaundice no JVD or LADNeck is supple, no adenopathy, mucosa is moist Cardiovascular:S1 S2 Irregular rate and rhythm nondisplaced PMI Respiratory: AEBE clear to auscultation, no rhonchi or wheezes Abdomen: (+) BS x 4 quadrants no abdominal bruits Soft, nontender,no HSM, nondistended, no rebound or guarding Extremities: Wound sites to right groin and right upper chest look clean ASSESSMENT/PLAN: 58 y/o AA male with PAD admitted with right groin wound infection with abscess after prior right femoropopliteal bypass. He underwent removal of infected graft with debridement and femoropopliteal bypass. 1. right groin wound infection with abscess due to infected graft with debridement and fempop bypass managed by vascular surgery Discharge plan home with home health 2. Paroxysmal atrial fibrillation rate controlled and anticoagulated he is on Eliquis. 3. Protein calorie malnutrition bmi 19 Follow morphologist recommendation Ensure VS,Fishbone, I+O VS, Fishbone, I+O Vital Signs Date Time Temp Pulse Resp B/P (MAP) Pulse Ox O2 Delivery O2 Flow Rate FiO2 02/05/19 09:42 16 02/05/19 09:40 140/82 02/05/19 09:00 57 02/05/19 08:00 97.7 99 I&O- Last 24 Hours up to 6 AM 02/05/19 06:00 Intake Total 800 ml Output Total 2150 ml Balance -1350 ml CRISELDA LANGSTON DO Feb 05, 2019 22:20
--- NOTE | 2019-02-14 17:23 | RO ---
DATE OF PROCEDURE: 12/27/2018 PREOPERATIVE DIAGNOSIS: Right groin mass, right groin pain. POSTOPERATIVE DIAGNOSIS: Right groin mass, right groin pain. PROCEDURE: Right groin mass incision and drainage. SURGEON: Dr. Dejah Sanchez MANAGER INFRASTRUCTURE: None. ANESTHESIA: Local monitored anesthesia care (MAC). INDICATION: The patient is a 58-year-old male who has previously undergone a nywn-fv-gzyqv femoral-femoral bypass graft secondary to occluded right iliac artery and subsequently a right yltqsax-wx-tmjzjhqcl artery bypass graft. The patient now presents with swelling and mass in the right groin consistent with seroma versus abscess. The patient will undergo incision and drainage with possible removal of graft. ESTIMATED BLOOD LOSS: 3 mL IV FLUIDS: 300 mL SPECIMEN: Fluid from the right groin mass for culture and sensitivity. DESCRIPTION OF PROCEDURE: The patient was taken to the operating room, placed supine on the operating room table and then prepped and draped in the standard surgical fashion. The area overlying the mass was anesthetized with local anesthesia after which an incision was made, which opened into a cavity with some brown appearing fluid. The fluid was taken for culture and sensitivity. The fluid was evacuated, and the wound irrigated with no exposure of the graft noted and this appeared to be a subcutaneous collection. The wound was packed open. Dressings were applied. The patient tolerated the procedure well. All instrument, sponge, and needle counts were correct at the end of the case. There were no complications. Dr. Sanchez was present for and directed the entire case. The patient was transferred to the recovery room and subsequently to the floor in stable condition.
--- NOTE | 2019-02-14 17:31 | RO ---
DATE OF PROCEDURE: 12/31/2018 ATTENDING SURGEON: Dr. Dejah Sanchez CONGRESSIONAL ASSISTANT: None. PREOPERATIVE DIAGNOSES: Right groin abscess, right lower extremity ischemia. POSTPROCEDURE DIAGNOSES: Right groin abscess, right lower extremity ischemia. PROCEDURE: Removal of hzvx-nz-tuhdn femoral-femoral bypass graft, right femoral exploration. INDICATION: The patient is a 58-year-old male who has previously undergone a clmv-yo-kvlin femoral-femoral bypass graft and a right femoral to popliteal artery bypass graft due to ischemia in the right lower extremity knee. The patient presented with pain and swelling in the right groin and underwent an incision and drainage of a subcutaneous abscess, which will undergo further evaluation and debridement. ANESTHESIA: MAC. ESTIMATED BLOOD LOSS: 100 mL IV FLUIDS: 400 mL SPECIMEN: Graft for culture and sensitivity. PROCEDURE: The patient was taken to the operating room, placed supine on the operating room table and then prepped and draped in a standard surgical fashion. The previous wound was evaluated and debrided with removal of all nonviable skin, subcutaneous tissue and muscle down to healthy bleeding tissue. During the debridement, there was graft exposed, which appeared infected. The graft was the femoral-femoral bypass graft. This was dissected free proximally and distally to where the graft was incorporated and then the graft was transected and over tied with 0 silk suture. The graft was noted to be thrombosed. The portion of the graft was sent for culture and sensitivity. The wound was irrigated and then packed with wet-to-dry dressing. Dressings were then applied. The patient tolerated the procedure well. All instrument, sponge and needle counts were correct at the end of the case. There were no complications. Dr. Sanchez was present for and directed the entire case. The patient was transferred to recovery room and subsequently to the floor in stable condition.
--- NOTE | 2019-02-14 17:55 | RO ---
DATE OF PROCEDURE: 01/08/2019 ATTENDING SURGEON: Dr. Sp Sanchez. STAMPING DIE MAKER: None. PREOPERATIVE DIAGNOSIS Infected pjuy-vm-qqsys femoral-femoral bypass graft and right femoral to popliteal artery bypass graft subsequently which have been removed. Right lower extremity pain and ischemia. POSTOPERATIVE DIAGNOSES Infected dzmp-jp-rrbxd femoral-femoral bypass graft and right femoral to popliteal artery bypass graft subsequently which have been removed. Right lower extremity pain and ischemia. OPERATIVE PROCEDURE Right femoral wound excisional debridement with removal of skin, subcutaneous tissue and muscle, placement of a vac dressing. INDICATION The patient is a 58-year-old male who underwent removal of his infected femoral-femoral bypass graft and right femoral to popliteal artery bypass graft who now has ischemia in the right lower extremity who requires revascularization. The patient will undergo evaluation of the right groin wound with possible bypass grafting. Risks, benefits and alternative treatment options were discussed with the patient. ANESTHESIA: Monitored anesthesia care (MAC). ESTIMATED BLOOD LOSS: 5 mL IV FLUIDS: 150 mL SPECIMEN: Tissue sent for culture and sensitivity. DESCRIPTION OF PROCEDURE The patient was taken to the operating room, placed supine on the operating room table and then prepped and draped in a standard surgical fashion. The right femoral wound was debrided sharply with removal of skin, subcutaneous tissue and muscle down to healthy bleeding tissue, but there was continued signs of infection in the wound and attempts at an axillofemoral or iliofemoral bypass were not performed due to concerns for reinfection of the new graft. The vac was reapplied to the wound, dressings were applied. The patient tolerated the procedure well. All instrument, sponge and needle counts were correct at the end of the case. There were no complications. Dr. Sanchez was present for and directed the entire case. The patient was transferred to the recovery room and subsequently to the floor in stable condition.
--- NOTE | 2019-02-14 18:13 | RO ---
DATE OF PROCEDURE: 01/14/2019 PREOPERATIVE DIAGNOSIS: Infected snfc-zo-eiuqx femoral-femoral bypass graft and right hzzuqju-mz-cbzkbcqeh artery bypass graft, status post removal, continued drainage from the right groin wound. POSTOPERATIVE DIAGNOSIS: Infected dvii-zn-hjekq femoral-femoral bypass graft and right kyoglop-dg-txcwulxdu artery bypass graft, status post removal, continued drainage from the right groin wound. PROCEDURE: Right femoral wound exploration, removal of the remainder of the snks-xh-fhzhs femoral-femoral bypass graft. SURGEON: Dr. Dejah Sanchez DATABASE DBA: None. ANESTHESIA: Local monitored anesthesia care (MAC). ESTIMATED BLOOD LOSS: 200 mL. IV FLUIDS: 600 mL. SPECIMEN: Graft for culture and sensitivity. INDICATION: The patient is a 58-year-old male who underwent removal of his infected bypass graft but has continued drainage from the right femoral wound as well as ischemia in the right lower extremity and requires right lower extremity revascularization. DESCRIPTION OF PROCEDURE: The patient was taken to the operating room, placed supine on the operating room table and then prepped and draped in a standard surgical fashion. The right femoral wound was debrided sharply, and a portion of the remaining left limb of the femoral-femoral bypass graft was identified to be unincorporated. This was dissected free back to where the graft was incorporated with healthy tissue, and the graft was oversewn and transected. The srsw-vt-zycid femoral-femoral bypass graft was previously noted to be thrombosed. The wound was irrigated copiously with saline after which the VAC dressing was replaced. All instrument, sponge and needle counts were correct at the end of the case. There were no complications. Dr. Sanchez was present for and directed the entire case. The patient was transferred to the recovery room awake, alert, extubated and in stable condition.
--- NOTE | 2019-02-14 18:34 | RO ---
DATE OF PROCEDURE: 01/23/2019 ATTENDING PHYSICIAN: Dr. Sp Sanchez MANAGER CARD: None. PREOPERATIVE DIAGNOSES Right lower extremity ischemia, infected ylkj-im-tztmk femoral-femoral bypass graft, status post removal, infected popliteal artery bypass graft, status post removal. POSTOPERATIVE DIAGNOSES Right lower extremity ischemia, infected qfzl-hr-xggeo femoral-femoral bypass graft, status post removal, infected popliteal artery bypass graft, status post removal. OPERATIVE PROCEDURE: Right zvxgjn-iy-fbitnqhz femoris artery bypass graft using 8 mm PTFE Propaten graft. INDICATION The patient is a 58-year-old male who underwent revascularization of his right lower extremity previously and had infection of the graft which required removal. The patient has ischemia of the right lower extremity and requires revascularization. The patient will undergo a right csqqbp-ms-ragjtghx femoris artery bypass graft. Risks, benefits and alternative treatment options have been discussed with the patient. ANESTHESIA: Local monitored anesthesia care (MAC) ESTIMATED BLOOD LOSS: 300 mL IV FLUIDS: 1100 ml, heparin 7000 units followed by an additional 3000 unit bolus. SPECIMEN: None. COMPLICATIONS: None. DRAINS: None. IMPLANTS: 8 mm PTFE Propaten graft from the right axillary artery to the right profunda femoris artery. DESCRIPTION OF PROCEDURE The patient was taken to the operating room, placed supine on the operating table and then prepped and draped in a standard surgical fashion. The axillary artery was exposed through a subclavicular incision and encircled with vessel loops. The right profunda femoris artery was exposed through a lateral incision avoiding the area of previous infection, which has almost completely healed. Once the profunda femoris artery was sharply dissected free, the patient was given heparin after tunneling the graft. The graft was anastomosed to the axillary artery in an end-to-side fashion using #6-0 Prolene suture. The graft was anastomosed to the profunda femoris artery in an end-to-side fashion using #6-0 Prolene suture in running continuous fashion. There was good flow through the graft and into the profunda femoris artery at the completion of the anastomosis. Hemostasis was obtained after which the wounds were closed using #2-0 Vicryl to approximate the deeper layers and marjorie to approximate the skin. Dressings were then applied. The patient tolerated the procedure well. All instrument, sponge and needle counts were correct. There were no complications. Dr. Sanchez was present for and directed the entire case. The patient was transferred to the recovery room and subsequently to the floor in stable condition.
--- NOTE | 2019-02-14 20:26 | RO ---
DATE OF PROCEDURE: 01/03/2019 ATTENDING SURGEON: Dr. Dejah Sanchez BALL MILL MIXER: None. PREOPERATIVE DIAGNOSES: Infected ardl-mm-gupdq femoral-femoral bypass graft, right femoral abscess and wound, right lower extremity ischemia. POSTPROCEDURE DIAGNOSES: Infected xnwa-lq-ouvrf femoral-femoral bypass graft, right femoral abscess and wound, right lower extremity ischemia. PROCEDURE: Right femoral wound exploration with excisional debridement of skin, subcutaneous tissue and muscle, removal of right femoral to popliteal artery bypass graft and the remainder of the left to right femoral-femoral bypass graft in the right groin. INDICATION: The patient is a 58-year-old male with previous bypass from the left to right femoral artery and a right femoral-popliteal artery bypass graft. The patient developed a mass in the right groin, which was drained and subsequent debridement exposed infected femoral-femoral bypass graft, which was removed partially. The patient has had continued drainage of fluid from the groin and nonhealing of the wounds and will undergo further debridement and evaluation. ANESTHESIA: Local MAC. ESTIMATED BLOOD LOSS: 25 mL IV FLUIDS: 300 mL SPECIMEN: Right femoral to popliteal artery bypass graft and remainder of the right limb of the bncc-xz-bwskh femoral-femoral bypass graft sent for culture and sensitivity. PROCEDURE The patient was taken to the operating room, placed supine on the operating room table and prepped and draped in a standard surgical fashion. The right groin wound was debrided and with further debridement the femoral popliteal artery bypass graft was noted to be exposed and non incorporated. An incision was made over the graft in the popliteal region and the graft was removed from the artery, which was thrombosed. The artery was oversewn using 0 silk suture. The graft was removed from along the track in the right lower extremity and removed from the femoral artery, which was closed using 6-0 Prolene suture. The remainder of the right portion of the femoral-femoral bypass graft was also removed with the femoral popliteal artery bypass graft. Hemostasis was obtained after which the wounds were irrigated and 1-inch iodoform packing was placed in the wounds, as well as along the tunnel created for the bypass graft. Dressings were then applied. The patient tolerated the procedure well. All instrument, sponge and needle counts were correct at the end the case. There were no complications. Dr. Sanchez was present for and directed the entire case. The patient was transferred to the recovery room and subsequently to the floor in stable condition.
== END 2019-02-05 15:40 | disposition home health service (06) | DRG 253 ==
LOC: M ED 10:00 → M ED INP 14:54 → M PCU 16:26 → M MSPAV 01-09 17:45
PROVIDERS: ADMIT Family Medicine; ATTEND Internal Medicine
PROC: 0J9C0ZZ Drainage of Pelvic Region Subcutaneous Tissue and Fascia, Open Approach (ICD-10-PCS; 2018-12-27)
PROC: 0KBQ0ZZ Excision of Right Upper Leg Muscle, Open Approach (ICD-10-PCS; 2018-12-31)
PROC: 04PY0JZ Removal of Synthetic Substitute from Lower Artery, Open Approach (ICD-10-PCS; principal; 2018-12-31 12:15)
PROC: 0KBS0ZZ Excision of Right Lower Leg Muscle, Open Approach (ICD-10-PCS; 2019-01-03)
PROC: 04PY0JZ Removal of Synthetic Substitute from Lower Artery, Open Approach (ICD-10-PCS; 2019-01-03)
PROC: 0KBQ0ZZ Excision of Right Upper Leg Muscle, Open Approach (ICD-10-PCS; 2019-01-08)
PROC: 2W16X6Z Compression of Right Inguinal Region using Pressure Dressing (ICD-10-PCS; 2019-01-08)
PROC: 04PY0JZ Removal of Synthetic Substitute from Lower Artery, Open Approach (ICD-10-PCS; 2019-01-14)
PROC: 2W0LX6Z Change Pressure Dressing on Right Lower Extremity (ICD-10-PCS; 2019-01-14)
PROC: 03150J6 Bypass Right Axillary Artery to Right Upper Leg Artery with Synthetic Substitute, Open Approach (ICD-10-PCS; 2019-01-23)
DX: T82.7XXA Infection and inflammatory reaction due to other cardiac and vascular devices, implants and grafts, initial encounter (principal); T82.398A Other mechanical complication of other vascular grafts, initial encounter; N17.9 Acute kidney failure, unspecified; L02.214 Cutaneous abscess of groin; Y83.1 Surgical operation with implant of artificial internal device as the cause of abnormal reaction of the patient, or of later complication, without mention of misadventure at the time of the procedure; M79.604 Pain in right leg; I99.8 Other disorder of circulatory system; T82.868A Thrombosis due to vascular prosthetic devices, implants and grafts, initial encounter; I73.9 Peripheral vascular disease, unspecified; I10 Essential (primary) hypertension; G62.9 Polyneuropathy, unspecified; E78.5 Hyperlipidemia, unspecified; F41.9 Anxiety disorder, unspecified; F32.9 Major depressive disorder, single episode, unspecified; H40.9 Unspecified glaucoma; I48.0 Paroxysmal atrial fibrillation; J30.9 Allergic rhinitis, unspecified; Z87.891 Personal history of nicotine dependence; Z79.82 Long term (current) use of aspirin; Z79.899 Other long term (current) drug therapy; Z88.0 Allergy status to penicillin

== ENCOUNTER → 2019-02-20 | Outpatient (CLI) | payer OTHER ==
[~2019-02-20] MED LIST changes: +AMIT-253 PO; +AMLO25TA PO; +MM S100C PO; +MOM30SS2 PO; +OXYC1TAB23 PO; +SENN18TA PO
--- NOTE | 2019-02-20 15:32 | REP ---
RIGHT LOWER EXTREMITY DUPLEX DOPPLER ARTERIAL ULTRASOUND: Real-time ultrasound evaluation and duplex Doppler interrogation of right lower extremity arterial system is performed. The previously noted right femoral popliteal bypass graft and femoral to femoral graft have been removed. There is a new right axillary to profunda graft which is patent. In the right groin adjacent to the femoral vessels, there is a hypoechoic fluid collection 4.6 x 1.3 x 2.5 cm. This most likely represents postsurgical hematoma. There is occlusion of the superficial femoral artery with reconstitution distally. There is reversal of flow in the proximal right anterior tibial artery. There are diffusely monophasic waveforms. NICKIE is 0.6. Right PSV Axillary graft 30.7 cm/s Common femoral artery 256.6 cm/s Profunda 62.1 cm/s SFA occluded Popliteal 34.7 cm/s Proximal JOSÉ MIGUEL 89.4 cm/s reversed Tibial peroneal trunk 26.3 cm/s Proximal ENGRAVING PATTERNMAKER 34.1 cm/s Distal ENGRAVING PATTERNMAKER 36.9 cm/s Distal JOSÉ MIGUEL 29.6 cm/s Electronically Signed by Selvin Herrera MD 02/20/2019 05:02 P
== END ==
LOC: M RAD 12:52
PROVIDERS: ATTEND Surgery Vascular Surgery
DX: I82.521 Chronic embolism and thrombosis of right iliac vein (principal)

== ENCOUNTER → 2019-03-28 | Outpatient (CLI) | payer OTHER ==
[2019-03-28 09:36] LABS: CALCIUM LEVEL 9.4 MG/DL (8.5-10.1); CREATININE FOR GFR 1.55 MG/DL (0.70-1.30); GLOMERULAR FILTRATION RATE 59.5 (>56)
== END ==
LOC: M LAB 08:34
PROVIDERS: ATTEND Physician Assistant
DX: I70.213 Atherosclerosis of native arteries of extremities with intermittent claudication, bilateral legs (principal); I10 Essential (primary) hypertension

== ENCOUNTER 2019-03-29 22:46 | Emergency (ER) | payer OTHER ==
[~2019-03-29] VITALS: Ht 185.4 cm; Wt 65.5 kg
[2019-03-29 23:23] LABS: BASO % 0.4 % (0.0-1.0); EOS # 0.3 10^3/uL (0.0-0.5); EOS % 2.9 % (0.0-3.0); HEMATOCRIT 35.7 % (42.0-52.0); HEMOGLOBIN 11.4 g/dl (13.5-17.5); LYMPH # 3.2 10^3/uL (1.5-5.0); LYMPH % 34.8 % (24.0-44.0); MEAN CORPUSCULAR HEMOGLOBIN 26.8 pg (27.0-33.0); MEAN CORPUSCULAR HGB CONC 31.9 g/dl (32.0-36.5); MEAN CORPUSCULAR VOLUME 83.8 fl (80.0-96.0); MONO # 0.6 10^3/uL (0.0-0.8); MONO % 6.4 % (0.0-5.0); NEUTROPHILS # 5.1 10^3/uL (1.5-8.5); NEUTROPHILS % 55.2 % (36.0-66.0); PLATELET COUNT, AUTOMATED 459 10^3/uL (150-450); RED BLOOD COUNT 4.26 10^6/uL (4.30-6.10); WHITE BLOOD COUNT 9.3 10^3/uL (4.0-10.0)
[2019-03-29] MEDS ORDERED: MORPHINE 4 MG/ML 1ML VIAL/SYRINGE (J2270) IV ONE (23:30)
[2019-03-29] MEDS ORDERED: ONDANSETRON 4MG/2ML VIAL (J2405) IV ONE (23:30)
[2019-03-29] MEDS ORDERED: NS 1,000 ML IV SCH (23:30)
[2019-03-29 23:40] LABS: INR 1.12; PROTHROMBIN TIME 14.1 SECONDS (11.8-14.0)
[2019-03-29 23:50] LABS: ALBUMIN 3.8 GM/DL (3.2-5.2); ALT/SGPT 37 U/L (12-78); BILIRUBIN,DIRECT < 0.1 MG/DL (0.0-0.2); BILIRUBIN,TOTAL 0.2 MG/DL (0.2-1.0); BLOOD UREA NITROGEN 17 MG/DL (7-18); CARBON DIOXIDE LEVEL 26 MEQ/L (21-32); CHLORIDE LEVEL 108 MEQ/L (98-107); CREATININE FOR GFR 1.38 MG/DL (0.70-1.30); GLOMERULAR FILTRATION RATE > 60.0 (>56); GLUCOSE, FASTING 107 MG/DL (70-100); LIPASE 375 U/L (73-393); POTASSIUM SERUM 3.9 MEQ/L (3.5-5.1); SODIUM LEVEL 140 MEQ/L (136-145); TOTAL PROTEIN 7.5 GM/DL (6.4-8.2)
--- NOTE | 2019-03-30 00:38 | REPVR ---
PROCEDURE INFORMATION: Exam: CT Abdomen And Pelvis Without Contrast Exam date and time: 03/29/2019 12:12 AM Clinical history: 58 years old, male; Abdominal pain; Localized; Left lower quadrant (llq); Prior surgery; Surgery type: Bypass in left leg; Additional info: Llq hernia TECHNIQUE: Imaging protocol: Computed tomography of the abdomen and pelvis without contrast. Radiation optimization: All CT scans at this facility use at least one of these dose optimization techniques: automated exposure control; mA and/or kV adjustment per patient size (includes targeted exams where dose is matched to clinical indication); or iterative reconstruction. COMPARISON: CT ANGIO ABD/PEL 10/19/2018 10:39 AM FINDINGS: Lungs: Minimal bilateral lower lobe fibro-atelectatic change. Liver: There are several low-attenuation foci in the liver measuring up to 2.5 cm with a Hounsfield measurement of 2 which are probably cysts. Gallbladder and bile ducts: Normal. No calcified stones. No ductal dilation. Pancreas: Normal. No ductal dilation. Spleen: Normal. No splenomegaly. Adrenals: Normal. No mass. Kidneys and ureters: There is a left renal cyst measuring up to 12 mm. 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 Stomach and bowel: See Vasculature Finding. Appendix: A normal appendix is seen. Intraperitoneal space: Unremarkable. No free air. No significant fluid collection. Vasculature: There is minimal atherosclerotic calcification of the abdominal aorta with slight general ectasia measuring 32 mm with ectasia extending into the common iliac arteries. Left external iliac artery stent with fem-fem bypass and right axillofemoral bypass. There is confluence around the left aspect of the fem-fem bypass graft which is increased since the prior study and may reflect a recent revision. Hematoma and pseudoaneurysm from the anastomosis is not excluded. Lymph nodes: Unremarkable. No enlarged lymph nodes. Bladder: Unremarkable as visualized. Reproductive: Unremarkable as visualized. Bones/joints: Unremarkable. No acute fracture. Soft tissues: Unremarkable. IMPRESSION: 1. Mild ectasia of the abdominal aorta and common iliac arteries. 2. Left external iliac stent with fem-fem bypass graft which persists since the prior study of 10/19/2018. There is increased confluence around the left aspect of the fem-fem bypass extending from the left inguinal anastomosis which is new since the prior study and may reflect interval intervention with hematoma and possible pseudoaneurysm. 3. Right axillofemoral graft which is new since the prior study. Electronically signed by: Haris Ward On 03/30/2019 00:37:32 AM
[2019-03-30] MEDS ORDERED: MORPHINE 4 MG/ML 1ML VIAL/SYRINGE (J2270) IV ONE (02:30)
[2019-03-30 02:36] VITALS: BP 152/90
== END 2019-03-30 02:38 | disposition short-term general hospital (02) ==
LOC: M ED 22:46
DX: I72.3 Aneurysm of iliac artery (principal); Z95.5 Presence of coronary angioplasty implant and graft; Z79.01 Long term (current) use of anticoagulants; Z79.82 Long term (current) use of aspirin; Z79.899 Other long term (current) drug therapy; Z88.0 Allergy status to penicillin
CPT/HCPCS: 74176; 80048; 80076; 81001; 83605; 83690; 85025; 85610; 86850; 86870; 86900; 86901; 87040; 87077; 87186; 96374; 96375; 96376; 99284; J2270; J2405

== ENCOUNTER → 2019-04-10 | Outpatient (REF) | payer OTHER ==
[2019-04-10 15:26] LABS: BASO # 0.1 10^3/uL (0.0-0.2); BASO % 0.7 % (0.0-1.0); EOS # 0.4 10^3/uL (0.0-0.5); HEMOGLOBIN 9.6 g/dl (13.5-17.5); LYMPH % 39.5 % (24.0-44.0); MEAN CORPUSCULAR HEMOGLOBIN 25.9 pg (27.0-33.0); MEAN CORPUSCULAR VOLUME 86.3 fl (80.0-96.0); MONO # 0.7 10^3/uL (0.0-0.8); MONO % 9.4 % (0.0-5.0); NEUTROPHILS # 3.4 10^3/uL (1.5-8.5); PLATELET COUNT, AUTOMATED 756 10^3/uL (150-450); RED BLOOD COUNT 3.71 10^6/uL (4.30-6.10); WHITE BLOOD COUNT 7.6 10^3/uL (4.0-10.0)
[2019-04-10 15:29] LABS: BLOOD UREA NITROGEN 16 MG/DL (7-18); C REACTIVE PROTEIN QUANTITATIV 1.97 MG/DL (0.00-0.30); CALCIUM LEVEL 9.2 MG/DL (8.5-10.1); CARBON DIOXIDE LEVEL 28 MEQ/L (21-32); CHLORIDE LEVEL 109 MEQ/L (98-107); CREATININE FOR GFR 1.03 MG/DL (0.70-1.30); GLOMERULAR FILTRATION RATE > 60.0 (>56); GLUCOSE, FASTING 85 MG/DL (70-100); POTASSIUM SERUM 4.7 MEQ/L (3.5-5.1); SODIUM LEVEL 140 MEQ/L (136-145)
[2019-04-10 15:46] LABS: ERYTHROCYTE SEDIMENTATION RATE 50 mm/hr (0-20)
== END ==
LOC: M LAB REF 15:00
PROVIDERS: ATTEND Nurse Practitioner
DX: I72.9 Aneurysm of unspecified site (principal)

== ENCOUNTER → 2019-04-14 | Outpatient (REF) | payer OTHER ==
[2019-04-14 15:03] LABS: BASO # 0.1 10^3/uL (0.0-0.2); BASO % 1.6 % (0.0-1.0); EOS # 0.4 10^3/uL (0.0-0.5); HEMATOCRIT 28.2 % (42.0-52.0); HEMOGLOBIN 8.6 g/dl (13.5-17.5); LYMPH # 1.9 10^3/uL (1.5-5.0); LYMPH % 36.6 % (24.0-44.0); MEAN CORPUSCULAR HEMOGLOBIN 25.7 pg (27.0-33.0); MEAN CORPUSCULAR HGB CONC 30.5 g/dl (32.0-36.5); MEAN CORPUSCULAR VOLUME 84.2 fl (80.0-96.0); MONO # 0.4 10^3/uL (0.0-0.8); MONO % 8.4 % (0.0-5.0); NEUTROPHILS # 2.4 10^3/uL (1.5-8.5); NEUTROPHILS % 46.2 % (36.0-66.0); PLATELET COUNT, AUTOMATED 621 10^3/uL (150-450); RED BLOOD COUNT 3.35 10^6/uL (4.30-6.10); WHITE BLOOD COUNT 5.1 10^3/uL (4.0-10.0)
[2019-04-14 15:33] LABS: BLOOD UREA NITROGEN 12 MG/DL (7-18); C REACTIVE PROTEIN QUANTITATIV 1.52 MG/DL (0.00-0.30); CALCIUM LEVEL 9.1 MG/DL (8.8-10.2); CARBON DIOXIDE LEVEL 25 MEQ/L (21-32); CHLORIDE LEVEL 109 MEQ/L (98-107); GLOMERULAR FILTRATION RATE > 60.0 (>49); GLUCOSE, FASTING 111 MG/DL (70-100); POTASSIUM SERUM 4.3 MEQ/L (3.5-5.1); SODIUM LEVEL 142 MEQ/L (136-145)
[2019-04-14 16:15] LABS: ERYTHROCYTE SEDIMENTATION RATE 55 mm/hr (0-20)
== END ==
LOC: M LAB REF 14:44
PROVIDERS: ATTEND Surgery Vascular Surgery
DX: Z48.812 Encounter for surgical aftercare following surgery on the circulatory system (principal)

== ENCOUNTER → 2019-04-28 | Outpatient (REF) | payer OTHER ==
[2019-04-28 17:13] LABS: HEMATOCRIT 29.6 % (42.0-52.0); HEMOGLOBIN 8.9 g/dl (13.5-17.5); MEAN CORPUSCULAR HEMOGLOBIN 24.3 pg (27.0-33.0); MEAN CORPUSCULAR HGB CONC 30.1 g/dl (32.0-36.5); MEAN CORPUSCULAR VOLUME 80.9 fl (80.0-96.0); PLATELET COUNT, AUTOMATED 425 10^3/uL (150-450); RED BLOOD COUNT 3.66 10^6/uL (4.30-6.10); WHITE BLOOD COUNT 4.3 10^3/uL (4.0-10.0)
[2019-04-28 18:13] LABS: ERYTHROCYTE SEDIMENTATION RATE 27 mm/hr (0-20)
[2019-04-28 18:29] LABS: BLOOD UREA NITROGEN 14 MG/DL (7-18); C REACTIVE PROTEIN QUANTITATIV 0.42 MG/DL (0.00-0.30); CALCIUM LEVEL 8.6 MG/DL (8.8-10.2); CARBON DIOXIDE LEVEL 24 MEQ/L (21-32); CHLORIDE LEVEL 107 MEQ/L (98-107); CREATININE FOR GFR 1.14 MG/DL (0.70-1.30); GLOMERULAR FILTRATION RATE > 60.0 (>49); GLUCOSE, FASTING 75 MG/DL (70-100); POTASSIUM SERUM 4.3 MEQ/L (3.5-5.1); SODIUM LEVEL 142 MEQ/L (136-145)
== END ==
LOC: M LAB REF 15:58
PROVIDERS: ATTEND Surgery Vascular Surgery
DX: T82.7XXA Infection and inflammatory reaction due to other cardiac and vascular devices, implants and grafts, initial encounter (principal)

== ENCOUNTER → 2019-05-04 | Outpatient (REF) ==
[2019-05-04 17:40] LABS: BASO # 0.1 10^3/uL (0.0-0.2); BASO % 1.6 % (0.0-1.0); EOS # 0.2 10^3/uL (0.0-0.5); EOS % 4.1 % (0.0-3.0); HEMATOCRIT 34.1 % (42.0-52.0); HEMOGLOBIN 9.9 g/dl (13.5-17.5); LYMPH # 1.8 10^3/uL (1.5-5.0); LYMPH % 41.6 % (24.0-44.0); MEAN CORPUSCULAR HEMOGLOBIN 23.6 pg (27.0-33.0); MEAN CORPUSCULAR VOLUME 81.2 fl (80.0-96.0); MONO # 0.4 10^3/uL (0.0-0.8); MONO % 9.1 % (0.0-5.0); NEUTROPHILS # 1.9 10^3/uL (1.5-8.5); NEUTROPHILS % 43.4 % (36.0-66.0); PLATELET COUNT, AUTOMATED 481 10^3/uL (150-450); WHITE BLOOD COUNT 4.4 10^3/uL (4.0-10.0)
[2019-05-04 17:58] LABS: ERYTHROCYTE SEDIMENTATION RATE 17 mm/hr (0-20)
[2019-05-04 17:59] LABS: BLOOD UREA NITROGEN 14 MG/DL (7-18); C REACTIVE PROTEIN QUANTITATIV 0.34 MG/DL (0.00-0.30); CALCIUM LEVEL 8.8 MG/DL (8.8-10.2); CARBON DIOXIDE LEVEL 27 MEQ/L (21-32); CHLORIDE LEVEL 108 MEQ/L (98-107); CREATININE FOR GFR 1.17 MG/DL (0.70-1.30); GLOMERULAR FILTRATION RATE > 60.0 (>49); GLUCOSE, FASTING 72 MG/DL (70-100); POTASSIUM SERUM 4.6 MEQ/L (3.5-5.1); SODIUM LEVEL 141 MEQ/L (136-145)
== END ==
LOC: M LAB REF 09:41
PROVIDERS: ATTEND Surgery Vascular Surgery
DX: I72.9 Aneurysm of unspecified site (principal)

== ENCOUNTER → 2019-06-12 | Outpatient (CLI) | payer OTHER ==
[~2019-06-12] MED LIST changes: +ISOVUE-370 76% 100ML VIAL (Q9967) As Ordered ONE
--- NOTE | 2019-06-13 08:46 | REP ---
CT angiography of the abdomen and lower extremity runoff arteries with IV contrast: History: Atherosclerosis of the [place] arteries of the extremities with intermittent claudication of the right leg. The patient reports previous stent placement. Comparison CT angiography October 19, 2018. CT contrast dose: 100 mL of intravenous Isovue [address] angiographic findings: The lower thoracic and upper abdominal aorta are normal in caliber. Singular non-stenotic renal arteries are seen bilaterally. Celiac and superior mesenteric artery origins are non-stenotic. There is considerable mural thrombus in the infrarenal abdominal aorta which is mildly ectatic 2.6 cm. The mural thrombus is along its right lateral margin. The distal aorta just above the bifurcation is mildly aneurysmal measuring 3.3 cm in greatest AP dimension. There is mild aneurysmal dilation of the common iliac arteries bilaterally, 2.3 cm in AP dimension on the left and 2.5 cm in AP dimension on the right. The left common iliac artery is patent. There is a patent left external iliac artery stent but the left profunda femoral artery remains occluded. There is irregular linear plaquing in a web like morphology in the distal external iliac artery on the left just beyond the stent unchanged from the comparison study. The left profunda femoral artery is patent but the superficial femoral artery on the left remains occluded at its origin. The distal SFA is reconstituted via muscular collaterals in the level of the adductor canal. A normal-caliber popliteal and three-vessel calf runoff patency is observed to the distal calf. The anterior and posterior tibial arteries are enhanced across the ankle. On the right there is a patent right axillofemoral bypass graft. This is anastomosed through the profunda femoral artery which is patent into the upper thigh. The right superficial femoral artery remains occluded from its origin. The previously noted fem-fem crossover graft is no longer present. The popliteal artery on the right is reconstituted via muscular collaterals. There are intact three-vessel calf runoff vessels. The posterior and anterior tibial arteries are seen opacified across the ankle. Impression: The previously noted left to right fem-fem crossover graft has been removed. A patent right axillofemoral bypass graft is seen in place. Occluded vessels include the following: Bilateral internal iliac, right common iliac, right external iliac, bilateral superficial femoral arteries. The distal SFA on the left and the popliteal artery on the right are reconstituted via collaterals and three-vessel calf runoff is seen bilaterally. There is a somewhat linear irregular plaque in the external iliac artery just distal to a patent stent on the left side. 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 Electronically Signed by Mikhail Antonio MD 06/13/2019 09:00 A
== END ==
LOC: M RAD 16:49
PROVIDERS: ATTEND Surgery Vascular Surgery
DX: I73.9 Peripheral vascular disease, unspecified (principal)
CPT/HCPCS: 75635; Q9967

== ENCOUNTER → 2019-07-24 | Outpatient (REF) | payer OTHER ==
[~2019-07-24] MED LIST changes: -ISOVUE-370 76% 100ML VIAL (Q9967) As Ordered ONE
[2019-07-24 15:34] LABS: APPEARANCE, URINE CLEAR (CLEAR); BACTERIA, URINE AUTO NEGATIVE (NEGATIVE); BILIRUBIN, URINE AUTO NEGATIVE (NEGATIVE); BLOOD, URINE BLOOD NEGATIVE (NEGATIVE); COLOR, URINE YELLOW (YELLOW); GLUCOSE, URINE (UA) AUTO NEGATIVE (NEGATIVE); KETONE, URINE AUTO NEGATIVE (NEGATIVE); LEUKOCYTE ESTERASE, URINE AUTO NEGATIVE (NEGATIVE); MUCUS, URINE SMALL (NEGATIVE); NITRITE, URINE AUTO NEGATIVE (NEGATIVE); PROTEIN, URINE AUTO NEGATIVE (NEGATIVE); RBC, URINE AUTO 1 /HPF (0-3); SPECIFIC GRAVITY URINE AUTO 1.016 (1.002-1.035); SQUAMOUS EPITHELIAL CELL UR AU 0 /HPF (0-6); UROBILINOGEN, URINE AUTO 0.2 mg/dL (0.0-2.0); WBC, URINE AUTO 0 /HPF (0-3)
== END ==
LOC: M SMT 12:47
PROVIDERS: ATTEND Nurse Practitioner Women's Health
DX: R97.20 Elevated prostate specific antigen [PSA] (principal); N40.0 Benign prostatic hyperplasia without lower urinary tract symptoms
CPT/HCPCS: 81001; 87086; G0463

== ENCOUNTER → 2019-09-02 | Outpatient (CLI) | payer OTHER | LOC: M SMT PRO 10:13 | PROVIDERS: ATTEND Urology | DX: R97.20 Elevated prostate specific antigen [PSA] (principal); Z53.8 Procedure and treatment not carried out for other reasons ==

== ENCOUNTER → 2020-04-06 | Outpatient (CLI) | payer OTHER ==
[~2020-04-06] MED LIST changes: -ASPI81TA85 PO; +ASPI81TA86 PO
--- NOTE | 2020-04-06 13:20 | REPPI ---
INDICATION: ELEVATED PSA. COMPARISON: None. TECHNIQUE: Transrectal ultrasound prostate performed. FINDINGS: The prostate measures 3.9 x 3.0 x 5.2 cm for total volume of 31.8 mL. Echotexture is heterogeneous with scattered tiny cysts and calcifications. At the right apex a hypoechoic nodule measures 8 x 4 x 7 mm. Seminal vesicles appear symmetrical and contain fluid. IMPRESSION: Ultrasound guidance was provided for Dr. Munoz performed ultrasound-guided biopsy of the prostate. <Electronically signed by Selvin Herrera > 04/06/20 [id number]
== END ==
LOC: M SMT PRO 09:55
PROVIDERS: ATTEND Urology
DX: C61 Malignant neoplasm of prostate (principal)

== ENCOUNTER → 2020-06-26 | Outpatient (CLI) | payer OTHER ==
[~2020-06-26] MED LIST changes: +GABA-282 PO; -GABA-843 PO
== END ==
LOC: M LABSMTC 09:32
PROVIDERS: ATTEND Anesthesiology
DX: Z01.812 Encounter for preprocedural laboratory examination (principal); Z20.822 Contact with and (suspected) exposure to COVID-19

== ENCOUNTER 2020-07-01 05:59 | Inpatient (IN) | payer OTHER ==
[2020-07-01] VITALS (7 sets, daily range): BP systolic 117–130; BP diastolic 75–85
[~2020-07-01] VITALS: Ht 185.4 cm; Wt 73.0 kg
[~2020-07-01 05:59] MED LIST changes: +HYDR-3490 PO; -HYDR25TAB PO
[2020-07-01] MEDS ORDERED: LR 1,000 ML IV ONE (06:00)
[2020-07-01] MEDS ORDERED: VANCOMYCIN HCL 1,000 MG, VIAL MATE ADAPTER 1 EACH in D5W 250 ML IV ONE (06:00)
[2020-07-01] MEDS ORDERED: HEPARIN SOD (PORCINE) 5000UNITS/ML 1ML VIAL/SYRINGE SQ ONE (06:00)
[2020-07-01] MEDS ORDERED: GENTAMICIN 80 MG in IV 1 EA IV ONE (06:00)
[2020-07-01] MEDS ORDERED: LACRILUBE (AKWA TEARS) OPHTH OINT 3.5 GM As Ordered ONE (07:10)
[2020-07-01] MEDS ORDERED: LIDOCAINE 2% 100MG/5ML SDV (FOR ANES.) As Ordered ONE ×4 (07:14→12:08)
[2020-07-01] MEDS ORDERED: propofoL 200 MG/20 ML VIAL As Ordered ONE ×2 (07:14→12:58)
[2020-07-01] MEDS ORDERED: ROCURONIUM BROMIDE 50 MG/5 ML VIAL As Ordered ONE ×2 (07:14→08:31)
[2020-07-01] MEDS ORDERED: fentaNYL 100 MCG/2 ML INJECTION (J3010) As Ordered ONE ×2 (07:15→08:15)
[2020-07-01] MEDS ORDERED: dexameTHASONE 4 MG/ML 1ML VIAL (J1100 PER 1MG) As Ordered ONE (07:15)
[2020-07-01] MEDS ORDERED: LIDOCAINE 1% SDV 30ML VIAL As Ordered ONE (07:15)
[2020-07-01] MEDS ORDERED: MIDAZOLAM INJ 2MG/2ML VIAL (J2250 PER 1MG) As Ordered ONE (07:15)
[2020-07-01] MEDS ORDERED: METOPROLOL TART 25 MG TABLET PO ONE (07:15)
[2020-07-01] MEDS ORDERED: ONDANSETRON 4MG/2ML VIAL As Ordered ONE (07:15)
[2020-07-01] MEDS ORDERED: BUPIVACAINE HCL 0.25% 30ML VIAL As Ordered ONE (07:15)
[2020-07-01] MEDS ORDERED: NS 1,000 ML IV SCH (07:32)
[2020-07-01] MEDS ORDERED: tiZANidine 4 MG TAB PO PRN (07:45)
[2020-07-01] MEDS ORDERED: ACETAMINOPHEN TAB 650MG DOSE (2X325MG) PO PRN (07:45)
[2020-07-01] MEDS ORDERED: ONDANSETRON 4MG/2ML VIAL IV PRN ×2 (07:45→14:30)
[2020-07-01] MEDS ORDERED: MORPHINE 2 MG/ML 1ML VIAL (J2270) IV PRN (07:45)
[2020-07-01] MEDS ORDERED: ePHEDrine SULFATE 25 MG/5 ML(5MG/ML) SYRINGE As Ordered ONE (08:28)
[2020-07-01] MEDS ORDERED: SUGAMMADEX SODIUM 500 MG/5 ML VIAL (BRIDION) As Ordered ONE (11:21)
[2020-07-01] MEDS ORDERED: PHENYLephrine 500MCG 5ML (100MCG/ML) SYRINGE As Ordered ONE (13:14)
--- NOTE | 2020-07-01 14:03 | ROOPDOC ---
[facility] Report Of Operation Report of Operation DATE OF PROCEDURE: 07/01/20 PREPROCEDURE DIAGNOSIS: Prostate cancer. POSTPROCEDURE DIAGNOSIS: Prostate cancer. PROCEDURE: Robotic-assisted laparoscopic radical prostatectomy with bilateral pelvic lymph node dissection. SURGEON: Barndo Mantilla MD SAND MIXER MACHINE: Melanie Gabriel NP ANESTHESIA: General. OPERATIVE INDICATIONS: This is a 60 year old male with intermediate risk clinical T1c Lefors 3+4 prostate cancer. After a discussion of the options for treatment, he elected to undergo the above procedure. DESCRIPTION OF PROCEDURE: The patient was brought to the operating room and general anesthesia was induced. Prophylactic antibiotics were infused. He was then placed in the dorsal lithotomy position and prepped and draped in the usual sterile fashion. At this point, a Lara catheter was inserted into the bladder and the balloon was filled with 10 mL of sterile water. We then made a midline incision just above the umbilicus for an 8 mm port. A Veress needle was utilized to achieve pneumoperitoneum. Next, an 8 mm port was inserted into the incision and subsequently a camera was inserted. There were no injuries from the Veress needle or initial trocar placement. At this point, we placed the remaining ports, including a 12 mm physiotherapy assistant port and then three robotic ports in the usual configuration. Once all the ports were placed, the robot was docked. Lysis of adhesions between the sigmoid colon and abdominal wall was then performed. The bladder was then released from the anterior abdominal wall using electrocautery. Once the bladder was dropped, the fat overlying the prostate was cleared using electrocautery. The superficial dorsal vein was controlled with electrocautery. The endopelvic fascia was opened on both sides and the dorsal venous complex was cleared. Next, a #0 Vicryl mwmezw-jc-wofmd stitch was placed around the dorsal venous complex. Once that was done, the bladder was opened and dissected away from the prostate. At this point, the prostate was lifted up. The vasa deferentia were identified in the midline. They were then ligated and transected. The seminal vesicles were also dissected off bilaterally. The rectum was safely mobilized away from the prostate. Of note, the prostate did appear more adherent to the rectum than normal and therefore dissecting the prostate off was a little more difficult. Bilateral prostatic pedicles were taken using the SynchroSeal. The pedicles were carried towards the apex. After taking care of the pedicles and mobilizing the rectum off the prostate below, the prostate was only connected by the urethra. At this point, the dorsal venous complex was transected with electrocautery. The urethra was then opened and the catheter was withdrawn and the posterior urethra was transected, thus freeing the prostate. At this point, we checked for hemostasis and it did appear very good. Next, we performed bilateral pelvic lymph node dissection. This was done in a standard fashion. The limits of dissection were the iliac vein proximally, the obturator nerve distally, the pelvic sidewall laterally, and the bladder medially. All lymphatic tissue within these limits was removed. I performed the same procedure on both the right and left sides. Hemostasis was then obtained with bipolar electrocautery. The lymphatic packets were then placed in separate Endo Catch bags for future retrieval. Once hemostasis was confirmed, I then moved on to perform the vesicourethral anastomosis. This was performed with a Quill stitch in a running fashion. Once this was done, the final #20-Armenian Lara catheter was placed. The balloon was filled with 15 mL of sterile water. Upon completion of the vesicourethral anastomosis, it was tested by filling the bladder with sterile saline water. The anastomosis appeared to be watertight. At this point, the prostate and seminal vesicles were placed in an Endo Catch bag for future retrieval. The robot was then undocked. A Inna fascial closure device was utilized to place a #0 Vicryl suture between the fascia of the 12 mm physiotherapy assistant port. At this point, a Romain- Jesus drain was brought in through the left robotic port skin site and the drain was positioned anterior to the bladder. The drain was secured to the skin with #2-0 Ethilon suture. Next, all the remaining ports were removed and there did not appear to be any bleeding from any of the port sites. The prostate, as well as the lymphatic packets were then extracted from the camera port site after the skin was extended. The fascia in this incision was then closed with a running #0 Vicryl stitch. The previously placed #0 Vicryl free ties through the physiotherapy assistant port were then tied down and all incisions were irrigated. Last, all of the incisions were closed with running subcuticular #4-0 Monocryl sutures. Local anesthesia was applied. Dermabond was then applied to the incisions. This marked the conclusion of the procedure. The patient was then taken out of the dorsal lithotomy position, awakened from anesthesia and transported to the recovery room in stable condition. ESTIMATED BLOOD LOSS: 125 mL. COMPLICATIONS: None. SPECIMENS: Prostate and seminal vesicles, right pelvic lymph nodes, left pelvic lymph nodes. PLAN: The patient will be admitted to the hospital postoperatively, and he will likely be discharged home within the next 1-2 days. BRANDO MANTILLA MD Jul 01, 2020 07:48
[2020-07-01 14:28] LABS: HEMATOCRIT 38.8 % (42.0-52.0); MEAN CORPUSCULAR HEMOGLOBIN 25.9 pg (27.0-33.0); MEAN CORPUSCULAR HGB CONC 30.9 g/dl (32.0-36.5); MEAN CORPUSCULAR VOLUME 83.6 fl (80.0-96.0); PLATELET COUNT, AUTOMATED 343 10^3/uL (150-450); RED BLOOD COUNT 4.64 10^6/uL (4.30-6.10); WHITE BLOOD COUNT 8.9 10^3/uL (4.0-10.0)
[2020-07-01] MEDS ORDERED: LR 1,000 ML IV SCH (14:30)
[2020-07-01] MEDS ORDERED: oxyCODONE 5MG TAB PO PRN (14:30)
[2020-07-01] MEDS ORDERED: fentaNYL 100 MCG/2 ML INJECTION (J3010) IV PRN (14:30)
[2020-07-01] MEDS ORDERED: METOCLOPRAMIDE INJ 10MG/2ML VIAL (J2765 PER 1) IV PRN (14:30)
[2020-07-01] MEDS ORDERED: MEPERIDINE INJ 25 MG/ML VIAL (J2175) IV PRN (14:30)
[2020-07-01 14:52] LABS: BLOOD UREA NITROGEN 10 MG/DL (7-18); CALCIUM LEVEL 8.8 MG/DL (8.8-10.2); CARBON DIOXIDE LEVEL 29 MEQ/L (21-32); CHLORIDE LEVEL 105 MEQ/L (98-107); CREATININE FOR GFR 1.36 MG/DL (0.70-1.30); GLOMERULAR FILTRATION RATE > 60.0 (>49); GLUCOSE, FASTING 143 MG/DL (70-100); POTASSIUM SERUM 4.3 MEQ/L (3.5-5.1); SODIUM LEVEL 140 MEQ/L (136-145)
[2020-07-01] MEDS: HEPARIN SOD (PORCINE) 5000UNITS/ML 1ML VIAL/SYRINGE SC SCH ×2 (15:37→21:15)
[2020-07-01] MEDS: DOCUSATE SODIUM 100MG CAPSULE PO SCH ×2 (15:38→21:13)
[2020-07-01] MEDS: GENTAMICIN 80 MG in IV 1 EA IV SCH ×2 (17:48→23:57)
[2020-07-01] MEDS ORDERED: VANCOMYCIN HCL 1,000 MG, VIAL MATE ADAPTER 1 EACH in D5W 250 ML IV SCH (20:00)
[2020-07-01] MEDS: AMITRIPTYLINE 10 MG TAB PO SCH (21:13)
[2020-07-01] MEDS: LATANOPROST 0.005% OPHTH SOLN 2.5 ML OU SCH (21:14)
[2020-07-01] MEDS: BRIMONIDINE 0.1% OPHTH SOLN 5 ML OU SCH (21:15)
[2020-07-01] MEDS: PERCOCET 5MG/325MG TAB PO PRN (21:17)
[2020-07-02] VITALS (7 sets, daily range): BP systolic 114–149; BP diastolic 68–88
[2020-07-02] MEDS: HEPARIN SOD (PORCINE) 5000UNITS/ML 1ML VIAL/SYRINGE SC SCH (06:12)
[2020-07-02 07:52] LABS: HEMATOCRIT 34.9 % (42.0-52.0); MEAN CORPUSCULAR HEMOGLOBIN 26.1 pg (27.0-33.0); MEAN CORPUSCULAR HGB CONC 31.5 g/dl (32.0-36.5); MEAN CORPUSCULAR VOLUME 82.7 fl (80.0-96.0); PLATELET COUNT, AUTOMATED 339 10^3/uL (150-450); RED BLOOD COUNT 4.22 10^6/uL (4.30-6.10); WHITE BLOOD COUNT 8.9 10^3/uL (4.0-10.0)
[2020-07-02] MEDS: PERCOCET 5MG/325MG TAB PO PRN ×2 (07:55→15:17)
--- NOTE | 2020-07-02 07:57 | IPNPDOC ---
Subjective Review oF Systems Chief Complaint The patient is a 60-year-old male admitted with a reason for visit of Prostate Cancer. Events since Last Encounter No acute events o/n. Pain controlled w/ oral pain meds. No n/v. Passing flatus. Has not ambulated yet. No f/c/ns. Objective Physical Examination General Exam: Alert, Cooperative, No Acute Distress ABDOMEN EXAM: Soft, Tenderness (mild), Other (incisions clean/dry/intact; OLINDA w/ serosanguinous output) Skin Exam: Nl turgor and temperature Neuro Exam: Normal Speech Psych Exam: Mental status NL, Mood NL Other physical findings catheter draining pink tinged urine Vital Signs/I&O Vital Signs Date Time Temp Pulse Resp B/P (MAP) Pulse Ox O2 Delivery O2 Flow Rate FiO2 07/02/20 06:00 97.7 66 16 119/73 (88) 96 Room Air 07/01/20 14:23 3.0 I&O- Last 24 Hours up to 6 AM 07/02/20 06:00 Intake Total 2950 ml Output Total 2703 ml Balance 247 ml Laboratory Data Labs 24H Laboratory Tests 2 07/01/20 13:54: Nucleated Red Blood Cells % (auto) 0.0, Anion Gap 6L, Glomerular Filtration Rate > 60.0, Calcium Level 8.8 07/02/20 07:33: CBC/BMP Laboratory Tests 07/01/20 13:54 Assessment/Plan Date Seen The patient was seen on 07/02/20. Patient Summary This is a 60 y/o M POD1 s/p RALP w/ BPLND. Morning labs pending. Good UOP. Normal OLINDA output. Plan/VTE VTE Prophylaxis Ordered?: Yes VTE Exclusion Mechanical Proph: N/A:VTE Prophy Ordered VTE Exclusion Pharmacological: N/A:VTE Prophy Ordered Plan/Urinary Catheter Urinary Catheter: Other Catheter: (catheter will need to stay for at least 7 days) Plan - d/c IVF - percocet prn pain - continue home meds except eliquis - strict I/Os - ambulate - SCDs when in bed - will start therapeutic lovenox if Hb this morning is stable - incentive spirometry - regular diet - anticipate discharge home in 1-2 days if no sign of bleeding once lovenox is started BRANDO MANTILLA MD Jul 02, 2020 07:56
[2020-07-02] MEDS: DOCUSATE SODIUM 100MG CAPSULE PO SCH ×2 (07:58→22:20)
[2020-07-02 08:09] LABS: BLOOD UREA NITROGEN 9 MG/DL (7-18); CALCIUM LEVEL 8.9 MG/DL (8.8-10.2); CARBON DIOXIDE LEVEL 28 MEQ/L (21-32); CHLORIDE LEVEL 106 MEQ/L (98-107); CREATININE FOR GFR 1.25 MG/DL (0.70-1.30); GLOMERULAR FILTRATION RATE > 60.0 (>49); GLUCOSE, FASTING 109 MG/DL (70-100); POTASSIUM SERUM 4.2 MEQ/L (3.5-5.1); SODIUM LEVEL 141 MEQ/L (136-145)
[2020-07-02] MEDS: ENOXAPARIN 100MG/1ML SYRINGE (J1650 PER 10MG) SC SCH (15:18)
[2020-07-02] MEDS ORDERED: SULF1TAB93 PO (18:52)
[2020-07-02] MEDS ORDERED: PERCOCET PO (18:52)
[2020-07-02] MEDS: BRIMONIDINE 0.1% OPHTH SOLN 5 ML OU SCH (22:16)
[2020-07-02] MEDS: LATANOPROST 0.005% OPHTH SOLN 2.5 ML OU SCH (22:17)
[2020-07-02] MEDS: AMITRIPTYLINE 10 MG TAB PO SCH (22:20)
[2020-07-03] VITALS (9 sets, daily range): BP systolic 68–154; BP diastolic 46–90
[2020-07-03] MEDS: ENOXAPARIN 100MG/1ML SYRINGE (J1650 PER 10MG) SC SCH ×2 (02:00→14:25)
[2020-07-03] MEDS ORDERED: NS 500 ML IV ONE (02:30)
[2020-07-03 02:49] LABS: HEMATOCRIT 33.8 % (42.0-52.0); HEMOGLOBIN 10.4 g/dl (13.5-17.5); MEAN CORPUSCULAR HEMOGLOBIN 25.9 pg (27.0-33.0); MEAN CORPUSCULAR HGB CONC 30.8 g/dl (32.0-36.5); MEAN CORPUSCULAR VOLUME 84.1 fl (80.0-96.0); PLATELET COUNT, AUTOMATED 326 10^3/uL (150-450); RED BLOOD COUNT 4.02 10^6/uL (4.30-6.10); WHITE BLOOD COUNT 6.4 10^3/uL (4.0-10.0)
[2020-07-03] MEDS ORDERED: SODIUM CHLORIDE 0.9% 1000ML IV SCH (03:00)
--- NOTE | 2020-07-03 03:41 | REPVR ---
PROCEDURE INFORMATION: Exam: CT Abdomen And Pelvis Without Contrast Exam date and time: 07/03/2020 2:20 AM Age: 60 years old Clinical indication: Abdominal pain; Generalized; Prior surgery; Surgery date: Post-operative (0-2 days); Surgery type: Robotic prostatectomy; Additional info: Low blood pressure TECHNIQUE: Imaging protocol: Computed tomography of the abdomen and pelvis without contrast. Radiation optimization: All CT scans at this facility use at least one of these dose optimization techniques: automated exposure control; mA and/or kV adjustment per patient size (includes targeted exams where dose is matched to clinical indication); or iterative reconstruction. COMPARISON: CT ABD PELVIS W/O CONTRAST 03/30/2019 12:01 AM FINDINGS: Tubes, catheters and devices: Intraperitoneal drain extending across the anterior pelvis. Lungs: Mild bibasilar fibro-atelectatic change, greatest in the lower lobes with minimal infiltrates. Liver: 11 mm low-attenuation area in the anterior liver and lobular low-attenuation focus in the posterior right hepatic lobe measuring 2.4 cm with a Hounsfield measurement of -1 consistent with a cyst. Gallbladder and bile ducts: Nondistended gallbladder with pericholecystic induration. No gallstones are seen. Pancreas: Slight distention of the distal pancreatic duct measuring 6 mm. Spleen: Normal. No splenomegaly. Adrenal glands: Normal. No mass. Kidneys and ureters: There is a left external iliac stent in position. Stomach and bowel: Unremarkable. No obstruction. No mucosal thickening. Appendix: A normal appendix is seen. Intraperitoneal space: Free air in the abdomen anterior to the liver. Vasculature: Right axillofemoral graft. There is minimal atherosclerotic calcification of the abdominal aorta. There is slight ectasia of the distal abdominal aorta measuring 31 mm with continued ectasia into the common iliac arteries which measure 24 mm on the right and 26 mm on the left. Interval removal of a fem-fem graft since the prior study. Lymph nodes: Unremarkable. No enlarged lymph nodes. Urinary bladder: There is a Lara catheter in the bladder. Reproductive: Unremarkable as visualized. Bones/joints: Sclerotic foci within the sternum of uncertain etiology. Cystic change in the superior right acetabulum consistent with degenerative change. Sclerotic focus in the right iliac wing adjacent to the right SI joint. Fusion of the SI joints bilaterally. There is a bone island in the left proximal femur. Soft tissues: There is gas within the left lateral abdominal wall musculature. IMPRESSION: 1. Evidence of recent surgery with gas in the left lateral abdominal wall and intraperitoneal drain extending across the low pelvis. There is minimal free air in the abdomen. 2. Mild bilateral lower lobe fibro-atelectatic change with minimal ground-glass infiltrates, increased since 03/30/2019. 3. There is a Lara catheter in the bladder. 4. Interval removal of a fem-fem graft since the prior study. A right axillofemoral graft remains and a left external iliac stent is again noted. There is persistent slight ectasia of the distal abdominal aorta and common iliac arteries. 5. Sclerotic foci in the right iliac wing adjacent to the SI joint and in the sternum. In view of prostatectomy, blastic metastases are not excluded. 6. Nondistended gallbladder with pericholecystic induration. No gallstones are seen. Cholecystitis is not excluded. 7. Slight distention of the distal pancreatic duct measuring 6 mm which may have been present on the prior study. Electronically signed by: Haris Ward On 07/03/2020 03:40:34 AM
[2020-07-03 04:19] LABS: ABG BASE EXCESS 1.2 (-2.0-2.0); ABG HCO3 25.6 MEQ/L (22.0-26.0); ABG O2 SATURATION 98.3 % (95.0-99.0); ABG PARTIAL PRESSURE CO2 39.7 mmHg (35.0-45.0); ABG PARTIAL PRESSURE O2 105.1 mmHg (75.0-100.0); ABG STANDARD HCO3 25.6 MEQ/L (22.0-26.0); ABG TOTAL CO2 26.8 MEQ/L (23.0-31.0); ABG pH (ARTERIAL) 7.427 UNITS (7.350-7.450)
[2020-07-03 04:44] LABS: NT-PRO BNP 193 PG/ML (<125); TROPONIN I < 0.02 NG/ML (< 0.10)
[2020-07-03 06:51] LABS: HEMOGLOBIN 10.9 g/dl (13.5-17.5); MEAN CORPUSCULAR HEMOGLOBIN 26.3 pg (27.0-33.0); MEAN CORPUSCULAR HGB CONC 31.1 g/dl (32.0-36.5); MEAN CORPUSCULAR VOLUME 84.3 fl (80.0-96.0); PLATELET COUNT, AUTOMATED 328 10^3/uL (150-450); RED BLOOD COUNT 4.15 10^6/uL (4.30-6.10); WHITE BLOOD COUNT 5.9 10^3/uL (4.0-10.0)
--- NOTE | 2020-07-03 06:56 | HPEPDOC ---
[facility] Medical History & Physical Date of Admission Jul 03, 2020 Date of Service: Jul 03, 2020 Attending Physician: BRANDO MANTILLA MD History and Physical TIME OF SERVICE: 350am REASON FOR CONSULT: hypotension HISTORY OF PRESENT ILLNESS: This 60 yr old underwent radical prostatectomy with bilateral pelvic lymph node dissection on Jul 01 to manage prostate CA. consulted me because the patient was hypotensive with an SBP in the 60s to 70s. At the time of my evaluation the patient denied having any pain, f/c or acute c/o. REVIEW OF SYSTEMS: 12-point review of systems negative except as listed in HPI PAST MEDICAL/ SURGICAL HISTORY: Prostate CA / radical prostatectomy with bilateral pelvic lymph node dissection HTN A fib HTN DLP OA Anxiety/depression TIA Neuropathy affecting the right foot SOCIAL HISTORY: Doesnt smoke or drink FAMILY HISTORY: ALLERGIES: Please see below. HOME MEDICATIONS: Please see below. PHYSICAL EXAMINATION: Vital Signs Date Time Temp Pulse Resp B/P (MAP) Pulse Ox O2 Delivery O2 Flow Rate FiO2 07/01/20 06:48 98.8 80 18 156/102 (120) 99 Room Air 07/01/20 13:45 3 GENERAL APPEARANCE: slim build / well developed/ NAD CARDIOVASCULAR: RRR/NMRG/ radial pulses intact/ capillary refill < 3 sec LUNGS: CTAB on RA ABDOMEN: flat, soft & NT MUSCULOSKELETAL: ROM Ix 4 NEUROLOGICAL: CN2-12 intact / speech not dysarthric PSYCHIATRIC: A&O LABORATORY DATA: 07/02/20 07:33 Nucleated Red Blood Cells % (auto) 0.0, Anion Gap 7L, Glomerular Filtration Rate > 60.0, Calcium Level 8.9 07/03/20 02:44: Nucleated Red Blood Cells % (auto) 0.0 07/03/20 03:55: Coronavirus (COVID-19)(PCR) NEGATIVE Lactic Acid Level 0.8, Troponin I < 0.02, TA-Nyp-H-Type Natriuretic Peptide 193H Blood Gas Bicarbonate Standard 25.6, Arterial Blood pH 7.427, Arterial Blood Partial Pressure CO2 39.7, Arterial Blood Partial Pressure O2 105.1H, Arterial Blood Total CO2 26.8, Arterial Blood HCO3 25.6, Arterial Blood Base Excess 1.2, Arterial Blood Oxygen Saturation 98.3 07/03/20 06:13: Bedside Glucose (Misc Panel) 88 07/03/20 06:24: Nucleated Red Blood Cells % (auto) 0.0 IMAGING: CT abd/pelvis IMPRESSION: 1. Evidence of recent surgery with gas in the left lateral abdominal wall and intraperitoneal drain extending across the low pelvis. There is minimal free air in the abdomen. 2. Mild bilateral lower lobe fibro-atelectatic change with minimal ground-glass infiltrates, increased since 03/30/2019. 3. There is a Lara catheter in the bladder. 4. Interval removal of a fem-fem graft since the prior study. A right axillofemoral graft remains and a left external iliac stent is again noted. There is persistent slight ectasia of the distal abdominal aorta and common iliac arteries. 5. Sclerotic foci in the right iliac wing adjacent to the SI joint and in the sternum. In view of prostatectomy, blastic metastases are not excluded. 6. Nondistended gallbladder with pericholecystic induration. No gallstones are seen. Cholecystitis is not excluded. 7. Slight distention of the distal pancreatic duct measuring 6 mm which may have been present on the prior study. MICROBIOLOGY: 07/03/20 Blood Culture, Received Pending 07/03/20 Blood Culture, Received Pending ASSESSMENT: is a 60 yr old w a hx of HTN, DLP, OA, Afib and prostate CA who underwent prostatectomy 2 days ago; we were consulted to see him bc of hypotension. PLAN: 1. Hypotension Plan: f/u EKG, CBC, BMP, Lactic, blood cx, UA, BNP, repeat Covid and chest xray /hold amlodipine Rest per Primary team. Thank you for consulting us we will continue to follow this patient along with you. Home Medications Scheduled Amitriptyline HCl (Amitriptyline HCl) 10 Mg Tablet, 10 MG PO QHS Apixaban (Eliquis) 5 Mg Tablet, 5 MG PO BID Brimonidine Tartrate (Alphagan P) 100 Drop/5 Ml Soln, 1 DROP OU DAILY Docusate Sodium (Stool Softener) 100 Mg Capsule, 100 MG PO QHS Latanoprost (Xalatan) 0.005 % Roopa, 1 DROP OU QHS Senna (Senna Lax) 8.6 Mg Tablet, 2 TAB PO BID Sulfamethoxazole/Trimethoprim (Sulfamethoxazole-Tmp Ds Tablet) 1 Each Tablet, 1 TAB PO DAILY Scheduled PRN Magnesium Hydroxide (Milk of Magnesia) 400 Mg/5 Ml Oral.susp, 30 ML PO DAILYPRN PRN for CONSTIPATION Oxycodone/Acetaminophen (Oxycodone-Acetaminophen 5-325) 1 Each Tablet, 1 TAB PO Q4H PRN for MODERATE/SEVERE PAIN (PS 5-10) Tizanidine HCl (Tizanidine HCl) 4 Mg Cap, 4 MG PO TID PRN for MUSCLE SPASMS Allergies Coded Allergies: Penicillins (Verified Allergy, Unknown, CHILDHOOD ALLERGY, 07/01/20) A-FIB/CHADSVASC A-FIB History Current/History of A-Fib/PAF?: No Current PO Anticoag Therapy: No ROLLY COLE MD Jul 03, 2020 06:56
[2020-07-03 07:06] LABS: BLOOD UREA NITROGEN 8 MG/DL (7-18); CALCIUM LEVEL 8.4 MG/DL (8.8-10.2); CARBON DIOXIDE LEVEL 29 MEQ/L (21-32); CHLORIDE LEVEL 107 MEQ/L (98-107); CREATININE FOR GFR 1.27 MG/DL (0.70-1.30); GLOMERULAR FILTRATION RATE > 60.0 (>49); GLUCOSE, FASTING 93 MG/DL (70-100); POTASSIUM SERUM 3.8 MEQ/L (3.5-5.1); SODIUM LEVEL 143 MEQ/L (136-145)
[2020-07-03] MEDS: BACTRIM 160MG/800MG DS TAB PO SCH (08:38)
[2020-07-03] MEDS: DOCUSATE SODIUM 100MG CAPSULE PO SCH ×2 (08:38→20:49)
[2020-07-03] MEDS: PERCOCET 5MG/325MG TAB PO PRN ×2 (08:56→20:51)
[2020-07-03] MEDS ORDERED: FLUBLOK(EGG FREE)(QUAD)INFLUENZA VACC 0.5ML SYRINGE 18YRS & OLDER IM ONE (09:00)
[2020-07-03] MEDS ORDERED: traMADol 50 MG TAB PO PRN (09:00)
--- NOTE | 2020-07-03 10:23 | ECGEPIP ---
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
[2020-07-03] MEDS ORDERED: NS 1,000 ML IV SCH (10:45)
--- NOTE | 2020-07-03 10:46 | IPNPDOC ---
Text Note Date of Service The patient was seen on 07/03/20. NOTE Subjective: Patient stated that he has pain in the lower abdomen 7 out of 10. Hematuria resolved Objective: GENERAL APPEARANCE: NAD HEENT: no scleral icterus, no JVD, EOMI CARDIOVASCULAR: Irregular irregular LUNGS: CTA ABDOMEN: Soft, Tenderness (mild), Other (incisions clean/dry/intact; OLINDA w/ serosanguineous output) MUSCULOSKELETAL: no cyanosis, no swelling INTEGUMENT: no generalized palor NEUROLOGICAL: cranial nerve function from 2-12 intact intact, follows commands, speech not dysarthric Assessment and plan This 60 yr old underwent radical prostatectomy with bilateral pelvic lymph node dissection on Jul 01 to manage prostate CA. consulted me because the patient was hypotensive with an SBP in the 60s to 70s. Hypotension Improved Low suspicion for sepsis Await blood culture Patient does not have leukocytosis Blood Pressure medications on hold IV fluid Status post radical prostatectomy Urologist team follows him Pain management A. fib Continue Lovenox therapeutic dose Heart rate is under control Hyperlipidemia Continue statin VS,Fishbone, I+O VS, Fishbone, I+O Laboratory Tests 07/03/20 02:44 07/03/20 06:24 Vital Signs Date Time Temp Pulse Resp B/P (MAP) Pulse Ox O2 Delivery O2 Flow Rate FiO2 07/03/20 09:30 18 07/03/20 06:00 97.5 67 101/65 (77) 97 Room Air 07/01/20 14:23 3.0 I&O- Last 24 Hours up to 6 AM 07/03/20 05:59 Intake Total 3710 ml Output Total 4029 ml Balance -319 ml CRISELDA LANGSTON DO Jul 03, 2020 10:46
--- NOTE | 2020-07-03 18:04 | IPNPDOC ---
Subjective Review oF Systems Chief Complaint The patient is a 60-year-old male admitted with a reason for visit of Prostate Cancer. Events since Last Encounter Pt became hypotensive about 2am after receiving his lovenox dose the evening before. Dr. Ybarra consulted on patient and found low suspicion of sepsis. No evidence of bleeding Constitutional: Denies: Fever, Chills, Sweats, Weakness, Malaise Eyes: Denies: Pain, Vision change ENT: Denies: Head Aches, Sore Throat, Epistaxis Skin: Denies: Rash, Lesions, Breakdown, Nail Changes Pulmonary: Denies: Dyspnea, Cough Cardiovascular: Denies Chest Pain, Denies Palpitations Hematologic: Denies: Bruising, Bleeding Excessively Endocrine: Denies: Polydipsia, Polyphagia, Polyuria Musculoskeletal: Denies: Neck Pain, Back Pain Objective Physical Examination General Exam: Alert, Cooperative, No Acute Distress Eye Exam: PERRLA, Conjunctiva & lids normal, EOMI; No: Sclera icteric ENT EXAM: Atraumatic, Mucous membr. moist/pink, Pharynx Normal Neck Exam: Supple; No: JVD, thyromegaly Chest Exam: Clear to auscultation, Normal air movement Heart Exam: Positive: Rate Normal, Regular Rhythm, Normal S1, Normal S2; Negative: Murmurs, Rubs Telemetry: No significant arrhythmia ABDOMEN EXAM: Soft, Tenderness (mild), Other (incisions clean/dry/intact; OLINDA w/ serosanguinous output) Skin Exam: Nl turgor and temperature Neuro Exam: Normal Speech Psych Exam: Mental status NL, Mood NL Vital Signs/I&O Vital Signs Date Time Temp Pulse Resp B/P (MAP) Pulse Ox O2 Delivery O2 Flow Rate FiO2 07/03/20 14:00 99.1 76 14 133/87 (102) 96 Room Air 07/01/20 14:23 3.0 I&O- Last 24 Hours up to 6 AM 07/03/20 06:00 Intake Total 3710 ml Output Total 4196 ml Balance -486 ml Laboratory Data Labs 24H Laboratory Tests 2 07/03/20 02:44: Nucleated Red Blood Cells % (auto) 0.0 07/03/20 03:55: Coronavirus (COVID-19)(PCR) NEGATIVE 07/03/20 03:58: Lactic Acid Level 0.8, Troponin I < 0.02, GB-Soh-P-Type Natriuretic Peptide 193H 07/03/20 04:12: Blood Gas Bicarbonate Standard 25.6, Arterial Blood pH 7.427, Arterial Blood Partial Pressure CO2 39.7, Arterial Blood Partial Pressure O2 105.1H, Arterial Blood Total CO2 26.8, Arterial Blood HCO3 25.6, Arterial Blood Base Excess 1.2, Arterial Blood Oxygen Saturation 98.3 07/03/20 06:13: Bedside Glucose (Misc Panel) 88 07/03/20 06:24: Nucleated Red Blood Cells % (auto) 0.0, Anion Gap 7L, Glomerular Filtration Rate > 60.0, Calcium Level 8.4L 07/03/20 08:32: Urine Color STRAW, Urine Appearance CLEAR, Urine pH 5.0, Urine Specific [place] 1.003, Urine Protein NEGATIVE, Urine Glucose (UA) NEGATIVE, Urine Ketones NEGATIVE, Urine Blood 3+H, Urine Nitrite NEGATIVE, Urine Bilirubin NEGATIVE, Urine Urobilinogen 0.2, Urine Leukocyte Esterase 1+H, Urine WBC (Auto) 12H, Urine RBC (Auto) TNTCH, Urine Hyaline Casts (Auto) 0, Urine Bacteria (Auto) 1+H, Urine Squamous Epithelial Cells 0, Urine Amorphous Sediment SMALLH, Urine Mucus (Auto) SMALL, Urine Sperm (Auto) 07/03/20 11:41: Bedside Glucose (Misc Panel) 116H 07/03/20 16:39: Bedside Glucose (Misc Panel) 93 CBC/BMP Laboratory Tests 07/03/20 02:44 07/03/20 06:24 FSBS Laboratory Tests Test 07/03/20 06:13 07/03/20 11:41 07/03/20 16:39 Range/Units Bedside Glucose (Misc Panel) 88 116 93 80-115 MG/DL Microbiology Microbiology 07/03/20 Urine Culture, Received Pending 07/03/20 Blood Culture, Received Pending 07/03/20 Blood Culture, Received Pending Assessment/Plan Date Seen The patient was seen on 07/03/20. Patient Summary Since early this AM, Pt's BP has been stable. No hematuria and low amount of drainage from OLINDA drain. No evidence of bleeding and no evidence of sepsis. CT was benign. Will continue lovenox Hopefully will be able to be discharged tomorrow, or maybe sunday. Waiting for blood culture results. Plan/VTE VTE Prophylaxis Ordered?: Yes VTE Exclusion Mechanical Proph: N/A:VTE Prophy Ordered VTE Exclusion Pharmacological: N/A:VTE Prophy Ordered Plan/Urinary Catheter Urinary Catheter: Other Catheter: (catheter will need to stay for at least 7 days) Plan Waiting for blood culture results. Possible rdischarge tomorrow. Continue JADON James MD Jul 03, 2020 17:58
[2020-07-03] MEDS: AMITRIPTYLINE 10 MG TAB PO SCH (20:49)
[2020-07-03] MEDS: BRIMONIDINE 0.1% OPHTH SOLN 5 ML OU SCH (20:51)
[2020-07-03] MEDS: LATANOPROST 0.005% OPHTH SOLN 2.5 ML OU SCH (20:52)
[2020-07-04] MEDS: ENOXAPARIN 100MG/1ML SYRINGE (J1650 PER 10MG) SC SCH ×2 (02:52→14:23)
[2020-07-04 06:00] VITALS: BP 162/86
[2020-07-04 06:57] LABS: HEMATOCRIT 40.3 % (42.0-52.0); HEMOGLOBIN 12.4 g/dl (13.5-17.5); MEAN CORPUSCULAR HEMOGLOBIN 25.6 pg (27.0-33.0); MEAN CORPUSCULAR HGB CONC 30.8 g/dl (32.0-36.5); MEAN CORPUSCULAR VOLUME 83.3 fl (80.0-96.0); PLATELET COUNT, AUTOMATED 390 10^3/uL (150-450); RED BLOOD COUNT 4.84 10^6/uL (4.30-6.10); WHITE BLOOD COUNT 5.9 10^3/uL (4.0-10.0)
[2020-07-04 07:16] LABS: BLOOD UREA NITROGEN 8 MG/DL (7-18); CALCIUM LEVEL 8.8 MG/DL (8.8-10.2); CARBON DIOXIDE LEVEL 28 MEQ/L (21-32); CHLORIDE LEVEL 105 MEQ/L (98-107); CREATININE FOR GFR 1.23 MG/DL (0.70-1.30); GLOMERULAR FILTRATION RATE > 60.0 (>49); GLUCOSE, FASTING 93 MG/DL (70-100); POTASSIUM SERUM 3.6 MEQ/L (3.5-5.1); SODIUM LEVEL 142 MEQ/L (136-145)
[2020-07-04] MEDS: DOCUSATE SODIUM 100MG CAPSULE PO SCH ×2 (09:27→20:11)
[2020-07-04] MEDS: BACTRIM 160MG/800MG DS TAB PO SCH (09:27)
[2020-07-04] MEDS: PERCOCET 5MG/325MG TAB PO PRN ×2 (09:28→20:11)
--- NOTE | 2020-07-04 09:42 | IPNPDOC ---
Text Note Date of Service The patient was seen on 07/04/20. NOTE Subjective: Patient is a 60-year-old male with a PMHx of Prostate CA (s/p radical prostatectomy with bilateral pelvic lymph node dissection), HTN, A fib, DLP, Hx of TIA, Anxiety/depression, OA, Neuropathy , who presented to [facility] for a radical prostatectomy / LN dissection on 07/01 with . Patient was admitted to the urologic service and hospitalist service was consulted for hypotension. Patient was seen and examined at the bedside. Patient continues to report some abdominal discomfort. Denies any nausea, vomiting, diarrhea. Has Lara catheter placed. Denies chest pain, shortness breath or palpitations. Objective: Vitals (See below) General: Lying in bed, does not appear to be in any significant distress, AAOx3 HEENT: NC, AT CVS: +S1S2 Lungs: air entry is fair bilaterally without any auscultated rhonchi, crackles or wheezing Abdomen: Soft, mild tenderness noted in the lower portions of his abdomen, no distention Extremities: - Edema, - Calf tenderness Imaging: CT abdomen / pelvis 07/03: 1. Evidence of recent surgery with gas in the left lateral abdominal wall and intraperitoneal drain extending across the low pelvis. There is minimal free air in the abdomen. 2. Mild bilateral lower lobe fibro-atelectatic change with minimal ground-glass infiltrates, increased since 03/30/2019. 3. There is a Lara catheter in the bladder. 4. Interval removal of a fem-fem graft since the prior study. A right axillofemoral graft remains and a left external iliac stent is again noted. There is persistent slight ectasia of the distal abdominal aorta and common iliac arteries. 5. Sclerotic foci in the right iliac wing adjacent to the SI joint and in the sternum. In view of prostatectomy, blastic metastases are not excluded. 6. Nondistended gallbladder with pericholecystic induration. No gallstones are seen. Cholecystitis is not excluded. 7. Slight distention of the distal pancreatic duct measuring 6 mm which may have been present on the prior study. Assessment and plan: s/p Hypotension - Hemodynamically stable and afebrile for 24 hours - No leukocytosis or lactic acidosis - Urine cultures 07/03: No growth - Blood cultures 07/03: No growth at 24 hours - CT imaging noted above - s/p IV fluids - Patient is currently on Bactrim post urologic procedure s/p Radical prostatectomy / LN dissection - Currently being managed by primary urologic team [address] - Currently not on any rate and rhythm control medications - Continue with Lovenox therapeutic dosing, twice a day; will resume Eliquis on discharge DVT prophylaxis - c/w Lovenox (therapeutic dosing); will resume Eliquis on discharge Disposition: - Will work with PT today (HSE) [facility], I+O [facility] I+O Laboratory Tests 07/04/20 06:23 Vital Signs Date Time Temp Pulse Resp B/P (MAP) Pulse Ox O2 Delivery O2 Flow Rate FiO2 07/04/20 06:00 99.7 85 15 162/86 (111) 96 07/03/20 21:21 Room Air 07/01/20 14:23 3.0 I&O- Last 24 Hours up to 6 AM 07/04/20 06:00 Intake Total 1440 ml Output Total 3880 ml Balance -2440 ml JESSICA SALDAÑA MD Jul 04, 2020 09:42
[2020-07-04 10:00] VITALS: BP 138/84
--- NOTE | 2020-07-04 11:33 | IPNPDOC ---
Subjective Review oF Systems Chief Complaint The patient is a 60-year-old male admitted with a reason for visit of Prostate Cancer. General: Reports: Normal Appetite; Denies: Fatigue, Malaise Constitutional: Denies: Fever, Chills, Sweats, Weakness, Malaise Eyes: Denies: Pain, Vision change ENT: Denies: Head Aches, Sore Throat, Epistaxis Skin: Denies: Rash, Lesions, Breakdown, Nail Changes Pulmonary: Denies: Dyspnea, Cough Cardiovascular: Denies Chest Pain, Denies Palpitations Gastrointestinal: Denies: Nausea, Vomiting, Abdominal Pain Genitourinary: Denies: Dysuria, Frequency, Incontinence, Hematuria Hematologic: Denies: Bruising, Bleeding Excessively Endocrine: Denies: Polydipsia, Polyphagia, Polyuria Musculoskeletal: Denies: Neck Pain, Back Pain Neurological: Denies: Weakness, Numbness, Incoordination, Change in Speech Psych: Reports: Mood Normal; Denies: Anxiety, Depression Objective Physical Examination General Exam: Alert, Cooperative, No Acute Distress Eye Exam: PERRLA, Conjunctiva & lids normal, EOMI; No: Sclera icteric ENT EXAM: Atraumatic, Mucous membr. moist/pink, Pharynx Normal Neck Exam: Supple; No: JVD, thyromegaly Chest Exam: Clear to auscultation, Normal air movement Heart Exam: Positive: Rate Normal, Regular Rhythm, Normal S1, Normal S2; Negative: Murmurs, Rubs Telemetry: No significant arrhythmia ABDOMEN EXAM: Soft, Tenderness (mild), Other (incisions clean/dry/intact; OLINDA w/ serosanguinous output) Skin Exam: Nl turgor and temperature Neuro Exam: Normal Speech Psych Exam: Mental status NL, Mood NL Vital Signs/I&O Vital Signs Date Time Temp Pulse Resp B/P (MAP) Pulse Ox O2 Delivery O2 Flow Rate FiO2 07/04/20 10:00 98.5 116 16 138/84 (102) 97 Room Air 07/01/20 14:23 3.0 I&O- Last 24 Hours up to 6 AM 07/04/20 06:00 Intake Total 1440 ml Output Total 3880 ml Balance -2440 ml Laboratory Data Labs 24H Laboratory Tests 2 07/03/20 11:41: Bedside Glucose (Misc Panel) 116H 07/03/20 16:39: Bedside Glucose (Misc Panel) 93 07/04/20 06:23: Nucleated Red Blood Cells % (auto) 0.0, Anion Gap 9, Glomerular Filtration Rate > 60.0, Calcium Level 8.8 CBC/BMP Laboratory Tests 07/04/20 06:23 FSBS Laboratory Tests Test 07/03/20 11:41 07/03/20 16:39 Range/Units Bedside Glucose (Misc Panel) 116 93 80-115 MG/DL Microbiology Microbiology 07/03/20 Urine Culture - Final, Complete 07/03/20 Blood Culture - Preliminary, Resulted No growth after 24 hours . All specim... 07/03/20 Blood Culture - Preliminary, Resulted No growth after 24 hours . All specim... Assessment/Plan Date Seen The patient was seen on 07/04/20. Patient Summary Blood count is stable Patient is comfortable. Not cleared for discharge by medicine today, will wait 24 more hours to confirm stability. Plan/VTE VTE Prophylaxis Ordered?: Yes VTE Exclusion Mechanical Proph: N/A:VTE Prophy Ordered VTE Exclusion Pharmacological: N/A:VTE Prophy Ordered Plan/Urinary Catheter Urinary Catheter: Other Catheter: (catheter will need to stay for at least 7 days) JADON PERERA MD Jul 04, 2020 11:33
[2020-07-04 14:00] VITALS: BP 140/70
--- NOTE | 2020-07-04 17:46 | REP ---
INDICATION: hypotension COMPARISON: 12/25/2018 TECHNIQUE: Portable AP view of the chest FINDINGS: The mediastinum and cardiac silhouette are stable and within normal limits for portable technique. The lung krueger demonstrate chronic interstitial changes without acute consolidation, effusion, or pneumothorax. Skeletal structures are intact. IMPRESSION: No acute cardiopulmonary process appreciated. <Electronically signed by Demetrius Aceves > 07/04/20 [id number]
[2020-07-04 18:00] VITALS: BP 119/84
[2020-07-04] MEDS: AMITRIPTYLINE 10 MG TAB PO SCH (20:11)
[2020-07-04] MEDS: BRIMONIDINE 0.1% OPHTH SOLN 5 ML OU SCH (20:12)
[2020-07-04] MEDS: LATANOPROST 0.005% OPHTH SOLN 2.5 ML OU SCH (20:12)
[2020-07-04 22:00] VITALS: BP 112/82
[2020-07-05] VITALS: BP 133/82
[2020-07-05] MEDS ORDERED: ENOXAPARIN 80MG/0.8ML SYRINGE (J1650 PER 10MG) SC SCH
[2020-07-05 02:00] VITALS: BP 130/85
[2020-07-05] MEDS: PERCOCET 5MG/325MG TAB PO PRN ×2 (05:30→11:57)
[2020-07-05 06:00] VITALS: BP 139/84
[2020-07-05 06:30] LABS: HEMATOCRIT 41.1 % (42.0-52.0); HEMOGLOBIN 12.9 g/dl (13.5-17.5); MEAN CORPUSCULAR HEMOGLOBIN 26.5 pg (27.0-33.0); MEAN CORPUSCULAR HGB CONC 31.4 g/dl (32.0-36.5); MEAN CORPUSCULAR VOLUME 84.6 fl (80.0-96.0); PLATELET COUNT, AUTOMATED 409 10^3/uL (150-450); RED BLOOD COUNT 4.86 10^6/uL (4.30-6.10); WHITE BLOOD COUNT 5.3 10^3/uL (4.0-10.0)
[2020-07-05 06:57] LABS: BLOOD UREA NITROGEN 8 MG/DL (7-18); CARBON DIOXIDE LEVEL 31 MEQ/L (21-32); CHLORIDE LEVEL 102 MEQ/L (98-107); CREATININE FOR GFR 1.35 MG/DL (0.70-1.30); GLOMERULAR FILTRATION RATE > 60.0 (>49); GLUCOSE, FASTING 92 MG/DL (70-100); POTASSIUM SERUM 3.5 MEQ/L (3.5-5.1); SODIUM LEVEL 141 MEQ/L (136-145)
[2020-07-05] MEDS ORDERED: NS 500 ML IV ONE (07:15)
[2020-07-05] MEDS: BACTRIM 160MG/800MG DS TAB PO SCH (08:41)
[2020-07-05] MEDS: DOCUSATE SODIUM 100MG CAPSULE PO SCH (08:41)
--- NOTE | 2020-07-05 08:43 | DS.PDOC ---
Discharge Summary General Date of Admission Jul 01, 2020 at 05:59 Date of Discharge 07/05/20 Attending Physician: BRANDO MANTILLA MD Discharge Summary PROCEDURES PERFORMED DURING STAY: Robot assisted Lap Prostatectomy ADMITTING DIAGNOSES: 1. Prostate cancer DISCHARGE DIAGNOSES: 1. Prostate ancer COMPLICATIONS/CHIEF COMPLAINT: Prostate Cancer. HISTORY OF PRESENT ILLNESS: Bipsy proven prostate cancer. Admitted for radical prostatectomy HOSPITAL COURSE: Patient had a drop in blood pressure after Lovenox was started, but he has been stable since that short episode. Dct stable and rising, Blood pressure now stable, OLINDA drainage slowing, Blood and urine cultures negative DISCHARGE MEDICATIONS: Please see below. ALLERGIES: Please see below. PHYSICAL EXAMINATION ON DISCHARGE: VITAL SIGNS: Please see below. GENERAL: Comfortable, ambulating, PO well HEENT: WNL NECK: WNL CARDIOVASCULAR EXAMINATION: WNL RESPIRATORY EXAMINATION: Clear ABDOMINAL EXAMINATION: Benign EXTREMITIES: FROM SKIN: Normal NEUROLOGICAL EXAMINATION: PSYCHIATRIC EXAMINATION: LABORATORY DATA: Please see below. IMAGING: CT negative for collections PROGNOSIS: Good, pathology pending ACTIVITY: [As tolerated]. DIET: Regular DISCHARGE PLAN: Home today, followup as scheduled by office DISPOSITION: Discharge to home DISCHARGE INSTRUCTIONS: 1. Instructions given ITEMS TO FOLLOWUP ON ON OUTPATIENT: 1. . DISCHARGE CONDITION: [Stable]. TIME SPENT ON DISCHARGE: Greater than 30 minutes. Vital Signs/I&Os Vital Signs Date Time Temp Pulse Resp B/P (MAP) Pulse Ox O2 Delivery O2 Flow Rate FiO2 07/05/20 06:00 18 07/05/20 06:00 98.4 78 139/84 (102) 94 Room Air 07/01/20 14:23 3.0 I&O- Last 24 Hours up to 6 AM 07/05/20 06:00 Intake Total 1540 ml Output Total 1625 ml Balance -85 ml Laboratory Data Labs 24H Laboratory Tests 2 07/05/20 05:21: Nucleated Red Blood Cells % (auto) 0.0, Anion Gap 8, Glomerular Filtration Rate > 60.0, Calcium Level 9.0 CBC/BMP Laboratory Tests 07/05/20 05:21 Microbiology Microbiology 07/03/20 Urine Culture - Final, Complete 07/03/20 Blood Culture - Preliminary, Resulted No Growth after 48 hours. All Specime... 07/03/20 Blood Culture - Preliminary, Resulted No Growth after 48 hours. All Specime... Discharge Medications Scheduled Amitriptyline HCl (Amitriptyline HCl) 10 Mg Tablet, 10 MG PO QHS, (Reported) Apixaban (Eliquis) 5 Mg Tablet, 5 MG PO BID Brimonidine Tartrate (Alphagan P) 100 Drop/5 Ml Soln, 1 DROP OU DAILY, (Reported) Docusate Sodium (Stool Softener) 100 Mg Capsule, 100 MG PO QHS, (Reported) Latanoprost (Xalatan) 0.005 % Roopa, 1 DROP OU QHS, (Reported) Senna (Senna Lax) 8.6 Mg Tablet, 2 TAB PO BID Sulfamethoxazole/Trimethoprim (Sulfamethoxazole-Tmp Ds Tablet) 1 Each Tablet, 1 TAB PO DAILY Scheduled PRN Magnesium Hydroxide (Milk of Magnesia) 400 Mg/5 Ml Oral.susp, 30 ML PO DAILYPRN PRN for CONSTIPATION Oxycodone/Acetaminophen (Oxycodone-Acetaminophen 5-325) 1 Each Tablet, 1 TAB PO Q4H PRN for MODERATE/SEVERE PAIN (PS 5-10) Tizanidine HCl (Tizanidine HCl) 4 Mg Cap, 4 MG PO TID PRN for MUSCLE SPASMS, (Reported) Allergies Coded Allergies: Penicillins (Verified Allergy, Unknown, CHILDHOOD ALLERGY, 07/01/20) JADON PERERA MD Jul 05, 2020 08:43
--- NOTE | 2020-07-05 09:43 | IPNPDOC ---
Text Note Date of Service The patient was seen on 07/05/20. NOTE Subjective: Patient is a 60-year-old male with a PMHx of Prostate CA (s/p radical prostatectomy with bilateral pelvic lymph node dissection), HTN, A fib, DLP, Hx of TIA, Anxiety/depression, OA, Neuropathy , who presented to [facility] for a radical prostatectomy / LN dissection on 07/01 with . Patient was admitted to the urologic service and hospitalist service was consulted for hypotension. Patient was seen and examined at the bedside. Patient reports that his abdominal pain is doing better. Has not experience any nausea, vomiting, chest pain, shortness breath or palpitations. Patient does report the ability to pass gas. Denies any recent bowel movements. Patient has a Lara catheter in place Objective: Vitals (See below) General: Lying in bed, does not appear to be in any significant distress, AAOx3 HEENT: NC, AT CVS: +S1S2 Lungs: air entry is fair bilaterally without any auscultated rhonchi, crackles or wheezing Abdomen: Soft, mild tenderness noted in the lower portions of his abdomen, no distention Extremities: - Edema, - Calf tenderness Imaging: CT abdomen / pelvis 07/03: 1. Evidence of recent surgery with gas in the left lateral abdominal wall and intraperitoneal drain extending across the low pelvis. There is minimal free air in the abdomen. 2. Mild bilateral lower lobe fibro-atelectatic change with minimal ground-glass infiltrates, increased since 03/30/2019. 3. There is a Lara catheter in the bladder. 4. Interval removal of a fem-fem graft since the prior study. A right axillofemoral graft remains and a left external iliac stent is again noted. There is persistent slight ectasia of the distal abdominal aorta and common iliac arteries. 5. Sclerotic foci in the right iliac wing adjacent to the SI joint and in the sternum. In view of prostatectomy, blastic metastases are not excluded. 6. Nondistended gallbladder with pericholecystic induration. No gallstones are seen. Cholecystitis is not excluded. 7. Slight distention of the distal pancreatic duct measuring 6 mm which may have been present on the prior study. Assessment and plan: s/p Hypotension - Remains hemodynamically stable / afebrile - No leukocytosis or lactic acidosis - Urine cultures 07/03: No growth - Blood cultures 07/03: No growth at 48 hours - CT imaging noted above - Improved with fluids - Patient is currently on Bactrim post urologic procedure Elevated Cr on CKD3 - Baseline creatinine approximately 1.1-1.2 - Creatinine slightly above baseline - Provide IV fluid hydration and encourage increased oral intake of fluids s/p Radical prostatectomy / LN dissection - Currently being managed by primary urologic team [address] - Currently not on any rate and rhythm control medications - Continue with Lovenox therapeutic dosing, twice a day; will resume Eliquis on discharge DVT prophylaxis - c/w Lovenox (therapeutic dosing); will resume Eliquis on discharge Disposition: - Anticipate discharge home today VS,Fishbone, I+O VS, Fishbone, I+O Laboratory Tests 07/05/20 05:21 Vital Signs Date Time Temp Pulse Resp B/P (MAP) Pulse Ox O2 Delivery O2 Flow Rate FiO2 07/05/20 06:00 18 07/05/20 06:00 98.4 78 139/84 (102) 94 Room Air 07/01/20 14:23 3.0 I&O- Last 24 Hours up to 6 AM 07/05/20 06:00 Intake Total 1540 ml Output Total 1625 ml Balance -85 ml JESSICA SALDAÑA MD Jul 05, 2020 09:43
--- NOTE | 2020-07-05 09:48 | DS.PDOC ---
Discharge Summary General Date of Admission Jul 01, 2020 at 05:59 Date of Discharge 07/05/2020 Discharge Summary PROCEDURES PERFORMED DURING STAY: 07/01/20: Robotic-assisted laparoscopic radical prostatectomy with bilateral pelvic lymph node dissection with Dr. Liz Munoz ADMITTING DIAGNOSES / DISCHARGE DIAGNOSES: s/p Hypotension Elevated Cr on CKD3 s/p Radical prostatectomy / LN dissection ADebby fib DVT prophylaxis COMPLICATIONS/CHIEF COMPLAINT: Prostate Cancer. HISTORY OF PRESENT ILLNESS: Patient is a 60-year-old male with a PMHx of Prostate CA (s/p radical prostatectomy with bilateral pelvic lymph node dissection), HTN, A fib, DLP, Hx of TIA, Anxiety/depression, OA, Neuropathy , who presented to [facility] for a radical prostatectomy / LN dissection on 07/01 with . Patient was admitted to the urologic service and hospitalist service was consulted for hypotension. HOSPITAL COURSE: s/p Hypotension - Remains hemodynamically stable / afebrile - No leukocytosis or lactic acidosis - Urine cultures 07/03: No growth - Blood cultures 07/03: No growth at 48 hours - CT imaging noted above - Improved with fluids - Patient is currently on Bactrim post urologic procedure Elevated Cr on CKD3 - Baseline creatinine approximately 1.1-1.2 - Creatinine slightly above baseline - Provide IV fluid hydration and encourage increased oral intake of fluids s/p Radical prostatectomy / LN dissection - Currently being managed by primary urologic team [address] - Currently not on any rate and rhythm control medications - Continue with Lovenox therapeutic dosing, twice a day; will resume Eliquis on discharge DVT prophylaxis - c/w Lovenox (therapeutic dosing); will resume Eliquis on discharge DISCHARGE MEDICATIONS: Please see below. ALLERGIES: Please see below. PHYSICAL EXAMINATION ON DISCHARGE: Vitals (See below) General: Lying in bed, appears comfortable, AAOx3 HEENT: NC, AT CVS: +S1S2 Lungs: There appears to be fair air entry bilaterally without any appreciable rhonchi, crackles or wheezing Abdomen: Soft, no significant tenderness appreciated Extremities: No evidence of edema, - Calf tenderness LABORATORY DATA: Please see below. IMAGING: CT abdomen / pelvis 07/03: 1. Evidence of recent surgery with gas in the left lateral abdominal wall and intraperitoneal drain extending across the low pelvis. There is minimal free air in the abdomen. 2. Mild bilateral lower lobe fibro-atelectatic change with minimal ground-glass infiltrates, increased since 03/30/2019. 3. There is a Lara catheter in the bladder. 4. Interval removal of a fem-fem graft since the prior study. A right axillofemoral graft remains and a left external iliac stent is again noted. There is persistent slight ectasia of the distal abdominal aorta and common iliac arteries. 5. Sclerotic foci in the right iliac wing adjacent to the SI joint and in the sternum. In view of prostatectomy, blastic metastases are not excluded. 6. Nondistended gallbladder with pericholecystic induration. No gallstones are seen. Cholecystitis is not excluded. 7. Slight distention of the distal pancreatic duct measuring 6 mm which may have been present on the prior study. ACTIVITY: [As tolerated]. DISCHARGE PLAN: Follow-up with primary care provider, and urology within the next 7 days Remain compliant with treatment plan and medications Return to the ER if you experience any problems DISPOSITION: Home with services DISCHARGE CONDITION: [Stable]. TIME SPENT ON DISCHARGE: 35 minutes. Vital Signs/I&Os Vital Signs Date Time Temp Pulse Resp B/P (MAP) Pulse Ox O2 Delivery O2 Flow Rate FiO2 07/05/20 06:00 18 07/05/20 06:00 98.4 78 139/84 (102) 94 Room Air 07/01/20 14:23 3.0 I&O- Last 24 Hours up to 6 AM 07/05/20 06:00 Intake Total 1540 ml Output Total 1625 ml Balance -85 ml Laboratory Data Labs 24H Laboratory Tests 2 07/05/20 05:21: Nucleated Red Blood Cells % (auto) 0.0, Anion Gap 8, Glomerular Filtration Rate > 60.0, Calcium Level 9.0 CBC/BMP Laboratory Tests 07/05/20 05:21 Microbiology Microbiology 07/03/20 Urine Culture - Final, Complete 07/03/20 Blood Culture - Preliminary, Resulted No Growth after 48 hours. All Specime... 07/03/20 Blood Culture - Preliminary, Resulted No Growth after 48 hours. All Specime... Discharge Medications Scheduled Amitriptyline HCl (Amitriptyline HCl) 10 Mg Tablet, 10 MG PO QHS, (Reported) Apixaban (Eliquis) 5 Mg Tablet, 5 MG PO BID Brimonidine Tartrate (Alphagan P) 100 Drop/5 Ml Soln, 1 DROP OU DAILY, (Reported) Docusate Sodium (Stool Softener) 100 Mg Capsule, 100 MG PO QHS, (Reported) Latanoprost (Xalatan) 0.005 % Roopa, 1 DROP OU QHS, (Reported) Senna (Senna Lax) 8.6 Mg Tablet, 2 TAB PO BID Sulfamethoxazole/Trimethoprim (Sulfamethoxazole-Tmp Ds Tablet) 1 Each Tablet, 1 TAB PO DAILY Scheduled PRN Magnesium Hydroxide (Milk of Magnesia) 400 Mg/5 Ml Oral.susp, 30 ML PO DAILYPRN PRN for CONSTIPATION Oxycodone/Acetaminophen (Oxycodone-Acetaminophen 5-325) 1 Each Tablet, 1 TAB PO Q4H PRN for MODERATE/SEVERE PAIN (PS 5-10) Tizanidine HCl (Tizanidine HCl) 4 Mg Cap, 4 MG PO TID PRN for MUSCLE SPASMS, (Reported) Allergies Coded Allergies: Penicillins (Verified Allergy, Unknown, CHILDHOOD ALLERGY, 07/01/20) JESSICA SALDAÑA MD Jul 05, 2020 09:48
[2020-07-05 10:00] VITALS: BP_SYST 148; BP_SYST 152; BP_DIAS 85; BP_DIAS 98
== END 2020-07-05 14:14 | disposition home or self-care (01) | DRG 484 ==
LOC: M OR 05:59 → M MSPAV 14:36
PROVIDERS: ADMIT Urology; ATTEND Internal Medicine
PROC: 07BC4ZX Excision of Pelvis Lymphatic, Percutaneous Endoscopic Approach, Diagnostic (ICD-10-PCS; 2020-07-01)
PROC: 8E0W4CZ Robotic Assisted Procedure of Trunk Region, Percutaneous Endoscopic Approach (ICD-10-PCS; 2020-07-01)
PROC: 0VT04ZZ Resection of Prostate, Percutaneous Endoscopic Approach (ICD-10-PCS; principal; 2020-07-01 07:30)
DX: C61 Malignant neoplasm of prostate (principal); I95.89 Other hypotension; I48.91 Unspecified atrial fibrillation; I12.9 Hypertensive chronic kidney disease with stage 1 through stage 4 chronic kidney disease, or unspecified chronic kidney disease; F32.9 Major depressive disorder, single episode, unspecified; G57.91 Unspecified mononeuropathy of right lower limb; N18.30 Chronic kidney disease, stage 3 unspecified; E78.5 Hyperlipidemia, unspecified; F41.9 Anxiety disorder, unspecified; Z86.73 Personal history of transient ischemic attack (TIA), and cerebral infarction without residual deficits; Z79.01 Long term (current) use of anticoagulants; Z79.899 Other long term (current) drug therapy; Z88.0 Allergy status to penicillin

== ENCOUNTER 2021-01-24 00:58 | Emergency (ER) | payer MEDICAID, OTHER ==
[~2021-01-24] VITALS: Ht 185.4 cm; Wt 70.5 kg
[~2021-01-24 00:58] MED LIST changes: +BACTDSTA PO
[2021-01-24 00:59] VITALS: BP 149/90
== END 2021-01-24 05:51 | disposition left against medical advice (07) ==
LOC: M ED 00:58
DX: Z53.29 Procedure and treatment not carried out because of patient's decision for other reasons (principal)